=== PATIENT | female | born 1995 | race Caucasian/White ===

== ENCOUNTER 2018-05-26 09:14 | Emergency (ER) | payer OTHER, SELFPAY ==
[2018-05-26 09:15] VITALS: BP 148/86; PULSE 103; RESP 18; TEMP 36.7; O2SAT 100; BMI 23.6
--- NOTE | 2018-05-26 09:38 | ED.DCSUM_ITS ---
- ER Visit Summary Date of Service: 05/26/18 Chief Complaint: Area and now bloody stool History of Present Illness: The patient is a 23 F no significant past medical history. Has had prior upper endoscopy but no colonoscopy. States that she has had diarrhea for several days. And now has small amount of blood mixed with her stool. She denies being lightheaded or dizzy. No vomiting. She was seen in the area urgent care recently diagnosed with viral gastroenteritis. She denies any prior GI bleed. She is on no blood thinners. Physical Examination: Well-appearing young female. Vital signs are stable. She is afebrile. She does not look septic or toxic. She is in no distress she does not look dehydrated. HEENT exam unremarkable. Moist mucous membranes. Neck nontender. No lymphadenopathy. Lungs clear to auscultation bilaterally. Heart regular rhythm no murmur. Abdomen is soft and nontender. Normal bowel sounds no peritoneal signs. She is moving all 4 extremities. Neurovascular intact. Skin unremarkable. No petechiae or bruising. Neurologically she is awake and alert. Back is nontender. Test Results: CBC shows white count of 7. Hemoglobin 12.6. No acute abnormality. No old one available for comparison. Emergency Department Course and Treatment: Patient had some diarrhea now with very minimal sounding rectal bleeding. Treatment Plan: Repeat exam the patient is doing well at 1040. She will be discharged home. Follow-up with her primary care physician if bleeding does not resolve. Disposition: Discharge Impression: Viral syndrome with diarrhea Rectal bleeding of uncertain etiology This note was generated with [employer] dictation software. It may contain incorrect words, spelling, and punctuation that were not noted in review of the chart prior to signing ED Disposition - Plan for ED Patient: Chief Complaint: Diarrhea Referrals: Jordan Flower MD [Primary Care Provider] -
[2018-05-26 10:06] LABS: Absolute Lymphocyte Count 1.24 X10^3/ul (0.83-4.51); Basophil# 0.04 X10^3/uL; Basophil% 0.6 % (0-1); Eosinophil# 0.08 X10^3/uL; Eosinophils% 1.1 % (0-5); Hemoglobin 12.6 g/dl (12.0-15.0); Lymphocyte # 1.24 X10^3/ul (4.0); Lymphocyte % 17.4 % (19-41); Mean Corp Hgb Conc 33.2 g/gl (32-36); Mean Corpuscular Volume 87.4 fL (81-99); Mean Platelet Vol. 8.7 fl (6.2-12.0); Monocyte# 0.71 X10^3/uL; Neutrophil # 5.04 X10^3/uL (2.7-7.7); Neutrophil % 70.8 % (47-70); Platelet Count 298 K/mm3 (150-450); RBC Distribution Width CV 12.2 % (11.6-14.6); RBC Distribution Width SD 39.4 fl (35.1-43.9); Red Blood Count 4.35 M/mm3 (4.2-5.4); White Blood Count 7.1 K/mm3 (4.4-11.0)
[2018-05-26 10:08] LABS: POSITIVE COUNT NO; POSITIVE DIFFERENTIAL NO; POSITIVE MORPHOLOGY NO
--- NOTE | 2018-05-26 10:41 | ED.DEP ---
ED Disposition - Plan for ED Patient: Disposition: Home or Assisted Living Chief Complaint: Diarrhea Instructions: ED Diarrhea Viral Referrals: Jordan Flower MD [Primary Care Provider] - 10-14 Days if not better Additional Instructions: Plenty of fluids and rest. Imodium as needed to resolve the diarrhea. Follow-up with your doctor if the bleeding does not resolve with the diarrhea. If the bleeding continues you may need a scope done.
[2018-05-26 10:51] VITALS: BP 107/53; PULSE 87; RESP 14; O2SAT 100
== END 2018-05-26 10:51 | disposition home or self-care (01) ==
PROVIDERS: Emergency Provider Emergency Medicine; Family Provider Family Medicine; PCP Family Medicine
DX: B34.9 Viral infection, unspecified (principal); R19.7 Diarrhea, unspecified; K62.5 Hemorrhage of anus and rectum; R50.9 Fever, unspecified
CPT/HCPCS: 85025; 99283; A4216

== ENCOUNTER → 2018-12-01 | Outpatient (CLI) | payer OTHER, SELFPAY ==
[2018-12-01 12:30] LABS: Hematocrit 36.9 % (37-47); Hemoglobin 12.4 g/dl (12.0-15.0); Mean Corp Hgb Conc 33.6 g/gl (32-36); Mean Corpuscular Hgb 29.5 pg (27.0-32.0); Mean Corpuscular Volume 87.6 fL (81-99); Mean Platelet Vol. 8.9 fl (6.2-12.0); Platelet Count 426 K/mm3 (150-450); RBC Distribution Width CV 13.1 % (11.6-14.6); RBC Distribution Width SD 41.9 fl (35.1-43.9); Red Blood Count 4.21 M/mm3 (4.2-5.4); White Blood Count 7.2 K/mm3 (4.4-11.0)
[2018-12-01 12:35] LABS: Scan Indicated on CBC? Y/N NO
[2018-12-01 12:55] LABS: AST(SGOT) 14 U/L (15-37); Alanine Aminotransfer ALT/SGPT 28 U/L (13-56); Albumin, Serum 3.7 g/dL (3.2-5.0); Alkaline Phosphatase 59 U/L (45-117); Anion Gap 3 (5-15); BUN 13 mg/dL (7-18); BUN/Creat Ratio 20.8 RATIO (10-20); Calcium,Total 8.9 mg/dL (8.5-10.1); Chloride 108 mmol/L (98-107); Creatinine, Serum 0.62 mg/dL (0.55-1.02); EST Glomerular Filtration Rate 124 mL/min (>60); Est Glom Filt Rate - Afr Amer 150 mL/min (>60); Globulin 3.7 g/dL (2.2-4.2); Glucose 87 mg/dL (74-106); Protein, Total 7.4 g/dL (6.4-8.2); Sodium Level 138 mmol/L (136-145)
[2018-12-04 16:07] LABS: Endomysial Antibody IgA Negative (Negative)
[2018-12-05 15:44] LABS: Deamidated Gliadin IgA 7 units (0-19); Deamidated Gliadin IgG 2 units (0-19); Immunoglobulin A 405 mg/dL (87-352); t-Transglutaminase IgA <2 U/mL (0-3)
== END | disposition home or self-care (01) ==
LOC: LAB 11:31
PROVIDERS: Family Provider Family Medicine; PCP Family Medicine; Visit Provider Family Medicine
DX: Z00.00 Encounter for general adult medical examination without abnormal findings (principal); K92.1 Melena; R19.7 Diarrhea, unspecified
CPT/HCPCS: 36415; 80053; 82784; 83516; 85027; 86255

== ENCOUNTER → 2018-12-06 | Outpatient (CLI) | payer OTHER, SELFPAY ==
[2018-12-06 09:07] LABS: Cholesterol 124 mg/dL (200); High Density Lipoprotein 49 mg/dL; Triglycerides 56 mg/dL; Very Low Density Lipoprotein 11 mg/dL (5-40)
== END | disposition home or self-care (01) ==
LOC: LAB 08:15
PROVIDERS: Family Provider Family Medicine; PCP Family Medicine; Referring Provider Family Medicine; Visit Provider Family Medicine
DX: Z00.00 Encounter for general adult medical examination without abnormal findings (principal)
CPT/HCPCS: 36415; 80061

== ENCOUNTER → 2019-01-17 | Outpatient (CLI) | payer OTHER, SELFPAY ==
--- NOTE | 2019-01-17 09:04 | US_ITS ---
STUDY: ABDOMINAL ULTRASOUND - RIGHT UPPER QUADRANT REASON FOR VISIT: Female, 23 years old. Dyspepsia TECHNIQUE: Ultrasound evaluation of the right upper quadrant was performed with real-time and static parker-scale imaging. TECHNICAL QUALITY: Adequate. COMPARISON: None. FINDINGS: Liver: The liver measures 14.5 cm. There is normal echogenicity of the liver. The bile ducts are within normal limits. There is hepatic color flow. The direction of portal flow is hepatopetal. There is no demonstrated mass lesion. Gallbladder: Normal distended gallbladder. The gallbladder wall measures 3 mm. There is a negative sonographic Matt's sign. There is no pericholecystic fluid. There are no gallstones. Common Bile Duct (C.B.D.): The common bile duct measures 3 mm. Pancreas: Normal size of the head, body and tail of the pancreas. There is normal echogenicity of the pancreas. There is no demonstrated pancreatic mass or cyst. Right Kidney: Normal size of the right kidney. The right kidney measures 12.0 x 4.1 x 4.6 cm. Normal renal cortex. The right cortex measures 1.5 cm. There is no demonstrated renal mass or cyst. There is no right hydronephrosis. US/Gallbladder IMPRESSION: Normal right upper quadrant ultrasound examination. Electronically Signed: Salvador Pagan MD at 11:01 EDT , Service support ,
== END | disposition home or self-care (01) ==
LOC: US 09:02
PROVIDERS: Family Provider Family Medicine; PCP Family Medicine; Referring Provider Nurse Practitioner Adult Health; Visit Provider Nurse Practitioner Adult Health
DX: K59.9 Functional intestinal disorder, unspecified (principal); K30 Functional dyspepsia; R19.4 Change in bowel habit
CPT/HCPCS: 76705

== ENCOUNTER → 2019-01-25 | Outpatient (CLI) | payer OTHER, SELFPAY ==
--- NOTE | 2019-01-25 11:51 | NM_ITS ---
CLINICAL: 23-year-old female with reported history of abdominal pain and nausea. RADIONUCLIDE HEPATOBILIARY SCINTIGRAPHY COMPARISON: Abdominal ultrasound report 01/17/2019 FINDINGS: Following the intravenous administration of 5.2 mCi of 99m Tc Mebrofenin, hepatobiliary images reveal: 1. Relatively prompt and homogeneous radiopharmaceutical concentration is noted by a normal sized liver. No parenchymal defects are identified. 2. Gallbladder activity is identified at 15 minutes post radiopharmaceutical administration. 3. Small intestinal tract is not visualized during 60 minutes of pre-CCK sequential imaging. Small bowel activity is identified following the administration of cholecystokinin. 4. Washout of the radiopharmaceutical by the hepatic parenchyma appears qualitatively normal. Cholecystokinin (0.02 ug/kg) was administered intravenously over a 30-minute period. The post CCK gallbladder ejection fraction calculated at 19 minutes following Cholecystokinin administration was noted to be 56.0 % (normal greater than 35%). There is scintigraphic evidence of post CCK duodenal gastric reflux. NM/Hepatobilliary Img w/Pharm Int IMPRESSION: 1. A gallbladder ejection fraction calculated to be greater than 35% following the administration of Cholecystokinin makes the probability of functional hepatobiliary disease (gallbladder and/or sphincter of Oddi dyskinesia) and/or organic hepatobiliary disease (chronic acalculous cholecystitis and/or cystic duct syndrome) to be low. (Carmina Bravo et al, Journal of Nuclear Medicine 32:1695, 1990). 2. There is scintigraphic evidence of post CCK duodenal-gastric reflux. (Micah et al, Nucl Med Nara Heidi Press pg. 35, 1980). Electronically Signed: Trell Mcneill DO at 11:59 EDT Tel , Service support ,
== END | disposition home or self-care (01) ==
LOC: NM 11:47
PROVIDERS: Family Provider Family Medicine; PCP Family Medicine; Referring Provider Nurse Practitioner Adult Health
DX: R11.0 Nausea (principal); R10.11 Right upper quadrant pain
CPT/HCPCS: 78227; A9537; J2805

== ENCOUNTER → 2019-04-13 14:31 | Outpatient (CLI) | payer OTHER, SELFPAY ==
[2019-04-13 09:25] VITALS: BMI 23.6
[2019-04-13 14:58] LABS: Mucous, Urine 0 SEEN /hpf (<or=2+); Red Blood Cells-Urine 0 SEEN /hpf (0-5)
[2019-04-13 15:18] LABS: Color, Urine Yellow (Yellow); Glucose, Dipstick Normal (Normal); Ketone-Dipstick Negative (Negative); Leukocyte Esterase-Dipstick Negative /ul (Negative); Nitrite-Dipstick Negative (Negative); Occult Blood-Urine Negative /ul (Negative); Protein-Dipstick Negative (Negative); Urine Bilirubin Dipstick Negative (Negative); Urine Clarity Clear (Clear); Urine Urobilinogen Normal (Normal)
[2019-04-13 15:20] LABS: Bacteria 1+ /hpf (None Seen); Squamous Epithelial Cells - UA 0-5 SEEN /hpf (5-10); White Blood Cells 0-5 SEEN /hpf (0-5)
== END ==
PROVIDERS: Family Provider Family Medicine; PCP Family Medicine; Referring Provider Physician Assistant Surgical; Visit Provider Physician Assistant Surgical
DX: R35.0 Frequency of micturition (principal); R10.9 Unspecified abdominal pain
CPT/HCPCS: 81001; 87086; 87088

== ENCOUNTER → 2019-12-25 14:02 | Outpatient (CLI) | payer OTHER, SELFPAY ==
[2019-08-28 11:36] VITALS: BMI 23.6
--- NOTE | 2019-12-25 14:07 | RAD_ITS ---
STUDY: X-RAY STERNUM REASON FOR EXAM: Female, 24 years old. Bony prominence on right side TECHNIQUE: 3 view(s) of the sternum were obtained. COMPARISON: None. FINDINGS: There is no sternal fracture identified. There is no displaced rib fracture identified. The visualized lung apices are clear. The visualized soft tissues are unremarkable. RAD/Sternum min 2 Views IMPRESSION: No sternal fracture identified. Electronically Signed: Sae Velasquez, at 18:51 EDT Tel , Service support ,
== END ==
PROVIDERS: PCP Family Medicine; Referring Provider Nurse Practitioner Family; Visit Provider Nurse Practitioner Family
DX: M89.8X9 Other specified disorders of bone, unspecified site (principal)
CPT/HCPCS: 71120

== ENCOUNTER → 2020-06-04 | Outpatient (CLI) | payer OTHER, SELFPAY ==
[2020-06-04 09:23] VITALS: BMI 23.3
[2020-06-04 13:44] LABS: Amphetamine Urine VISTA NEGATIVE (<1000 ng/mL); Barbiturate Urine VISTA NEGATIVE (< 200 ng/mL); Benzodiazepine Urine VISTA NEGATIVE (< 200 ng/mL); Cocaine Urine VISTA NEGATIVE (< 300 ng/mL); Ecstacy Urine VISTA NEGATIVE (< 500 ng/mL); Methadone Urine VISTA NEGATIVE (< 300 ng/mL); PCP Urine VISTA NEGATIVE (< 25 ng/mL); THC Urine VISTA NEGATIVE (< 50 ng/mL); Vista UDS pH Range 6
[2020-06-06 03:06] LABS: Chlamydia By Nucleic Acid AMP Negative (Negative)
[2020-06-06 08:54] LABS: Gonococcus By Nucleic Acid AMP Negative (Negative)
[2020-06-09 20:44] LABS: HPV Reflexed? NOT INDICATED
== END | disposition home or self-care (01) ==
LOC: LABSPEC 12:17
PROVIDERS: PCP Family Medicine; Referring Provider Obstetrics & Gynecology; Visit Provider Obstetrics & Gynecology
DX: Z34.90 Encounter for supervision of normal pregnancy, unspecified, unspecified trimester (principal)
CPT/HCPCS: 80307; 87086; 87088; 87491; 87591; 88175; G0145

== ENCOUNTER → 2020-06-18 10:05 | Outpatient (CLI) | payer OTHER, SELFPAY ==
[2020-06-04 09:23] VITALS: BMI 23.3
[2020-06-18 11:00] LABS: Absolute Lymphocyte Count 1.66 X10^3/uL (0.83-4.51); Absolute Neutrophil Count 5.2 X10^3/uL (2.0-7.7); Basophil# 0.04 X10^3/uL; Basophil% 0.6 % (0-1); Eosinophil# 0.04 X10^3/uL; Eosinophils% 0.6 % (0-5); Hematocrit 36.2 % (37-47); Hemoglobin 11.8 g/dL (12.0-15.0); Lymphocyte # 1.66 X10^3/ul (4.0); Lymphocyte % 22.9 % (19-41); Mean Corp Hgb Conc 32.6 g/dL (32-36); Mean Corpuscular Hgb 29.1 pg (27.0-32.0); Mean Corpuscular Volume 89.4 fL (81-99); Mean Platelet Vol. 8.7 fl (6.2-12.0); Monocyte# 0.35 X10^3/uL; Monocyte% 4.8 % (0-10); NRBC Flagged by Analyzer 0 % (0-5); Neutrophil # 5.15 X10^3/uL (2.7-7.7); Neutrophil % 70.8 % (47-70); Platelet Count 404 K/mm3 (150-450); RBC Distribution Width CV 12.1 % (11.6-14.6); RBC Distribution Width SD 39.4 fl (35.1-43.9); Red Blood Count 4.05 M/mm3 (4.2-5.4); White Blood Count 7.3 K/mm3 (4.4-11.0)
[2020-06-18 11:10] LABS: NATERA MAILED SPECIMEN
[2020-06-18 11:41] LABS: HIV - WCH Non-Reactive (Nonreactive); Hepatitis B Surface Antigen Non-Reactive (Nonreactive); Hepatitis C Antibody Non-Reactive (Nonreactive); Rubella IgG Equiv (Nonreactive)
[2020-06-19 03:40] LABS: Rapid Plasmin Reagin (RPR) NONREACTIVE (NONREACTIVE)
== END ==
PROVIDERS: PCP Family Medicine; Referring Provider Obstetrics & Gynecology; Visit Provider Obstetrics & Gynecology
DX: O23.40 Unspecified infection of urinary tract in pregnancy, unspecified trimester (principal); Z3A.00 Weeks of gestation of pregnancy not specified
CPT/HCPCS: 36415; 85025; 86592; 86703; 86762; 86803; 86850; 86900; 86901; 87086; 87340

== ENCOUNTER → 2020-08-20 12:13 | Outpatient (CLI) | payer OTHER, SELFPAY ==
[2020-06-30 13:20] VITALS: BMI 23.8
[2020-07-30 09:46] VITALS: BMI 24.2
--- NOTE | 2020-08-20 12:16 | US_ITS ---
STUDY: SECOND AND THIRD TRIMESTER OBSTETRICAL ULTRASOUND REASON FOR EXAM: Female, 25 years old anatomy LMP: 04/01/2020. TECHNIQUE: Transabdominal TECHNICAL QUALITY: Adequate. PRIOR ULTRASOUND: None. FINDINGS: There is a single intrauterine fetus. The fetus is in a variable presentation. There is demonstrated cardiac activity with a heart rate of 158 bpm. There is a normal amniotic fluid volume. The largest amniotic fluid pocket measures 4.7 cm. The amniotic fluid index (JANESSA) is within normal limits. The placenta is anterior in location and is not low lying. There are Grade 0 placental changes. The cervix measures 3.5 cm in length. The bilateral adnexal regions are normal. BIOMETRY: BPD: 5.42 cm: 22 weeks, 3 days HC: 19.5 cm: 21 weeks, 4 days AC: 16.2 cm: 21 weeks, 1 days FL: 3.29 cm: 20 weeks, 1 days CI: 81% FL/BPD: 61% FL/HC: FL/AC: 20% HC/AC: 1.2 age by current US: 21 weeks, 1 days. ARAVIND by current US: 12/30/2020. Estimated weight: 397 grams, +/- 60 grams, 89 %. Age by LMP: 20 weeks, 1 days. ARAVIND by LMP: 01/06/2021. ANATOMY: Gender: Female Cranium: Normal lateral ventricles. Normal choroid plexus. Normal cerebellum. Normal cisterna magna. Normal face, nose and lips. Chest: Normal 4-chamber heart. Abdomen/Pelvis: Normal diaphragm. Normal stomach. Normal abdominal wall. Normal cord insertion. Normal 3 vessel cord. Normal kidneys. Normal bladder. Spine: Normal cervical spine. Normal thoracic spine. Normal lumbar spine. Normal sacrum. Extremities: Normal bilateral upper extremities. Normal bilateral lower extremities. US/OB Anatomy Scan IMPRESSION: Single live intrauterine gestation with a mean gestational age of 21 weeks and 1 day. Electronically Signed: Cortes Ayon MD at 15:34 EST , Service support ,
== END ==
PROVIDERS: PCP Family Medicine; Referring Provider Obstetrics & Gynecology; Visit Provider Obstetrics & Gynecology
DX: Z34.90 Encounter for supervision of normal pregnancy, unspecified, unspecified trimester (principal)
CPT/HCPCS: 76805

== ENCOUNTER 2020-10-04 17:00 | Outpatient (CLI) | payer OTHER, SELFPAY ==
[2020-10-04 17:02] VITALS: BMI 25.5
[2020-10-04 17:08] VITALS: BMI 27.3
[2020-10-04 17:10] VITALS: BP 126/74; PULSE 100; O2SAT 100
--- NOTE | 2020-10-04 17:43 | NURSING ---
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 pt denies pain, right hip has purple discoloration and bruising. update and orders received from . funmi states pt may have a regular diet and she is to stay on the monitor for four hours and then may be discharged to home.
[2020-10-04 19:16] VITALS: TEMP 37.2
[2020-10-04 19:17] VITALS: BP 110/61; PULSE 101; PULSE 104; O2SAT 97
--- NOTE | 2020-10-08 09:38 | OB.TRI.PN ---
Progress Notes Date of Service: 10/04/20 Progress Note: Patient presents for triage evaluation secondary to fall at home. 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 Did not strike her abdomen. Monitored for 4 hours and maternal and status were reassuring. FHT: Moderate variability reactive no decelerations category I tracing Harvest: No Contractions Assessment and plan: Reactive NST, reassuring maternal and status patient discharged to home to follow-up at next scheduled visit. See problem list details for additional plan information. Multi Select Codes - Urinary/Genital Urinary/Genital CPT Codes: 09591-90 non-stress test Interp
== END 2020-10-04 21:15 | disposition home or self-care (01) ==
LOC: WPOUT 17:06 → WP 17:07
PROVIDERS: PCP Family Medicine; Visit Provider Obstetrics & Gynecology
DX: O26.899 Other specified pregnancy related conditions, unspecified trimester (principal); Z3A.00 Weeks of gestation of pregnancy not specified; W13.3XXA Fall through floor, initial encounter; Y93.89 Activity, other specified; Y92.71 Barn as the place of occurrence of the external cause; Y99.8 Other external cause status
CPT/HCPCS: 59025; 59050; 99218; G0378

== ENCOUNTER → 2020-10-09 | Outpatient (CLI) | payer OTHER, SELFPAY ==
[2020-10-04 17:08] VITALS: BMI 27.3
[2020-10-09 17:09] LABS: Absolute Lymphocyte Count 1.91 X10^3/uL (0.83-4.51); Absolute Neutrophil Count 6.7 X10^3/uL (2.0-7.7); Basophil# 0.07 X10^3/uL; Basophil% 0.7 % (0-1); Eosinophil# 0.21 X10^3/uL; Eosinophils% 2.2 % (0-5); Hemoglobin 10.7 g/dL (12.0-15.0); Lymphocyte # 1.91 X10^3/ul (0.83-4.51); Lymphocyte % 19.7 % (19-41); Mean Corp Hgb Conc 31.5 g/dL (32-36); Mean Corpuscular Hgb 28.8 pg (27.0-32.0); Mean Corpuscular Volume 91.6 fL (81-99); Mean Platelet Vol. 8.6 fl (6.2-12.0); Monocyte# 0.74 X10^3/uL; Monocyte% 7.6 % (0-10); NRBC Flagged by Analyzer 0 % (0-5); Neutrophil # 6.72 X10^3/uL (2.7-7.7); Neutrophil % 69.1 % (47-70); Platelet Count 336 K/mm3 (150-450); RBC Distribution Width CV 12.5 % (11.6-14.6); RBC Distribution Width SD 41.3 fl (35.1-43.9); Red Blood Count 3.71 M/mm3 (4.2-5.4); White Blood Count 9.7 K/mm3 (4.4-11.0)
[2020-10-09 18:12] LABS: Glucose Challenge Gest 1H 50g 103 mg/dL (70-140)
== END | disposition home or self-care (01) ==
LOC: LABSPEC 16:29
PROVIDERS: PCP Family Medicine; Visit Provider Obstetrics & Gynecology
DX: Z34.90 Encounter for supervision of normal pregnancy, unspecified, unspecified trimester (principal)
CPT/HCPCS: 36415; 82950; 85025

== ENCOUNTER → 2020-12-12 | Outpatient (CLI) | payer OTHER, SELFPAY ==
[2020-12-12 10:18] VITALS: BMI 27.7
== END | disposition home or self-care (01) ==
LOC: LABSPEC 16:52
PROVIDERS: PCP Family Medicine; Visit Provider Obstetrics & Gynecology
DX: Z34.93 Encounter for supervision of normal pregnancy, unspecified, third trimester (principal); Z3A.36 36 weeks gestation of pregnancy
CPT/HCPCS: 87081

== ENCOUNTER 2021-01-04 15:10 | Inpatient (IN) | payer OTHER, SELFPAY ==
[2021-01-02 10:23] VITALS: BMI 27.7
[2021-01-04] VITALS (48 sets, daily range): BP systolic 110–146; BP diastolic 65–90; PULSE 93–118; TEMP 36.9–37.9; O2SAT 81–100; BMI 29.0
[2021-01-04] MEDS: Lactated Ringers 1,000 ML 50 ML IV (15:45)
[2021-01-04] MEDS: Lactated Ringers 500 ML 999 ML IV (15:57)
[2021-01-04 16:00] LABS: Absolute Lymphocyte Count 1.52 X10^3/uL (0.83-4.51); Absolute Neutrophil Count 14.3 X10^3/uL (2.0-7.7); Basophil# 0.06 X10^3/uL; Basophil% 0.3 % (0-1); Eosinophil# 0.05 X10^3/uL; Eosinophils% 0.3 % (0-5); Hematocrit 37.7 % (37-47); Hemoglobin 12.7 g/dL (12.0-15.0); Lymphocyte # 1.52 X10^3/ul (0.83-4.51); Lymphocyte % 8.9 % (19-41); Mean Corp Hgb Conc 33.7 g/dL (32-36); Mean Corpuscular Hgb 29.4 pg (27.0-32.0); Mean Corpuscular Volume 87.3 fL (81-99); Monocyte# 1.09 X10^3/uL; Monocyte% 6.4 % (0-10); NRBC Flagged by Analyzer 0 % (0-5); Neutrophil # 14.34 X10^3/uL (2.7-7.7); Neutrophil % 83.6 % (47-70); Platelet Count 366 K/mm3 (150-450); RBC Distribution Width CV 12.8 % (11.6-14.6); RBC Distribution Width SD 40.8 fl (35.1-43.9); Red Blood Count 4.32 M/mm3 (4.2-5.4); White Blood Count 17.2 K/mm3 (4.4-11.0)
[2021-01-04] MEDS: fentaNYL-bupivacaine (epidural) 100 ML BAG EPIDURAL (16:55)
[2021-01-04] MEDS: Oxytocin 30 units/NS 500 ml 30 UNITS/500 ML IV.SOLN 334 UNITS IV (19:54)
[2021-01-04] MEDS: Methylergonovine 0.2 MG/ML Ampul IM (19:58)
[2021-01-04] MEDS: miSOPROStol 200 MCG Tablet 1000 MCG RC (20:10)
[2021-01-04] MEDS: 0.9% Saline Lock 10 ML Syringe IV ×3 (20:10→22:52)
[2021-01-04] MEDS: Carboprost Tromethamine 250 MCG/ML Ampul IM (20:10)
[2021-01-04] MEDS: Ondansetron 4 MG/2 ML Vial IV (20:19)
[2021-01-04] MEDS: Ringers, Lactated 1,000 ML IV.SOLN. 1000 ML IV (20:20)
--- NOTE | 2021-01-04 20:32 | HP.PCM.OB_ITS ---
HPI - General General Date of Admission: 01/04/21 HPI Narrative YAKOV FIORE, is a 25 F who presents in active labor 5 cm dilated with regular contractions. Maternal Data Information ARAVIND Calculator Estimated Delivery Date Method Current WG Current Estimate 01/06/21 LMP (Certain) 39w 5d Other Estimates 01/01/21 Ultrasound #1 40w 3d PFSH PFS Medical History Bilateral headaches Bruises easily Chronic back pain Diarrhea Environmental allergies History of tetanus, diphtheria, and acellular pertussis booster vaccination (Tdap) Psoriasis Home Medications multivitamin no.47-iron fum 27 mg-folate no.1 1 mg-dha 300 mg capsule cap PO DAILY 05/29/20 [History Last Taken 01/03/21] cholecalciferol (vitamin D3) 50 mcg (2,000 unit) capsule 50 mcg PO DAILY 10/16/20 [History Last Taken 01/03/21] iron 18 mg tablet 18 mg PO DAILY 10/16/20 [History Last Taken Unknown] omega-3 fatty acids 1,000 mg capsule 1,000 mg PO DAILY 10/16/20 [History Last Taken 01/03/21] Allergy/AdvReac Type Severity Reaction Status Date / Time codeine AdvReac Nausea/Vom/ Verified 11/14/20 10:20 Diarrhea Family History Other Breast cancer CVA (cerebral vascular accident) Cancer Heart disease Hypertension Myocardial infarction Thyroid disorder Uterine cancer Surgical History History of cosmetic plastic surgery History of lump of right breast Social History adopted: No household members: spouse housing: house current occupational status: employed 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- Smoking Status: Never smoker second hand exposure: No alcohol intake: current alcohol intake frequency: holidays/special occasions only details: not while substance use type: does not use what type of physical activity do you participate in: yoga and aerobics frequency: 5-6 times per week seatbelt use: always do you feel safe at home: Yes additional social history: - Chris History 1 Elective abortions Hx Para 0 Spontaneous abortions Hx # Term Pregnancies Ectopic pregnancies Hx # Pregnancies Multiple births # of living children Visit Details Expected Delivery Route/Plan Labor Preferences- CB/BF classes: is the instructor labor support person: Chris labor intervention preferences: open. pain management options preferred: epidural cut cord/dad catch: yes : yes PP control planned: discussed discussed possible routes of delivery and associated risks: [] special requests: [] Plans flu vaccine: given tdap vaccine: yes rhogam: na LARC form signed: yes movement and labor precautions reviewed. Problem list reviewed and updated with the most current plan of care details and appropriate orders placed. Relevant counseling for the gestational age provided. Continue routine care and follow up unless otherwise noted in visit notes/problem list details OB Flowsheet Initial Weight: 155 lb Date -?-?-?-?-?-?-?-?-?-?-?-?- EGA Weight BP Urine Prot -?-?-?-?-?-?-?-?-?-?-?-?- Glucose FHR FuHt Pres Dilation -?-?-?-?-?-?-?-?-?-?-?-?- Effaced St Visit Note 06/04/20 -?-?-?-?-?-?-?-?-?-?-?-?- 9w 1d 158 lb (+3 lb) 120/72 -?-?-?-?-?-?-?-?-?-?-?-?- 170 -?-?-?-?-?-?-?-?-?-?-?-?- GP - CRL 26mm co nsistent with LMP. 06/30/20 -?-?-?-?-?-?-?-?-?-?-?-?- 12w 6d 161 lb 8 oz (+6 lb 8 oz) 128/70 Negative -?-?-?-?-?-?-?-?-?-?-?-?- Negative 145 -?-?-?-?-?-?-?-?-?-?-?-?- SM- no vb crampi ng doing well 07/30/20 -?-?-?-?-?-?-?-?-?-?-?-?- 17w 1d 164 lb (+9 lb) 118/68 Negative -?-?-?-?-?-?-?-?-?-?-?-?- Negative 150 -?-?-?-?-?-?-?-?--?-?-?-?- GP - no cramping or bleeding. Anatomy scan scheduled. 08/27/20 -?-?-?-?-?-?-?-?-?-?-?-?- 21w 1d 173 lb 4 oz (+18 lb 4 oz) 110/66 Negative -?-?-?-?-?-?-?-?-?-?-?-?- Negative 155 -?-?-?-?-?-?-?-?-?-?-?-?- GP - no ctx, LOF , VB, DFM. Anatomy nl. 09/26/20 -?-?-?--?-?-?-?-?-?-?-?-?- 25w 3d 180 lb (+25 lb) 110/66 Negative -?-?-?-?-?-?-?-?-?-?-?-?- Negative 145 -?-?-?-?-?-?-?-?-?-?-?-?- SM- no vb lof go od fm no regular ctx. 10/16/20 -?-?-?-?-?-?-?-?-?-?-?-?- 28w 2d 185 lb 6 oz (+30 lb 6 oz) 98/56 Negative -?-?-?-?--?-?-?-?-?-?-?-?- Negative 154 28 -?-?-?-?-?-?-?-?-?-?-?-?- MH-NO Vb, LOF. G ood FM. Tdap, larc. Reviewed nl glucose. Taking Fe 10/31/20 -?-?-?-?-?-?-?--?-?-?-?-?- 30w 3d 185 lb 6 oz (+30 lb 6 oz) 110/72 Negative -?-?-?-?-?-?-?-?-?-?-?-?- Negative 150 30 -?-?-?-?-?-?-?-?-?-?-?-?- GP - no LOF, VB, DFM, ctx. Denies complaints. 11/14/20 -?-?-?-?-?-?-?-?-?-?-?-?- 32w 3d 190 lb (+35 lb) 120/82 Negative -?-?-?-?-?-?-?-?-?-?-?-?- Negative 155 32 -?-?-?-?-?-?-?-?-?-?-?-?- GP - no LOF, VB, DFM, ctx. Denies complaints. 11/25/20 -?-?-?-?-?-?-?-?-?-?-?-?- 34w 0d 188 lb (+33 lb) 100/62 Negative -?-?-?-?-?-?-?-?-?-?-?-?- Negative 150 34 -?-?-?-?-?-?-?-?-?-?-?-?- SM- no vb lof go od fm no reuglar ctx 12/12/20 -?-?-?-?-?-?-?-?-?-?-?-?- 36w 3d 195 lb (+40 lb) 102/78 Negative -?-?-?-?-?-?-?-?-?-?-?-?- Negative 145 36 Cephalic 1 -?-?-?-?-?-?-?-?-?-?-?-?- 50 -2 SM- no vb lof good fm no regualr ctx gbs done 12/19/20 -?-?-?-?-?-?-?-?-?-?-?-?- 37w 3d 198 lb (+43 lb) 120/78 Negative -?-?-?-?-?-?-?-?-?-?-?-?- Negative 140 37 Cephalic 2 -?-?-?-?-?-?-?-?-?-?-?-?- 60 -2 GP - no LO F, VB, DFM, ctx. 12/25/20 -?-?-?-?-?-?-?-?-?-?-?-?- 38w 2d 197 lb (+42 lb) 116/80 Negative -?-?-?-?-?-?-?-?-?-?-?-?- Negative 140 38 Cephalic 2 -?-?-?-?-?-?-?-?-?-?-?-?- 60 -2 SM- no vb lof good fm no regular ctx 01/02/21 -?-?-?-?-?-?-?-?-?-?-?-?- 39w 3d 200 lb (+45 lb) 108/82 Negative -?-?-?-?-?-?-?-?-?-?-?-?- Negative 140 39 Cephalic 3 -?-?-?-?-?-?-?-?-?-?-?-?- 60 -2 GP - no LO F, VB, DFM, ctx. Membranes swept today. 01/04/21 -?-?-?-?-?-?-?-?-?-?-?-?- 39w 5d 197 lb 1.492 oz (+42 lb 1.492 oz) 131/79 131/79 134/90 130/79 126/80 130/78 128/77 113/75 117/81 135/74 145/81 132/74 129/74 133/74 129/78 126/73 128/79 117/75 146/84 118/72 120/72 -?-?-?-?-?-?-?-?-?-?-?-?- -?-?-?-?-?-?-?-?-?-?-?-?- NST FHR Rate Baby A Baseline: 140 Variability:: Moderate Accelerations:: 15 x 15 Decelerations:: None NST Reactive:: Yes FHR Category:: Category I Uterine Activity:: q2-3 ROS Constitutional Constitutional: Reports systems reviewed and no addt'l complaints, except as documented ENT HEENT: Reports systems reviewed and no addt'l complaints, except as documented Cardiovascular Cardiovascular: Reports systems reviewed and no addt'l complaints, except as documented Respiratory/Chest Respiratory/Chest: Reports systems reviewed and no addt'l complaints, except as documented Gastrointestinal Gastrointestinal: Reports systems reviewed and no addt'l complaints, except as documented and nausea; Denies abdominal pain Genitourinary Genitourinary: Reports systems reviewed and no addt'l complaints, except as documented, contractions Details: present and frequency (regular ) and movement Details: present Musculoskeletal Musculoskeletal: Reports systems reviewed and no addt'l complaints, except as documented Integumentary Integumentary: Reports as per HPI Neurologic Neurologic: Reports systems reviewed and no addt'l complaints, except as documented Endocrine Endocrinology: Reports systems reviewed and no addt'l complaints, except as documented Vital Signs Vital Signs Vital Signs: 01/04/21 12:58 01/04/21 12:59 01/04/21 15:55 Temperature 99.6 F H 99.0 F Temperature Source Temporal Temporal Pulse Rate 113 H 113 H 98 Blood Pressure 131/79 H 131/79 H 134/90 H BP Systolic 131 131 134 BP Diastolic 79 79 90 Pulse Ox 98 98 01/04/21 16:24 01/04/21 16:29 01/04/21 16:33 Temperature Temperature Source Pulse Rate 104 H 99 Blood Pressure 130/79 H 126/80 H BP Systolic 130 126 BP Diastolic 79 80 Pulse Ox 100 100 01/04/21 16:34 01/04/21 16:39 01/04/21 16:43 Temperature Temperature Source Pulse Rate 114 H 101 H Blood Pressure 130/78 H 128/77 H BP Systolic 130 128 BP Diastolic 78 77 Pulse Ox 100 100 01/04/21 16:44 01/04/21 16:49 01/04/21 16:50 Temperature Temperature Source Pulse Rate 106 H 107 H 103 H Blood Pressure 113/75 BP Systolic 113 BP Diastolic 75 Pulse Ox 100 100 01/04/21 16:53 01/04/21 16:54 01/04/21 16:58 Temperature Temperature Source Pulse Rate 108 H Blood Pressure 117/81 H 135/74 H BP Systolic 117 135 BP Diastolic 81 74 Pulse Ox 100 01/04/21 16:59 01/04/21 17:04 01/04/21 17:09 Temperature 98.7 F Temperature Source Temporal Pulse Rate 98 103 H 98 Blood Pressure 145/81 H BP Systolic 145 BP Diastolic 81 Pulse Ox 100 100 100 01/04/21 17:10 01/04/21 17:14 01/04/21 17:15 Temperature Temperature Source Pulse Rate 93 98 100 Blood Pressure 132/74 H 129/74 H BP Systolic 132 129 BP Diastolic 74 74 Pulse Ox 100 01/04/21 17:19 01/04/21 17:20 01/04/21 17:23 Temperature Temperature Source Pulse Rate 108 H 98 101 H Blood Pressure 133/74 H BP Systolic 133 BP Diastolic 74 Pulse Ox 81 100 01/04/21 17:25 01/04/21 17:28 01/04/21 17:29 Temperature Temperature Source Pulse Rate 101 H 107 H Blood Pressure 129/78 H 126/73 H BP Systolic 129 126 BP Diastolic 78 73 Pulse Ox 100 01/04/21 17:33 01/04/21 18:04 01/04/21 18:34 Temperature 99.2 F H 98.5 F Temperature Source Temporal Temporal Pulse Rate 106 H 101 H Blood Pressure 128/79 H BP Systolic 128 BP Diastolic 79 Pulse Ox 100 100 01/04/21 18:37 01/04/21 19:17 01/04/21 20:06 Temperature 99.3 F H Temperature Source Temporal Pulse Rate 98 107 H 118 H Blood Pressure 117/75 146/84 H 118/72 BP Systolic 117 146 118 BP Diastolic 75 84 72 Pulse Ox 100 01/04/21 20:21 Temperature Temperature Source Pulse Rate 103 H Blood Pressure 120/72 BP Systolic 120 BP Diastolic 72 Pulse Ox 100 Weight Weight: 197 lb 1.492 oz Body Mass Index (BMI) 29.0 Physical Exam Const alert, oriented x3 and healthy appearing Constitutional Narrative: uncomfortable with contractions HEENT normocephalic and moist oral mucous membranes Head and Scalp: atraumatic Neck full ROM, no lymphadenopathy, supple and thyroid normal General: trachea midline Thyroid: thyroid normal Lymph Lymphatic: no lymphadenopathy noted Chest inspection of chest normal Resp normal respiratory effort Cardio regular rate GI normal to inspection, nondistended, normoactive bowel sounds, soft to palpation and non-tender Inspection: gravid external exam normal Bimanual Exam - Vag & Uterus: uterus non-tender Manual OB Exam: estimated gestational size appropriate, presentation cephalic, dilated 5, effaced 90 and station -1 Extremity normal to inspection General Extremity: Negative for edema Skin no rashes or lesions noted Neuro deep tendon reflexes 2+ bilaterally Motor Exam: strength 5/5 throughout and clonus absent Psych mental status grossly normal Labs Labs Labs: Blood Type O POSITIVE Antibody Screen NEGATIVE Hct 37.7 % (37-47) Hgb 12.7 g/dL (12.0-15.0) Obstetrics US Rubella IgG Antibody Equiv (Nonreactive) Hep Bs Antigen Non-Reactive (Nonreactive) Neisseria gonorrhoeae DNA (VALERIY) Negative (Negative) HIV 1&2 Antibody Non-Reactive (Nonreactive) Glucose 1 Hr 50 gm 103 mg/dL (70-140) Assessment & Plan (1) : QUALIFIERS: Weeks of gestation: 39 weeks Qualified Code(s): Z3A.39 - 39 weeks gestation of COMMENT: genetic- low risk. declines carrier, considering NTD screening. NL anatomy. GBS neg (2) Supervision of normal : QUALIFIERS: Normal : normal first Trimester: second trimester Qualified Code(s): Z34.02 - Encounter for supervision of normal first , second trimester COMMENT: PRR ARAVIND: 01/06/21 Girl (surprise for family) Spouse: Chris (3) Rubella non-immune status, antepartum: COMMENT: MMR PP (4) Anemia affecting : COMMENT: iron added (5) History of tetanus, diphtheria, and acellular pertussis booster vaccination (Tdap): COMMENT: 10/16/20 (6) Active labor at term: PLAN: Patient presents IAL, plan expectant management for , pitocin/AROM if needed. Pain management: Plans epidural. GBS negative. Management of any complications: None I have reviewed the [facility] and made any clinically relevant updates.
--- NOTE | 2021-01-04 20:34 | EX.PCM.OBRPT ---
Assessment & Plan (1) Active labor at term: (2) : QUALIFIERS: Weeks of gestation: 39 weeks Qualified Code(s): Z3A.39 - 39 weeks gestation of COMMENT: genetic- low risk. declines carrier, considering NTD screening. NL anatomy. GBS neg (3) Supervision of normal : QUALIFIERS: Normal : normal first Trimester: second trimester Qualified Code(s): Z34.02 - Encounter for supervision of normal first , second trimester COMMENT: PRR ARAVIND: 01/06/21 Girl (surprise for family) Spouse: Chris (4) hemorrhage: COMMENT: Secondary to retained membranes, given Methergine Hemabate, Cytotec, bedside curettage performed and tranexamic acid given. 1000 cc EBL (5) Vaginal delivery: COMMENT: Active labor 39 SM girl PPH Maternal Data Information ARAVIND Calculator Estimated Delivery Date Method Current WG Current Estimate 01/06/21 LMP (Certain) 39w 5d Other Estimates 01/01/21 Ultrasound #1 40w 3d Vaginal Delivery Operative Information Date of Procedure: 01/04/21 Pre-Operative Diagnosis: IAL Post-Operative Diagnosis: same plus hemorrhage due to retained membranes Surgery / Procedure Performed: Spontaneous Vaginal Delivery and - (Bedside curettage) Type of Anesthesia: Epidural Special Medications: Methergine Hemabate tranexamic acid Cytotec Estimated Blood Loss: 1000 Fluids Replaced: crystalloid Findings Description of Procedure: Patient began pushing and delivered the head in the [SHAD] presentation. The head was delivered atraumatically . The anterior and posterior shoulders delivered without complication followed by the rest of the and the was placed on the maternal abdomen. Delayed cord clamping was employed for approximately 60 seconds. Cord was clamped and cut and gentle traction was applied to the cord and the placenta delivered spontaneously immediately following it was noted to be intact with three-vessel cord but some membranes may have been missing from the edge. The perineum and vagina were inspected and noted to have a small second-degree perineal laceration and a left vaginal superficial scrape that was repaired in the usual fashion with 3-0 Vicryl Rapide. Some uterine atony and hemorrhage was encountered. The anterior myometrial wall felt ratty and it was suspected to be due to retained membranes. Methergine Hemabate and Cytotec were given and uterine curettage was performed with ultrasound guidance, tranexamic acid was given to stabilize the lining. Patient remained stable throughout and preop hemoglobin was 12.7.. EBL was 1000 cc. Patient and tolerated delivery well. Presentation: SHAD Amniotic Membrane Rupture Type: Artificial Amniotic Fluid Description: Clear Placental Delivery Description: Spontaneous Placenta Disposition: [facility] Cord Vessel Description: 3 Vessels Cord Entanglement: None Infant A Gender: Female Delayed Cord Clamping: Yes Post Vaginal Delivery Medications Given After Delivery: IV Pitocin, IM Methergin, IM Hemabate and - (Cytotec, tranexamic acid) Episiotomy Description: None Laceration: Perineal Extension/lac and 2nd degree Complication Complications: - ( hemorrhage) Multi Select Codes Urinary/Genital Urinary/Genital CPT Codes: 17906 Curettage, and 62691 Vaginal Delivery [facility]
--- NOTE | 2021-01-04 20:41 | PCM.DC ---
Discharge Instructions Diet Discharge Diet: No restrictions Activity Discharge Activity: Return to Normal Activity, May Not Drive (while taking narcotic pain medications.) and May Shower May resume sexual activity in: 4-6 weeks Dressing / Incision Call your doctor if your incision/area has: Continuous Slow Oozing, Sudden Increased Bleeding, Increased Pain/ Swelling, Increased Redness and Foul Smelling Discharge Follow Up Care Please Follow Up With: Arabella Chau MD When: Call [phone] to make an appointment with your doctor in 6 weeks. If you had elevated blood pressure or 4th degree laceration, you will need to be seen in 2 weeks. Test Results: Test results from this visit will be discussed in further detail at your follow-up appointment, if applicable. Discharge Plan Admission Admit Date/Time: 01/04/21 15:10 Primary Reason for Your Visit: vaginal delivery Attending Provider: Arabella Chau Primary Care Provider: Jordan Flower Discharge Orders/Prescriptions Prescriptions: New naproxen 250 MG tablet 250 - 500 mg PO Q8H PRN PRN (Reason: MILD PAIN) Qty: 30 RF: 1 Continued PNV-DHA 27 mg iron-1 mg -300 mg capsule PO DAILY RF: 0 iron 18 mg tablet 18 mg PO DAILY RF: 0 omega-3 fatty acids [Fish Oil Concentrate] 1,000 mg capsule 1,000 mg PO DAILY RF: 0 cholecalciferol (vitamin D3) 50 mcg (2,000 unit) capsule 50 mcg PO DAILY RF: 0 Referrals / Follow Up: Jordan Flower MD [Primary Care Provider] - Arabella Chau MD [STAFF PHYSICIAN] - Disposition Disposition (needs filled in before D/C Order can be placed): Home, Self Care
[2021-01-04] MEDS: Cefazolin 2 GM in 0.9% Normal Saline 100 ML IV (22:01)
[2021-01-04 22:43] LABS: Hematocrit 30.1 % (37-47); Mean Corp Hgb Conc 33.2 g/dL (32-36); Mean Corpuscular Hgb 29.7 pg (27.0-32.0); Mean Corpuscular Volume 89.3 fL (81-99); Mean Platelet Vol. 9.1 fl (6.2-12.0); Platelet Count 346 K/mm3 (150-450); RBC Distribution Width SD 42.5 fl (35.1-43.9); Red Blood Count 3.37 M/mm3 (4.2-5.4); White Blood Count 24.4 K/mm3 (4.4-11.0)
[2021-01-05 00:45] VITALS: BP 107/60; PULSE 111; RESP 16; TEMP 37.5
[2021-01-05] MEDS: Naproxen 500 MG Tablet PO ×2 (04:21→13:08)
[2021-01-05 04:38] VITALS: BP 106/63; PULSE 116; RESP 14; TEMP 37.7
[2021-01-05 06:12] LABS: Hematocrit 22.3 % (37-47); Hemoglobin 7.7 g/dL (12.0-15.0); Mean Corp Hgb Conc 34.5 g/dL (32-36); Mean Corpuscular Hgb 30.4 pg (27.0-32.0); Mean Corpuscular Volume 88.1 fL (81-99); Mean Platelet Vol. 8.9 fl (6.2-12.0); Platelet Count 254 K/mm3 (150-450); RBC Distribution Width CV 12.9 % (11.6-14.6); RBC Distribution Width SD 41.2 fl (35.1-43.9); Red Blood Count 2.53 M/mm3 (4.2-5.4); White Blood Count 18.7 K/mm3 (4.4-11.0)
[2021-01-05 09:23] VITALS: BP 102/58; PULSE 93; RESP 18; TEMP 36.8
[2021-01-05] MEDS: Cholecalciferol (VIT D3) 25 MCG TABLET (1,000 UNITS) 50 MCG PO (09:53)
[2021-01-05 10:30] LABS: Absolute Lymphocyte Count 2.53 X10^3/uL (0.83-4.51); Absolute Neutrophil Count 15.8 X10^3/uL (2.0-7.7); Basophil# 0.06 X10^3/uL; Basophil% 0.3 % (0-1); Eosinophil# 0.03 X10^3/uL; Eosinophils% 0.1 % (0-5); Hematocrit 23.9 % (37-47); Hemoglobin 8.1 g/dL (12.0-15.0); Lymphocyte # 2.53 X10^3/ul (0.83-4.51); Lymphocyte % 12.6 % (19-41); Mean Corp Hgb Conc 33.9 g/dL (32-36); Mean Corpuscular Hgb 29.8 pg (27.0-32.0); Mean Corpuscular Volume 87.9 fL (81-99); Mean Platelet Vol. 8.9 fl (6.2-12.0); Monocyte# 1.46 X10^3/uL; Monocyte% 7.3 % (0-10); NRBC Flagged by Analyzer 0 % (0-5); Neutrophil # 15.84 X10^3/uL (2.7-7.7); Neutrophil % 79.1 % (47-70); Platelet Count 289 K/mm3 (150-450); RBC Distribution Width CV 13.1 % (11.6-14.6); RBC Distribution Width SD 42.1 fl (35.1-43.9); Red Blood Count 2.72 M/mm3 (4.2-5.4)
[2021-01-05 13:00] VITALS: BP 109/61; PULSE 108; RESP 16; TEMP 36.7
[2021-01-05 16:20] VITALS: BP 103/65; PULSE 92; RESP 16; TEMP 36.8
--- NOTE | 2021-01-05 17:29 | PCM.PN.OB ---
Subjective Subjective Patient doing well without complaints. Tolerating PO. Ambulating and voiding without difficulty. feeding well. Denies chest pain, shortness of breath, calf pain/swelling, fevers, chills, lightheadedness. Objective Data Objective Data Vital Signs: Vital Signs Temp Pulse Resp BP Pulse Ox 98.0 F 108 H 16 109/61 99 01/05/21 13:00 01/05/21 13:00 01/05/21 13:00 01/05/21 13:00 01/04/21 22:07 Oxygen Delivery Method Room Air Weight: 197 lb 1.492 oz Body Mass Index (BMI) 29.0 Intake & Output: Intake and Output for Last 24 Hours 01/03/21 01/04/21 01/05/21 23:59 23:59 23:59 Intake Total 2924.17 / 2924.17 1400 / 1400 Output Total 1200 / 1200 400 / 400 Balance 1724.17 / 1724.17 1000 / 1000 Lab / Micro Data Result Diagrams: 01/05/21 10:20 Labs: Laboratory Results - last 24 hr 01/04/21 22:15: WBC 24.4 H, RBC 3.37 L, Hgb 10.0 L, Hct 30.1 L, MCV 89.3, MCH 29.7, MCHC 33.2, RDW Std Deviation 42.5, RDW Coeff of Rosemary 13.0, Plt Count 346, MPV 9.1 01/05/21 06:02: WBC 18.7 H, RBC 2.53 L, Hgb 7.7 L, Hct 22.3 L, MCV 88.1, MCH 30.4, MCHC 34.5, RDW Std Deviation 41.2, RDW Coeff of Rosemary 12.9, Plt Count 254, MPV 8.9 01/05/21 10:20: WBC 20.0 H, RBC 2.72 L, Hgb 8.1 L, Hct 23.9 L, MCV 87.9, MCH 29.8, MCHC 33.9, RDW Std Deviation 42.1, RDW Coeff of Rosemary 13.1, Plt Count 289, MPV 8.9, Immature Gran % (Auto) 0.600, Neut % (Auto) 79.1 H, Lymph % (Auto) 12.6 L, [place] % (Auto) 7.3, Eos % (Auto) 0.1, Baso % (Auto) 0.3, Absolute Neuts (auto) 15.8 H, Absolute Lymphs (auto) 2.53, Nucleated RBC % 0 Micro: Microbiology 01/04/21 15:30 Mucosa - Nose SARS-CoV-2 Antigen (Rapid) - Final ROS Constitutional Constitutional: Reports systems reviewed and no addt'l complaints, except as documented Cardiovascular Cardiovascular: Reports systems reviewed and no addt'l complaints, except as documented Respiratory/Chest Respiratory/Chest: Reports systems reviewed and no addt'l complaints, except as documented Gastrointestinal Gastrointestinal: Reports systems reviewed and no addt'l complaints, except as documented Physical Exam Const alert, oriented x3 and no apparent distress HEENT Head and Scalp: atraumatic Resp normal respiratory effort GI soft to palpation and non-tender Bimanual Exam - Vag & Uterus: uterus non-tender Uterus Palpation: uterus fundus firm (below Umbilicus) Assessment & Plan (1) hemorrhage: COMMENT: Secondary to retained membranes, given Methergine Hemabate, Cytotec, bedside curettage performed and tranexamic acid given. 1000 cc EBL (2) Vaginal delivery: COMMENT: Active labor 39 SM girl PPH PLAN: s/p PPD # 1 1. routine post delivery care 2. breast feeding- support given 3. rh positive 4. rubella immune blood counts stable, plan iron upon discharge
[2021-01-05 19:45] VITALS: BP 112/65; PULSE 101; RESP 16; TEMP 37
[2021-01-06 01:36] VITALS: BP 94/56; PULSE 99; RESP 18; TEMP 36.8
[2021-01-06] MEDS: Naproxen 500 MG Tablet PO (06:28)
[2021-01-06] MEDS: Senna/Docusate Sodium 1 Tablet PO (06:28)
[2021-01-06 08:04] VITALS: BP 107/65; RESP 16; TEMP 37.1
--- NOTE | 2021-01-06 10:12 | PCM.PN.OB ---
Subjective Subjective Patient doing well without complaints. Tolerating PO. Ambulating and voiding without difficulty. feeding well. Denies chest pain, shortness of breath, calf pain/swelling, fevers, chills, lightheadedness. Objective Data Objective Data Vital Signs: Vital Signs Temp Pulse Resp BP Pulse Ox 98.8 F 99 16 107/65 99 01/06/21 08:04 01/06/21 01:36 01/06/21 08:04 01/06/21 08:04 01/04/21 22:07 Oxygen Delivery Method Room Air Weight: 197 lb 1.492 oz Body Mass Index (BMI) 29.0 Intake & Output: Intake and Output for Last 24 Hours 01/04/21 01/05/21 01/06/21 23:59 23:59 23:59 Intake Total 2924.17 / 2924.17 1400 / 1400 Output Total 1200 / 1200 400 / 400 Balance 1724.17 / 1724.17 1000 / 1000 Lab / Micro Data Result Diagrams: 01/05/21 10:20 Labs: Laboratory Results - last 24 hr 01/05/21 10:20: WBC 20.0 H, RBC 2.72 L, Hgb 8.1 L, Hct 23.9 L, MCV 87.9, MCH 29.8, MCHC 33.9, RDW Std Deviation 42.1, RDW Coeff of Rosemary 13.1, Plt Count 289, MPV 8.9, Immature Gran % (Auto) 0.600, Neut % (Auto) 79.1 H, Lymph % (Auto) 12.6 L, [place] % (Auto) 7.3, Eos % (Auto) 0.1, Baso % (Auto) 0.3, Absolute Neuts (auto) 15.8 H, Absolute Lymphs (auto) 2.53, Nucleated RBC % 0 Micro: Microbiology 01/04/21 15:30 Mucosa - Nose SARS-CoV-2 Antigen (Rapid) - Final ROS Constitutional Constitutional: Reports systems reviewed and no addt'l complaints, except as documented Cardiovascular Cardiovascular: Reports systems reviewed and no addt'l complaints, except as documented Respiratory/Chest Respiratory/Chest: Reports systems reviewed and no addt'l complaints, except as documented Gastrointestinal Gastrointestinal: Reports systems reviewed and no addt'l complaints, except as documented Physical Exam Const alert, oriented x3 and no apparent distress HEENT Head and Scalp: atraumatic Resp normal respiratory effort GI soft to palpation and non-tender Bimanual Exam - Vag & Uterus: uterus non-tender Uterus Palpation: uterus fundus firm (below Umbilicus) Assessment & Plan (1) Vaginal delivery: COMMENT: Active labor 39 SM girl PPH (2) hemorrhage: COMMENT: Secondary to retained membranes, given Methergine Hemabate, Cytotec, bedside curettage performed and tranexamic acid given. 1000 cc EBL PLAN: dc home fu in 6 weeks, continue iron
== END 2021-01-06 10:44 | disposition home or self-care (01) | DRG 768 ==
LOC: WPOUT 15:14 → WP 15:14
PROVIDERS: Admitting Provider Obstetrics & Gynecology; PCP Family Medicine; Visit Provider Obstetrics & Gynecology
DX: O99.02 Anemia complicating childbirth (principal); Z37.0 Single live birth; O72.1 Other immediate postpartum hemorrhage; D64.9 Anemia, unspecified; O70.1 Second degree perineal laceration during delivery; Z3A.39 39 weeks gestation of pregnancy
CPT/HCPCS: 59025; 59050; 76815; 85025; 85027; 86850; 86900; 86901; 87426; 99218; J7120; A4216; G0378; J2405

== ENCOUNTER → 2022-01-26 | Outpatient (CLI) | payer OTHER, SELFPAY ==
[2022-01-26 18:11] LABS: Absolute Lymphocyte Count 2.47 X10^3/uL (0.83-4.51); Absolute Neutrophil Count 2.7 X10^3/uL (2.0-7.7); Basophil# 0.08 X10^3/uL; Basophil% 1.4 % (0-1); Eosinophil# 0.08 X10^3/uL; Eosinophils% 1.4 % (0-5); Hematocrit 39.2 % (37-47); Hemoglobin 13.4 g/dL (12.0-15.0); Lymphocyte # 2.47 X10^3/ul (0.83-4.51); Lymphocyte % 43.3 % (19-41); Mean Corp Hgb Conc 34.2 g/dL (32-36); Mean Corpuscular Volume 87.9 fL (81-99); Mean Platelet Vol. 9.1 fl (6.2-12.0); Monocyte# 0.36 X10^3/uL; Monocyte% 6.3 % (0-10); NRBC Flagged by Analyzer 0 % (0-5); Neutrophil % 47.4 % (47-70); Platelet Count 368 K/mm3 (150-450); RBC Distribution Width CV 12.1 % (11.6-14.6); RBC Distribution Width SD 38.9 fl (35.1-43.9); Red Blood Count 4.46 M/mm3 (4.2-5.4); White Blood Count 5.7 K/mm3 (4.4-11.0)
[2022-01-26 18:39] LABS: Hemoglobin A1c 4.9 % (3.8-5.6)
[2022-01-26 18:48] LABS: ALB/GLOB Ratio 1.1 RATIO (0.9-2.4); AST(SGOT) 11 U/L (15-37); Alanine Aminotransfer ALT/SGPT 22 U/L (13-56); Alkaline Phosphatase 52 U/L (45-117); Anion Gap 6 (5-15); BUN 9 mg/dL (7-18); BUN/Creat Ratio 14.4 RATIO (10-20); Calcium,Total 8.5 mg/dL (8.5-10.1); Chloride 106 mmol/L (98-107); Cholesterol 152 mg/dL (200); Creatinine, Serum 0.62 mg/dL (0.55-1.02); EST Glomerular Filtration Rate 121 mL/min (>60); Est Glom Filt Rate - Afr Amer 147 mL/min (>60); Globulin 3.5 g/dL (2.2-4.2); Glucose 86 mg/dL (74-106); High Density Lipoprotein 53 mg/dL; Potassium 3.8 mmol/L (3.5-5.1); Protein, Total 7.5 g/dL (6.4-8.2); Sodium Level 138 mmol/L (136-145); Thyroid Stim Hormone (TSH) 1.45 uIU/mL (0.358-3.74); Triglycerides 59 mg/dL; Very Low Density Lipoprotein 12 mg/dL (5-40)
== END | disposition home or self-care (01) ==
PROVIDERS: PCP Family Medicine; Referring Provider Family Medicine; Visit Provider Family Medicine
DX: Z00.00 Encounter for general adult medical examination without abnormal findings (principal); Z13.0 Encounter for screening for diseases of the blood and blood-forming organs and certain disorders involving the immune mechanism; Z13.1 Encounter for screening for diabetes mellitus; Z13.220 Encounter for screening for lipoid disorders; Z13.29 Encounter for screening for other suspected endocrine disorder
CPT/HCPCS: 36415; 80053; 80061; 83036; 84443; 85025

== ENCOUNTER → 2022-02-12 | Outpatient (CLI) | payer OTHER, SELFPAY ==
--- NOTE | 2022-02-12 13:42 | US_ITS ---
STUDY: THYROID ULTRASOUND REASON FOR EXAM: Female, 26 years old. SWELLING/MASS TECHNIQUE: Ultrasound evaluation of the thyroid was performed with real-time and static parker-scale imaging. COMPARISON: None. FINDINGS: RIGHT LOBE: The right lobe of the thyroid gland measures 4.5 cm x 1.6 x 1.8 cm. There is a homogeneous echotexture. There are no demonstrated solid, cystic or complex lesions. LEFT LOBE: The left lobe of the thyroid gland measures 4.1 cm x 1.8cm x 1.3 cm. There is a homogeneous echotexture. There are no demonstrated solid, cystic or complex lesions. ISTHMUS: The isthmus measures 2 mm. 2 lymph nodes are seen in the right cervical region. The larger lymph node measures 1.8 cm x 0.9 cm x 0.3 cm. US/Thyroid IMPRESSION: 2 benign appearing right cervical lymph nodes. The thyroid is unremarkable. Electronically Signed: Cortes Ayon MD at 15:27 EDT ,
== END | disposition home or self-care (01) ==
LOC: US 13:40
PROVIDERS: PCP Family Medicine; Referring Provider Family Medicine; Visit Provider Family Medicine
DX: R22.1 Localized swelling, mass and lump, neck (principal)
CPT/HCPCS: 76536

== ENCOUNTER → 2022-02-18 | Outpatient (CLI) | payer OTHER, SELFPAY ==
--- NOTE | 2022-02-18 07:15 | US_ITS ---
EXAM: US RIGHT LOWER EXTREMITY NON-VASCULAR, COMPLETE CLINICAL INDICATION: R groin mass TECHNIQUE: Real-time ultrasound scan of the right lower extremity with image documentation. This report was created using [employer] report generation technology. COMPARISON: None. FINDINGS: SOFT TISSUES: No abscess. No foreign body. LYMPH NODES: Several small lymph nodes noted at the right groin measuring 1 cm and less in size with normal internal architecture and vascularity. US/Abdomen Limited IMPRESSION: Reactive right groin nodes. Electronically Signed: Shay Michaels MD at 10:25 EDT ,
== END | disposition home or self-care (01) ==
LOC: US 07:13
PROVIDERS: PCP Family Medicine; Referring Provider Family Medicine; Visit Provider Family Medicine
DX: R19.09 Other intra-abdominal and pelvic swelling, mass and lump (principal)
CPT/HCPCS: 76705

== ENCOUNTER → 2022-02-26 | Outpatient (CLI) | payer OTHER, SELFPAY ==
[2022-02-26 11:53] LABS: Absolute Lymphocyte Count 2.36 X10^3/uL (0.83-4.51); Absolute Neutrophil Count 2.3 X10^3/uL (2.0-7.7); Basophil# 0.07 X10^3/uL; Basophil% 1.3 % (0-1); Eosinophil# 0.11 X10^3/uL; Eosinophils% 2.1 % (0-5); Hematocrit 39.5 % (37-47); Hemoglobin 13.3 g/dL (12.0-15.0); Lymphocyte # 2.36 X10^3/ul (0.83-4.51); Lymphocyte % 44.1 % (19-41); Mean Corp Hgb Conc 33.7 g/dL (32-36); Mean Corpuscular Hgb 30.3 pg (27.0-32.0); Mean Platelet Vol. 8.7 fl (6.2-12.0); Monocyte# 0.48 X10^3/uL; NRBC Flagged by Analyzer 0 % (0-5); Neutrophil # 2.33 X10^3/uL (2.7-7.7); Neutrophil % 43.5 % (47-70); Platelet Count 377 K/mm3 (150-450); RBC Distribution Width CV 11.9 % (11.6-14.6); RBC Distribution Width SD 39.3 fl (35.1-43.9); Red Blood Count 4.39 M/mm3 (4.2-5.4); White Blood Count 5.4 K/mm3 (4.4-11.0)
== END | disposition home or self-care (01) ==
LOC: LAB 11:28
PROVIDERS: PCP Family Medicine; Referring Provider Obstetrics & Gynecology; Visit Provider Obstetrics & Gynecology
DX: N93.9 Abnormal uterine and vaginal bleeding, unspecified (principal)
CPT/HCPCS: 36415; 85025

== ENCOUNTER → 2022-12-10 | Outpatient (CLI) | payer OTHER, SELFPAY ==
[2022-12-10 11:24] LABS: Progesterone Level 13.68 ng/mL (See Comment)
== END | disposition home or self-care (01) ==
LOC: LAB 10:02
DX: N92.0 Excessive and frequent menstruation with regular cycle (principal)
CPT/HCPCS: 36415; 84144

== ENCOUNTER → 2022-12-16 | Outpatient (CLI) | payer OTHER, SELFPAY ==
--- NOTE | 2022-12-16 18:15 | RAD_ITS ---
INDICATION: R rib pain EXAMINATION/TECHNIQUE: X-RAY - XR Ribs Unilateral Min 2 Views COMPARISON: None available for comparison. FINDINGS: SOFT TISSUES: No soft tissue swelling or gas. BONES: No displaced fracture. No sclerotic or destructive changes observed. VISUALIZED LUNGS: Clear. No pneumothorax. RAD/Ribs Unil 2V No CXR IMPRESSION: No evidence of displaced rib fracture. Electronically Signed: George Sanabria MD at 13:36 EDT ,
== END | disposition home or self-care (01) ==
PROVIDERS: Visit Provider Chiropractor
DX: M99.02 Segmental and somatic dysfunction of thoracic region (principal); R07.81 Pleurodynia
CPT/HCPCS: 71100

== ENCOUNTER → 2022-12-18 | Outpatient (CLI) | payer OTHER, SELFPAY ==
[2022-12-18 11:35] LABS: Estradiol 29.5 pg/mL; Follicle Stimulating Hormone 8.9 mIU/mL; Luteinizing Hormone 7.1 mIU/mL; Prolactin 5.7 ng/mL; Thyroid Stim Hormone (TSH) 0.83 uIU/mL (0.358-3.74)
[2022-12-21 07:07] LABS: 17-Hydroxyprogesterone 17 ng/dL (.)
[2022-12-24 09:08] LABS: Androstenedione 54 ng/dL (41-262); Testosterone, % Free 1.28 % (0.50-2.80); Testosterone, Free 0.27 ng/dL (0.10-0.85); Testosterone, Total 21 ng/dL (13-71)
== END | disposition home or self-care (01) ==
LOC: LAB.FUTURE 10:47
DX: N92.0 Excessive and frequent menstruation with regular cycle (principal)
CPT/HCPCS: 36415; 82157; 82533; 82627; 82670; 83001; 83002; 83498; 84146; 84402; 84403; 84439; 84443; 82626

== ENCOUNTER 2023-01-26 21:49 | Emergency (ER) | payer OTHER, SELFPAY ==
[2023-01-26 21:51] VITALS: BP 124/75; PULSE 95; RESP 18; TEMP 36.6; O2SAT 100; BMI 54.8
--- NOTE | 2023-01-26 22:57 | ED.VIS.BACK ---
HPI History of Present Illness Chief Complaint: Back Informant: patient Onset/Context/Timing Onset: Today Context: Sudden Onset Injury: bending Timing: Continuous Quality: Dull and Aching Location: Lumbar Current Severity: Mild Maximum Severity: Mild Worsened by: improves with Movement Relieved by: Remaining Still Associated Symptoms Associated Symptoms: Radiation to Left Leg; Negative for Numbness, Tingling, Abdominal Pain, Dysuria, Unable to Ambulate, Unable to Transfer, Urinary Retention, Urinary Incontinence, Constipation or Fecal Incontinence Narrative Narrative: 27-year-old female with no stated past medical history. G2, P1 Ab0. Patient's and her early first trimester . Today she was sitting at a desk chair stood up and felt a pulling in her lower back. She denies any fall or trauma. She has no back history. No prior back surgery. No fever. No dysuria. No vaginal bleeding. Initially had some discomfort in her left leg but no weakness or numbness. Discomfort is worse with movement. Prior similar symptoms: No Recent Illness/Hospitalization: No [facility] Medical History Bilateral headaches Bruises easily Chronic back pain Diarrhea Environmental allergies History of tetanus, diphtheria, and acellular pertussis booster vaccination (Tdap) hemorrhage Psoriasis Vaginal delivery Home Medications PNV#14-iron [id number] 27 mg iron-1 mg-300 mg-50 mg capsule 1 cap PO DAILY 01/26/23 [History Last Taken Unknown] Allergy/AdvReac Type Severity Reaction Status Date / Time codeine AdvReac Nausea/Vom/ Verified 01/26/23 21:53 Diarrhea Family History Other Breast cancer CVA (cerebral vascular accident) Cancer Heart disease Hypertension Myocardial infarction Thyroid disorder Uterine cancer Surgical History History of cosmetic plastic surgery History of lump of right breast Social History adopted: No household members: spouse housing: house current occupational status: employed 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 Low back pain today with standing. Review of Systems ROS Unobtainable: Denies due to encephalopathy Constitutional Constitutional ED: Denies chills or fever(s) Eyes Eyes: Denies blurry vision ENT ENT ED: Denies ear pain Cardiovascular Cardiovascular: Denies chest pain Respiratory/Chest Respiratory/Chest: Denies dyspnea Gastrointestinal Gastrointestinal: Denies abdominal pain Genitourinary Genitourinary ED: Denies dysuria or hematuria Musculoskeletal Musculoskeletal: Reports back pain; Denies arthralgias, myalgias or neck pain Integumentary Denies abscess or Abrasions Neurologic Neurologic: Denies headache(s) Psychiatric Psychiatric: Denies anxiety Endocrine Endocrinology: Denies cold intolerance Hematologic/Lymphatic Hematologic/Lymphatic: Denies easy bleeding Allergic/Immunologic Allergic/Immunologic ED: Denies mouth swelling or tongue swelling EXAM Physical Exam Narrative Exam Narrative: 19-year-old female no acute distress. Vital signs stable afebrile. at bedside. HEENT exam unremarkable. Neck nontender no lymphadenopathy. Lungs clear to auscultation bilaterally. Heart regular rhythm no murmur. Abdomen soft nontender. Moving all 4 extremities. Neurovascularly intact. Normal motor strength and sensation of both lower extremities. Normal dorsi plantarflexion. No cauda equina. No saddle anesthesia. Normal medial thigh sensation. Negative straight leg test. No sciatica. No radiculopathy. Back she has mild tenderness to the paralumbar soft tissue on the left. No signs of trauma. No redness or warmth. Neurologic exam is normal. Normal motor strength and sensation. Const Vital Signs: 01/26/23 21:51 Temperature 97.9 F Temperature Source Temporal Pulse Rate 95 Respiratory Rate 18 Blood Pressure 124/75 H Blood Pressure Mean 91 Pulse Ox 100 Oxygen Delivery Method Room Air Positive well nourished and well developed; Negative for obese, cachectic, contractures or unkempt General Appearance ED: well developed and NAD; Negative for unkempt, cachectic, contractures or pallor Nutritional Appearance: Negative for cachectic or obese HEENT Reports moist mucous membranes; Denies dry mucous membranes Negative for trauma or tenderness Mouth ED: No dry mucous membranes Mouth: No dry mucous membranes Eyes PERRL and EOMs intact bilaterally General Eye ED: Negative for pale conjunctiva or scleral icterus Neck no lymphadenopathy, supple and no JVD General: Negative for tenderness Thyroid: Negative for other Chest Wall Chest: Negative for other Resp normal respiratory effort and clear to auscultation bilaterally Effort and Inspection: Negative for pain with movement Auscultation: Negative for rales, rhonchi or wheezes Cardio regular rate, regular rhythm, S1 normal heart sound, S2 normal heart sound and no murmurs Palpation: Negative for palpable S3 Rate: Negative for bradycardia or tachycardic Rhythm: Negative for abnormal rhythm GI normal to inspection, nondistended, normoactive bowel sounds, soft to palpation, non-tender, non-distended and no masses Inspection: Negative for abdominal distention Palpation: Negative for tender or guarding Back/Spine normal to inspection; Negative for no thoracic nor lumbar tenderness Back/Spine Narrative: Mild roberto-lumbar soft tissue tenderness on the left. No bony deformity or tenderness. No SI joint tenderness. No signs of trauma. No redness or warmth. General Back: Negative for CVA tenderness Cervical Spine: Negative for cervical spine tenderness and Negative for paracervical muscle tenderness Thoracic Spine / Upper Back: Negative for paraspinal muscle tenderness Lumbar Spine / Lower Back: straight leg raise negative bilaterally; Negative for ROM limited or straight leg raise positive right Extremity normal to inspection and no clubbing, cyanosis or edema General Extremety ED: Negative for edema or tenderness General Extremity: Negative for edema Neuro oriented x3 and no sensory deficits noted Sensorium / Orientation: Negative for alert, confused, lethargic or stuporous Sensory Exam: No other Motor Exam: strength 5/5 throughout Psych mental status grossly normal Appearance: Negative for unkempt Attitude: No agitated Mood & Affect: Negative for depressed, sad or tearful Skin no rashes or lesions noted and no wounds General Skin Exam: Negative for jaundice or pallor Lesions: No lesion noted Rashes: No rashes noted Trauma: Negative for abrasion or puncture Wounds: Negative for wounds noted Image ED - Body Diagram Man: 1. Primary left lower paralumbar soft tissue tenderness. Otherwise exam unremarkable. MDM MDM MDM Narrative Medical decision making narrative: 27-year-old female in the first trimester with apparent lumbar strain today while going from a seated to a standing position. She does not need any imaging. She does not have a radiculopathy. Tylenol for pain. Hot shower warm bath and hot tub. Massage. Follow-up if not improving. She has an [employer] appointment in the next several weeks. History & Record Review Discussion w/independent historian: Patient and Family Discharge Plan Triage Chief Complaint: Back ED Provider: Navarro Garcia Dx/Rx/DC Orders Clinical Impression: First trimester , Acute lumbar myofascial strain Instructions: ED Back Sprain/Strain Prescriptions: No Action PNV #[id number] 27 mg iron-1 mg -300 mg-50 mg capsule 1 cap PO DAILY Primary Care Provider: Care Physician,No Primary Referrals: Arabella Chau MD [Med Staff - Active Staff] - Keep Jeffrey appointment Care Physician,No Primary [Primary Care Provider] - Activity Restrictions/Additional Instructions: Hot shower, warm bath hot tub. Tylenol for pain. Massage. Follow-up if not improving. Currently this appears just to be a lumbar strain of the muscles in your lower back. It should progressively improve. Due to your we will hold off on anti-inflammatories at this time. If need be we can start you on muscle relaxants but you may improve with altos and again I would hold off on those at this time. Disposition Disposition: Home, Self Care
== END 2023-01-26 23:13 | disposition home or self-care (01) ==
PROVIDERS: Emergency Provider Emergency Medicine; Visit Provider Emergency Medicine
DX: O9A.211 Injury, poisoning and certain other consequences of external causes complicating pregnancy, first trimester (principal); S39.012A Strain of muscle, fascia and tendon of lower back, initial encounter; Z3A.00 Weeks of gestation of pregnancy not specified; X58.XXXA Exposure to other specified factors, initial encounter
CPT/HCPCS: 99282

== ENCOUNTER → 2023-02-14 | Outpatient (CLI) | payer OTHER, SELFPAY ==
[2023-02-17 08:12] LABS: Chlamydia By Nucleic Acid AMP Negative (Negative); Gonococcus By Nucleic Acid AMP Negative (Negative)
[2023-02-17 20:32] LABS: HPV Reflexed? NOT INDICATED
== END | disposition home or self-care (01) ==
LOC: LABSPEC 16:09
PROVIDERS: Referring Provider Obstetrics & Gynecology; Visit Provider Obstetrics & Gynecology
DX: Z34.90 Encounter for supervision of normal pregnancy, unspecified, unspecified trimester (principal); Z3A.00 Weeks of gestation of pregnancy not specified
CPT/HCPCS: 87086; 87491; 87591; 88175; G0145

== ENCOUNTER → 2023-03-16 | Outpatient (CLI) | payer OTHER, SELFPAY ==
[2023-03-16 10:41] LABS: NATERA MAILED SPECIMEN
[2023-03-16 11:00] LABS: Absolute Lymphocyte Count 1.59 X10^3/uL (0.83-4.51); Absolute Neutrophil Count 5.5 X10^3/uL (2.0-7.7); Basophil# 0.05 X10^3/uL; Basophil% 0.6 % (0-1); Eosinophil# 0.22 X10^3/uL; Eosinophils% 2.8 % (0-5); Hematocrit 36.6 % (37-47); Hemoglobin 12.2 g/dL (12.0-15.0); Lymphocyte # 1.59 X10^3/ul (0.83-4.51); Lymphocyte % 20.6 % (19-41); Mean Corp Hgb Conc 33.3 g/dL (32-36); Mean Corpuscular Hgb 29.3 pg (27.0-32.0); Mean Platelet Vol. 8.7 fl (6.2-12.0); Monocyte# 0.32 X10^3/uL; Monocyte% 4.1 % (0-10); NRBC Flagged by Analyzer 0 % (0-5); Neutrophil # 5.53 X10^3/uL (2.7-7.7); Neutrophil % 71.6 % (47-70); Platelet Count 384 K/mm3 (150-450); RBC Distribution Width CV 12.4 % (11.6-14.6); Red Blood Count 4.16 M/mm3 (4.2-5.4); White Blood Count 7.7 K/mm3 (4.4-11.0)
[2023-03-16 12:00] LABS: HIV - WCH Non-Reactive (Nonreactive); Hepatitis B Surface Antigen Non-Reactive (Nonreactive); Hepatitis C Antibody Non-Reactive (Nonreactive); Rubella IgG Reactive (Nonreactive); Syphilis Antibodies Non-reactive
== END | disposition home or self-care (01) ==
LOC: LAB 09:37
PROVIDERS: Referring Provider Obstetrics & Gynecology; Visit Provider Obstetrics & Gynecology
DX: Z34.81 Encounter for supervision of other normal pregnancy, first trimester (principal); Z3A.00 Weeks of gestation of pregnancy not specified
CPT/HCPCS: 36415; 85025; 86703; 86762; 86780; 86803; 86850; 86870; 86900; 86901; 87340

== ENCOUNTER → 2023-05-04 | Outpatient (CLI) | payer OTHER, SELFPAY ==
--- NOTE | 2023-05-04 12:12 | US_ITS ---
STUDY: SECOND AND THIRD TRIMESTER OBSTETRICAL ULTRASOUND REASON FOR EXAM: Female, 28 years old anatomy scan LMP: 12/17/2022 TECHNIQUE: Transabdominal and Transvaginal TECHNICAL QUALITY: Adequate. PRIOR ULTRASOUND: None. FINDINGS: There is a single intrauterine fetus. The fetus is in a cephalic presentation. There is demonstrated cardiac activity with a heart rate of 158 bpm. There is a normal amniotic fluid volume. The largest amniotic fluid pocket measures 3.0 cm. The amniotic fluid index (JANESSA) is cm. The placenta is posterior in location and is not low lying. There are Grade 0 placental changes. The cervix measures 4.6 cm in length. The bilateral adnexal regions are normal. BIOMETRY: BPD: 5.1 cm: 21 weeks, 3 days HC: 18.4 cm: 20 weeks, 5 days AC: 15.8 cm: 20 weeks, 6 days FL: 3.3 cm: 20 weeks, 2 days CI: 81.15 FL/BPD: 64.43 FL/HC: 17.78 FL/AC: 20.77 HC/AC: 1.17 age by current US: 20 weeks, 5 days. ARAVIND by current US: 09/16/2023. Estimated weight: 374 grams, +/- 56 grams, 92 %. age by prior US: weeks, days. ARAVIND by prior US: . Age by LMP: 19 weeks, 5 days. ARAVIND by LMP: 09/23/2023. ANATOMY: Gender: Female Cranium: Normal lateral ventricles. Normal choroid plexus. Normal cerebellum. Normal cisterna magna. Normal face, nose and lips. Chest: Normal 4-chamber heart. Abdomen/Pelvis: Normal diaphragm. Normal stomach. Normal abdominal wall. Normal cord insertion. Normal 3 vessel cord. Normal kidneys. Normal bladder. Spine: Normal cervical spine. Normal thoracic spine. Normal lumbar spine. Normal sacrum. Extremities: Normal bilateral upper extremities. Normal bilateral lower extremities. US/OB Anatomy w/ Transvaginal IMPRESSION: Living intrauterine of 20 weeks 5 days as described above. Electronically Signed: Trell Alfredo MD at 22:57 EST , Refer to OB ultrasound. Electronically Signed: Trell Alfredo MD at 22:57 EST ,
== END | disposition home or self-care (01) ==
LOC: OPUS 12:11
PROVIDERS: Referring Provider Registered Nurse; Visit Provider Registered Nurse
DX: Z34.90 Encounter for supervision of normal pregnancy, unspecified, unspecified trimester (principal); Z3A.00 Weeks of gestation of pregnancy not specified
CPT/HCPCS: 76805; 76817

== ENCOUNTER → 2023-07-02 | Outpatient (CLI) | payer OTHER, SELFPAY ==
--- OUTSIDE RECORDS SUMMARY | 2023-07-02 08:30 | XMS RPT_ITS | CCD ---
Author Name Unknown Address [address] [place] [address] Organization [facility] Care Team Providers Care Food Service Attendant Name Role Phone Gordy Alicea Unavailable Unavailable VAIL, TEJINDER SUN Unavailable Unavailabl e TOMCHAK, GORDY BESS Unavailable Unavailable VAIL, TEJINDER SUN Unavailable Unavailabl e TOMCHAK, GORDY BESS Unavailable Unavailable VAIL, TEJINDER SUN Unavailable Unavailabl e TOMCHAK, GORDY BESS Unavailable Unavailable VAIL, TEJINDER SUN Unavailable Unavailabl e TOMCHAK, GORDY BESS Unavailable Unavailable TOMCHAKGORDY Unavailable Unavailable PIOLATA, LEIGH ETELVINA Unavailable Unavailab le TOMCHAK, GORDY BESS Unavailable Unavailable PIOLATA, LEIGH MAIN Unavailable Unavailab le TOMCHAKGORDY Unavailable Unavailable RACQUEL BIRMINGHAM Unavailable Unavailable TOMGORDY DAVIS Unavailable Unavailable KRISTEN AKBAR Unavailable Unava ilable VAIL, TEJINDER SUN Admitting Unavailzneaida e GORDY ALICEA Primary Care Unavailable GORDY ALICEA Primary Care Unavailable RACQUEL BIRMINGHAM Attending Unavailable GORDY ALICEA Primary Care Unavailable KRISTEN AKBAR Attending Unava ilable Medications Current Medications Medication Drug Class(es) Dates Sig (Normalized) Sig (Original) amLODIPine 5 mg oral tablet (3 sources) Dihydropyridine Calcium Channel Polo take 1 tablet by mouth once daily amLODIPine (NORVASC) 5 MG tablet Take 5 mg by mouth daily. Active benzonatate 100 mg oral capsule (3 sources) Non-narcotic Antitussive Start: 10-28-2016 take 1 capsule by mouth three times daily as needed for cough benzonatate (TESSALON PERLES) 100 MG capsule Indications: Subacute sinusitis, unspecified location Take 1 capsule (100 mg total) by mouth 3 (three) times a day as needed for cough. 20 capsule 0 10/28/2016 Active ciprofloxacin 500 mg oral tablet (2 sources) Quinolone Antimicrobial Start: 06-23-2017 End: 07-03-2017 take 1 tablet by mouth twice daily ciprofloxacin HCl (CIPRO) 500 MG tablet Indications: Acute cystitis with hematuria Take 1 (one) tablet (500 mg total) by mouth 2 (two) times a day for 10 days. 20 tablet 0 06/23/2017 07/03/2017 Active Problems Problem Classification Problem Date Documented Date Episodic/Chronic Administrative/social admission (4 sources) Encounter for administrative examinations, unspecified; Translations: [Occupational exposure to other risk factors] Onset: 04-17-2017 Episodic Genitourinary symptoms and ill-defined conditions (4 sources) Unspecified symptoms and signs involving the genitourinary system; Translations: [Dysuria] Onset: 12-15-2016 Episodic Unclassified (1 source) Employee exposure to blood Urinary tract infections (4 sources) Urinary tract infectious disease; Translations: [Acute hemorrhagic cystitis] Onset: 12-15-2016 Episodic Results Test Name Value Interpretation Reference Range Facil ity Vital Signs Date Time Vital Sign Value Performing Clinician Faci lity 06-23-2017 20:20-0500 BMI (Body Mass Index) 25.11 kg/m2 Racquel Birmingham [employer] Work Phone: 06-23-2017 20:20-0500 Body Temperature 98.49 [degF] Racquel Birmingham [employer] Work Phone: 06-23-2017 20:20-0500 BP Diastolic 76 mm[Hg] Racquel Birmingham [employer] Work Phone: 06-23-2017 20:20-0500 BP Systolic 119 mm[Hg] Racquel Birmingham [employer] Work Phone: 06-23-2017 20:20-0500 Pulse (Heart Rate) 88 /min Racquel Birmingham [employer] Work Phone: 06-23-2017 20:20-0500 Pulse Oximetry 95 % Racquel Birmingham [employer] Work Phone: 06-23-2017 20:20-0500 Respiratory Rate 14 /min Racquel Birmingham [employer] Work Phone: 06-23-2017 20:20-0500 Weight 79.38 kg Racquel Birmingham [employer] Work Phone: 05-04-2017 10:41-0500 BMI (Body Mass Index) 25.68 kg/m2 Leigh Schmitt [facility] Work Phone: 05-04-2017 10:41-0500 Body Temperature 97.81 [degF] Leigh Schmitt [facility] Work Phone: 05-04-2017 10:41-0500 BP Diastolic 83 mm[Hg] Leigh Schmitt [facility] Work Phone: 05-04-2017 10:41-0500 BP Systolic 114 mm[Hg] Leigh Schmitt [facility] Work Phone: 05-04-2017 10:41-0500 Height 177.[address] [facility] Work Phone: 05-04-2017 10:41-0500 Pulse (Heart Rate) 71 /min Leigh Schmitt [facility] Work Phone: 05-04-2017 10:41-0500 Pulse Oximetry 96 % Leigh Schmitt [facility] Work Phone: 05-04-2017 10:41-0500 Respiratory Rate 16 /min Leigh Schmitt [facility] Work Phone: 05-04-2017 10:41-0500 Weight 81.[address] [facility] Work Phone: 04-17-2017 20:04-0400 BMI (Body Mass Index) 24.39 kg/m2 Kristen Akbar [employer] Work Phone: 04-17-2017 20:04-0400 Body Temperature 98.6 [degF] Kristen Akbar [employer] Work Phone: 04-17-2017 20:04-0400 BP Diastolic 80 mm[Hg] Kristen Akbar [facility] Work Phone: 04-17-2017 20:04-0400 BP Systolic 130 mm[Hg] Kristen Akbar [facility] Work Phone: 04-17-2017 20:04-0400 Height 177.[address] [facility] Work Phone: 04-17-2017 20:04-0400 Pulse (Heart Rate) 86 /min Kristen Akbar [facility] Work Phone: 04-17-2017 20:04-0400 Pulse Oximetry 100 % Kristen Akbar [facility] Work Phone: 04-17-2017 20:04-0400 Respiratory Rate 16 /min Kristen Akbar [facility] Work Phone: 04-17-2017 20:04-0400 Weight 77.[address] [facility] Work Phone: Encounters Encounter Date Encounter Type Care Provider Facility Start: 10-07-2017 End: 10-07-2017 Ambulatory [facility] Start: 08-11-2017 End: 08-11-2017 Ambulatory [facility] Start: 06-23-2017 End: 06-23-2017 [facility] Start: 06-23-2017 Office/outpatient visit, est, level 3 Racquel Birmingham Work Phone: [facility] Start: 06-10-2017 End: 06-10-2017 Ambulatory [facility] Start: 05-11-2017 End: 05-15-2017 Ambulatory [facility] Start: 05-04-2017 End: 05-04-2017 [facility] Start: 05-04-2017 Office outpatient visit 25 minutes Leigh Schmitt Work Phone: [facility] Start: 04-17-2017 End: 04-18-2017 Emergency department patient visit GORDY ALICEA [facility] Start: 04-17-2017 End: 04-17-2017 Emergency department patient visit Kristen Akbar Work Phone: [facility] Emergency Department Start: 12-15-2016 End: 12-15-2016 Ambulatory GORDY ALICEA [facility] Plan of Treatment Date Care Activity Detail Author Start: 02-18-2017 Influenza vaccination SEQUENTIAL INFLUENZA VACCINE (#1) [facility] Work Phone: Start: 2005 Vaccination for human papillomavirus HPV VACCINES (1 of 3 - Female 3 Dose Series) [facility] Work Phone: Start: 1994 Screening for malignant neoplasm of cervix PAP SMEAR [facility] Work Phone: Start: 1994 Tetanus vaccination TETANUS EVERY [address] [facility] [employer] Phone: Bacteria aerobode culture Urine Aerobic Culture Routine Acute cystitis with hematuria Ordered: 06/23/2017 [facility] Work Phone: End: 05-05-2018 Bacteria aerobode culture Urine Aerobic Culture Routine Acute cystitis with hematuria 1 Occurrences starting 05/04/2017 until 05/05/2018 [facility] [employer] Phone: Payers Date Payer Category Payer Unknown [id number] [id number] 1994 Unknown [id number] 1994 Unknown [id number] 1994 Unknown [id number] Social History Date Type Detail Facility Start: 04-17-2017 End: 06-23-2017 Tobacco smoking status NHIS Never smoker [facility] [employer] Phone: Sex Assigned At Not on file [facility] Work Phone: Instructions * Patient Instructions - Racquel Birmingham PA-C - 06/23/2017 8:29 PM EST Take the prescribed antibiotics as directed. Push fluids. If symptoms worsen or new ones develop, go to the ER immediately for further evaluation. Follow up with your PCP if no improvement in 3-5 days for a recheck, sooner if symptoms worsen before then. Urinary Tract Infection in Women: Care Instructions Your Care Instructions A urinary tract infection, or UTI, is a general term for an infection anywhere between the kidneys and the urethra (where urine comes out). Most UTIs are bladder infections. They often cause pain or burning when you urinate. UTIs are caused by bacteria and can be cured with antibiotics. Be sure to complete your treatment so that the infection goes away. Follow-up care is a marks part of your treatment and safety. Be sure to make and go to all appointments, and call your doctor if you are having problems. It's also a good idea to know your test resultsand keep a list of the medicines you take. How can you care for yourself at home? Take your antibiotics as directed. Do not stop taking them just because you feel better. You need to take the full course of antibiotics. Drink extra water and other fluids for the next day or two. This may help wash out the bacteria that are causing the infection. (If you have kidney, heart, or liver disease and have to limit fluids, talk with your doctor before you increase your fluid intake.) Avoid drinks that are carbonated or have caffeine. They can irritate the bladder. Urinate often. Try to empty your bladder each time. To relieve pain, take a hot bath or lay a heating pad set on low over your lower belly or genital area. Never go to sleep with a heating pad in place. To prevent UTIs Drink plenty of water each day. This helps you urinate often, which clears bacteria from your system. (If you have kidney, heart, or liver disease and have to limit fluids, talk with your doctor before you increase your fluid intake.) Urinate when you need to. Urinate right after you have sex. Change sanitary pads often. Avoid douches, bubble baths, feminine hygiene sprays, and other feminine hygiene products that havedeodorants. After going to the bathroom, wipe from front to back. When should you call for help? Call your doctor now or seek immediate medical care if: Symptoms such as fever, chills, nausea, or vomiting get worse or appear for the first time. You have new pain in your back just below your rib cage. This is called flank pain. There is new blood or pus in your urine. You have any problems with your antibiotic medicine. Watch closely for changes in your health, and be sure to contact your doctor if: You are not getting better after taking an antibiotic for 2 days. Your symptoms go away but then come back. Where can you learn more? Log into your personal health record on https://Pazient.[employer]ify and enter K848 in the Education box to learn more about Urinary Tract Infection in Women: Care Instructions. Current as of: May 17, 2016 Content Version: 11.2 1420-7821 [employer]. Care instructions adapted under license by your healthcare professional. If you have questions about a medical condition or this instruction, always ask your healthcare professional. [employer] disclaims any warranty or liability for your use of this information. in this encounter* Patient Instructions - Leigh Schmitt PA-C - 05/04/2017 10:58 AM EST Take antibiotics as prescribed Use pyridium as needed. Follow up with PCP in 1 week if symptoms do not improve or sooner if symptoms worsen. Urinary Tract Infection in Women: Care Instructions Your Care Instructions A urinary tract infection, or UTI, is a general term for an infection anywhere between the kidneys and the urethra (where urine comes out). Most UTIs are bladder infections. They often cause pain or burning when you urinate. UTIs are caused by bacteria and can be cured with antibiotics. Be sure to complete your treatment so that the infection goes away. Follow-up care is a marks part of your treatment and safety. Be sure to make and go to all appointments, and call your doctor if you are having problems. It's also a good idea to know your test resultsand keep a list of the medicines you take. How can you care for yourself at home? Take your antibiotics as directed. Do not stop taking them just because you feel better. You need to take the full course of antibiotics. Drink extra water and other fluids for the next day or two. This may help wash out the bacteria that are causing the infection. (If you have kidney, heart, or liver disease and have to limit fluids, talk with your doctor before you increase your fluid intake.) Avoid drinks that are carbonated or have caffeine. They can irritate the bladder. Urinate often. Try to empty your bladder each time. To relieve pain, take a hot bath or lay a heating pad set on low over your lower belly or genital area. Never go to sleep with a heating pad in place. To prevent UTIs Drink plenty of water each day. This helps you urinate often, which clears bacteria from your system. (If you have kidney, heart, or liver disease and have to limit fluids, talk with your doctor before you increase your fluid intake.) Urinate when you need to. Urinate right after you have sex. Change sanitary pads often. Avoid douches, bubble baths, feminine hygiene sprays, and other feminine hygiene products that havedeodorants. After going to the bathroom, wipe from front to back. When should you call for help? Call your doctor now or seek immediate medical care if: Symptoms such as fever, chills, nausea, or vomiting get worse or appear for the first time. You have new pain in your back just below your rib cage. This is called flank pain. There is new blood or pus in your urine. You have any problems with your antibiotic medicine. Watch closely for changes in your health, and be sure to contact your doctor if: You are not getting better after taking an antibiotic for 2 days. Your symptoms go away but then come back. Where can you learn more? Log into your personal health record on https://ColorChiphart.Sponsify and enter K848 in the Education box to learn more about Urinary Tract Infection in Women: Care Instructions. Current as of: May 17, 2016 Content Version: 11.2 5451-0446 [employer]. Care instructions adapted under license by your healthcare professional. If you have questions about a medical condition or this instruction, always ask your healthcare professional. [employer] disclaims any warranty or liability for your use of this information. in this encounter Assessments Diagnosis Acute cystitis with hematuri a - Primary Diagnosis Acute cystitis with hematuri a - Primary UTI symptoms Diagnosis Employee exposure to blood - Primary Personal history of contact with and (suspected) exposure to potentially hazardous body fluids Discharge Instructions * Willard Rogers DO - 04/17/2017 Exposure to Blood and Body Fluids: Care Instructions Your Care Instructions When you are caring for another person, there's always a chance that you might be exposed to the person's body fluids, such as blood, saliva, urine, or vomit. This can happen if you're accidently stuck by a needle or if body fluids splash into an open cut, or into your mouth, nose, or eyes. You canalso be exposed if someone coughs or sneezes near your mouth or eyes. When something like this happens, it can be scary. The biggest concern is getting a disease. You may need repeated tests to check for hepatitis B, hepatitis C, and HIV infection. You may need other tests too. The first tests may not show any infection, but your doctor will need them to compare withlater tests. Be sure to talk with your doctor about follow-up tests. You may need tests at 6 weeks, 3 months, 6 months, and possibly at 9 months. It takes this long for some diseases to show up on tests. Follow-up care is a marks part of your treatment and safety. Be sure to make and go to all appointments, and call your doctor if you are having problems. It's also a good idea to know your test resultsand keep a list of the medicines you take. How can you care for yourself at home? Clean the area as instructed by your doctor. Be safe with medicines. If your doctor prescribed medicine to protect you from disease, make sure you take all the medicine as directed. Call your doctor if you think you are having a problem with your medicine. When should you call for help? Watch closely for changes in your health, and be sure to contact your doctor if: You have symptoms of infection, such as: Increased pain, swelling, warmth or redness. Red streaks leading from the area. Pus draining from the area. A fever. You have new symptoms, such as belly pain or fatigue. Where can you learn more? Log into your personal health record on https://ColorChiphart.Sponsify and enter C142 in the Education box to learn more about Exposure to Blood and Body Fluids: Care Instructions. Current as of: November 14, 2015 Content Version: 11.2 9222-9667 [employer]. Care instructions adapted under license by your healthcare professional. If you have questions about a medical condition or this instruction, always ask your healthcare professional. [employer] disclaims any warranty or liability for your use of this information. in this encounter Summary Purpose Family History No Family History Records FoundNo Family History Records FoundNo Family History Records FoundNo Family History Records FoundNo Family History Records FoundNo Family History Records Found Advance Directives No Advanced Directives Records FoundNo Advanced Directives Records FoundNo Advanced Directives Records FoundNo Advanced Directives Records FoundNo Advanced Directives Records FoundNo Advanced Directives Records Found Additional Source Comments ED Provider Notes - Willard Rogers, DO - 04/17/2017 8:39 PM EDTED Attestation Note - MedardoKristen, DO - 04/17/2017 8:26 PM EDT Miscellaneous Notes (unrecog nized section and content) Formatting of this note may be different from the original. [facility] ED Resident Note: NAME: Yakov Villarreal 22 y.o. CSN: [id number] PCP: Gordy Alicea MD History: Chief Complaint: Body Fluid Exposure HPI: The history was obtained from the patient. Yakov is a 22 y.o. female who presents with a chief complaint of Body Fluid Exposure. 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 This evening patient went into her patient's room and noticed that her patient pulled out his central line. Her patient was not bleeding at that time but she did help her patient without gloves. She then put gloves on and at some point looked down and noticed she had blood inside of her glove on her thumb. Patient states that she thinks she cut herself while in the patient's room but was not sure if she was directly in contact with his blood. Her patient his IV drug abuser and has hepatitis C. Patient's bleeding on her finger is controlled. She has no other complaints at this time. PMHx: History reviewed. No pertinent past medical history. PMSx: History reviewed. No pertinent surgical history. FAM. Hx: History reviewed. No pertinent family history. SOC. Hx: Social History Social History Marital status: Single Spouse name: N/A Number of children: N/A Years of education: N/A Occupational History Not on file. Social History Main Topics Smoking status: Never Smoker Smokeless tobacco: Never Used Alcohol use Yes Comment: social Drug use: No Sexual activity: Not on file Other Topics Concern Not on file Social History Narrative No narrative on file MEDs: Previous Medications AMLODIPINE (NORVASC) 5 MG TABLET Take 5 mg by mouth daily. BENZONATATE (TESSALON PERLES) 100 MG CAPSULE Take 1 capsule (100 mg total) by mouth 3 (three) times a day as needed for cough. FLUTICASONE (FLONASE) 50 MCG/ACTUATION NASAL SPRAY Instill 1 spray into each nostril daily. NORGESTIMATE-ETHINYL ESTRADIOL (ORTHO TRI-CYCLEN, 28, ORAL) Take by mouth. PHENAZOPYRIDINE (PYRIDIUM) 200 MG TABLET Take 1 (one) tablet (200 mg total) by mouth 3 (three) times a day as needed for pain. ALL: No Known Allergies ROS: Review of Systems Positives and pertinent negatives as per HPI. All other systems were reviewed and are negative. Physical Exam: Patient Vitals for the past 24 hrs: BP Temp Temp src Pulse Resp SpO2 Height Weight 04/17/172003 130/80 98.6 ?F (37 ?C) Oral 86 16 100 % 5' 10 77.1 kg (170 lb) Physical Exam Constitutional: She appears well-developed and well-nourished. No distress. HENT: Head: Normocephalic and atraumatic. Cardiovascular: Normal rate, regular rhythm, normal heart sounds and intact distal pulses. Pulmonary/Chest: Effort normal and breath sounds normal. No respiratory distress. She exhibits no tenderness. Abdominal: Soft. Bowel sounds are normal. She exhibits no distension. There is no tenderness. Musculoskeletal: Patient does have a small laceration to her left thumb. It appears very superficial and is not actively bleeding at this time. Skin: Skin is warm and dry. Capillary refill takes less than 3 seconds. She is not diaphoretic. Nursing note and vitals reviewed. Laboratory & Radiological Imaging (if done): Labs Reviewed - No data to display No orders to display Procedures: Procedures ED Course / Medical Decision Making: Lab work will be drawn evaluated by workers health. The risks of hepatitis C transmission were discussed with the patient. The patient does not appear to be exposed to HIV testing will be performed. At this time I do not feel the patient needs post exposure prophylaxis. Patient will follow up with Employee health in 3 months. Patient was given return precautions for his blood/body fluid exposure. Clinical Impression: SNOMED CT(R) 1. Employee exposure to blood EXPOSURE TO BLOOD AND/OR BODY FLUID Disposition: Patient is being Discharge to home New Prescriptions No medications on file Willard Rogers DO ED Resident Physician [facility] Emergency Department (Please note that portions of this note have been completed with a voice recognition software. Efforts were made to correct any errors, but occasionally words are mis-transcribed.) Willard Rogers DO Resident 04/17/17 0046 ED Attestation: I have discussed the case and ED management with the resident. In addition, I have personally introduced myself to the patient, and have taken her history and performed an examination. I agree with the physical findings, management, clinical impression and disposition. she is a 22 y.o. female who presents with a chief complaint of Body Fluid Exposure. Patient presents after exposure to blood in the ICU. She does not know how she cut her thumb but when she looked down there was blood on the glove. The source patient has hepatitis. Customary body fluid exposure protocol followed in the ED. Her tetanus is up-to-date. Rapid HIV done on the patient. Follow-up with employee health discussed. Kristen Akbar DO FACEP Attending Physician [facility] Emergency Department (Please note that portions of this note may have been completed with a voice recognition program. Efforts were made to edit the dictations but occasionally words are mis-transcribed.) Pt to ED after body fluid exposure on ICU unit. RN pt cut finger at some point while trying to assist with ICU pt's central line. Line was partially pulled out, required pressure, actively bleeding, RN pt noted cut on finger after helping with line. Bleeding on finger controlled, respirs even, unlabored, skin WDI. ICU pt is hep c+ and known IVDAin this encounter INFORMATION SOURCE (unrecogn ized section and content) DATE CREATED AUTHOR AUTHOR'S ORGANIZ ATION 12/13/2017 [facility] DATE CREATED AUTHOR AUTHOR'S ORGANIZ ATION 12/13/2017 [facility] DATE CREATED AUTHOR AUTHOR'S ORGANIZ ATION 04/12/2019 [facility] DATE CREATED AUTHOR AUTHOR'S ORGANIZ ATION 04/12/2019 [facility] DATE CREATED AUTHOR AUTHOR'S ORGANIZ ATION 04/12/2019 [facility] FOR RECORDS PERTAINING TO PATIENTS WHO ARE OR HAVE BEEN ENROLLED IN A CHEMICAL DEPENDENCY/SUBSTANCEABUSE PROGRAM, SOME INFORMATION MAY BE OMITTED. This clinical summary was aggregated from multiple sources. Caution should be exercised in using it in the provision of clinical care. This summary normalizes information from multiple sources, and as a consequence, information in this document may materially change the coding, format and clinical context of patient data. In addition, data may be omitted in some cases. CLINICAL DECISIONS SHOULD BE BASED ON THE PRIMARY CLINICAL RECORDS. [facility] [employer], [facility]. provides no warranty or guarantee of the accuracy or completeness of information in this document.
[2023-07-02 11:17] LABS: Absolute Lymphocyte Count 1.65 X10^3/uL (0.83-4.51); Absolute Neutrophil Count 7.1 X10^3/uL (2.0-7.7); Basophil# 0.07 X10^3/uL; Basophil% 0.7 % (0-1); Eosinophil# 0.33 X10^3/uL; Eosinophils% 3.3 % (0-5); Hematocrit 34.5 % (37-47); Hemoglobin 11.4 g/dL (12.0-15.0); Lymphocyte # 1.65 X10^3/ul (0.83-4.51); Lymphocyte % 16.7 % (19-41); Mean Corpuscular Hgb 29.4 pg (27.0-32.0); Mean Corpuscular Volume 88.9 fL (81-99); Mean Platelet Vol. 8.7 fl (6.2-12.0); Monocyte# 0.63 X10^3/uL; Monocyte% 6.4 % (0-10); NRBC Flagged by Analyzer 0 % (0-5); Neutrophil # 7.08 X10^3/uL (2.7-7.7); Neutrophil % 71.7 % (47-70); Platelet Count 408 K/mm3 (150-450); RBC Distribution Width CV 12.6 % (11.6-14.6); RBC Distribution Width SD 40.9 fl (35.1-43.9); Red Blood Count 3.88 M/mm3 (4.2-5.4); White Blood Count 9.9 K/mm3 (4.4-11.0)
[2023-07-02 11:36] LABS: Glucose Challenge Gest 1H 50g 90 mg/dL (70-140)
[2023-07-04 11:17] LABS: HIV - WCH Non-Reactive (Nonreactive); Syphilis Antibodies Non-reactive
== END | disposition home or self-care (01) ==
LOC: LAB 08:29
PROVIDERS: Referring Provider Obstetrics & Gynecology; Visit Provider Obstetrics & Gynecology
DX: Z34.90 Encounter for supervision of normal pregnancy, unspecified, unspecified trimester (principal); Z3A.00 Weeks of gestation of pregnancy not specified
CPT/HCPCS: 36415; 82950; 85025; 86703; 86780

== ENCOUNTER → 2023-09-02 | Outpatient (CLI) | payer OTHER, SELFPAY ==
--- OUTSIDE RECORDS SUMMARY | 2023-09-02 10:23 | XMS RPT_ITS | CCD ---
Author Name Unknown Address [address] [place] [address] Organization [facility] Care Team Providers Care Safe Expert Name Role Phone Gordy Alicea Unavailable Unavailable [...] Unavailable Unava ilable VAIL, TEJINDER SUN Admitting Unavailzenaida e GORDY ALICEA Primary Care Unavailable GORDY [...] (Body Mass Index) 25.11 kg/m2 Racquel [facility] Work Phone: 06-23-2017 20:20-0500 Body Temperature 98.49 [degF] Racquel [facility] Work Phone: 06-23-2017 20:20-0500 BP Diastolic 76 mm[Hg] Racquel [facility] Work Phone: 06-23-2017 20:20-0500 BP Systolic 119 mm[Hg] Racquel [facility] Work Phone: 06-23-2017 20:20-0500 Pulse (Heart Rate) 88 /min Racquel [facility] Work Phone: 06-23-2017 20:20-0500 Pulse Oximetry 95 % Racquel [facility] Work Phone: 06-23-2017 20:20-0500 Respiratory Rate 14 /min Racquel [facility] Work Phone: 06-23-2017 20:20-0500 Weight 79.38 kg Racquel [place] [facility] Work Phone: 05-04-2017 10:41-0500 BMI (Body Mass Index) 25.68 kg/m2 Leigh Schmitt [facility] Work Phone: 05-04-2017 10:41-0500 Body Temperature 97.81 [degF] Leigh Schmitt [facility] Work Phone: 05-04-2017 10:41-0500 BP Diastolic 83 mm[Hg] Leigh Schmitt [facility] Work Phone: 05-04-2017 10:41-0500 BP Systolic 114 mm[Hg] Leigh Schmitt [facility] Work Phone: 05-04-2017 10:41-0500 Height 177.8 cm Leigh Schmitt [facility] Work Phone: 05-04-2017 10:41-0500 Pulse (Heart Rate) 71 /min Leigh Schmitt [facility] Work Phone: 05-04-2017 10:41-0500 Pulse Oximetry 96 % Leigh Schmitt [facility] Work Phone: 05-04-2017 10:41-0500 Respiratory Rate 16 /min Leigh Schmitt [facility] Work Phone: 05-04-2017 10:41-0500 Weight 81.19 kg Leigh Schmitt [facility] Work Phone: 04-17-2017 20:04-0400 BMI (Body Mass Index) 24.39 kg/m2 Kristen Akbar [facility] Work Phone: 04-17-2017 20:04-0400 Body Temperature 98.6 [degF] Kristen Akbar [facility] Work Phone: 04-17-2017 20:04-0400 BP Diastolic 80 mm[Hg] Kristen Akbar [facility] Work Phone: 04-17-2017 20:04-0400 BP Systolic 130 mm[Hg] Kristen Akbar [facility] Work Phone: 04-17-2017 20:04-0400 Height 177.8 cm Kristen Akbar [facility] Work Phone: 04-17-2017 20:04-0400 Pulse (Heart Rate) 86 /min Kristen Akbar [facility] Work Phone: 04-17-2017 20:04-0400 Pulse Oximetry 100 % Kristen Akbar [facility] Work Phone: 04-17-2017 20:04-0400 Respiratory Rate 16 /min Kristen Akbar [facility] Work Phone: 04-17-2017 20:04-0400 Weight 77.11 kg Kristen Akbra [facility] Work Phone: Encounters Encounter Date Encounter Type Care Provider Facility Start: 10-07-2017 End: 10-07-2017 Ambulatory [facility] Start: 08-11-2017 End: 08-11-2017 Ambulatory [facility] Start: 06-23-2017 End: 06-23-2017 [facility] Start: 06-23-2017 Office/outpatient visit, est, level 3 Racquel [place] Work Phone: [facility] Start: 06-10-2017 End: 06-10-2017 Ambulatory [facility] Start: 05-11-2017 End: 05-15-2017 Ambulatory [facility] Start: 05-04-2017 End: 05-04-2017 [facility] Start: 05-04-2017 Office outpatient visit 25 minutes Leigh Schmitt Work Phone: [facility] Start: 04-17-2017 End: 04-18-2017 Emergency department patient visit GORDY ALICEA [facility] Start: 04-17-2017 End: 04-17-2017 Emergency department patient visit Kristen Akbar Work Phone: [facility] Emergency Department Start: 12-15-2016 End: 12-15-2016 Ambulatory GORDY ALICEA [facility] Plan of Treatment Date Care Activity Detail Author Start: 02-18-2017 Influenza vaccination SEQUENTIAL INFLUENZA VACCINE (#1) [facility] Work Phone: Start: 2005 Vaccination for human papillomavirus HPV VACCINES (1 of 3 - Female 3 Dose Series) [facility] Work Phone: Start: 1994 Screening for malignant neoplasm of cervix PAP SMEAR [facility] Work Phone: Start: 1994 Tetanus vaccination TETANUS EVERY 10 YR [facility] Phone: Bacteria aerobode culture Urine Aerobic Culture Routine Acute cystitis with hematuria Ordered: 06/23/2017 [facility] Work Phone: End: 05-05-2018 Bacteria aerobode culture Urine Aerobic Culture Routine Acute cystitis with hematuria 1 Occurrences starting 05/04/2017 until 05/05/2018 [facility] Phone: Payers Date Payer Category Payer Unknown [id number] [id number] 1994 Unknown [id number] [id number] 1994 Unknown [id number] [id number] 1994 Unknown [id number] Social History Date Type Detail Facility Start: 04-17-2017 End: 06-23-2017 Tobacco smoking status NHIS Never smoker [facility] Phone: Sex Assigned At Not on file [facility] Work Phone: Instructions * Patient Instructions - [...] Log into your personal health record on [email or web address] and enter K848 in the Education box to learn more about Urinary Tract Infection in Women: Care Instructions. Current as of: May 17, 2016 Content Version: 11.2 7770-4705 [employer]. Care instructions adapted under license by your healthcare professional. If you have questions about a medical condition or this instruction, always ask your healthcare professional. [employer] disclaims any warranty or liability for your [...] Log into your personal health record on [email or web address] and enter K848 in the Education box to learn more about Urinary Tract Infection in Women: Care Instructions. Current as of: May 17, 2016 Content Version: 11.2 6986-8197 [employer]. Care instructions adapted under license by your healthcare professional. If you have questions about a medical condition or this instruction, always ask your healthcare professional. [employer] disclaims any warranty or liability for your [...] Log into your personal health record on [email or web address] and enter C142 in the Education box to learn more about Exposure to Blood and Body Fluids: Care Instructions. Current as of: November 14, 2015 Content Version: 11.2 5946-9954 [employer]. Care instructions adapted under license by your healthcare professional. If you have questions about a medical condition or this instruction, always ask your healthcare professional. [employer] disclaims any warranty or liability for [...] note may be different from the original. [facility] ED Resident Note: NAME: Yakov Villarreal 22 y.o. CSN: [id number] PCP: Gordy Alicea MD History: Chief Complaint: Body Fluid Exposure HPI: The history was obtained from the patient. Yakov is a 22 y.o. female who presents with a chief complaint of Body Fluid Exposure. 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 This evening patient went into her patient's [...] file Willard Rogers DO ED Resident Physician [facility] Emergency Department (Please note that portions of this note have been completed with a voice recognition software. Efforts were made to correct any errors, but occasionally words are mis-transcribed.) Willard Rogers DO Resident 04/17/17 [id number] ED Attestation: I have discussed the case [...] discussed. Kristen Akbar DO FACEP Attending Physician [facility] Emergency Department (Please note that portions of [...] DATE CREATED AUTHOR AUTHOR'S ORGANIZ ATION 12/13/2017 [facility] DATE CREATED AUTHOR AUTHOR'S ORGANIZ ATION 12/13/2017 [facility] DATE CREATED AUTHOR AUTHOR'S ORGANIZ ATION 04/12/2019 [facility] DATE CREATED AUTHOR AUTHOR'S ORGANIZ ATION 04/12/2019 [facility] DATE CREATED AUTHOR AUTHOR'S ORGANIZ ATION 04/12/2019 [facility] FOR RECORDS PERTAINING TO PATIENTS WHO ARE [...] BE BASED ON THE PRIMARY CLINICAL RECORDS. [facility] [employer], [facility]. provides no warranty or guarantee of the accuracy or completeness of information in this document.
== END | disposition home or self-care (01) ==
PROVIDERS: Referring Provider Obstetrics & Gynecology; Visit Provider Obstetrics & Gynecology
DX: Z34.90 Encounter for supervision of normal pregnancy, unspecified, unspecified trimester (principal)
CPT/HCPCS: 87081; 87186

== ENCOUNTER 2023-09-16 01:58 | Inpatient (IN) | payer OTHER, SELFPAY ==
[2023-09-16] VITALS (19 sets, daily range): BP systolic 101–150; BP diastolic 52–77; PULSE 86–100; RESP 16; TEMP 36.6–37.1; O2SAT 95–98; BMI 30.5
[2023-09-16] MEDS: Lactated Ringers 1,000 ML 50 ML IV (02:19)
[2023-09-16] MEDS: Penicillin G Pot 5,000,000 UNITS in 0.9% Normal Saline (100mL MB+) 100 ML 150 UNITS IV (02:19)
[2023-09-16 02:23] LABS: Absolute Lymphocyte Count 1.66 X10^3/uL (0.83-4.51); Basophil# 0.09 X10^3/uL; Basophil% 0.5 % (0-1); Eosinophil# 0.11 X10^3/uL; Eosinophils% 0.6 % (0-5); Hematocrit 34.7 % (37-47); Hemoglobin 11.3 g/dL (12.0-15.0); Lymphocyte # 1.66 X10^3/ul (0.83-4.51); Lymphocyte % 9.8 % (19-41); Mean Corp Hgb Conc 32.6 g/dL (32-36); Mean Corpuscular Hgb 27.6 pg (27.0-32.0); Mean Corpuscular Volume 84.6 fL (81-99); Mean Platelet Vol. 8.8 fl (6.2-12.0); Monocyte# 0.98 X10^3/uL; Monocyte% 5.8 % (0-10); NRBC Flagged by Analyzer 0 % (0-5); Neutrophil # 13.99 X10^3/uL (2.7-7.7); Neutrophil % 82.7 % (47-70); Platelet Count 399 K/mm3 (150-450); RBC Distribution Width CV 13.2 % (11.6-14.6); RBC Distribution Width SD 40.7 fl (35.1-43.9); White Blood Count 16.9 K/mm3 (4.4-11.0)
[2023-09-16 03:33] LABS: Syphilis Antibodies Non-reactive
[2023-09-16] MEDS: Ondansetron 4 MG/2 ML Vial IV (04:29)
[2023-09-16] MEDS: Oxytocin 10 UNITS/ML Vial IM (04:47)
[2023-09-16] MEDS: Oxytocin 15 Units/NS 250ml 15 UNITS/250 ML IV.SOLN 83 UNITS IV (04:49)
[2023-09-16] MEDS: Methylergonovine 0.2 MG/ML Ampul IM (04:51)
--- NOTE | 2023-09-16 05:06 | HP.PCM.OB_ITS ---
HPI - General General Date of Admission: 09/16/23 HPI Narrative YAKOV FIORE, is a 28 F who presents IAL regular ctx 4-5 cm made change and delivered wtihin 3 hours. Maternal Data Information ARAVIND Calculator Estimated Delivery Date Method Current WG Current Estimate 09/21/23 LMP (Certain) 39w 2d [facility] Medical History (Updated 09/16/23 @ 05:[address] Arabella Chau MD) Bilateral headaches Bruises easily Chronic back pain Diarrhea Environmental allergies History of tetanus, diphtheria, and acellular pertussis booster vaccination (Tdap) hemorrhage Psoriasis Vaginal delivery Home Medications PNV#14-iron fum-FA#5-kka-[id number] 27 mg iron-1 mg-300 mg-50 mg capsule 1 cap PO DAILY 01/26/23 [History Last Taken Unknown] Allergy/AdvReac Type Severity Reaction Status Date / Time codeine AdvReac Nausea/Vom/ Verified 09/15/23 09:32 Diarrhea Family History Other Breast cancer CVA (cerebral vascular accident) Cancer Heart disease Hypertension Myocardial infarction Thyroid disorder Uterine cancer Surgical History History of cosmetic plastic surgery History of lump of right breast Social History adopted: No household members: spouse housing: house current occupational status: employed 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 Date Name GA/Weeks Outcome Route Bth Weight Infant Gen Labor Lgth Ane sthesia Del Locatn Provider FOB 01/06/21 Yumiko 39 live - full term Female [employer] [facility] [facility] Isac Visit Details Expected Delivery Route/Plan Labor Preferences- CB/BF classes: no labor support person: Chris labor intervention preferences: limited interventions pain management options preferred: limited but ok if requests epidural cut cord/dad catch: cord : yes PP control planned: discussed discussed possible routes of delivery and associated risks: [] special requests: [] Plans Covid status: vaccinated. Flu vaccine: given Tdap vaccine: given Rhogam: NA LARC form signed: yes movement and labor precautions reviewed. Problem list reviewed and updated with the most current plan of care details and appropriate orders placed. Relevant counseling for the gestational age provided. Continue routine care and follow up unless otherwise noted in visit notes/problem list details OB Flowsheet Initial Weight: Not Recorded Date -?-?-?-?-?-?-?-?-?-?-?-?- EGA Weight BP Urine Prot -?-?-?-?-?-?-?-?-?-?-?-?- Glucose FHR FuHt Pres Dilation -?-?-?-?-?-?-?-?-?-?-?-?- Effaced St Visit Note 02/14/23 -?-?-?-?-?-?-?-?-?-?-?-?- 8w 5d 167 lb 8 oz 99/59 -?-?-?-?-?-?-?-?-?-?-?-?- 175 -?-?-?-?-?-?-?-?-?-?-?-?- SM- CRL 2.2cm co ns with LMP. 5 mm subchorionic hemorrhage 03/16/23 -?-?-?-?-?-?-?-?-?-?-?-?- 13w 0d 166 lb 8 oz 112/66 Nega tive -?-?-?-?-?-?-?-?-?-?-?-?- Negative 155 -?-?-?-?-?-?-?-?-?-?-?-?- LC- no vb/crampi ng. will obtain nob labs today. decided to obtain nipt. discussed and declines afp. 04/13/23 -?-?-?-?-?-?-?-?-?-?-?-?- 17w 0d 177 lb 103/68 Negative -?-?-?-?-?-?-?-?-?-?-?-?- Negative 156 -?-?-?-?-?-?-?-?-?-?-?-?- JV- doing well, no complaints. Has anatomy scan ordered for 05/04/23 05/10/23 -?-?-?-?-?-?-?-?-?-?-?-?- 20w 6d 187 lb 4 oz 110/71 Nega tive -?-?-?-?-?-?-?-?-?-?-?-?- Negative 150 -?-?-?-?-?-?-?-?-?-?-?-?- KW-no vb/lof/ctx . good fm. anatomy scan reviewed. having a girl. 06/06/23 -?-?-?-?-?-?-?-?-?-?-?-?- 24w 5d 192 lb 111/70 Negative -?-?-?-?-?-?-?-?-?-?-?-?- Negative 145 25 -?-?-?-?-?-?-?-?-?-?-?-?- JV- no lof, vagi nal bleeding, or dec fm. has some intermittent urinary discomfort. (frequency) but already used the bathroom and can't go again. she will message us if it happens again. 07/05/23 -?-?-?-?-?-?-?-?-?-?-?-?- 28w 6d 199 lb 8 oz 114/68 Nega tive -?-?-?-?-?-?-?-?-?-?-?-?- Negative 151 28 -?-?-?-?-?-?-?-?-?-?-?-?- MH-No VB, LOF. G ood FM. Tdap, larc. 07/20/23 -?-?-?-?-?-?-?-?-?-?-?-?- 31w 0d 203 lb 2 oz 104/71 Nega tive -?-?-?-?-?-?-?-?-?-?-?-?- Negative 143 30 -?-?-?-?-?-?-?-?-?-?-?-?- JV- no lof, vagi nal bleeding, or dec fm. 08/05/23 -?-?-?-?-?-?-?-?-?-?-?-?- 33w 2d 204 lb 6 oz 113/67 Nega tive -?-?-?-?-?-?-?-?-?-?-?-?- Negative 145 33 -?-?-?-?-?-?-?-?-?-?-?-?- kw-no vb/lof/reg ular ctx. good fm. 08/19/23 -?-?-?-?-?-?-?-?-?-?-?-?- 35w 2d 204 lb 4 oz 122/78 Nega tive -?-?-?-?-?-?-?-?-?-?-?-?- Negative 140 35 -?-?-?-?-?-?-?-?-?-?-?-?- LC- no vb/ctx/lo f.good fm no concerns today. 09/02/23 -?-?-?-?-?-?-?-?-?-?-?-?- 37w 2d 211 lb 113/72 Negative -?-?-?-?-?-?-?-?-?-?-?-?- Negative 140 37 Cephalic 1 .5 -?-?-?-?-?-?-?-?-?-?-?-?- 30 -2 SM- no vb lof good fm no regular ctx 09/08/23 -?-?-?-?-?-?-?-?-?-?-?-?- 38w 1d 212 lb 4 oz 123/72 Nega tive -?-?-?-?-?-?-?-?-?-?-?-?- Negative 140 39 Cephalic 2 -?-?-?-?-?-?-?-?-?-?-?-?- 40 -2 SM- no vb lof good fm n oregular ctx 09/15/23 -?-?-?-?-?-?-?-?-?-?-?-?- 39w 1d 213 lb 6 oz 125/67 Nega tive -?-?-?-?-?-?-?-?-?-?-?-?- Negative 150 40 Cephalic 3 -?-?-?-?-?-?-?-?-?-?-?-?- 60 -1 SM- no vb lof good fm no reuglar ctx membranes Vital Signs Vital Signs Vital Signs: 09/16/23 02:14 09/16/23 02:14 09/16/23 02:14 Temperature Temperature Source Temporal Pulse Rate 97 Respiratory Rate Blood Pressure 127/74 H BP Systolic 127 BP Diastolic 74 09/16/23 02:14 09/16/23 02:14 Temperature 98.8 F Temperature Source Pulse Rate Respiratory Rate 16 Blood Pressure BP Systolic BP Diastolic Weight Weight: 207 lb Body Mass Index (BMI) 30.5 Labs Labs Labs: Blood Type O POSITIVE Antibody Screen NEGATIVE Hct 34.7 % (37-47) L Hgb 11.3 g/dL (12.0-15.0) L Obstetrics Ultrasound Syphilis Total Ab Non-reactive Rubella IgG Antibody Reactive (Nonreactive) Hep Bs Antigen Non-Reactive (Nonreactive) Hepatitis C Antibody Non-Reactive (Nonreactive) Chlamydia DNA (VALERIY) Negative (Negative) N.gonorrhoeae DNA (VALERIY) Negative (Negative) HIV 1&2 Antibody Non-Reactive (Nonreactive) Glucose 1 Hr 50 gm 90 mg/dL (70-140) Rhogam given: No Assessment & Plan (1) History of hemorrhage, currently : COMMENT: secondary to retained membranes. methergine, cytotec, bedside curetage. TXA. 1000cc EBL (2) GBS (group B Streptococcus carrier), +RV culture, currently : COMMENT: PCN in labor (3) Supervision of normal : QUALIFIERS: Normal : other normal Trimester: third trimester Qualified Code(s): Z34.83 - Encounter for supervision of other normal , third trimester COMMENT: [id number] ARAVIND 09/21/23 girl PC: Eric, Spouse, Chris (4) : QUALIFIERS: Weeks of gestation: 39 weeks Qualified Code(s): Z3A.39 - 39 weeks gestation of COMMENT: NIPT low risk, normal anatomy scan. 92% for growth- recommend growth scan at 36 weeks (5) Anxiety: COMMENT: buspar/stable (6) Active labor at term: (7) Anemia affecting : COMMENT: iron added (8) hemorrhage: COMMENT: Secondary to retained membranes, given Methergine Hemabate, Cytotec, bedside curettage performed and tranexamic acid given. 1000 cc EBL (9) Supervision of normal : QUALIFIERS: Normal : normal first Trimester: second trimester Qualified Code(s): Z34.02 - Encounter for supervision of normal first , second trimester COMMENT: PRR ARAVIND: 09/20/22 Spouse: Chris (10) Segmental and somatic dysfunction of thoracic region: PLAN: Plan Patient presents IAL, plan expectant management for , pitocin/AROM PRN if needed. Pain management: minimal intervention. GBS positive plan IV PCN. Management of any complications: none I have reviewed the [facility] and made any clinically relevant updates.
--- NOTE | 2023-09-16 05:11 | EX.PCM.OBRPT ---
Assessment & Plan (1) Anxiety: COMMENT: buspar/stable (2) : QUALIFIERS: Weeks of gestation: 39 weeks Qualified Code(s): Z3A.39 - 39 weeks gestation of COMMENT: NIPT low risk, normal anatomy scan. 92% for growth- recommend growth scan at 36 weeks (3) Supervision of normal : QUALIFIERS: Normal : other normal Trimester: third trimester Qualified Code(s): Z34.83 - Encounter for supervision of other normal , third trimester COMMENT: [id number] ARAVIND 09/21/23 girl PC: Eric, Spouse, Chris (4) History of hemorrhage, currently : COMMENT: secondary to retained membranes. methergine, cytotec, bedside curetage. TXA. 1000cc EBL (5) GBS (group B Streptococcus carrier), +RV culture, currently : COMMENT: PCN in labor (6) Vaginal delivery: COMMENT: SM girl 39 IAL Maternal Data Information ARAVIND Calculator Estimated Delivery Date Method Current WG Current Estimate 09/21/23 LMP (Certain) 39w 2d Vaginal Delivery Operative Information Date of Procedure: 09/16/23 Pre-Operative Diagnosis: see a/p diagnoses Post-Operative Diagnosis: same Surgery / Procedure Performed: Spontaneous Vaginal Delivery Type of Anesthesia: Epidural Special Medications: none Estimated Blood Loss: 300 Fluids Replaced: crystalloid Findings Description of Procedure: Patient began pushing in hands and knees and delivered the head in the SHAD presentation. The head was delivered atraumatically. The anterior and posterior shoulders delivered without complication followed by the rest of the infant and the was placed on the maternal abdomen. Delayed cord clamping was employed for approximately 60 seconds. Cord was clamped and cut and gentle traction was applied to the cord and the placenta delivered spontaneously immediately following it was noted to be intact with three-vessel cord. The perineum and vagina were inspected and noted to have a degree perineal laceration which was repaired in the usual fashion with 3-0 vicryl rapide after injecting with lidocaine. EBL was 300. Patient and tolerated delivery well. Amniotic Fluid Description: Clear Placental Delivery Description: Spontaneous Placenta Disposition: [facility] Cord Vessel Description: 3 Vessels Cord Entanglement: None Delayed Cord Clamping: Yes Post Vaginal Delivery Medications Given After Delivery: IV Pitocin Episiotomy Description: None Complication Complications: None Procedures Urinary/Genital [id number]-59xxx: 02800 Vaginal Delivery [facility] pkg
--- NOTE | 2023-09-16 05:12 | DCINST_ITS ---
Discharge Instructions Diet Discharge Diet: No restrictions Activity Discharge Activity: Return to Normal Activity, May Not Drive (while taking narcotic pain medications.) and May Shower May resume sexual activity in: 4-6 weeks Dressing / Incision Call your doctor if your incision/area has: Continuous Slow Oozing, Sudden Increased Bleeding, Increased Pain/ Swelling, Increased Redness and Foul Smelling Discharge Follow Up Care Please Follow Up With: Arabella Chau MD When: Call [phone] to make an appointment with your doctor in 6 weeks. If you had elevated blood pressure or 4th degree laceration, you will need to be seen in 2 weeks. Test Results: Test results from this visit will be discussed in further detail at your follow- up appointment, if applicable. Discharge Plan Admission Admit Date/Time: 09/16/23 01:58 Attending Provider: Arabella Chau Primary Care Provider: Care Physician,Meg Primary Discharge Orders/Prescriptions Prescriptions: No Action PNV #14-iron-FA#6-ibj-lkuhrrdw 27 mg iron-1 mg -300 mg-50 mg capsule 1 cap PO DAILY Referrals / Follow Up: Care Physician,Meg Primary [Primary Care Provider] - Disposition Disposition (needs filled in before D/C Order can be placed): Home, Self Care
[2023-09-16] MEDS: Naproxen 500 MG Tablet PO (18:12)
[2023-09-17] VITALS: BP 101/52; PULSE 90; RESP 16; TEMP 37.3; O2SAT 98
[2023-09-17 04:00] VITALS: BP 107/59; PULSE 85; RESP 16; TEMP 36.3; O2SAT 97
[2023-09-17 04:14] VITALS: PULSE 85; O2SAT 97
[2023-09-17 04:15] VITALS: BP 105/59; PULSE 81
[2023-09-17 09:47] VITALS: BP 116/72; PULSE 108; PULSE 99; RESP 14; TEMP 36.4; O2SAT 96; O2SAT 97
--- NOTE | 2023-09-17 09:54 | PCM.PN.OB ---
Subjective Subjective Patient doing well without complaints. Tolerating PO. Ambulating and voiding without difficulty. feeding well. Denies chest pain, shortness of breath, calf pain/swelling, fevers, chills, lightheadedness. Objective Data Objective Data Vital Signs: Vital Signs Temp Pulse Resp BP Pulse Ox O2 Del Method 97.5 F L 99 14 116/72 96 Room Air 09/17/23 09:47 09/17/23 09:47 09/17/23 09:47 09/17/23 09:47 09/17/23 09:47 09/17/23 09:47 Oxygen Delivery Method Room Air Weight: 207 lb Body Mass Index (BMI) 30.5 Intake & Output: Intake and Output for Last 24 Hours 09/15/23 09/16/23 09/17/23 23:59 23:59 23:59 Intake Total 480 / 480 Output Total 1650 / 1650 Balance -1170 / -1170 Lab / Micro Data 09/16/23 02:10 ROS Constitutional Constitutional: Reports systems reviewed and no addt'l complaints, except as documented Cardiovascular Cardiovascular: Reports systems reviewed and no addt'l complaints, except as documented Respiratory/Chest Respiratory/Chest: Reports systems reviewed and no addt'l complaints, except as documented Gastrointestinal Gastrointestinal: Reports systems reviewed and no addt'l complaints, except as documented Physical Exam Const alert, oriented x3 and no apparent distress HEENT Head and Scalp: atraumatic Resp normal respiratory effort GI soft to palpation and non-tender Bimanual Exam - Vag & Uterus: uterus non-tender Uterus Palpation: uterus fundus firm (below Umbilicus) Assessment & Plan (1) Vaginal delivery: COMMENT: SM girl 39 IAL PLAN: Plan s/p PPD # 1 1. routine post delivery care 2. breast feeding- support given 3. rh positive 4. rubella immune
[2023-09-17] MEDS: Senna/Docusate Sodium 1 Tablet PO (11:12)
== END 2023-09-17 12:50 | disposition home or self-care (01) | DRG 807 ==
LOC: WPOUT 02:00 → WP 02:00
PROVIDERS: Admitting Provider Obstetrics & Gynecology; Visit Provider Obstetrics & Gynecology
DX: O99.824 Streptococcus B carrier state complicating childbirth (principal); Z37.0 Single live birth; O99.344 Other mental disorders complicating childbirth; F41.9 Anxiety disorder, unspecified; O70.0 First degree perineal laceration during delivery; Z3A.39 39 weeks gestation of pregnancy
CPT/HCPCS: 59025; 59050; 85025; 86780; 86850; 86900; 86901; 99221; J7120; G0378; J2405

== ENCOUNTER → 2024-01-26 | Outpatient (CLI) | payer OTHER, SELFPAY ==
[2024-01-26 11:18] LABS: Hepatitis B Surface Antigen Non-Reactive (Nonreactive); Rubella IgG Reactive (Nonreactive)
[2024-01-31 11:59] LABS: Mumps Antibody,IgG 34.9 AU/mL (Immune >10.9); QNTFERON TB Mitogen Value > 10.00 IU/mL (.); QNTFERON TB Nil Value 0 IU/mL (.); QNTFERON TB1+ Ag Value 0.01 IU/mL (.); QNTFERON TB2+ Ag Value 0.03 IU/mL (.); QNTIFERON TB Positive Criteria Negative (Negative); Rubeola IgG Ab < 13.5 AU/mL (Immune >16.4); V-Zoster IgG (Immunity) < 135 index (Immune >165)
== END | disposition home or self-care (01) ==
LOC: LAB 08:34
PROVIDERS: Referring Provider Advanced Practice Midwife; Visit Provider Advanced Practice Midwife
DX: Z01.89 Encounter for other specified special examinations (principal)
CPT/HCPCS: 86480; 86735; 86762; 86765; 86787; 87340

== ENCOUNTER → 2024-02-18 | Outpatient (CLI) | payer OTHER, SELFPAY ==
[2024-02-18 08:43] LABS: Absolute Lymphocyte Count 1.92 X10^3/uL (0.83-4.51); Absolute Neutrophil Count 2.4 X10^3/uL (2.0-7.7); Basophil# 0.08 X10^3/uL; Basophil% 1.5 % (0-1); Eosinophil# 0.51 X10^3/uL; Eosinophils% 9.6 % (0-5); Hematocrit 39.6 % (37-47); Lymphocyte # 1.92 X10^3/ul (0.83-4.51); Lymphocyte % 36.2 % (19-41); Mean Corp Hgb Conc 32.8 g/dL (32-36); Mean Corpuscular Hgb 28.4 pg (27.0-32.0); Mean Corpuscular Volume 86.5 fL (81-99); Mean Platelet Vol. 8.6 fl (6.2-12.0); Monocyte% 7.5 % (0-10); NRBC Flagged by Analyzer 0 % (0-5); Neutrophil # 2.39 X10^3/uL (2.7-7.7); Neutrophil % 45.2 % (47-70); Platelet Count 353 K/mm3 (150-450); RBC Distribution Width CV 12.8 % (11.6-14.6); Red Blood Count 4.58 M/mm3 (4.2-5.4); White Blood Count 5.3 K/mm3 (4.4-11.0)
[2024-02-18 09:08] LABS: AST(SGOT) 10 U/L (15-37); Alanine Aminotransfer ALT/SGPT 16 U/L (13-56); Albumin, Serum 3.9 g/dL (3.2-5.0); Alkaline Phosphatase 67 U/L (45-117); Anion Gap 4 (5-15); BUN 16 mg/dL (7-18); Calcium,Total 9.4 mg/dL (8.5-10.1); Chloride 108 mmol/L (98-107); Cholesterol 165 mg/dL (200); Creatinine, Serum 0.64 mg/dL (0.55-1.02); EST Glomerular Filtration Rate 116 mL/min (>60); Est Glom Filt Rate - Afr Amer 140 mL/min (>60); Globulin 3.8 g/dL (2.2-4.2); Glucose 97 mg/dL (74-106); High Density Lipoprotein 51 mg/dL; Potassium 4.1 mmol/L (3.5-5.1); Protein, Total 7.7 g/dL (6.4-8.2); Sodium Level 138 mmol/L (136-145); Triglycerides 78 mg/dL; Very Low Density Lipoprotein 16 mg/dL (5-40)
== END | disposition home or self-care (01) ==
LOC: LAB 08:19
PROVIDERS: PCP Family Medicine; Referring Provider Family Medicine; Visit Provider Family Medicine
DX: Z13.220 Encounter for screening for lipoid disorders (principal); R10.11 Right upper quadrant pain
CPT/HCPCS: 36415; 80053; 80061; 85025

== ENCOUNTER → 2024-04-26 | Outpatient (CLI) | payer OTHER, SELFPAY ==
[2024-04-26 18:08] LABS: Hepatitis B Surface Antigen Non-Reactive (Nonreactive)
== END | disposition home or self-care (01) ==
LOC: LAB 15:11
PROVIDERS: PCP Family Medicine; Referring Provider Obstetrics & Gynecology; Visit Provider Obstetrics & Gynecology
DX: Z11.59 Encounter for screening for other viral diseases (principal)
CPT/HCPCS: 36415; 87340

== ENCOUNTER → 2024-05-05 | Outpatient (CLI) | payer OTHER, SELFPAY ==
[2024-05-07 08:42] LABS: Hepatitis B Surface Antigen Non-Reactive (Nonreactive)
== END | disposition home or self-care (01) ==
LOC: LAB 08:51
PROVIDERS: PCP Family Medicine; Referring Provider Nurse Practitioner Women's Health; Visit Provider Nurse Practitioner Women's Health
DX: Z11.59 Encounter for screening for other viral diseases (principal)
CPT/HCPCS: 36415; 87340

== ENCOUNTER → 2024-09-21 | Outpatient (CLI) | payer SELFPAY ==
[2024-09-21 18:30] LABS: Hepatitis B Surface Antigen Nonreactive (Nonreactive)
== END | disposition home or self-care (01) ==
LOC: LAB 16:21
PROVIDERS: Referring Provider Registered Nurse; Visit Provider Registered Nurse
DX: Z71.85 Encounter for immunization safety counseling (principal)
CPT/HCPCS: 36415; 87340

== ENCOUNTER → 2024-09-25 | Outpatient (CLI) | payer SELFPAY ==
[2024-09-25 12:40] LABS: Hepatitis B Surface Antibody REAC
== END | disposition home or self-care (01) ==
LOC: LAB 10:06
PROVIDERS: Referring Provider Registered Nurse; Visit Provider Registered Nurse
DX: Z71.85 Encounter for immunization safety counseling (principal)
CPT/HCPCS: 36415; 86706

== ENCOUNTER → 2024-09-26 | Outpatient (CLI) | payer SELFPAY ==
--- NOTE | 2024-09-26 15:46 | MRI_ITS ---
EXAM: Noncontrast MRI of the right knee. CLINICAL HISTORY: Right knee pain, without specific injury. Feels unstable. Evaluate for loose body. COMPARISON: Right knee radiographs 08/2024 TECHNIQUE: Multiplanar, multisequence MRI images of the right knee were obtained without IV contrast. FINDINGS: No acute fracture or dislocation of the right knee. No abnormal marrow replacement process or sizable joint effusion. The patellar ligament and included distal quadriceps tendon are intact. On the axial T2 sequence, there is 14 mm lateral patellar subluxation. The patellar retinacula are intact. No evidence of transient patellar dislocation. There is some thin curvilinear fluid signal in the popliteal fossa which may represent a collapsed popliteal cyst. The popliteus muscle and tendon are intact. There is a 19 mm ovoid possible loose body near the anterolateral margin of the lateral femoral condyle on image 10 of the axial T2 sequence and image 23 of the coronal T2 fat saturated sequence. [id number] articular cartilage thinning/irregularity involving the patellar apex and lateral patellar facet. Mild articular cartilage loss involving the medial femoral condyle, without focal high-grade chondral defect or osteochondral lesion. The cruciate and collateral ligaments are intact. No definite discrete meniscal tear. There is an obliquely oriented area of increased linear signal intensity involving the substance of the medial meniscus at the posterior horn/body segment junction (image 18 of the T2 fat saturated sequence), which does not definitely extend to an articular surface. Tissues in the popliteal fossa. Vqcu-hr-bukknxxy edema of the soft tissues in the popliteal fossa. MRI/Lower Ext Joint Only (Routine) IMPRESSION: No acute bony abnormality or internal ligamentous derangement of the right knee . No sizable joint effusion or evidence of discrete meniscal tear. Please see di scussion above. There is a thin curvilinear area of fluid signal in the popliteal fossa, with a djacent soft tissue edema, which may represent a recently collapsed popliteal cyst. 14 mm lateral patellar subluxation. There is [id number] articular cartil age thinning of the lateral patellar facet and patellar apex. There is an ovoid 19 mm possible loose body near the anterolate ral margin of the lateral femoral condyle. Please see reference images provided above. The patellar retinacula are intact. No evidence of transient patellar dislocat ion. Reading Location: [facility]
== END | disposition home or self-care (01) ==
PROVIDERS: Referring Provider Orthopaedic Surgery Sports Medicine; Visit Provider Orthopaedic Surgery Sports Medicine
DX: M25.561 Pain in right knee (principal); M23.41 Loose body in knee, right knee
CPT/HCPCS: 73721

== ENCOUNTER 2024-12-05 05:55 | Day surgery (SDC) | payer SELFPAY ==
[2024-12-05] VITALS (11 sets, daily range): BP systolic 96–105; BP diastolic 61–69; PULSE 73–98; RESP 14–16; TEMP 36.1–36.2; O2SAT 94–100; BMI 26.0
--- OUTSIDE RECORDS SUMMARY | 2024-12-05 05:58 | XMS RPT_ITS | CCD ---
Author Organization [facility] ion [facility] Care Team Providers Care Manager Clinical Applications Name Role Phone Gordy Cotto Unavailable Unavailable VAIL, TEJINDER SUN Unavailable Unavailabl e TOMCHAK, GORDY BESS Unavailable Unavailable VAIL, TEJINDER SUN Unavailable Unavailabl e TOMCHAK, GORDY BESS Unavailable Unavailable VAIL, TEJINDER SUN Unavailable Unavailabl e TOMCHAK, GORDY BESS Unavailable Unavailable VAIL, TEJINDER SUN Unavailable Unavailabl e TOMCHAK, GORDY BESS Unavailable Unavailable TOMCHAKGORDY Unavailable Unavailable PIOLATA, VINITA ETELVINA Unavailable Unavailab le TOMCHAK, GORDY BESS Unavailable Unavailable PIOLATA, VINITA ETELVINA Unavailable Unavailab le TOMGORDY DAVIS Unavailable Unavailable RACQUEL BIRMINGHAM Unavailable Unavailable GORDY COTTO Unavailable Unavailable KRISTEN BATRES Unavailable Unava ilable VAIL, TEJINDER SUN Admitting Unavailabl e GORDY COTTO Primary Care Unavailable GORDY COTTO Primary Care Unavailable RACQUEL BIRMINGHAM Attending Unavailable GORDY COTTO Primary Care Unavailable KRISTEN BATRES Attending Unava ilable Dr. Jose Antonio Rojas Primary Care Provider Dr. Jose Antonio Rojas Referring Provider Dr. Rosy Wang Attending Provider [phone] Jose Antonio Rojas Primary Care Provider [phone] Dr. Jose Antonio Rojas Referring Provider Dr. Rosy Wang Attending Provider [phone] Arabella Chau Attending Provider DO Cheryl Thomas Primary Care Provider DO Cheryl Thomas Primary Care Provider DO Cheryl Thomas Referring Provider Liza CENTRAL OFFICE EQUIPMENT INSTALLER, CENTRAL OFFICE EQUIPMENT INSTALLER-C Rona Attending Provider Dr. Rosy Wang Attending Provider BAILEY FENG Primary Care Provider Unavailzenaida e Dr. Arabella Chau Attending Provider Care Physician, No Primary Primary Care Provider Unavailable Care Physician, No Primary Referring Provider Un available Dr. Arabella Chau Attending Provider Care Physician, No Primary Primary Care Provider Unavailable Care Physician, No Primary Referring Provider Un available MARIELA Lincoln Attending Provider LILY James Attending Provider Dr. Josselyn Bianchi Attending Provider BAILEY CROSS Primary Care Provider Unavail able LILY Tellez Attending Provider Care Physician, No Primary Primary Care Provider Unavailable Care Physician, No Primary Referring Provider Un available Carlos CENTRAL OFFICE EQUIPMENT INSTALLER, CENTRAL OFFICE EQUIPMENT INSTALLER-C Jennifer Attending Provider Care Physician, No Primary Primary Care Provider Unavailable Care Physician, No Primary Referring Provider Un available Dr. Josselyn Bianchi Attending Provider Carlos CENTRAL OFFICE EQUIPMENT INSTALLER, CENTRAL OFFICE EQUIPMENT INSTALLER-C Jennifer Attending Provider LILY Tellez Attending Provider LILY James Attending Provider Dr. Arabella Chau Attending Provider Dr. Arabella Chau Admit Provider Dr. Arabella Chau Other Provider Jose Antonio Rojas MD Primary Care Provider [phone] JOSE ANTONIO ROJAS Primary Care Unavailable Dr. Bailey Lang DO Primary Care Provide r Dr. Bailey Lang DO Referring Provider Velasquez Galvin MD Attending Provider Dr. Duke Velazquez MD Attending Provider Care Physician, No Primary Primary Care Provider Unavailable Jacob CNM, Indira Attending Provider Jacob CNM, Indira Referring Provider Velasquez Galvin MD Referring Provider Care Physician, No Primary Referring Provider Un available Yony CENTRAL OFFICE EQUIPMENT INSTALLER-CKailey Attending Provider Care Physician, No Primary Primary Care Unava ilable Verna Tellez Referring Unavailable Verna Tellez Attending Unavailable Care Physician, No Primary Primary Care Unava ilable Stephanie Villar Referring Unavailable Stephanie Villar Attending Unavailable Bailey Lang Primary Care Unavailable Fortune CENTRAL OFFICE EQUIPMENT INSTALLER, Kelli Referring Unavailable Fortune CENTRAL OFFICE EQUIPMENT INSTALLER, Kelli Attending Unavailable Bailey Lang Primary Care Unavailable Bailey Lang Referring Unavailable Bailey Lang Attending Unavailable Bailey Lang Primary Care Unavailable Bailey Lang Referring Unavailable Velasquez Galvin Attending Unavailable Bailey Lang Primary Care Unavailable Duke Velazquez Attending Unavailable Care Physician, No Primary Primary Care Unava ilable Care Physician, No Primary Referring Unava ilable Velasquez Galvin Attending Unavailable Care Physician, No Primary Primary Care Unava ilable Care Physician, No Primary Referring Unava ilable Kailey Bhakta Attending Unavailable Bailey Lang Primary Care Unavailable Arabella Chau Referring Unavailable Arabella Chau Attending Unavailable Bailey Lang Primary Care Unavailable Jennifer Gonzalez Referring Unavailable Jennifer Gonzalez Attending Unavailable Care Physician, No Primary Primary Care Unava ilable Velasquez Galvin Referring Unavailable Velasquez Galvin Attending Unavailable Care Physician, No Primary Primary Care Unava ilable Indira James Referring Unavailable Indira James Attending Unavailable Care Physician, No Primary Primary Care Unava ilable Indira James Referring Unavailable Indira James Attending Unavailable Velasquez Galvin Referring Unavailable Care Physician, No Primary Primary Care Unava ilable Velasquez Galvin Attending Unavailable Allergies Allergy Classification Reported Allergen(s) Allergy Type Date of Onset Reaction(s) Facility (20 sources) Codeine; Translations: [CODEINE] Drug Allergy 05-23-2018 GI Upset [facility] (1 source) Codeine Drug Allergy 11-26-2024 [facility] Repository Medications Current Medications Medication Drug Class(es) Dates [...] for cough. 20 capsule 0 10/28/2016 Active CHOLECALCIFEROL, VITAMIN D3, (VITAMIN D3 ORAL) (1 source) take 2 tablets by mouth once daily CHOLECALCIFEROL, VITAMIN D3, (VITAMIN D3 ORAL) Take 2 tablets by mouth once daily. Active ciprofloxacin 500 mg oral tablet (2 sources) Quinolone Antimicrobial Start: 06-23-2017 End: 07-03-2017 take 1 tablet by mouth twice daily ciprofloxacin HCl (CIPRO) 500 MG tablet Indications: Acute cystitis with hematuria Take 1 (one) tablet (500 mg total) by mouth 2 (two) times a day for 10 days. 20 tablet 0 06/23/2017 07/03/2017 Active Start: 05-04-2017 End: 05-11-2017 take 1 tablet by mouth twice daily ciprofloxacin HCl (CIPRO) 500 MG tablet Indications: Acute cystitis with hematuria Take 1 (one) tablet (500 mg total) by mouth 2 (two) times a day for 7 days. 14 tablet 0 05/04/2017 05/11/2017 Active ethinyl estradiol / norgestimate (2 sources) Progestin, Estrogen NORGESTIMATE -ETHINYL ESTRADIOL (ORTHO TRI-CYCLEN, 28, ORAL) Take by mouth. Active fluticasone propionate 0.05 mg/actuat metered dose nasal spray (3 sources) Corticosteroid Start: 2016 End: 2017 take 1 spray(s) nasal route once daily fluticasone (FLONASE) 50 mcg/actuation nasal spray Indications: Subacute sinusitis, unspecified location Instill 1 spray into each nostril daily. 16 g 2 10/28/2016 10/28/2017 Active ibuprofen 800 mg oral tablet (1 source) Nonsteroidal Anti-inflammatory Drug take 1 tablet by mouth every six hours as needed ibuprofen (MOTRIN) 800 mg tablet Take 800 mg by mouth every 6 hours as needed. Active Multivit 70-Ltti-Akffqj 1-Dha (Pnv-Dha) 27 mg iron-1 mg -300 mg capsule (18 sources) Start: 2019 take 1 capsule by mouth once daily Multivit 63-Lysn-Zvcxsx 1-Dha (Pnv-Dha) 27 mg iron-1 mg -300 mg capsule Active CAP PO DAILY May 29, 2020 2:36pm Start: 05-29-2020 End: 02-26-2022 Multivit 70-Evcu-Qeplhx 1-Dh a (Pnv-Dha) 27 mg iron-1 mg -300 mg capsule Discontinued NMA PO DAILY May 29, 2020 1:00am February 26, 2022 11:07am Start: 05-29-2020 End: 02-26-2022 take 1 capsule by mouth once daily Multivit 38-Htdv-Psdxfr 1-Dha (Pnv-Dha) 27 mg iron-1 mg -300 mg capsule Discontinued CAP PO DAILY May 29, 2020 12:00am February 26, 2022 10:07am Start: 05-29-2020 End: 02-26-2022 take 1 capsule by mouth once daily Multivit 59-Oqep-Fvuugx 1-Dha (Pnv-Dha) 27 mg iron-1 mg -300 mg capsule Discontinued CAP PO DAILY May 29, 2020 1:00am February 26, 2022 11:07am Start: 05-29-2020 take 1 capsule by [facility] once daily Multivit 16-Xzpb-Oltbxb 1-Dha (Pnv-Dha) 27 mg iron-1 mg -300 mg capsule Active CAP PO DAILY May 29, 2020 1:00am multivitamin tablet (1 source) take 1 tablet by mouth once daily multivitamin tablet Take 1 tablet by mouth once daily. Active NORGESTIMATE-ETHINYL ESTRADIOL (ORTHO TRI-CYCLEN, 28, ORAL) (1 source) NORGESTIMATE-ETH INYL ESTRADIOL (ORTHO TRI-CYCLEN, 28, ORAL) Take by mouth. Active Mcclusky-3 Fatty Acids (Fish Oil Concentrate) 1,000 mg capsule (18 sources) Start: 10-16-2020 take 1 capsule by mouth once daily Mcclusky-3 Fatty Acids (Fish Oil Concentrate) 1,000 mg capsule Active 1000 MG PO DAILY October 16, 2020 11:26am Start: 10-16-2020 End: 02-26-2022 take 1 capsule by mouth once daily Mcclusky-3 Fatty Acids (Fish Oil Concentrate) 1,000 mg capsule Discontinued 1000 mg PO DAILY October 16, 2020 12:00am February 26, 2022 11:07am Start: 10-16-2020 End: 02-26-2022 take 1 capsule by mouth once daily Mcclusky-3 Fatty Acids (Fish Oil Concentrate) 1,000 mg capsule Discontinued 1000 MG PO DAILY October 15, 2020 11:00pm February 26, 2022 10:07am Start: 10-16-2020 End: 02-26-2022 take 1 capsule by mouth once daily Mcclusky-3 Fatty Acids (Fish Oil Concentrate) 1,000 mg capsule Discontinued 1000 MG PO DAILY October 16, 2020 12:00am February 26, 2022 11:07am Start: 10-16-2020 take 1 capsule by mo uth once daily Mcclusky-3 Fatty Acids (Fish Oil Concentrate) 1,000 mg capsule Active 1000 MG PO DAILY October 16, 2020 12:00am phenazopyridine hydrochloride 200 mg oral tablet (6 sources) Start: 12-15-2016 End: 06-25-2017 take 1 tablet by mouth three times daily as needed for pain phenazopyridine (PYRIDIUM) 200 MG tablet Indications: Acute cystitis with hematuria Take 1 (one) tablet (200 mg total) by mouth 3 (three) times a day as needed for pain. 12 tablet 0 05/04/2017 Active Pnv #14-Iron-Fa#4-Joi-Lvajhov e (6 sources) Start: 01-26-2023 take 1 capsule by mouth once daily Pnv #14-Iron-Fa#6-Dzh-Pytcvw te Active 1 CAP PO DAILY January 25, 2023 11:00pm Start: 01-26-2023 take 1 capsule by mo uth once daily Pnv #14-Iron-Fa#1-Bbv-Jsmjteel Active 1 CAP PO DAILY January 26, 2023 12:00am Pnv #14-Iron-Fa#1-Stn-Hychcytj 27 mg iron-1 mg -300 mg-50 mg capsule (4 sources) Start: 01-26-2023 Pnv #14-Iron-Fa#7-Ume-Rflttwzd 27 mg iron-1 mg -300 mg-50 mg capsule Active 1 NMA PO DAILY January 26, 2023 12:00am sucralfate 1000 mg oral tablet (1 source) Aluminum Complex Start: 01-27-2019 take 1 tablet by mouth at bedtime sucralfate (CARAFATE) 1 gram tablet Take 1 tablet by mouth before meals and at bedtime. 120 tablet 2 01/27/2019 Active triamcinolone acetonide 0.25 mg/ml topical cream (1 source) Corticostero id Start: 12-25-2019 triamcinolone (KENALOG) 0.025 % cream Indications: Skin inflammation Apply 1 application to affected area twice daily. 30 g 1 12/25/2019 Active Completed/Discontinued Medications Medication Drug Class(es) Dates Sig (Normalized) Sig (Original) busPIRone hydrochloride 5 mg oral tablet (20 sources) Start: 02-01-2022 End: 01-26-2023 take 1 tablet by mouth twice daily Buspirone 5 mg tablet Discontinued 5 mg PO TWICE A DAY 60 February 26, 2022 11:12am January 26, 2023 10:00pm cholecalciferol 0.025 mg oral capsule (20 sources) Vitamin D Start: 09-06-2024 End: 10-18-2024 take 1 capsule by mouth once daily Cholecalciferol (Vitamin D3) 25 mcg (1,000 unit) capsule Discontinued 25 ug PO daily September 06, 2024 12:00am October 18, 2024 1:31pm Start: 10-16-2020 End: 02-25-2021 take 1 capsule by mouth once daily Cholecalciferol (Vitamin D3) 50 mcg (2,000 unit) capsule Discontinued 50 ug PO DAILY October 16, 2020 12:00am February 25, 2021 9:57am Start: 04-10-2019 End: 04-13-2019 take 1 capsule by mouth every week Cholecalciferol (Vitamin D3) 14,000 unit capsule Discontinued 23624 U PO EVERY WEEK April 10, 2019 12:00am April 13, 2019 9:24am esomeprazole 40 mg delayed release oral capsule (18 sources) Proton Pump Inhibitor Start: 04-10-2019 End: 04-13-2019 take 1 capsule by mouth once daily Esomeprazole Magnesium 40 mg capsule,delayed release(DR/EC) Discontinued 40 mg PO DAILY April 10, 2019 12:00am April 13, 2019 9:24am ferrous gluconate 240 mg oral tablet (4 sources) Start: 09-06-2024 End: 10-18-2024 take 1 tablet by mouth once daily Ferrous Gluconate (Ferate) 240 mg (27 mg iron) tablet Discontinued 240 mg PO daily September 06, 2024 12:00am October 18, 2024 1:31pm Iron (18 sources) Start: 10-16-2020 End: 02-25-2021 take 18 mg by mouth once daily Iron Discontinued 18 MG PO DAILY October 16, 2020 11:26am February 25, 2021 9:57am Start: 10-16-2020 End: 02-25-2021 take 1 tablet by mouth once daily Iron 18 mg tablet Discontinued 18 mg PO DAILY October 16, 2020 12:00am February 25, 2021 9:57am Start: 10-16-2020 End: 02-25-2021 take 18 mg by mouth once daily Iron Discontinued 18 MG PO DAILY October 15, 2020 11:00pm February 25, 2021 8:57am Start: 10-16-2020 End: 02-25-2021 take 18 mg by mouth once daily Iron Discontinued 18 MG PO DAILY October 16, 2020 12:00am February 25, 2021 9:57am magnesium oxide 500 mg oral capsule (4 sources) Start: 10-25-2023 End: 10-18-2024 take 1 capsule by mouth once daily Magnesium Oxide 500 mg capsule Discontinued 500 mg PO DAILY October 25, 2023 12:00am October 18, 2024 1:31pm Multivitamin,Tx-Iron-M inerals (Complete Multivitamin) tablet (18 sources) Start: 04-10-2019 End: 04-13-2019 take 1 tablet by mouth once daily Multivitamin,Tx-Iron-Min erals (Complete Multivitamin) tablet Discontinued 1 TABLET PO DAILY April 10, 2019 9:29am April 13, 2019 9:24am Start: 04-10-2019 End: 04-13-2019 Multivitamin,Jf-Hafb-Cvxiiau s (Complete Multivitamin) tablet Discontinued 1 {tbl} PO DAILY April 10, 2019 12:00am April 13, 2019 9:24am Start: 04-10-2019 End: 04-13-2019 take 1 tablet by mouth once daily Multivitamin,Gg-Svdy-Tetznovu (Complete Multivitamin) tablet Discontinued 1 TABLET PO DAILY April 09, 2019 11:00pm April 13, 2019 8:24am Start: 04-10-2019 End: 04-13-2019 take 1 tablet by mouth once daily Multivitamin,Ca-Iskk-Hrouiptk (Complete Multivitamin) tablet Discontinued 1 TABLET PO DAILY April 10, 2019 12:00am April 13, 2019 9:24am naproxen 250 mg oral tablet (18 sources) Nonsteroidal Anti-inflammatory Drug Start: 01-04-2021 End: 02-25-2021 take 250-500 mg by mouth every eight hours as needed for pain Naproxen 250 MG tablet Discontinued 250 - 500 mg PO EVERY 8 HOURS NEEDED as needed for MILD PAIN January 04, 2021 12:00am February 25, 2021 9:57am Mcclusky-3 Fatty Acids 1,000 mg capsule (4 sources) Start: 10-25-2023 End: 10-18-2024 take 1 capsule by mouth once daily Mcclusky-3 Fatty Acids 1,000 mg capsule Discontinued 1000 mg PO DAILY October 25, 2023 12:00am October 18, 2024 1:31pm Start: 10-25-2023 take 1 capsule by mouth once d aily Mcclusky-3 Fatty Acids 1,000 mg capsule Active 1000 mg PO DAILY October 25, 2023 12:00am promethazine hydrochloride 25 mg oral tablet (9 sources) Phenothiazine Start: 02-01-2023 End: 03-14-2023 take 1 tablet by mouth every six hours as needed for nausea and vomiting Promethazine 25 mg tablet Discontinued 25 mg PO EVERY 6 HOURS as needed for nausea and vomiting February 01, 2023 12:00am March 14, 2023 9:00am Problems Active Problems Problem Classification Problem Date Documented Da te Episodic/Chronic Administrative/social admission (8 sources) Encounter for administrative examinations, unspecified; Translations: [Occupational exposure to other risk factors] Onset: 04-17-2017 09-21-2024 Episodic Anxiety disorders (20 sources) Anxiety; Translations: [Anxiety disorder, unspecified] Chronic Comment on above: buspar/stable Genitourinary symptoms and ill-defined conditions (20 sources) Unspecified symptoms and signs involving the genitourinary system; Translations: [Dysuria] Onset: 12-15-2016 05-29-2020 Episodic Joint disorders and dislocations; trauma-related (7 sources) Loose body in knee; Translations: [Loose body in knee, right knee] Onset: 10-01-2024 09-06-2024 Chronic Lymphadenitis (4 sources) Axillary lymphadenopathy; Translations: [Localized enlarged lymph nodes] 03-14-2023 Episodic Other bone disease and musculoskeletal deformities (20 sources) Segmental and somatic dysfunction; Translations: [Segmental and somatic dysfunction of cervical region] Onset: 12-25-2019 04-13-2022 Episodic Other bone disease and musculoskeletal deformities (10 sources) Segmental and somatic dysfunction of cervical region; Translations: [Nonallopathic lesions, cervical region] Episodic Other bone disease and musculoskeletal deformities (10 sources) Segmental and somatic dysfunction of lumbar region; Translations: [Nonallopathic lesions, lumbar region] Episodic Other bone disease and musculoskeletal deformities (11 sources) Segmental and somatic dysfunction of thoracic region; Translations: [Nonallopathic lesions, thoracic region] Episodic Other complications of ; puerperium affecting management of mother (18 sources) hemorrhage; Translations: [Other immediate hemorrhage] 02-25-2021 Episodic Comment on above: Secondary to retaine d membranes, given Methergine Hemabate, Cytotec, bedside curettage performed and tranexamic acid given. 1000 cc EBL Other complications of (18 sources) Anemia of ; Translations: [Anemia complicating , unspecified trimester] 01-04-2021 Chronic Comment on above: iron added Other complications of (1 source) Anemia complicating , unspecified trimester; Translations: [Anemia of mother, unspecified as to episode of care or not applicable] 09-17-2023 Chronic Other complications of (18 sources) Rubella non-immune; Translations: [Supervision of other high risk pregnancies, unspecified trimester] 01-04-2021 Episodic Comment on above: MMR PP Other complications of (5 sources) Nausea and vomiting; Translations: [Vomiting of , unspecified] 02-14-2023 Episodic Other complications of (15 sources) Vomiting of , unspecified; Translations: [Unspecified vomiting of , unspecified as to episode of care or not applicable] 02-14-2023 Episodic Comment on above: phenergan Other complications of (7 sources) History of hemorrhage; Translations: [Supervision of with other poor reproductive or obstetric history, unspecified trimester] 07-05-2023 Episodic Comment on above: secondary to retaine d membranes. methergine, cytotec, bedside curetage. TXA. 1000cc EBL Other complications of (15 sources) Supervision of with other poor reproductive or obstetric history, unspecified trimester; Translations: [ with other poor obstetric history] 07-05-2023 Episodic Other complications of (6 sources) Group B Streptococcus carrier; Translations: [Streptococcus B carrier state complicating ] 09-05-2023 Episodic Comment on above: PCN in labor Other complications of (4 sources) Streptococcus B carrier state complicating ; Translations: [Supervision of other high-risk ] 09-08-2023 Episodic Other lower respiratory disease (12 sources) Rib pain; Translations: [Pleurodynia] 12-16-2022 Episodic Other non-traumatic joint disorders (1 source) Pain of right wrist; Translations: [Pain in right wrist] 03-30-2020 Episodic Other non-traumatic joint disorders (11 sources) Pain in right knee; Translations: [Right knee pain] Onset: 10-02-2024 09-06-2024 Episodic Other and delivery including normal (20 sources) Vaginal delivery; Translations: [Encounter for full-term uncomplicated delivery] 02-25-2021 Episodic Comment on above: Active labor 39 SM S VD girl PPH SM girl 39 IAL PRR ARAVIND: Spouse: Chris [id number] ARAVIND 09/21/23 g irl PC: Eric, Spouse, Chris NIPT low risk, vannesa l anatomy scan. 92% for growth- recommend growth scan at 36 weeks Other upper respiratory disease (13 sources) Allergic rhinitis; Translations: [Allergic rhinitis, unspecified] 11-20-2022 Chronic Other upper respiratory disease (5 sources) Allergic rhinitis, unspecified; Translations: [Allergic rhinitis, cause unspecified] 11-20-2022 Chronic Other upper respiratory infections (5 sources) Upper respiratory infection; Translations: [Acute upper respiratory infection, unspecified] 03-14-2023 Episodic Residual codes; unclassified (18 sources) History of vaccination; Translations: [Personal history of other drug therapy] 01-04-2021 Episodic Comment on above: 10/16/20 Spondylosis; intervertebral disc disorders; other back problems (18 sources) Backache; Translations: [Dorsalgia, unspecified] 06-30-2020 Episodic Sprains and strains (10 sources) Lower back injury; Translations: [Strain of muscle, fascia and tendon of lower back, initial encounter] 01-26-2023 Episodic Unclassified (15 sources) Normal labor; Translations: [Active labor at term] 01-04-2021 Unclassified (1 source) Encounter for immunization safety counseling; Translations: [Encounter for immunization safety counseling] Onset: 09-28-2024 Past or Other Problems Problem Classification Problem Date Documented Da te Episodic/Chronic Immunizations and screening for infectious disease (6 sources) Contact with and (suspected) exposure to other viral communicable diseases; Translations: [Contact with or suspected exposure to other viral communicable disease] Onset: 06-04-2024 03-14-2023 Episodic Nonmalignant breast conditions (1 source) Lump in right breast; Translations: [Unspecified lump in the right breast, unspecified quadrant] Onset: 05-02-2014 Resolved: 10-02-2014 10-02-2014 Episodic Other screening for suspected conditions (not mental disorders or infectious disease) (1 source) Encounter for screening for lipoid disorders; Translations: [Encounter for screening for lipoid disorders] Onset: 02-21-2024 Episodic Unclassified (1 source) Employee exposure to blood Unclassified (18 sources) equivocal rubella 06-30-2020 Comment on above: MMR @ PP Urinary tract infections (4 sources) Urinary tract infectious disease; Translations: [Acute hemorrhagic cystitis] Onset: 12-15-2016 Episodic Results Test Name Value Interpretation Reference Range Facility Hepatitis B Surface Antibody on 12-01-2024 HEP B Surf Ab [facility] Comment on above: Result Comment: <8.5 mIU/mL: Non-Reactive 8.5<= x <11.5 mIU/mL: Indeterminate >=11.5 mIU/mL: Reactive Non Reactive: Inconsistent with immunity less than <10 mIU/mL Reactive: Consistent with immunity greater than or equal to 10 mIU/mL Performed By: #### L [id number] ####[facility] [id number] 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: No Is patient in pain?: No Allergies codeine Adverse Reaction (Verified 11/14/24 09:05) Nausea/Vom/Diarrhea Medications ???Medication ???Instructions ???Recorded ???Confirmed ???Type PNV#14-iron fum-FA#6-zph-dhcjob te 1 cap PO DAILY 01/26/23 11/14/24 History 27 mg iron-1 mg-300 mg-50 mg capsule Post menopausal: No Patient : No : No PFSH Medical History Wears glasses Depression Non-smoker Loose body of right knee Right knee pain Vaginal delivery Vaginal delivery hemorrhage History of tetanus, diphtheria, and acellular pertussis booster vaccination (Tdap) Psoriasis Chronic back pain Bruises easily Diarrhea Bilateral headaches Environmental allergies Surgical History History of lump of right breast History of cosmetic plastic surgery Family History (Updated 11/14/24 @ 09:11 by LUCA Jack) Grandmother Uterine cancer Mother Breast cancer Other CVA (cerebral vascular accident) Cancer Heart disease Hypertension Myocardial infarction Thyroid disorder Social History adopted: No household members: spouse housing: house number of children: 2 current occupational status: employed 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 Date Name GA/Weeks Outcome Route Bth Weight Infant Gen Labor Lgth Anesthesia Del Locatn Provider FOB 01/06/21 Yumiko 39 live - full term Female [facility] Brigid west 09/16/23 Alina 39 live - full term 8lbs 14oz Female [facility] Perry Perez Delivery Date: 09/16/23 Last Updated by: Giovana NYE HPI Encounter for routine gynecological examination Details: YAKOV FIORE is a 29 year old who presents for annual exam. She reports no issues or concerns. Occasional right sided ovulation pain. Last PAP: 2022; normal. History of abnormal PAP: no. Last mammogram: age 39 History of abnormal mammogram: n/a Colon cancer screening: age 44. Other preventative health care screenings: Primary Care Doctor: Does not have. Female Reproductive History Last Menstrual Period: 10/18/24 Cycle Length: 21-35 Bleeding Duration: 5 Questions: metorrhagia: No, sexually active: Yes (condoms), dyspareunia: No and PCB: No ROS Const Constitutional: Denies chills, fatigue, fever(s), headache(s) or weight loss Eyes Eyes: Denies change in vision ENT ENT: Denies dizziness Resp Resp: Denies cough GI GI: Denies abdominal pain, constipation or nausea : Denies difficulty voiding, dysuria, hematuria, nipple discharge, pelvic pain, prolapse symptoms, urinary incontinence, vaginal discharge, vaginal dryness, vaginal odor or vaginal pruritus Skin Skin/Breast: Denies alopecia, rash, breast mass, breast pain, breast skin changes or nipple discharge Neuro Neuro: Denies dizziness Psych Psych: Denies anxiety or depression Endo Endo: Denies cold intolerance, excessive sweating or heat intolerance Exam Const General: cooperative, healthy appearing, comfortable, no acute distress, well groomed and well hydrated Nutritional Appearance: well nourished Orientation: alert, awake and oriented x3 HENMT Head: normal to inspection and normocephalic Ears: hearing grossly normal bilaterally and external ears normal Nose: external nose normal Face and sinus: normal facial exam Eyes General: appearance normal, both eyes and all related structures Neck Neck: normal visual inspection, full ROM and no lymphadenopathy Thyroid: thyroid normal (more content not included)... Normal [facility] Orthopedic Visit Reporton Orthopedic Visit Report [facility] [address] [place] [address] OFFICE VISIT Date of Service: 10/01/24 MR#: [id number] Acct: [id number] Name: YAKOV FIORE Rep #: [id number] : 1995 Provider: Dr. Velasquez cardenas MD Age/Sex: 29/F Location: [facility] Status: Signed Intake Vital Signs 09/06/24 08:52 Height 5 ft 9 in Intake Visit Reasons: RIGHT KNEE Chief Complaint: MRI review Accompanied by: Self Is patient in pain?: No Allergies codeine Adverse Reaction (Verified 10/01/24 09:13) Nausea/Vom/Diarrhea Medications ???Medication ???Instructions ???Recorded ???Confirmed ???Type PNV#14-iron fum-FA#6-xsx-rytiik te 1 cap PO DAILY 01/26/23 10/01/24 History 27 mg iron-1 mg-300 mg-50 mg capsule magnesium oxide 500 mg capsule 500 mg PO DAILY 10/25/23 10/01/24 History omega-3 fatty acids 1,000 mg 1,000 mg PO DAILY 10/25/23 5 History capsule cholecalciferol (vitamin D3) 25 25 mcg PO QDAY 09/06/24 10/01/24 H istory mcg (1,000 unit) capsule ferrous gluconate 240 mg (27 mg 240 mg PO QDAY 09/06/24 10/01/24 H istory iron) tablet (Ferate) [facility] Medical History Loose body of right knee Right knee pain Vaginal delivery Vaginal delivery hemorrhage History of tetanus, diphtheria, and acellular pertussis booster vaccination (Tdap) Psoriasis Chronic back pain Bruises easily Diarrhea Bilateral headaches Environmental allergies Surgical History History of lump of right breast History of cosmetic plastic surgery Family History Other Breast cancer CVA (cerebral vascular accident) Cancer Heart disease Hypertension Myocardial infarction Thyroid disorder Uterine cancer Social History adopted: No household members: spouse housing: house number of children: 2 current occupational status: employed 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 Velasquez Galvin MD 10/01/24 0804. Part of today???s visit was documented by [ ], acting as scribe. YAKOV FIORE is a 29 year old F here today for follow-up right knee MRI. Supplemental Info [facility] Imaging Services [address] [address] Lower Ext Joint Only (Routine) MR#: [id number] Acct: [id number] Name: YAKOV FIORE Rep #: [id number] : 1995 F 29 From: Austin Campos DO PCP: Care Physician,No Primary Status: REG CLI Study: Lower Ext Joint Only (Routine) Date of Exam: 09/26/24 Exam# [id number] Ordering Dr: Velasquez Galvin MD EXAM: Noncontrast MRI of the right knee. CLINICAL HISTORY: Right knee pain, without specific injury. Feels unstable. Evaluate for loose body. COMPARISON: Right knee radiographs 08/2024 TECHNIQUE: Multiplanar, multisequence MRI images of the right knee were obtained without IV contrast. FINDINGS: No acute fracture or dislocation of the right knee. No abnormal marrow replacement process or sizable joint effusion. The patellar ligament and included distal quadriceps tendon are intact. On the axial T2 sequence, there is 14 mm lateral patellar subluxation. The patellar retinacula are intact. No evidence of transient patellar dislocation. There is some thin curvilinear fluid signal in the popliteal fossa which may represent a collapsed popliteal cyst. The popliteus muscle and tendon are intact. There is a 19 mm ovoid possible loose body near the anterolateral margin of the lateral femoral condyle on image 10 of the axial T2 sequence and image 23 of the coronal T2 fat saturated sequence. Ptym-hz-oedgdpgt articular cartilage thinning/irregulari ty involving the patellar apex and lateral patellar facet. Mild articular cartilage loss involving the medial femoral condyle, without focal high-grade chondral defect or osteochondral lesion. The cruciate and collateral ligaments are intact. No definite discrete meniscal tear. There is an obliquely o (more content not included)... Normal [facility] Magnetic resonance imaging r eportOrdered By: Austin Campos on 09-27-2024 Study report [facility] Imaging Services [address] [place] [address] Lower Ext Joint Only (Routine) MR#: [id number] Acct: [id number] Name: YAKOV FIORE Rep #: [id number] : 1995 F 29 From: Luna Campos DO PCP: Care Physician,No Primary Status: REG CLI Study:Lower Ext Joint Only (Routine) Date of Exam: 09/26/24 Exam# [id number] Ordering Dr: Velasquez Galvin MD EXAM: Noncontrast MRI of the right knee. CLINICAL HISTORY: Right knee pain, without specific injury. Feels unstable. Evaluate for loose body. COMPARISON: Right knee radiographs 08/2024 TECHNIQUE: Multiplanar, multisequence MRI images of the right knee were obtained without IVcontrast. FINDINGS: No acute fracture or dislocation of the right knee. No abnormal marrow replacement process or sizable joint effusion. The patellar ligament and included distal quadriceps tendon are intact. On the axial T2 sequence, there is 14 mm lateral patellar subluxation. The patellar retinacula are intact. No evidence of transient patellar dislocation. There is some thin curvilinear fluid signal in the popliteal fossa which may represent a collapsed popliteal cyst. The popliteus muscle and tendon are intact. There is a 19 mm ovoid possible loose body near the anterolateral margin of the lateral femoral condyle on image 10 of the axial T2 sequence and image 23 of thecoronal T2 fat saturated sequence. Ooti-zr-fflskioi articular cartilage thinning/irregulari ty involving the patellar apex and lateral patellar facet. Mild articular cartilage loss involving the medial femoral condyle, without focal high-grade chondral defect or osteochondral lesion. The cruciate and collateral ligaments are intact. No definite discrete meniscaltear. There is an obliquely oriented area of increased linear signal intensity involving the substance of the medial meniscusat the posterior horn/body segment junction (image 18 of the T2 fat saturated sequence), which does not definitely extend jovita articular surface. Tissues in the popliteal fossa. Uzdk-wv-ufapyhrl edema of the soft tissues in the popliteal fossa. MRI/Lower Ext Joint Only (Routine) IMPRESSION: No acute bony abnormality or internal ligamentous derangement of the right knee. No sizable joint effusion or evidence of discrete meniscal tear. Please see discussion above. There is a thin curvilinear area of fluid signal in the popliteal fossa, with adjacent soft tissue edema, which may represent a recently collapsed popliteal cyst. 14 mm lateral patellar subluxation. There is mqzj-pt-exazpsqo articular cartilage thinning of the lateral patellar facet and patellar apex. There is an ovoid 19 mm possible loose body near the anterolateral margin of the lateral femoral condyle. Please see reference images provided above. The patellar retinacula are intact. No evidence of transient patellar dislocation. Reading Location: [facility] CC: Dr. Velasquez Galvin MD; No Primary Care Physician ~ Structural Design Engineer: Signed [facility] Lower Ext Joint Only (Routin e)on 09-26-2024 Lower Ext Joint Only (Routine) [facility] Imaging Services [address] [place], [place] [id number] Lower Ext Joint Only (Routine) MR#: [id number] Acct: [id number] Name: YAKOV FIORE Rep #: [id number] : 1995 F 29 From: Austin Muñoz i, DO PCP: Care Physician,No Primary Status: REG CLI Study: Lower Ext Joint Only (Routine) Date of Exam: 0 09/26/24 Exam# [id number] Ordering Dr: Velasquez Galvin MD EXAM: Noncontrast MRI of the right knee. CLINICAL HISTORY: Right knee pain, without specific injury. Feels unstable. Evaluate for loose body. COMPARISON: Right knee radiographs 08/2024 TECHNIQUE: Multiplanar, multisequence MRI images of the right knee were obtained without IV contrast. FINDINGS: No acute fracture or dislocation of the right knee. No abnormal marrow replacement process or sizable joint effusion. The patellar ligament and included distal quadriceps tendon are intact. On the axial T2 sequence, there is 14 mm lateral patellar subluxation. The patellar retinacula are intact. No evidence of transient patellar dislocation. There is some thin curvilinear fluid signal in the popliteal fossa which may represent a collapsed popliteal cyst. The popliteus muscle and tendon are intact. There is a 19 mm ovoid possible loose body near the anterolateral margin of the lateral femoral condyle on image 10 of the axial T2 sequence and image 23 of the coronal T2 fat saturated sequence. Bmrn-ip-beemltbe articular cartilage thinning/irregulari ty involving the patellar apex and lateral patellar facet. Mild articular cartilage loss involving the medial femoral condyle, without focal high-grade chondral defect or osteochondral lesion. The cruciate and collateral ligaments are intact. No definite discrete meniscal tear. There is an obliquely oriented area of increased linear signal intensity involving the substance of the medial meniscus at the posterior horn/body segment junction (image 18 of the T2 fat saturated sequence), which does not definitely extend to an articular surface. Tissues in the popliteal fossa. Uwaj-lg-pcqpzvte edema of the soft tissues in the popliteal fossa. MRI/Lower Ext Joint Only (Routine) IMPRESSION: No acute bony abnormality or internal ligamentous derangement of the right knee. No sizable joint effusion or evidence of discrete meniscal tear. Please see discussion above. There is a thin curvilinear area of fluid signal in the popliteal fossa, with adjacent soft tissue edema, which may represent a recently collapsed popliteal cyst. 14 mm lateral patellar subluxation. There is hmde-ei-xpuotyfk articular cartilage thinning of the lateral patellar facet and patellar apex. There is an ovoid 19 mm possible loose body near the anterolateral margin of the lateral femoral condyle. Please see reference images provided above. The patellar retinacula are intact. No evidence of transient patellar dislocation. Reading Location: [facility] CC: Dr. Velasquez Galvin MD; No Primary Care Physician Structural Design Engineer: Signed [facility] HBV surface Ab Ql (S)Ordered By: Indira James on 09-25-2024 [facility] Comment on above: <8.5 mIU/mL: Non-[place] ctive8.5<= x <11.5 mIU/mL: Indeterminate>=11.5 mIU/mL: Reactive Non Reactive: Inconsistent with immunity less than <10 mIU/mL Reactive: Consistent with immunity greater than or equal to 10 mIU/mL Hepatitis B Surface Antibody on 09-25-2024 HEP B Surf Ab REAC [facility] Comment on above: Result Comment: <8.5 mIU/mL: Non-Reactive 8.5<= x <11.5 mIU/mL: Indeterminate >=11.5 mIU/mL: Reactive Non Reactive: Inconsistent with immunity less than <10 mIU/mL Reactive: Consistent with immunity greater than or equal to 10 mIU/mL Performed By: #### L 3890.6202 ####[facility] [address] [place], [address] Serum hepatitis B virus surf laura antibody detectionOrdered By: Indira James on 09-25-2024 [facility] Comment on above: <8.5 mIU/mL: Non-[place] ctive8.5<= x <11.5 mIU/mL: Indeterminate>=11.5 mIU/mL: Reactive Non Reactive: Inconsistent with immunity less than <10 mIU/mL Reactive: Consistent with immunity greater than or equal to 10 mIU/mL HBV surface Ag Ql (S)Ordered By: Indira James on 09-21-2024 Hepatitis B Surface Antigen Non-Reactive Nonreactive [facility] Comment on above: Reactive: Presumptiv e evidence of HBV. Repeatedly reactive samples must be confirmed using a neutralization test ([employer] HBsAg Confirmatory Test)Non-Reactive: HBsAg not detected; does not exclude the possibility of exposure to HBV L3890.6102on 09-21-2024 HEP B Surf Ag Non-Reactive Normal Nonreactive [facility] Comment on above: Result Comment: Reac tive: Presumptive evidence of HBV. Repeatedly reactive samples must be confirmed using a neutralization test ([employer] HBsAg Confirmatory Test) Non-Reactive: HBsAg not detected; does not exclude the possibility of exposure to HBV Performed By: #### L 3890.6102 ####[facility] [address] [facility]. [place], [place], [id number] Laboratory - Microbiology an d Antimicrobial susceptibilityOrdered By: Indira James on 09-21-2024 HBV surface Ag Ql (S) Non-Reactive Nonreactive [facility] Comment on above: Reactive: Presumptiv e evidence of HBV. Repeatedly reactive samples must be confirmed using a neutralization test ([employer] HBsAg Confirmatory Test)Non-Reactive: HBsAg not detected; does not exclude the possibility of exposure to HBV Knee 4 or More Viewson 09-06 Knee 4 or More Views [facility] Imaging Services [address] [place], [place] [address] Knee 4 or More Views MR#: [id number] Acct: [id number] Name: YAKOV FIORE Rep #: [id number] : 1995 F 29 From: Gordy Ridley PCP: Dr. Bailey Lang, DO Status: DEP AMB Study: Knee 4 or More Views Date of Exam: 09/06/24 Exam# [id number] Ordering Dr: Velasquez Galvin MD PROCEDURE: KNEE 4 OR MORE VIEWS 09/06/2024 REASON FOR EXAM: CHRONIC PAIN, PAIN GETTING WORSE THE LAST FEW DAYS, NKI TECHNIQUE: Four view right knee COMPARISON: None. RAD/Knee 4 or More Views IMPRESSION: No right knee joint effusion is seen. No significant arthritic process or joint narrowing is evident. No fracture or dislocation is identified. Reading Location: [id number] CC: Dr. Bailey Lang, DO; Dr. Velasquez Galvin MD Structural Design Engineer: Signed Normal [facility] Orthopedic Visit Reporton Orthopedic Visit Report [facility] [address] [place] [address] OFFICE VISIT Date of Service: 09/06/24 MR#: [id number] Acct: [id number] Name: YAKOV FIORE Rep #: [id number] : 1995 Provider: Dr. Velasquez cardenas MD Age/Sex: 29/F Location: [facility] Status: Signed Intake Vital Signs 10/25/23 11:00 09/06/24 08:52 Height 5 ft 9 in 5 ft 9 in Weight: 182 lb 6 oz BMI 26.9 Intake Visit Reasons: RIGHT KNEE Chief Complaint: Right Knee Pain Accompanied by: Self Is patient in pain?: Yes Pain scale (1-10): 6 Allergies codeine Adverse Reaction (Verified 09/06/24 08:52) Nausea/Vom/Diarrhea Medications ???Medication ???Instructions ???Recorded ???Confirmed ???Type PNV#14-iron fum-FA#9-fme-msjywo te 1 cap PO DAILY 01/26/23 09/06/24 History 27 mg iron-1 mg-300 mg-50 mg capsule magnesium oxide 500 mg capsule 500 mg PO DAILY 10/25/23 09/06/24 History omega-3 fatty acids 1,000 mg 1,000 mg PO DAILY 10/25/23 5 History capsule cholecalciferol (vitamin D3) 25 25 mcg PO QDAY 09/06/24 09/06/24 H istory mcg (1,000 unit) capsule ferrous gluconate 240 mg (27 mg 240 mg PO QDAY 09/06/24 09/06/24 H istory iron) tablet (Ferate) [facility] Medical History Vaginal delivery Vaginal delivery hemorrhage History of tetanus, diphtheria, and acellular pertussis booster vaccination (Tdap) Psoriasis Chronic back pain Bruises easily Diarrhea Bilateral headaches Environmental allergies Surgical History History of lump of right breast History of cosmetic plastic surgery Family History Other Breast cancer CVA (cerebral vascular accident) Cancer Heart disease Hypertension Myocardial infarction Thyroid disorder Uterine cancer Social History adopted: No household members: spouse housing: house number of children: 2 current occupational status: employed 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 Velasquez Galvin MD 09/06/24 0802. Part of today???s visit was documented by [ ], acting as scribe. YAKOV FIORE is a 29 year old F here today for 1 yr hx of right knee pain, comes and goes, worse lately, since post . yes locking and catching. feels unstable. no instability of the PF joint. tx - ice, OTC nsaids. Ortho Exam General General: Yes no acute distress Neurologic: Yes alert and Yes oriented x3 Psychologic: Yes reasonable and appropriate Right Knee Skin/Wound: Yes CDI, No erythema, No ecchymosis and No swelling 1+: Effusion Knee ROM: Yes ROM-Flexion 0-140 Examination: Yes Med jt line tenderness, No Lat jt line tenderness, No TTP inf pole patella, Yes Crepitus, Yes Pain with flexion, Yes Ray's Test, No TTP Patellar tendon, No TTP Tibial tubercle, No TTP Pes Anserine and No Illiotibial band tenderness Quad Atrophy: No Stability: NML: Anterior Drawer, NML: Sarah, NML: Posterior Drawer, NML: Valgus 0, NML: Valgus 30, NML: Varus 0 and NML: Varus 30 Patella Translation: 2 Apprehension with Lateral Translation: No Patellar Tilt Normal: Yes Patella Grind: No KNEE: NVI, normal gait, normal alignment, felt like a loose body or plica on the medial side. Left Knee Patella Translation: 2 Supplemental Info X-rays 4 views the right knee obtained today show no acute abnormalities joint spaces are well- maintained. Coding Level of Care Code Off vis,new,level 3 Diagnoses Right knee pain M25.561 Assessment and Plan Assessment and Plan (1) Right knee pain: Status: Acute Plan: 29-year-old female with right knee pain trace effusion as well as what feels like on exam a loose body or a plica on the medial side of the knee and mechanical symptoms. I will go ahead and order an MRI to further work this up see if there is a loose body or something catching inside the knee which I could feel on exam. Follow-up after the test in the meantime no pivoting or twisting on the knee. Orders: Orders Knee 4 or More Views Today M25.561 - Pain in right knee Plan Details Goals Barriers: Goals Decrease pain Im (more content not included)... Normal [facility] Hepatitis B Surface Antigeno n 05-07-2024 HEP B Surf Ag Non-Reactive Normal Nonreactive [facility] Comment on above: Order Comment: Reaso n for Exam: screening Hep B immunity Performed By: #### L 7550.6100 #### [facility] [address] [place], [place], [id number] Hepatitis B Surface Antigeno n 04-26-2024 HEP B Surf Ag Non-Reactive Normal Nonreactive [facility] Comment on above: Order Comment: Reaso n for Exam: titer level Performed By: #### L 3890.6100 ####[facility] [address] [place], [address] CBC W/Diff, Automatedon 08-3 Absolute Lymph 1.92 X10 3/uL Normal 0.83-4.51 [facility] Comment on above: Performed By: #### L 500.4100, L500.4050, L100.0100 ####[facility] [address] [place], [address] Absolute Neut 2.4 X10 3/uL Normal 2.0-7.7 [facility] Comment on above: Performed By: #### L 500.4100, L500.4050, L100.0100 ####[facility] [address] [place], [address] Basophils/100 WBC (Bld) 1.5 % High 0-1 [facility] Comment on above: Performed By: #### L 500.4100, L500.4050, L100.0100 ####[facility] [address] [place], [address] Eosinophils/100 WBC (Bld) 9.6 % High 0-5 [facility] Comment on above: Performed By: #### L 500.4100, L500.4050, L100.0100 ####[facility] [address] [place], [address] Erythrocyte distribution width (RBC) [Ratio] 12.8 % Normal 11.6-14.6 [facility] Comment on above: Performed By: #### L 500.4100, L500.4050, L100.0100 ####[facility] [address] [place], [address] Hematocrit (Bld) [Volume fraction] 39.6 % Normal 37-47 [facility] Comment on above: Performed By: #### L 500.4100, L500.4050, L100.0100 ####[facility] [address] [place], [address] Hemoglobin (Bld) [Mass/Vol] 13.0 g/dL Normal 12.0-15.0 [facility] Comment on above: Performed By: #### L 500.4100, L500.4050, L100.0100 ####[facility] [address] [place], [address] IG% 0.000 Normal 0.0-0.9 [facility] Comment on above: Result Comment: IG% - Immature Granulocytes (promyelocytes, myelocytes and metamyelocytes) > 1% indicates that a LEFT SHIFT is Present. Performed By: #### L 500.4100, L500.4050, L100.0100 ####[facility] [address] [place], [address] Lymphocytes/100 WBC (Bld) 36.2 % Normal 19-41 [facility] Comment on above: Performed By: #### L 500.4100, L500.4050, L100.0100 ####[facility] [address] [place], [address] MCH (RBC) [Entitic mass] 28.4 pg Normal 27.0-32.0 [facility] Comment on above: Performed By: #### L 500.4100, L500.4050, L100.0100 ####[facility] [address] [place], [address] MCHC (RBC) [Mass/Vol] 32.8 g/dL Normal 32-36 [facility] Comment on above: Performed By: #### L 500.4100, L500.4050, L100.0100 ####[facility] [address] [place], [address] MCV (RBC) [Entitic vol] 86.5 fL Normal 81-99 [facility] Comment on above: Performed By: #### L 500.4100, L500.4050, L100.0100 ####[facility] [address] [place], [address] Monocytes/100 WBC (Bld) 7.5 % Normal 0-10 [facility] Comment on above: Performed By: #### L 500.4100, L500.4050, L100.0100 ####[facility] [address] [place], [address] Neutrophils/100 WBC (Bld) 45.2 % Low 47-70 [facility] Comment on above: Performed By: #### L 500.4100, L500.4050, L100.0100 ####[facility] [address] [place], [address] Nucleated RBC (Bld) [#/Vol] 0 10*3/uL Normal 0-5 [facility] Comment on above: Performed By: #### L 500.4100, L500.4050, L100.0100 ####[facility] [address] [place], [address] Platelet mean volume (Bld) [Entitic vol] 8.6 fL Normal 6.2-12.0 [facility] Comment on above: Performed By: #### L 500.4100, L500.4050, L100.0100 ####[facility] [address] [place], [address] Platelets (Bld) [#/Vol] 353 10*3/uL Normal 150-450 [facility] Comment on above: Performed By: #### L 500.4100, L500.4050, L100.0100 ####[facility] [address] [place], [address] RBC (Bld) [#/Vol] 4.58 10*6/uL Normal 4.2-5.4 [facility] Comment on above: Performed By: #### L 500.4100, L500.4050, L100.0100 ####[facility] [address] [place], [address] RDW SD 40.0 fl Normal 35.1-43.9 [facility] Comment on above: Performed By: #### L 500.4100, L500.4050, L100.0100 ####[facility] [address] [place], [address] WBC (Bld) [#/Vol] 5.3 10*3/uL Normal 4.4-11.0 [facility] Comment on above: Performed By: #### L 500.4100, L500.4050, L100.0100 ####[facility] [address] [place], [address] Comprehensive Metabolic [facility] 02-18-2024 Albumin [Mass/Vol] 3.9 g/dL Normal 3.2-5.0 [facility] Comment on above: Performed By: #### L 500.4100, L500.4050, L100.0100 ####[facility] [address] [place], [address] Albumin/Globulin [Mass ratio] 1.0 {ratio} Normal 0.9-2.4 [facility] Comment on above: Performed By: #### L 500.4100, L500.4050, L100.0100 ####[facility] [address] [place], [address] ALK P 67 U/L Normal 45-117 [facility] Comment on above: Performed By: #### L 500.4100, L500.4050, L100.0100 ####[facility] [address] [place], [address] ALT [Catalytic activity/Vol] 16 U/L Normal 13-56 [facility] Comment on above: Performed By: #### L 500.4100, L500.4050, L100.0100 ####[facility] [address] [place], [address] AST [Catalytic activity/Vol] 10 U/L Low 15-37 [facility] Comment on above: Performed By: #### L 500.4100, L500.4050, L100.0100 ####[facility] [address] [place], [address] Bilirubin [Mass/Vol] 0.60 mg/dL Normal 0.20-1.00 [facility] Comment on above: Result Comment: For patients on eltrombopag therapy, use of Dimension [place] TBIL is not recommended. Performed By: #### L 500.4100, L500.4050, L100.0100 ####[facility] [address] [place], [address] BUN/CRE 25.0 RATIO High 10-20 [facility] Comment on above: Performed By: #### L 500.4100, L500.4050, L100.0100 ####[facility] [address] [place], [address] CA,Total 9.4 mg/dL Normal 8.5-10.1 [facility] Comment on above: Performed By: #### L 500.4100, L500.4050, L100.0100 ####[facility] [address] [place], [address] Chloride [Moles/Vol] 108 mmol/L High 98-107 [facility] Comment on above: Performed By: #### L 500.4100, L500.4050, L100.0100 ####[facility] [address] [place], [address] CO2 [Moles/Vol] 26.0 mmol/L Normal 21.0-32.0 [facility] Comment on above: Performed By: #### L 500.4100, L500.4050, L100.0100 ####[facility] [address] [place], [address] Creatinine [Mass/Vol] 0.64 mg/dL Normal 0.55-1.02 [facility] Comment on above: Result Comment: The validity of the calculated GFR GFRAA in patients over 70 years has not been determined. Clinical correlation is essential. Performed By: #### L 500.4100, L500.4050, L100.0100 ####[facility] [address] [place], [address] EST GFR - AA 140 mL/min Normal >60 [facility] Comment on above: Result Comment: Afri can Nepalese GFR Calc Performed By: #### L 500.4100, L500.4050, L100.0100 ####[facility] [address] [place], [address] GAP 4 Low 5-15 [facility] Comment on above: Performed By: #### L 500.4100, L500.4050, L100.0100 ####[facility] [address] [place], [address] GFR/1.73 sq M.predicted among non-blacks MDRD (S/P/Bld) [Vol rate/Area] 116 mL/min/{1.73_m2} Normal >60 [facility] Comment on above: Result Comment: Non- GFR Calc Performed By: #### L 500.4100, L500.4050, L100.0100 ####[facility] [address] [place], [address] Globulin (S) [Mass/Vol] 3.8 g/dL Normal 2.2-4.[address] [facility] Comment on above: Performed By: #### L 500.4100, L500.4050, L100.0100 ####[facility] [address] [place], [address] Glucose [Mass/Vol] 97 mg/dL Normal 74-106 [facility] Comment on above: Performed By: #### L 500.4100, L500.4050, L100.0100 ####[facility] [address] [place], [address] Potassium [Moles/Vol] 4.1 mmol/L Normal 3.5-5.1 [facility] Comment on above: Performed By: #### L 500.4100, L500.4050, L100.0100 ####[facility] [address] [place], [address] Sodium [Moles/Vol] 138 mmol/L Normal 136-145 [facility] Comment on above: Performed By: #### L 500.4100, L500.4050, L100.0100 ####[facility] [address] [place], [address] T PROT 7.7 g/dL Normal 6.4-8.2 [facility] Comment on above: Performed By: #### L 500.4100, L500.4050, L100.0100 ####[facility] [address] [place], [address] Urea nitrogen [Mass/Vol] 16 mg/dL Normal 7-18 [facility] Comment on above: Performed By: #### L 500.4100, L500.4050, L100.0100 ####[facility] [address] [place], [address] Lipid Profileon 02-18-2024 Cholesterol [Mass/Vol] 165 mg/dL Normal 200 [facility] Comment on above: Result Comment: <200 mg/dL Desirable 200-240 mg/dL Borderline >240 mg/dL High Risk Performed By: #### L 500.4100, L500.4050, L100.0100 ####[facility] [address] [place], [address] Cholesterol in HDL [Mass/Vol] 51 mg/dL Normal [facility] Comment on above: Result Comment: The drugs N-Acetylcysteine and Metamizole may falsely depress this assay. Reference Range HDL <40 mg/dL Low HDL Cholesterol HDL >or= 60 mg/dL High HDL Cholesterol Performed By: #### L 500.4100, L500.4050, L100.0100 ####[facility] [address] [place], [address] Cholesterol in LDL [Mass/Vol] 98 mg/dL Normal 0-130 [facility] Comment on above: Performed By: #### L 500.4100, L500.4050, L100.0100 ####[facility] [address] [place], [address] Cholesterol in VLDL [Mass/Vol] 16 mg/dL Normal 5-40 [facility] Comment on above: Performed By: #### L 500.4100, L500.4050, L100.0100 ####[facility] [address] [place], [address] Triglyceride [Mass/Vol] 78 mg/dL Normal [facility] Comment on above: Result Comment: The drugs N-Acetylcysteine and Metamizole may falsely depress this assay. Serum Triglycerides Reference Interval Normal <150 mg/dL Borderline high 150 - 199 mg/dL High 200 - 499 mg/dL Very High > or = 500 mg/dL Performed By: #### L 500.4100, L500.4050, L100.0100 ####[facility] [address] [place], [address] Mumps Antibody,IgGon 024 MUMPS Ab, IgG 34.9 AU/mL Normal Immune >10.9 [facility] Comment on above: Result Comment: Nega tive <9.0 Equivocal 9.0 - 10.9 Positive >10.9 A positive result generally indicates past exposure to Mumps virus or previous vaccination. Performed By: #### L 3400.8000, L3400.0000, L3400.1750, L509.4005, L3100.3300, L3890.6100 #### [facility] [address] [place], [address] Quantiferon TB-Gold+on 01-30 QFT MITOGEN CHATA > 10.00 Normal . [facility] Comment on above: Performed By: #### L 3400.8000, L3400.0000, L3400.1750, L509.4005, L3100.3300, L3890.6100 ####[facility] [address] [place], [address] QFT NIL VALUE 0 IU/mL Normal . [facility] Comment on above: Performed By: #### L 3400.8000, L3400.0000, L3400.1750, L509.4005, L3100.3300, L3890.6100 ####[facility] [address] [place], [address] QFT TB GOLD+ Comment Normal . [facility] Comment on above: Result Comment: Moris tiFERON-TB Gold Plus is a qualitative indirect test for M tuberculosis infection (including disease) and is intended for use in conjunction with risk assessment, radiography, and other medical and diagnostic evaluations. The QuantiFERON-TB Gold Plus result is determined by subtracting the Nil value from either TB antigen (Ag) value. The Mitogen tube serves as a control for the test. Performed By: #### L 3400.8000, L3400.0000, L3400.1750, L509.4005, L3100.3300, L3890.6100 ####[facility] [address] [place], [address] QFT TB POS CRIT Negative Normal Negative [facility] Comment on above: Result Comment: No r esponse to M tuberculosis antigens detected. Infection with M tuberculosis is unlikely, but high risk individuals should be considered for additional testing (ATS/IDSA/CDC Clinical Practice Guidelines, 2017). The reference range is an Antigen minus Nil result of <0.35 IU/mL. The specimen received for QuantiFERON testing was incubated by the ordering institution. Specific procedures outlined in our Directory of Services and in the package insert for the QuantiFERON Gold (In Tube) test must be followed to enable for proper stimulation of cells for the production of interferon gamma. Chemiluminescence immunoassay methodology Performed By: #### L 3400.8000, L3400.0000, L3400.1750, L509.4005, L3100.3300, L3890.6100 ####[facility] [address] [place], [address] QFT TB1+ AG CHATA 0.01 IU/mL Normal . [facility] Comment on above: Performed By: #### L 3400.8000, L3400.0000, L3400.1750, L509.4005, L3100.3300, L3890.6100 ####[facility] [address] [place], [address] QFT TB2+ AG CHATA 0.03 IU/mL Normal . [facility] Comment on above: Performed By: #### L 3400.8000, L3400.0000, L3400.1750, L509.4005, L3100.3300, L3890.6100 ####[facility] [address] [place], [address] Rubeola IgG Abon 01-31-2024 RUBEOLA Ab, IgG < 13.5 Low Immune >16.4 [facility] Comment on above: Result Comment: Nega tive <13.5 Equivocal 13.5 - 16.4 Positive >16.4 Presence of antibodies to Rubeola is presumptive evidence of immunity except when acute infection is suspected. Performed at: [address] [id number] [employer]: Vikram Cevallos PhD, Phone: [phone] Performed By: #### L 3400.8000, L3400.0000, L3400.1750, L509.4005, L3100.3300, L3890.6100 #### [facility] [address] [place], [place], [id number] V-Zoster IgG (Immunity)on V ZOSTER IgG < 135 Low Immune >165 [facility] Comment on above: Result Comment: Nega tive <135 Equivocal 135 - 165 Positive >165 A positive result generally indicates exposure to the pathogen or administration of specific immunoglobulins, but it is not indication of active infection or stage of disease. Performed By: #### L 3400.8000, L3400.0000, L3400.1750, L509.4005, L3100.3300, L3890.6100 #### [facility] [address] [place], [address] ( Hepatitis B Surface Antigeno n 01-26-2024 HEP B Surf Ag Non-Reactive Normal Nonreactive [facility] Comment on above: Order Comment: Reaso n for Exam: Performed By: #### L 3400.8000, L3400.0000, L3400.1750, L509.4005, L3100.3300, L3890.6100 #### [facility] [address] [place], [address] Rubella IgGon 01-26-2024 Rubella IgG Reactive Normal Nonreactive [facility] Comment on above: Order Comment: Reaso n for Exam: Result Comment: Anti body Results Interpretation of Immune Status Non Reactive Presumed Non-Immune Equivocal Equivocal Reactive Presumed Immune Performed By: #### L 3400.8000, L3400.0000, L3400.1750, L509.4005, L3100.3300, L3890.6100 #### [facility] [address] [place], [address] Absolute lymphocyte countOrd ered By: Arabella Chau on 09-16-2023 Lymphocytes Auto (Unsp spec) [#/Vol] 1.66 10*3/uL 0.83-4.51 [facility] Automated lymphocyte count a s percentage of total leukocytesOrdered By: Arabella Chau on 09-16-2023 Lymphocytes/100 WBC Auto (Unsp spec) 9.8 % 19-41 [facility] Basophil percentageOrdered B y: Arabella Chau on 09-16-2023 Basophils/100 WBC (Bld) 0.5 % 0-1 [facility] Eosinophils/100 WBC (Bld) 0.6 % 0-5 [facility] Hemoglobin (Bld) [Mass/Vol] 11.3 g/dL 12.0-15.0 [facility] Monocytes/100 WBC (Bld) 5.8 % 0-10 [facility] Neutrophils (Bld) [#/Vol] 14.0 10*3/uL 2.0-7.7 [facility] Neutrophils/100 WBC (Bld) 82.7 % 47-70 [facility] WBC (Bld) [#/Vol] 16.9 10*3/uL 4.4-11.0 [facility] Determination of erythrocyte mean corpuscular volume (MCV)Ordered By: Arabella Chau on 09-16-2023 MCV (RBC) [Entitic vol] 84.6 fL 81-99 [facility] Erythrocyte distribution wid th ratioOrdered By: Arabella Chau on 09-16-2023 Erythrocyte distribution width (RBC) [Ratio] 13.2 % 11.6-14.6 [facility] Erythrocyte distribution wid th standard deviationOrdered By: Arabella Chau on 09-16-2023 Erythrocyte distribution width (RBC) [Entitic vol] 40.7 fL 35.1-43.9 [facility] Hematocrit Auto (Bld) [Volum e fraction]Ordered By: Arabella Chau on 09-16-2023 Hematocrit (Bld) [Volume fraction] 34.7 % 37-47 [facility] Immature granulocytes/100 WB C Auto (Bld)Ordered By: Arabella Chau on 09-16-2023 Immature granulocytes/100 WBC (Bld) 0.600 % 0.0-0.9 [facility] Comment on above: IG% - Immature Granu locytes (promyelocytes, myelocytes and metamyelocytes) > 1% indicates that a LEFT SHIFT is Present. Laboratory - Hematology and Cell countsOrdered By: Aarbella Chau on 03-29-2024 MCH (RBC) [Entitic mass] 27.6 pg 27.0-32.0 [facility] MCHC (RBC) [Mass/Vol] 32.6 g/dL 32-36 [facility] Nucleated RBC/100 WBC (Bld) [Ratio] 0 % 0-5 [facility] Platelet mean volume (Bld) [Entitic vol] 8.8 fL 6.2-12.0 [facility] Platelets (Bld) [#/Vol] 399 10*3/uL 150-450 [facility] RBC Auto (Bld) [#/Vol]Ordere d By: Arabella Chau on 09-16-2023 RBC (Bld) [#/Vol] 4.10 10*6/uL 4.2-5.4 [facility] Serum Treponema species anti body detectionOrdered By: Arabella Chau on 09-16-2023 Treponema sp Ab Ql (S) Non-Reactive [facility] - Chemistry and C hemistry - challengeon 09-08-2023 Glucose Ql (U) Negative [facility] - Urinalysison Protein Ql (U) Negative [facility] - Chemistry and C hemistry - challengeon 09-02-2023 Glucose Ql (U) Negative [facility] - Urinalysison Protein Ql (U) Negative [facility] No Panel InformationOrdered By: Arabella Chau on 09-02-2023 Group B Streptococcus Culture Streptococcus agalactiae (B) [facility] - Chemistry and C hemistry - challengeon 08-19-2023 Glucose Ql (U) Negative [facility] - Urinalysison Protein Ql (U) Negative [facility] - Chemistry and C hemistry - challengeon 08-05-2023 Glucose Ql (U) Negative [facility] - Urinalysison Protein Ql (U) Negative [facility] - Chemistry and C hemistry - challengeon 07-20-2023 Glucose Ql (U) Negative [facility] - Urinalysison Protein Ql (U) Negative [facility] - Chemistry and C hemistry - challengeon 07-05-2023 Glucose Ql (U) Negative [facility] - Urinalysison Protein Ql (U) Negative [facility] Absolute lymphocyte countOrd ered By: Josselyn Frederick on 07-02-2023 Lymphocytes Auto (Unsp spec) [#/Vol] 1.65 10*3/uL 0.83-4.51 [facility] Basophil percentageOrdered B y: Josselyn Frederick on 07-02-2023 Basophils/100 WBC (Bld) 0.7 % 0-1 [facility] Eosinophils/100 WBC (Bld) 3.3 % 0-5 [facility] Neutrophils (Bld) [#/Vol] 7.1 10*3/uL 2.0-7.7 [facility] Neutrophils/100 WBC (Bld) 71.7 % 47-70 [facility] WBC (Bld) [#/Vol] 9.9 10*3/uL 4.4-11.0 [facility] Blood erythrocytes count (nu mber/volume)Ordered By: Josselyn Frederick on 07-02-2023 RBC (Bld) [#/Vol] 3.88 10*6/uL 4.2-5.4 [facility] Blood hemoglobin measurement (mass/volume)Ordered By: Josselyn Frederick on 07-02-2023 Hemoglobin (Bld) [Mass/Vol] 11.4 g/dL 12.0-15.0 [facility] Blood lymphocytes/100 leukoc ytesOrdered By: Josselyn Frederick on 07-02-2023 Lymphocytes/100 WBC (Bld) 16.7 % 19-41 [facility] Blood monocytes/100 leukocyt esOrdered By: Josselyn Frederick on 07-02-2023 Monocytes/100 WBC (Bld) 6.4 % 0-10 [facility] Blood platelet mean volumeOr dered By: Josselyn Frederick on 07-02-2023 Platelet mean volume (Bld) [Entitic vol] 8.7 fL 6.2-12.0 [facility] Determination of erythrocyte mean corpuscular volume (MCV)Ordered By: Josselyn Frederick on 07-02-2023 MCV (RBC) [Entitic vol] 88.9 fL 81-99 [facility] Gestational diabetes screen 1-hour screen with 50g oral glucose loadOrdered By: Josselyn Frederick on 07-02-2023 Glucose 1 Hr post 50 g glucose PO [Mass/Vol] 90 mg/dL 70-140 [facility] HIV 1 and HIV-2 antibody ass ay with HIV-1 p24 antigen detectionOrdered By: Josselyn Frederick on 07-02-2023 HIV 1+2 Ab+HIV1 p24 Ag IA Ql Non-Reactive Nonreactive [facility] Hematocrit Auto (Bld) [Volum e fraction]Ordered By: Josselyn Frederick on 07-02-2023 Hematocrit (Bld) [Volume fraction] 34.5 % 37-47 [facility] - Hematology and Cell countsOrdered By: Josselyn Frederick on 07-02-2023 Erythrocyte distribution width (RBC) [Entitic vol] 40.9 fL 35.1-43.9 [facility] Erythrocyte distribution width (RBC) [Ratio] 12.6 % 11.6-14.6 [facility] Immature granulocytes/100 WBC (Bld) 1.200 % 0.0-0.9 [facility] Comment on above: IG% - Immature Granu locytes (promyelocytes, myelocytes and metamyelocytes) > 1% indicates that a LEFT SHIFT is Present. MCH (RBC) [Entitic mass] 29.4 pg 27.0-32.0 [facility] Nucleated RBC/100 WBC (Bld) [Ratio] 0 % 0-5 [facility] MCHC Auto (RBC) [Mass/Vol]Or dered By: Josselyn Frederick on 07-02-2023 MCHC (RBC) [Mass/Vol] 33.0 g/dL 32-36 [facility] Platelets bldOrdered By: Jazmin Frederick on 07-02-2023 Platelets (Bld) [#/Vol] 408 10*3/uL 150-450 [facility] Serum Treponema species anti body detectionOrdered By: Josselyn Frederick on 07-02-2023 Treponema sp Ab Ql (S) Non-Reactive [facility] - Chemistry and C hemistry - challengeon 12-18-2023 Glucose Ql (U) Negative [facility] - Urinalysison Protein Ql (U) Negative [facility] - Chemistry and C hemistry - challengeon 05-10-2023 Glucose Ql (U) Negative [facility] - Urinalysison Protein Ql (U) Negative [facility] - Chemistry and C hemistry - challengeon 04-13-2023 Glucose Ql (U) Negative [facility] - Urinalysison Protein Ql (U) Negative [facility] Absolute lymphocyte countOrd ered By: Arabella Chau on 03-16-2023 Lymphocytes Auto (Unsp spec) [#/Vol] 1.59 10*3/uL 0.83-4.51 [facility] Basophil percentageOrdered B y: Arabella Chau on 03-16-2023 Basophils/100 WBC (Bld) 0.6 % 0-1 [facility] Eosinophils/100 WBC (Bld) 2.8 % 0-5 [facility] Neutrophils (Bld) [#/Vol] 5.5 10*3/uL 2.0-7.7 [facility] Neutrophils/100 WBC (Bld) 71.6 % 47-70 [facility] WBC (Bld) [#/Vol] 7.7 10*3/uL 4.4-11.0 [facility] Blood erythrocytes count (nu mber/volume)Ordered By: Arabella Chau on 03-16-2023 RBC (Bld) [#/Vol] 4.16 10*6/uL 4.2-5.4 [facility] Blood hemoglobin measurement (mass/volume)Ordered By: Arabella Chau on 03-16-2023 Hemoglobin (Bld) [Mass/Vol] 12.2 g/dL 12.0-15.0 [facility] Blood lymphocytes/100 leukoc ytesOrdered By: Arabella Chau on 03-16-2023 Lymphocytes/100 WBC (Bld) 20.6 % 19-41 [facility] Blood monocytes/100 leukocyt esOrdered By: Arabella Chau on 03-16-2023 Monocytes/100 WBC (Bld) 4.1 % 0-10 [facility] Blood platelet mean volumeOr dered By: Arabella Chau on 03-16-2023 Platelet mean volume (Bld) [Entitic vol] 8.7 fL 6.2-12.0 [facility] Determination of erythrocyte mean corpuscular volume (MCV)Ordered By: Arabella Chau on 03-16-2023 MCV (RBC) [Entitic vol] 88.0 fL 81-99 [facility] HIV 1 and HIV-2 antibody ass ay with HIV-1 p24 antigen detectionOrdered By: Arabella Chau on 03-16-2023 HIV 1+2 Ab+HIV1 p24 Ag IA Ql Non-Reactive Nonreactive [facility] Hematocrit Auto (Bld) [Volum e fraction]Ordered By: Arabella Chau on 03-16-2023 Hematocrit (Bld) [Volume fraction] 36.6 % 37-47 [facility] Laboratory - Chemistry and C hemistry - challengeon 03-16-2023 Glucose Ql (U) Negative [facility] - Hematology and Cell countsOrdered By: Arabella Chau on 03-16-2023 Erythrocyte distribution width (RBC) [Entitic vol] 40.0 fL 35.1-43.9 [facility] Erythrocyte distribution width (RBC) [Ratio] 12.4 % 11.6-14.6 [facility] Immature granulocytes/100 WBC (Bld) 0.300 % 0.0-0.9 [facility] Comment on above: IG% - Immature Granu locytes (promyelocytes, myelocytes and metamyelocytes) > 1% indicates that a LEFT SHIFT is Present. MCH (RBC) [Entitic mass] 29.3 pg 27.0-32.0 [facility] Nucleated RBC/100 WBC (Bld) [Ratio] 0 % 0-5 [facility] - Urinalysison Protein Ql (U) Negative [facility] MCHC Auto (RBC) [Mass/Vol]Or dered By: Arabella Chau on 03-16-2023 MCHC (RBC) [Mass/Vol] 33.3 g/dL 32-36 [facility] No Panel InformationOrdered By: Arabella Chau on 09-27-2023 Miscellaneous Test Comment MAILED SPECIMEN [facility] Hepatitis B Surface Antigen Non-Reactive Nonreactive [facility] Hepatitis C Antibody Non-Reactive Nonreactive [facility] Comment on above: Non Reactive: < 0.8 Equivocal: >/= 0.8 to < 1.0 Reactive: >/= 1.0The CDC recommends that a reactive/equivocal HCV antibody result be followed up by the HCV Nucleic Acid Amplificationtest (941094) Rubella IgG Antibody Reactive Nonreactive [facility] Comment on above: Antibody Results Int erpretation of Immune Status Non Reactive Presumed Non-Immune Equivocal Equivocal Reactive Presumed Immune Platelets bldOrdered By: Woody Chau on 03-16-2023 Platelets (Bld) [#/Vol] 384 10*3/uL 150-450 [facility] Serum Treponema species anti body detectionOrdered By: Arabella Chau on 03-16-2023 Treponema sp Ab Ql (S) Non-Reactive [facility] - Microbiology an d Antimicrobial susceptibilityon 03-14-2023 SARS-CoV-2 (COVID-19) RNA VALERIY+probe Ql (Unsp spec) Not detected [facility] No Panel Informationon 03-14 Influenza Types A,B Rapid (Clinic) Not detected [facility] Cervical or vagninal specime n microscopic examination by cytology stain (reported asOrdered By: Arabella Chau on 02-14-2023 Cytology report Cyto stain Doc (Cvx/Vag) Comment . [facility] Comment on above: The Pap smear is a s creening test designed to aid in thedetection of premalignant and malignant conditions of theuterine cervix. It is not a diagnostic procedure andshould not be used as the sole means of detecting cervicalcancer. Both false-positive and false-negative reports dooccur. Chlamydia trachomatis rRNA d etection by probe and target amplification methodOrdered By: Arabella Chau on 02-14-2023 C. trachomatis rRNA VALERIY+probe Ql (Unsp spec) Negative Negative [facility] Culture, urineOrdered By: Isai Chau on 02-14-2023 Bacteria identified Cx Nom (U) Culture exhibits no growth. [facility] Bacteria identified Cx Nom (U) Culture exhibits no growth. [facility] Laboratory - CytologyOrdered By: Arabella Chau on 02-14-2023 Allergist/Md Cyto stain Nom (Cvx/Vag) [ID] Comment . [facility] Comment on above: Pablito Byrne totechnologist (ASCP) Laboratory - Microbiology an d Antimicrobial susceptibilityOrdered By: Arabella Chau on 02-14-2023 N. gonorrhoeae DNA VALERIY+probe Ql (Unsp spec) Negative Negative [facility] Comment on above: Performed at: =[facility] - [facility] [address] [id number] Director: Janey Waddell MD, Phone: [phone] Laboratory - Miscellaneous t estsOrdered By: Arabella Chua on 02-14-2023 Service comment (Unsp spec) [Interp] Comment . [facility] Comment on above: This liquid based Th inPrep(R) pap test was screened withthe use of an image guided system. Service comment (Unsp spec) [Interp] . . [facility] No Panel InformationOrdered By: Arabella Chau on 02-14-2023 Human Papillomavirus Screen Comment . [facility] Comment on above: The HPV DNA reflex c natalie were not met with this specimenresult therefore, no HPV testing was performed.Performed at: [facility] - [facility] [address] [id number] Director: Janey Waddell MD, Phone: [phone] Pathology report final diagnosis Narrative Comment . [facility] Comment on above: NEGATIVE FOR INTRAEP ITHELIAL LESION OR MALIGNANCY. Basophil percentageon 2022 Testosterone [Mass/Vol] 21 ng/dL 13-[address] [facility] Free testosterone percentage on 12-18-2022 Testosterone Free/Testosterone.total [Mass fraction] 1.28 % 0.50-2.80 [facility] - Chemistry and C hemistry - challengeon 12-18-2022 Free T4 [Mass/Vol] 1.00 ng/dL 0.76-1.46 [facility] No Panel Informationon 12-18 Androstenedione 54 ng/dL 41-262 [facility] Comment on above: Performed at: [facility] [address] [id number] Director: Vikram Cevallos PhD, Phone: [phone] at: [employer] [id number] Director: Wyatt Martinez MD, Phone: [phone] Dehydroepiandrosterone Sulfate 252.0 ug/dL 84.8-378.0 [facility] Follicle Stimulating Hormone 8.9 mIU/mL [facility] Comment on above: NORMAL REFERENCE RAN GES FEMALE FOLLICULAR 2.3 - 12.6 mIU/mL MID-CYCLE PEAK 5.2 - 17.5 mIU/mL LUTEAL 1.7 - 12.9 mIU/mL POST-MENOPAUSAL ON MHT 5.9 - 72.8 mIU/mL NOT ON MHT 12.7 - 132.2 mlU/mL MALE 0.7 - 10.8 mIU/mL Luteinizing Hormone 7.1 mIU/mL [facility] Comment on above: NORMAL REFERENCE RAN GES FEMALE FOLLICULAR 1.9 - 26.2 mIU/mL MID-CYCLE PEAK 22.8 - 76.1 mIU/mL LUTEAL 0.6 - 16.6 mIU/mL POST-MENOPAUSAL ON MHT 1.1 - 52.4 mIU/mL NOT ON MHT 8.6 - 61.8 mIU/mL MALE 1.2 - 10.6 mIU/mL Thyroid Stimulating Hormone (TSH) 0.83 uIU/mL 0.358-3.74 [facility] Serum or plasma 17-hydroxypr ogesterone measurement (mass/volume)on 12-18-2022 17-Hydroxyprogesterone [Mass/Vol] 17 ng/dL . [facility] Comment on above: Adult Female Follicu lar 15 - 70 Luteal 35 - 290Performed at: [facility] CountyUythdltxhb[address] [place], [place] [id number] Director: Wyatt Martinez MD, Phone: [phone] Serum or plasma cortisol merline surement (mass/volume)on 12-18-2022 Cortisol [Mass/Vol] 7.10 ug/dL 3.44-22.45 [facility] Comment on above: Adult (AM) 5.27 - 22 .45 ug/dL Adult (PM) 3.44 - 16.76 ug/dLPlease note revised CORTISOL reference range effective 2019. Serum or plasma estradiol (E 2) measurement (mass/volume)on 12-18-2022 E2 [Mass/Vol] 29.5 pg/mL [facility] Comment on above: NORMAL REFERENCE RAN GES FEMALE FOLLICULAR 21.4 - 164.8 pg/mL MID-CYCLE PEAK 49.9 - 367.2 pg/mL LUTEAL 40.2 - 259.0 pg/mL POST-MENOPAUSAL ON MHT <11.0 - 462.1 pg/mL NOT ON MHT <11.0 - 58.3 pg/mL MALE <11.0 - 52.5 pg/mL NOTE:[employer] HAS CONFIRMED THE DRUG FULVETRANT (FASLODEX) MAY CAUSE FALSELY ELEVATED ESTRADIOL RESULTS WHEN USING THIS TEST METHOD. IF PATIENT IS TAKING FULVESTRANT AN ALTERNATIVE METHOD SHOULD BE USED TO DETERMINE ESTRADIOL CONCENTRATION. Serum or plasma prolactin me asurement (mass/volume)on 12-18-2022 Prolactin [Mass/Vol] 5.7 ng/mL [facility] Comment on above: NORMAL REFERENCE RAN [facility] FEMALE NON- 2.2 - 30.3 ng/mL 8.1 - 347.6 ng/mL POST-MENOPAUSAL 0.7 - 31.5 ng/mL MALE 2.5 - 17.4 ng/mL Serum or plasma testosterone free measurement (mass/volume)on 12-18-2022 Testosterone Free [Mass/Vol] 0.27 ng/dL 0.10-0.85 [facility] Serum or plasma progesterone measurement (mass/volume)on 12-10-2022 Progesterone [Mass/Vol] 13.68 ng/mL See Comment [facility] Comment on above: Progesterone Referen ce Table: UNITS Female: Follicular 0.15 - 1.40 ng/mL Luteal 3.34 - 25.56 ng/mL Mid-luteal 4.44 - 28.03 ng/mL Postmenopausal 0.0 - 0.73 ng/mL : 1st Trimester 11.22 - 90.00 ng/mL 2nd Trimester 25.55 - 89.40 ng/mL 3rd Trimester 48.40 -422.50 ng/mL Absolute lymphocyte counton 02-26-2022 Lymphocytes Auto (Unsp spec) [#/Vol] 2.36 10*3/uL 0.83-4.51 [facility] Work Phone: Basophil percentageon 2021 Basophils/100 WBC (Bld) 1.3 % 0-1 [facility] Work Phone: Eosinophils/100 WBC (Bld) 2.1 % 0-5 [facility] Work Phone: Neutrophils (Bld) [#/Vol] 2.3 10*3/uL 2.0-7.7 [facility] Work Phone: Neutrophils/100 WBC (Bld) 43.5 % 47-70 [facility] Work Phone: WBC (Bld) [#/Vol] 5.4 10*3/uL 4.4-11.0 [facility] Work Phone: Blood erythrocytes count (nu mber/volume)on 02-26-2022 RBC (Bld) [#/Vol] 4.39 10*6/uL 4.2-5.4 [facility] Work Phone: Blood hemoglobin measurement (mass/volume)on 02-26-2022 Hemoglobin (Bld) [Mass/Vol] 13.3 g/dL 12.0-15.0 [facility] Work Phone: Blood lymphocytes/100 leukoc yteson 02-26-2022 Lymphocytes/100 WBC (Bld) 44.1 % 19-41 [facility] Work Phone: Blood monocytes/100 leukocyt eson 02-26-2022 Monocytes/100 WBC (Bld) 9.0 % 0-10 [facility] Work Phone: Blood platelet mean volumeon 02-26-2022 Platelet mean volume (Bld) [Entitic vol] 8.7 fL 6.2-12.0 [facility] Work Phone: Determination of erythrocyte mean corpuscular volume (MCV)on 02-26-2022 MCV (RBC) [Entitic vol] 90.0 fL 81-99 [facility] Work Phone: Hematocrit Auto (Bld) [Volum e fraction]on 02-26-2022 Hematocrit (Bld) [Volume fraction] 39.5 % 37-47 [facility] Work Phone: Laboratory - Hematology and Cell countson 02-26-2022 Erythrocyte distribution width (RBC) [Entitic vol] 39.3 fL 35.1-43.9 [facility] Work Phone: Erythrocyte distribution width (RBC) [Ratio] 11.9 % 11.6-14.6 [facility] Work Phone: [phone] Immature granulocytes/100 WBC (Bld) 0.000 % 0.0-0.9 [facility] Work Phone: Comment on above: IG% - Immature Granu locytes (promyelocytes, myelocytes and metamyelocytes) > 1% indicates that a LEFT SHIFT is Present. MCH (RBC) [Entitic mass] 30.3 pg 27.0-32.0 [facility] Work Phone: Nucleated RBC/100 WBC (Bld) [Ratio] 0 % 0-5 [facility] Work Phone: MCHC Auto (RBC) [Mass/Vol]on 02-26-2022 MCHC (RBC) [Mass/Vol] 33.7 g/dL 32-36 [facility] Work Phone: Platelets bldon 02-26-2022 Platelets (Bld) [#/Vol] 377 10*3/uL 150-450 [facility] Work Phone: Absolute lymphocyte counton 01-26-2022 Lymphocytes Auto (Unsp spec) [#/Vol] 2.47 10*3/uL 0.83-4.51 [facility] Work Phone: Basophil percentageon 2021 Basophils/100 WBC (Bld) 1.4 % 0-1 [facility] Work Phone: Bilirubin [Mass/Vol] 1.00 mg/dL 0.20-1.00 [facility] Work Phone: Comment on above: For patients on eltr ombopag therapy, use of Dimension [place] TBIL is not recommended. Chloride [Moles/Vol] 106 mmol/L 98-107 [facility] Work Phone: Cholesterol [Mass/Vol] 152 mg/dL <200 [facility] Work Phone: Comment on above: <200 mg/dL Desirable 200-240 mg/dL Borderline >240 mg/dL High Risk Eosinophils/100 WBC (Bld) 1.4 % 0-5 [facility] Work Phone: Glucose [Mass/Vol] 86 mg/dL 74-106 [facility] Work Phone: Neutrophils (Bld) [#/Vol] 2.7 10*3/uL 2.0-7.7 [facility] Work Phone: Neutrophils/100 WBC (Bld) 47.4 % 47-70 [facility] Work Phone: Potassium [Moles/Vol] 3.8 mmol/L 3.5-5.1 [facility] Work Phone: Protein [Mass/Vol] 7.5 g/dL 6.4-8.2 [facility] Work Phone: Sodium [Moles/Vol] 138 mmol/L 136-145 [facility] Work Phone: Triglyceride [Mass/Vol] 59 mg/dL <199 [facility] Work Phone: Comment on above: The drugs N-Acetylcy steine and Metamizole may falsely depress this assay.Serum Triglycerides Reference Interval Normal <150 mg/dL Borderline high 150 - 199 mg/dL High 200 - 499 mg/dL Very High > or = 500 mg/dL WBC (Bld) [#/Vol] 5.7 10*3/uL 4.4-11.0 [facility] Work Phone: Blood erythrocytes count (nu mber/volume)on 01-26-2022 RBC (Bld) [#/Vol] 4.46 10*6/uL 4.2-5.4 [facility] Work Phone: Blood hemoglobin measurement (mass/volume)on 01-26-2022 Hemoglobin (Bld) [Mass/Vol] 13.4 g/dL 12.0-15.0 [facility] Work Phone: Blood lymphocytes/100 leukoc yteson 01-26-2022 Lymphocytes/100 WBC (Bld) 43.3 % 19-41 [facility] Work Phone: [phone] Blood monocytes/100 leukocyt eson 01-26-2022 Monocytes/100 WBC (Bld) 6.3 % 0-10 [facility] Work Phone: [phone] Blood platelet mean volumeon 01-26-2022 Platelet mean volume (Bld) [Entitic vol] 9.1 fL 6.2-12.0 [facility] Work Phone: [phone] Determination of erythrocyte mean corpuscular volume (MCV)on 01-26-2022 MCV (RBC) [Entitic vol] 87.9 fL 81-99 [facility] Work Phone: [phone] Hematocrit Auto (Bld) [Volum e fraction]on 01-26-2022 Hematocrit (Bld) [Volume fraction] 39.2 % 37-47 [facility] Work Phone: Laboratory - Chemistry and C hemistry - challengeon 01-26-2022 ALP [Catalytic activity/Vol] 52 U/L 45-117 [facility] Work Phone: [phone] ALT [Catalytic activity/Vol] 22 U/L 13-56 [facility] Work Phone: [phone] CO2 [Moles/Vol] 26.0 mmol/L 21.0-32.0 [facility] Work Phone: [phone] Globulin (S) [Mass/Vol] 3.5 g/dL 2.2-4.2 [facility] Work Phone: [phone] Urea nitrogen/Creatinine [Mass ratio] 14.4 mg/mg 10-20 [facility] Work Phone: [phone] Laboratory - Hematology and Cell countson 01-26-2022 Erythrocyte distribution width (RBC) [Entitic vol] 38.9 fL 35.1-43.9 [facility] Work Phone: [phone] Erythrocyte distribution width (RBC) [Ratio] 12.1 % 11.6-14.6 [facility] Work Phone: [phone] Immature granulocytes/100 WBC (Bld) 0.200 % 0.0-0.9 [facility] Work Phone: [phone] Comment on above: IG% - Immature Granu locytes (promyelocytes, myelocytes and metamyelocytes) > 1% indicates that a LEFT SHIFT is Present. MCH (RBC) [Entitic mass] 30.0 pg 27.0-32.0 [facility] Work Phone: [phone] Nucleated RBC/100 WBC (Bld) [Ratio] 0 % 0-5 [facility] Work Phone: [phone] MCHC Auto (RBC) [Mass/Vol]on 01-26-2022 MCHC (RBC) [Mass/Vol] 34.2 g/dL 32-36 [facility] Work Phone: [phone] No Panel Informationon 01-26 Estimated GFR (MDRD) Amer 147 mL/min >60 [facility] Work Phone: [phone] Comment on above: GFR Calc Estimated GFR (MDRD) Non-Af Amer 121 mL/min >60 [facility] Work Phone: [phone] Comment on above: Non- GFR Calc Thyroid Stimulating Hormone (TSH) 1.45 uIU/mL 0.358-3.74 [facility] Work Phone: [phone] Platelets bldon 01-26-2022 Platelets (Bld) [#/Vol] 368 10*3/uL 150-450 [facility] Work Phone: [phone] Serum or plasma albumin quintin urement (mass/volume)on 01-26-2022 Albumin [Mass/Vol] 4.0 g/dL 3.2-5.0 [facility] Work Phone: [phone] Serum or plasma albumin/glob ulin mass ratioon 01-26-2022 Albumin/Globulin [Mass ratio] 1.1 {ratio} 0.9-2.4 [facility] Work Phone: Serum or plasma calcium quintin urement (mass/volume)on 01-26-2022 Calcium [Mass/Vol] 8.5 mg/dL 8.5-10.1 [facility] Work Phone: Serum or plasma cholesterol in HDL measurement (mass/volume)on 01-26-2022 Cholesterol in HDL [Mass/Vol] 53 mg/dL >40 [facility] Work Phone: Comment on above: The drugs N-Acetylcy steine and Metamizole may falsely depress this assay. Reference Range HDL <40 mg/dL Low HDL Cholesterol HDL >or= 60 mg/dL High HDL Cholesterol Serum or plasma cholesterol in VLDL measurement (mass/volume)on 01-26-2022 Cholesterol in VLDL [Mass/Vol] 12 mg/dL 5-40 [facility] Work Phone: [phone] Serum or plasma creatinine m easurement (mass/volume)on 01-26-2022 Creatinine [Mass/Vol] 0.62 mg/dL 0.55-1.02 [facility] Work Phone: Comment on above: The validity of the calculated GFR & GFRAA in patients over 70 years has not been determined. Clinical correlation is essential. Serum or plasma low density lipoprotein (LDL) cholesterol measurement (mass/volume)on 01-26-2022 Cholesterol in LDL [Mass/Vol] 87 mg/dL 0-130 [facility] Work Phone: [phone] Serum or plasma urea nitroge n measurement (mass/volume)on 01-26-2022 Urea nitrogen [Mass/Vol] 9 mg/dL 7-18 [facility] Work Phone: [phone] Thin prep Papanicolaou smear with manual screeningon 01-26-2022 Thin prep Papanicolaou smear with manual screening 11 U/L 15-37 [facility] Work Phone: [phone] Thin prep Papanicolaou smear with manual screening 6 5-15 [facility] Work Phone: [phone] Whole blood hemoglobin A1c/t otal hemoglobin ratio (mass fraction)on 01-26-2022 HbA1c (Bld) [Mass fraction] 4.9 % 3.8-5.6 [facility] Work Phone: Comment on above: Normal < 5.7 % Predi abetic 5.7 - 6.4 % Diabetic >or= 6.5 % Please note range changes. XR Wrist - right PA and Late ral and Obliqueon 03-30-2020 * * *Final Report* * * DATE OF EXAM: Mar 30 2020 11:03AM WOX 5271 - XR WRIST 3V PA/LAT/OBL RT / PROCEDURE REASON: Right wrist pain * * * * Physician Interpretation * * * * Indication: Right wrist pain Comparison: None 3 views of the right wrist are obtained. There is normal architecture and mineralization of the bones. There is no acute fracture or dislocation. Joint spaces are maintained. Impression: 1. No acute fracture or dislocation. Structural Design Engineer: GENEVA Transcribe Date/Time: Mar 30 2020 11:35A Dictated by : MARIA ELENA JIMENEZ MD This examination was interpreted and the report reviewed and electronically signed by: MARIA ELENA JIMENEZ MD on Mar 30 2020 11:36AM EST DIVISION OF RADIOLOGY Provider, [facility] Ralph - 03/30/2020 * * *Final Report* * * DATE OF EXAM: Mar 30 2020 11:03AM WOX 5271 - XR WRIST 3V PA/LAT/OBL RT / PROCEDURE REASON: Right wrist pain * * * * Physician Interpretation * * * * Indication: Right wrist pain Comparison: None 3 views of the right wrist are obtained. There is normal architecture and mineralization of the bones. There is no acute fracture or dislocation. Joint spaces are maintained. Impression: 1. No acute fracture or dislocation. Structural Design Engineer: PSCB Transcribe Date/Time: Mar 30 2020 11:35A Dictated by : MARIA ELENA JIMENEZ MD This examination was interpreted and the report reviewed and electronically signed by: MARIA ELENA JIMENEZ MD on Mar 30 2020 11:36AM EST [facility] Radiology Study observation (narrative) Yee Grier XR Wrist - right PA and Late ral and ObliqueOrdered By: Cc Provider on 03-30-2020 [facility] POC Urinalysis Dipstick,Auto UCon 06-23-2017 Clarity, UA Cloudy Abnormal Clear [facility] Work Phone: Interpretation and review of laboratory results Abnormal Invalid Interpretation Code [facility] Phone: POC Color, Urine Prowers Abnormal Yellow, Lig ht Yellow, Dark Yellow [facility] Work Phone: Urine, bilirubin presence Negative Invali d Interpretation Code Negative [facility] Work Phone: Urine, glucose presence 100 Abnormal Norm al, Negative mg/dL [facility] Work Phone: Urine, hemoglobin presence Large Abnormal Negative [facility] Work Phone: Urine, ketones presence Negative Invalid Interpretation Code Negative mg/dL [facility] Phone: Urine, leukocyte esterase presence Large Abnormal Negative [facility] Work Phone: Urine, nitrite presence Positive Abnormal Negative [facility] Phone: Urine, pH 5.5 [pH] Invalid Interpretation Code 5.0 - 7.0 [facility] Phone: Urine, protein presence 100 Abnormal Nega tive mg/dL [facility] Phone: Urine, specific gravity 1.005 1 Invalid Interpretation Code 1.005 - 1.025 [facility] Phone: Urine, urobilinogen 1.0 mg/dL Invalid Interpretation Code <2.0, 0.2, Normal, Negative, 1.0, 2.0, <1.0 [facility] Phone: POC Urinalysis Dipstick,Auto UCon 05-04-2017 Bilirubin Ql (U) Small Abnormal Negative [facility] Work Phone: Clarity, UA Clear Invalid Interpretation Code Clear [facility] Work Phone: Interpretation and review of laboratory results Abnormal Invalid Interpretation Code [facility] Phone: POC Color, Urine Red Abnormal Yellow, Lig ht Yellow, Dark Yellow [facility] Work Phone: Urine, glucose presence 100 Abnormal Norm al, Negative mg/dL [facility] Phone: Urine, hemoglobin presence Large Abnormal Negative [facility] Work Phone: Urine, ketones presence Trace Abnormal Nega tive mg/dL [facility] Phone: Urine, leukocyte esterase presence Large Abnormal Negative [facility] Work Phone: Urine, nitrite presence Positive Abnormal Negative [facility] Work Phone: Urine, pH 7.0 [pH] Invalid Interpretation Code 5.0 - 7.0 [facility] Phone: Urine, protein presence 100 Abnormal Nega tive mg/dL [facility] [employer] Phone: Urine, specific gravity 1.020 1 Invalid Interpretation Code 1.005 - 1.025 [facility] Phone: Urine, urobilinogen 2.0 mg/dL Invalid Interpretation Code <2.0, 0.2, Normal, Negative, 1.0, 2.0, <1.0 [facility] [employer] Phone: Vital Signs Date Time Vital Sign Value Performing Clinician Rima barton 11-14-2024 09:05-0400 Body height 175.[address] Bailey Lang DO Work Phone: [facility] 11-14-2024 09:04-0400 Body mass index (BMI) [Ratio] 26.1 kg/m2 Dr. Bailey Lang DO Work Phone: [facility] 11-14-2024 09:04-0400 Body weight 80.[address] Bailey Lang DO Work Phone: [facility] 11-14-2024 09:04-0400 Diastolic blood pressure 77 mm[Hg] Dr. Bailey Lang DO Work Phone: [facility] 11-14-2024 09:04-0400 Systolic blood pressure 123 mm[Hg] Dr. Bailey Lang DO Work Phone: [facility] 09-06-2024 08:52-0400 Body height 175.[address] Bailey Lang DO Work Phone: [facility] 09-06-2024 08:52-0400 Body mass index (BMI) [Ratio] 26.9 kg/m2 Dr. Bailey Lang DO Work Phone: [facility] 09-06-2024 08:52-0400 Body weight 82.[address] Bailey Lang DO Work Phone: [facility] 09-17-2023 09:47-0400 Body temperature 97.5 [degF] No Primary Care Physician [facility] 09-17-2023 09:47-0400 Diastolic blood pressure 72 mm[Hg] No Primary Care Physician [facility] 09-17-2023 09:47-0400 Heart rate 99 /min No Primary Care Physician [facility] 09-17-2023 09:47-0400 Respiratory rate 14 /min No Primary Care Physician [facility] 09-17-2023 09:47-0400 SaO2% (BldA) [Mass fraction] 96 % No Primary Care Physician [facility] 09-17-2023 09:47-0400 Systolic blood pressure 116 mm[Hg] No Primary Care Physician [facility] 09-16-2023 01:38-0400 Body height 175.26 cm No Primary Care Physician [facility] 09-16-2023 01:38-0400 Body mass index (BMI) [Ratio] 30.5 kg/m2 No Primary Care Physician [facility] 09-16-2023 01:38-0400 Body weight 93.89 kg No Primary Care Physician [facility] 09-15-2023 09:32-0400 Body mass index (BMI) [Ratio] 31.5 kg/m2 No Primary Care Physician [facility] 09-15-2023 09:32-0400 Body weight 96.78 kg No Primary Care Physician [facility] 09-15-2023 09:32-0400 Diastolic blood pressure 67 mm[Hg] No Primary Care Physician [facility] 09-15-2023 09:32-0400 Systolic blood pressure 125 mm[Hg] No Primary Care Physician [facility] 09-08-2023 09:44-0400 Body height 175.26 cm No Primary Care Physician [facility] 09-08-2023 09:44-0400 Body mass index (BMI) [Ratio] 31.3 kg/m2 No Primary Care Physician [facility] 09-08-2023 09:44-0400 Body weight 96.27 kg No Primary Care Physician [facility] 09-08-2023 09:44-0400 Diastolic blood pressure 72 mm[Hg] No Primary Care Physician [facility] 09-08-2023 09:44-0400 Systolic blood pressure 123 mm[Hg] No Primary Care Physician [facility] 09-02-2023 08:55-0400 Body mass index (BMI) [Ratio] 31.1 kg/m2 No Primary Care Physician [facility] 09-02-2023 08:55-0400 Body weight 95.7 kg No Primary Care Physician [facility] 09-02-2023 08:55-0400 Diastolic blood pressure 72 mm[Hg] No Primary Care Physician [facility] 09-02-2023 08:55-0400 Systolic blood pressure 113 mm[Hg] No Primary Care Physician [facility] 08-19-2023 08:59-0500 Body mass index (BMI) [Ratio] 30.2 kg/m2 No Primary Care Physician [facility] 08-19-2023 08:59-0500 Body weight 92.64 kg No Primary Care Physician [facility] 08-19-2023 08:59-0500 Diastolic blood pressure 78 mm[Hg] No Primary Care Physician [facility] 08-19-2023 08:59-0500 Systolic blood pressure 122 mm[Hg] No Primary Care Physician [facility] 08-05-2023 09:41-0500 Body mass index (BMI) [Ratio] 30.2 kg/m2 No Primary Care Physician [facility] 08-05-2023 09:41-0500 Body weight 92.7 kg No Primary Care Physician [facility] 08-05-2023 09:41-0500 Diastolic blood pressure 67 mm[Hg] No Primary Care Physician [facility] 08-05-2023 09:41-0500 Systolic blood pressure 113 mm[Hg] No Primary Care Physician [facility] 07-20-2023 09:29-0500 Body mass index (BMI) [Ratio] 29.9 kg/m2 No Primary Care Physician [facility] 07-20-2023 09:29-0500 Body weight 92.13 kg No Primary Care Physician [facility] 07-20-2023 09:29-0500 Diastolic blood pressure 71 mm[Hg] No Primary Care Physician [facility] 07-20-2023 09:29-0500 Systolic blood pressure 104 mm[Hg] No Primary Care Physician [facility] 07-05-2023 09:08-0500 Body height 175.26 cm No Primary Care Physician [facility] 07-05-2023 09:08-0500 Body mass index (BMI) [Ratio] 29.5 kg/m2 No Primary Care Physician [facility] 07-05-2023 09:08-0500 Body weight 90.49 kg No Primary Care Physician [facility] 07-05-2023 09:08-0500 Diastolic blood pressure 68 mm[Hg] No Primary Care Physician [facility] 07-05-2023 09:08-0500 Systolic blood pressure 114 mm[Hg] No Primary Care Physician [facility] 06-06-2023 10:54-0500 Body mass index (BMI) [Ratio] 28.3 kg/m2 No Primary Care Physician [facility] 06-06-2023 10:54-0500 Body weight 87.08 kg No Primary Care Physician [facility] 06-06-2023 10:54-0500 Diastolic blood pressure 70 mm[Hg] No Primary Care Physician [facility] 06-06-2023 10:54-0500 Systolic blood pressure 111 mm[Hg] No Primary Care Physician [facility] 05-10-2023 13:20-0500 Body height 175.26 cm No Primary Care Physician [facility] 05-10-2023 13:20-0500 Body mass index (BMI) [Ratio] 27.6 kg/m2 No Primary Care Physician [facility] 05-10-2023 13:20-0500 Body weight 84.93 kg No Primary Care Physician [facility] 05-10-2023 13:20-0500 Diastolic blood pressure 71 mm[Hg] No Primary Care Physician [facility] 05-10-2023 13:20-0500 Systolic blood pressure 110 mm[Hg] No Primary Care Physician [facility] 04-13-2023 09:04-0400 Body mass index (BMI) [Ratio] 26.1 kg/m2 No Primary Care Physician [facility] 04-13-2023 09:04-0400 Body weight 80.28 kg No Primary Care Physician [facility] 04-13-2023 09:04-0400 Diastolic blood pressure 68 mm[Hg] No Primary Care Physician [facility] 04-13-2023 09:04-0400 Systolic blood pressure 103 mm[Hg] No Primary Care Physician [facility] 03-16-2023 09:02-0400 Body mass index (BMI) [Ratio] 24.5 kg/m2 No Primary Care Physician [facility] 03-16-2023 09:02-0400 Body weight 75.52 kg No Primary Care Physician [facility] 03-16-2023 09:02-0400 Diastolic blood pressure 66 mm[Hg] No Primary Care Physician [facility] 03-16-2023 09:02-0400 Systolic blood pressure 112 mm[Hg] No Primary Care Physician [facility] 03-14-2023 08:59-0400 Body mass index (BMI) [Ratio] 24.5 kg/m2 No Primary Care Physician [facility] 03-14-2023 08:59-0400 Body temperature 98.4 [degF] No Primary Care Physician [facility] 03-14-2023 08:59-0400 Body weight 75.35 kg No Primary Care Physician [facility] 03-14-2023 08:59-0400 Diastolic blood pressure 70 mm[Hg] No Primary Care Physician [facility] 03-14-2023 08:59-0400 Heart rate 98 /min No Primary Care Physician [facility] 03-14-2023 08:59-0400 Respiratory rate 16 /min No Primary Care Physician [facility] 03-14-2023 08:59-0400 SaO2% (BldA) [Mass fraction] 98 % No Primary Care Physician [facility] 03-14-2023 08:59-0400 Systolic blood pressure 108 mm[Hg] No Primary Care Physician [facility] 02-14-2023 13:43-0400 Body height 175.26 cm DO Cheryl Martha Work Phone: [facility] 02-14-2023 13:41-0400 Body mass index (BMI) [Ratio] 24.7 kg/m2 DO Cheryl Martha Work Phone: [facility] 02-14-2023 13:41-0400 Body weight 75.97 kg DO Cheryl Martha Work Phone: [facility] 02-14-2023 13:41-0400 Diastolic blood pressure 59 mm[Hg] DO Cheryl Martha Work Phone: [facility] 02-14-2023 13:41-0400 Systolic blood pressure 99 mm[Hg] DO Cheryl Martha Work Phone: [facility] 01-26-2023 21:51-0400 Body height 175.26 cm DO Cherly Martha Work Phone: [facility] 01-26-2023 21:51-0400 Body mass index (BMI) [Ratio] 54.8 kg/m2 DO Cheryl Martha Work Phone: [facility] 01-26-2023 21:51-0400 Body temperature 97.9 [degF] DO Cheryl Martha Work Phone: [facility] 01-26-2023 21:51-0400 Body weight 168.6 kg DO Cheryl Martha Work Phone: [facility] 01-26-2023 21:51-0400 Diastolic blood pressure 75 mm[Hg] DO Cheryl Martha Work Phone: [facility] 01-26-2023 21:51-0400 Heart rate 95 /min DO Cheryl Martha Work Phone: [facility] 01-26-2023 21:51-0400 Respiratory rate 18 /min DO Cheryl Martha Work Phone: [facility] 01-26-2023 21:51-0400 SaO2% (BldA) [Mass fraction] 100 % DO Cherylmadina Madridnger Work Phone: [facility] 01-26-2023 21:51-0400 Systolic blood pressure 124 mm[Hg] DO Cheryl Martha Work Phone: [facility] 11-20-2022 08:54-0400 Body temperature 98.4 [degF] DO Cheryl Martha Work Phone: [facility] 11-20-2022 08:54-0400 Diastolic blood pressure 54 mm[Hg] DO Cherylmadina Madridnger Work Phone: [facility] 11-20-2022 08:54-0400 Heart rate 85 /min DO Cherylmadina Madridnger Work Phone: [facility] 11-20-2022 08:54-0400 Respiratory rate 14 /min DO Cheryl Madridnger Work Phone: [facility] 11-20-2022 08:54-0400 SaO2% (BldA) [Mass fraction] 99 % DO Cheryl Madridnger Work Phone: [facility] 11-20-2022 08:54-0400 Systolic blood pressure 100 mm[Hg] DO Cherylmadina Madridnger Work Phone: [facility] 02-26-2022 11:08-0400 Body height 175.[address] Jose Antonio Rojas Work Phone: [facility] Work Phone: 02-26-2022 11:07-0400 Body mass index (BMI) [Ratio] 24.6 kg/m2 Dr. Jose Antonio Rojas Work Phone: [facility] Work Phone: 02-26-2022 11:07-0400 Body weight 75.[address] Jose Antonio Rojas Work Phone: [facility] Work Phone: 02-26-2022 11:07-0400 Diastolic blood pressure 84 mm[Hg] Dr. Jose Antonio Rojas Work Phone: [facility] Work Phone: 02-26-2022 11:07-0400 Systolic blood pressure 126 mm[Hg] Dr. Jose Antonio Rojas Work Phone: [facility] Work Phone: 06-23-2017 20:20-0500 BMI (Body Mass Index) 25.11 kg/m2 Racquel Birmingham [facility] Work Phone: 06-23-2017 20:20-0500 Body Temperature 98.49 [degF] Racquel Birmingham [facility] Work Phone: 06-23-2017 20:20-0500 BP Diastolic 76 mm[Hg] Racquel Birmingham [facility] Work Phone: 06-23-2017 20:20-0500 BP Systolic 119 mm[Hg] Racquel Birmingham [facility] Work Phone: 06-23-2017 20:20-0500 Pulse (Heart Rate) 88 /min Racquel Birmingham [facility] Work Phone: 06-23-2017 20:20-0500 Pulse Oximetry 95 % Racquel Birmingham [facility] Work Phone: 06-23-2017 20:20-0500 Respiratory Rate 14 /min Racquel Birmingham [facility] Work Phone: 06-23-2017 20:20-0500 Weight 79.38 kg Racquel Birmingham [facility] Work Phone: 05-04-2017 10:41-0500 BMI (Body Mass Index) 25.68 kg/m2 Vinita Schmitt [facility] Work Phone: 05-04-2017 10:41-0500 Body Temperature 97.81 [degF] Vinita Schmitt [facility] Work Phone: 05-04-2017 10:41-0500 BP Diastolic 83 mm[Hg] Vinita Schmitt [facility] Work Phone: 05-04-2017 10:41-0500 BP Systolic 114 mm[Hg] [facility] 05-04-2017 10:41-0500 Height 177.8 cm [facility]: 05-04-2017 10:41-0500 Pulse (Heart Rate) 71 /min [facility] Work [facility]: 05-04-2017 10:41-0500 Pulse Oximetry 96 % Vinita Schmitt [facility] Work Phone: 05-04-2017 10:41-0500 Respiratory Rate 16 /min [facility]: 05-04-2017 10:41-0500 Weight 81.19 kg [facility]: 04-17-2017 20:04-0400 BMI (Body Mass Index) 24.39 kg/m2 Kristen Batres [facility] Work Phone: 04-17-2017 20:04-0400 Body Temperature 98.6 [degF] Kristen Batres [facility] Work Phone: 04-17-2017 20:04-0400 BP Diastolic 80 mm[Hg] Kristen Batres [facility] Work Phone: 04-17-2017 20:04-0400 BP Systolic 130 mm[Hg] Kristen Batres [facility] Work Phone: 04-17-2017 20:04-0400 Height 177.8 cm Kristen Batres [facility] Work Phone: 04-17-2017 20:04-0400 Pulse (Heart Rate) 86 /min Kristen Batres [facility] Work Phone: 04-17-2017 20:04-0400 Pulse Oximetry 100 % Kristen Batres [facility] Work Phone: 04-17-2017 20:04-0400 Respiratory Rate 16 /min Kristen Batres [facility] Work Phone: 04-17-2017 20:0400 Weight 77.11 kg Kristen Batres [facility] Work Phone: Encounters Encounter Date Encounter Type Care Provider Facility Start: 12-05-20[facility] Start: 12-01-2024 ambulatory No Primary Car e Physician Facility:[facility] Start: 11-26-2024 Encounter for other preprocedural examination Velasquez Glenis [facility] Start: 11-14-2024 End: 11-14-2024 Patient encounter procedure Kailey SEGOVIA -[facility] Work Phone: Start: 11-14-2024 End: 11-14-2024 Patient encounter status Kailey SEGOVIA [facility] Start: 11-14-2024 End: 11-14-[address] Bailey Lang DO Work Phone: [facility] Work Phone: Start: 10-01-2024 End: 10-01-2024 ambulatory No Primary Care Physician Facility:[facility] Start: 10-01-2024 End: 10-01-[address] Velasquez Galvin MD -[facility] Work Phone: Start: 09-26-2024 End: 09-26-[address] Bailey Lang DO Work Phone: [facility] Work Phone: Start: 09-26-2024 End: 09-26-[address] [facility] Work Phone: Start: 09-25-2024 End: 09-26-[address] Bailey Lang DO Work Phone: [facility] Work Phone: Start: 09-25-2024 End: 09-25-2024 Patient encounter procedure Indira James CNM -Laboratory Work Phone: Start: 09-25-2024 End: 09-25-2024 ambulatory No Primary Care Physician Facility:[facility] Start: 09-21-2024 End: 09-21-[address] Bailey Lang DO Work Phone: [facility] Work Phone: Start: 09-21-2024 End: 09-21-2024 Patient encounter procedure Indira James CNM -Laboratory Work Phone: Start: 09-21-2024 End: 09-21-2024 ambulatory No Primary Care Physician Facility:[facility] Start: 09-06-2024 End: 09-06-[address] Velasquez Galvin MD -[facility] Work Phone: Start: 09-06-2024 End: 09-06-2024 ambulatory Bailey Lang Facility:[facility] Start: 08-30-2024 End: 08-30-2024 ambulatory JOSE ANTONIO Ridley [facility] Facility:[facility] Start: 05-08-2024 ambulatory Bailey Lang Fac ility:[facility] Start: 05-05-2024 End: 05-05-2024 ambulatory Bailey Lang Facility:[facility] Start: 04-26-2024 End: 04-26-2024 ambulatory Bailey Lang Facility:[facility] Start: 02-22-2024 Encounter for other specified special examinations Verna Tellez [facility] Start: 02-18-2024 End: 02-18-2024 ambulatory Bailey Lang Facility:[facility] Start: 01-26-2024 End: 01-26-2024 ambulatory No Primary Care Physician Facility:[facility] Start: 01-21-[address] Trey Lang DO Work Phone: [facility] Start: 09-17-2023 Non-patient / Non-visit No Amaris campos [facility] Physician [facility] Start: 09-16-2023 Non-patient / Non-visit No Amaris campos [facility] Physician [facility] Start: 09-16-2023 End: 09-17-2023 Evaluation and management of inpatient No Primary Care Physician [facility] Work [facility]: Start: 09-15-2023 End: 09-15-2023 Patient encounter procedure No Primary Care Physician [facility] Work Phone: Start: 09-08-2023 End: 09-08-2023 Patient encounter procedure No Primary Care Physician [facility] Work Phone: Start: 09-02-2023 End: 09-02-2023 ambulatory No Primary Care Physician [facility] Work Phone: Start: 09-02-2023 End: 09-02-2023 Patient encounter procedure No Primary Care Physician [facility] Work Phone: Start: 08-19-2023 End: 08-19-2023 Patient encounter procedure No Primary Care Physician [facility] Work Phone: Start: 08-05-2023 End: 08-05-2023 Patient encounter procedure No Primary Care Physician [facility] Work Phone: Start: 07-20-2023 End: 07-20-2023 Patient encounter procedure No Primary Care Physician [facility] Work Phone: Start: 07-05-2023 End: 07-05-2023 Patient encounter procedure No Primary Care Physician [facility] Work Phone: Start: 07-02-2023 End: 07-02-2023 ambulatory No Primary Care Physician [facility] Work Phone: Start: 07-02-2023 End: 07-02-2023 Patient encounter procedure No Primary Care Physician [facility]Labor[facility] Work Phone: Start: 06-06-2023 End: 06-06-2023 Patient encounter procedure No Primary Care Physician [facility] Work Phone: Start: 05-10-2023 End: 05-10-2023 Patient encounter procedure No Primary Care Physician [facility] Work Phone: Start: 05-04-2023 End: 05-04-2023 ambulatory No Primary Care Physician [facility] Work Phone: Start: 05-04-2023 End: 05-04-2023 Patient encounter procedure No Primary Care Physician [facility] Work Phone: Start: 04-13-2023 End: 04-13-2023 Patient encounter procedure No Primary Care Physician [facility] Work Phone: Start: 03-16-2023 End: 03-16-2023 Patient encounter procedure No Primary Care Physician [facility] Work Phone: Start: 03-14-2023 End: 03-14-2023 Patient encounter procedure No Primary Care Physician [facility] Work Phone: Start: 02-14-2023 End: 02-14-2023 ambulatory DO Cheryl Thomas Work Phone: [facility] Work Phone: Start: 02-14-2023 End: 02-14-2023 Patient encounter procedure DO Cheryl Thomas Work Phone: [facility]-Laboratory, Specimen Work Phone: Start: 02-14-2023 End: 02-14-2023 Patient encounter procedure DO Cheryl Thomas Work Phone: [facility] Work Phone: Start: 01-26-2023 End: 01-26-2023 Emergency department patient visit DO Cheryl Thomas Work Phone: [facility]gency Department Work Phone: Start: 12-18-2022 End: 12-18-2022 ambulatory DO Cheryl Thomas Work Phone: [facility] Work Phone: Start: 12-18-2022 End: 12-18-2022 Patient encounter procedure DO Cheryl Thomas Work Phone: [facility]-Laboratory, [place] Work Phone: Start: 12-16-2022 End: 12-16-2022 ambulatory DO Cheryl Thomas Work Phone: [facility] Work Phone: Start: 12-16-2022 End: 12-16-2022 Patient encounter procedure DO Cheryl Thomas [facility] Work Phone: Start: 12-14-2022 End: 12-14-2022 Patient encounter procedure DO Cheryl Thomas Work Phone: [facility] Start: 12-10-2022 End: 12-10-2022 ambulatory DO Cheryl Thomas Work Phone: [facility] Work Phone: Start: 12-10-2022 End: 12-10-2022 Patient encounter procedure DO Cheryl Thomas Work Phone: [facility] Start: 11-20-2022 End: 11-20-2022 Patient encounter procedure DO Cheryl Thomas Work Phone: [facility] Start: 02-26-2022 End: 02-26-[address] Jose Antonio Rojas Work Phone: [facility] Work Phone: Start: 02-26-2022 End: 02-26-[address] Jose Antonio Rojas Work Phone: [facility] Start: 02-18-2022 End: 02-18-[address] Jose Antonio Rojas Work Phone: [facility] Work Phone: Start: 02-18-2022 End: 02-18-[address] Jose Antonio Rojas Work Phone: [facility] Start: 02-12-2022 End: 02-12-[address] Jose Antonio Rojas Work Phone: [facility] Work Phone: Start: 02-12-2022 End: 02-12-[address] Jose Antonio Rojas Work Phone: [facility] Start: 01-26-2022 End: 01-26-[address] Jose Antonio Rojas Work Phone: [facility] Start: 12-17-2021 End: 12-17-[address] Jose Antonio Rojas Work Phone: [facility] Start: 09-02-2021 End: 09-02-[address] Jose Antonio Rojas Work Phone: [facility] Start: 03-30-2020 End: 03-30-2020 Subsequent hospital visit by physician [facility] Work Phone: Radiology Comment on above: Right wrist pain [M2 5.531] Start: 10-07-2017 End: 10-07-[address] [facility] Start: 08-11-2017 End: 08-11-[address] [facility] Start: 06-23-2017 End: 06-23-2017 Ambulatory GORDY COTTO [facility] Start: 06-23-2017 Office/outpatient vi sit, est, level 3 Racquel Birmingham Work Phone: [facility] Start: 06-10-2017 End: 06-10-2017 [facility] Start: 05-11-2017 End: 05-15-[address] [facility] Start: 05-04-2017 End: 05-04-2017 Ambulatory GORDY BESS [facility] Start: 05-04-2017 Office outpatient vi sit 25 minutes Vinita Schmitt Work Phone: [facility] [place] Start: 04-17-2017 End: 04-18-2017 Emergency department patient visit GORDY [facility] Start: 04-17-2017 End: 04-17-2017 Emergency department patient visit Mookieleanne Garcia Medardo Work Phone: [facility] Start: 12-15-2016 End: 12-15-[address] [facility] Procedures Date Procedure Procedure Detail Performing Clinician Start: 09-26-2024 MRI of joint of lowe r extremity Dr. Bailey Lang DO Work Phone: Start: 09-06-2024 X-ray of knee, four or more views Dr[address] Bailey Lang DO Work Phone: Start: 09-02-2023 Group B Streptococcu s Culture No Primary Care Physician Start: 05-04-2023 Ultrasonography in f irst trimester No Primary Care Physician Start: 02-14-2023 Urine culture DO Adenike Thomas Work Phone: Start: 12-16-2022 X-ray of unilateral ribs, two views without x-ray of chest DO Cheryl Thomas Work Phone: Start: 02-18-[address] Jose Antonio Rojas Work Phone: Start: 02-12-2022 US scan of thyroid Dr. Jose Antonio Rojas Work Phone: Start: 03-30-2020 Radex wrist complete minimum 3 views Maria Esther Alberto APRN.CNP Work Phone: Plan of Treatment Date Care Activity Detail Author Start: 03-27-2028 Urine microalbumin profile DTaP,Tdap,Td Vaccine (2 - Td or Tdap) [facility] Start: 02-19-2024 Covid-19 Vaccine ( season) Covid-19 Vaccine ( season) [facility] Start: 02-19-2024 Influenza vaccination Influenza Vaccine (#1) [facility] Start: 09-17-2023 Patient discharge [facility] Start: 09-17-2023 Documentation procedure [facility] Start: 09-17-2023 [facility] Start: 09-16-2023 Admission procedure [facility] Start: 09-16-2023 Administration of medication [facility] Start: 09-16-2023 Application of ice collar, cap or bag [facility] Start: 09-16-2023 Catheterization of vein [facility] Start: 09-16-2023 Introduction of urinary catheter [facility] Start: 09-16-2023 Measuring intake and output [facility] Start: 09-16-2023 Notification of physician [facility] Start: 09-16-2023 Procedure discontinued [facility] Start: 09-16-2023 Provision of activity privileges [facility] Start: 09-16-2023 Vital signs measurements [facility] Start: 09-16-2023 End: 09-16-2023 [facility] Start: 09-16-2023 Documentation procedure [facility] Start: 09-16-2023 Consultation [facility] Start: 02-14-2023 Liquid based cervical cytology screening [facility] Start: 03-14-2021 Screening for malignant neoplasm of cervix Cervical Cancer Screening [facility] Start: 02-18-2017 Influenza vaccination SEQUENTIAL INFLUENZA VACCINE (#1) [facility] Work Phone: Start: 2013 Hepatitis B Vaccine (1 of 3 - 19+ 3-dose series) Hepatitis B Vaccine (1 of 3 - 19+ 3-dose series) [facility] Start: 2012 Anxiety Screening Anxiety Screening [facility] Start: 2012 Depression Screening Depression Screening [facility] Start: 2012 HIV screening HIV Screening [facility] Start: 08-18-2009 HPV Vaccine (2 - 2-dose series) HPV Vaccine (2 - 2-dose series) [facility] Start: 2005 Vaccination for human papillomavirus HPV VACCINES (1 of 3 - Female 3 Dose Series) [facility] Work Phone: Start: 1994 Screening for malignant neoplasm of cervix PAP SMEAR [facility] Work Phone: Start: 1994 Tetanus vaccination TETANUS EVERY 10 YR [facility] Work Phone: Androstenedione [Mas s/volume] in Serum or Plasma [facility] Bacteria aerobode culture Urine Aerobic Culture Routine Acute cystitis with hematuria Ordered: 06/23/2017 [facility] Work Phone: End: 05-05-2018 Bacteria aerobode culture Urine Aerobic Culture Routine Acute cystitis with hematuria 1 Occurrences starting 05/04/2017 until 05/05/2018 [facility] Work Phone: CBC W Auto Different ial panel - Blood [facility] Dehydroepiandrostero ne sulfate (DHEA-S) [Mass/volume] in Serum or Plasma [facility] Hepatitis B surface antigen measurement [facility] Hepatitis C antibody measurement [facility] HIV 1+2 Ab+HIV1 p24 Ag [Presence] in Serum or Plasma by Immunoassay [facility] MR Lower Extremity Joint [facility] Patient Education ED Back Sprain/Strain [facility] Work Phone: Patient referral [facility] Work Phone: Rubella IgG measurement [facility] Testosterone Free [M ass/volume] in Serum or Plasma [facility] Testosterone measurement [facility] Treponema sp Ab [Pre sence] in Serum [facility] Immunizations Immunization Date Immunization Notes Care Provider Jj johnson 10-02-2024 Hepatitis B vaccine (recombinant), CpG adjuvanted Dr. Bailey Lang DO Work Phone: [facility] 04-26-2024 influenza, seasonal, injectable, preservative free Dr. Bailey Lang DO Work Phone: [facility] 07-05-2023 tetanus toxoid, reduced diphtheria toxoid, and acellular pertussis vaccine, adsorbed No Primary Care Physician [facility] 05-10-2023 influenza, injectabl e, quadrivalent, preservative free No Primary Care Physician [facility] 05-05-2022 influenza, injectabl e, quadrivalent, preservative free No Primary Care Physician [facility] 05-05-2022 influenza, seasonal, injectable DO Cheryl Martha Work Phone: [facility] 05-06-2021 influenza, injectabl e, quadrivalent, preservative free No Primary Care Physician [facility] 05-06-2021 influenza, seasonal, injectable Dr. Jose Antonio Rojas Work Phone: [facility] 04-16-2021 Covid (Pfizer) Dr. Bailey Lang DO Work Phone: [facility] 03-26-2021 Covid (Pfizer) Dr. Bailey Lang DO Work Phone: [facility] 03-20-2021 Covid (Pfizer) Dr. Bailey Lang DO Work Phone: [facility] 01-05-2021 measles, mumps and rubella virus vaccine Dr. Jose Antonio Rojas Work Phone: [facility] 10-16-2020 tetanus toxoid, reduced diphtheria toxoid, and acellular pertussis vaccine, adsorbed Dr. Jose Antonio Rojas Work Phone: [facility] 10-16-2020 diphtheria, tetanus toxoids and acellular pertussis vaccine, unspecified formulation Dr. Jose Antonio Rojas Work Phone: [facility] Work Phone: 06-20-2020 tetanus toxoid, reduced diphtheria toxoid, and acellular pertussis vaccine, adsorbed Dr. Bailey Lang DO Work Phone: [facility] 05-12-2020 influenza, injectabl e, quadrivalent, preservative free No Primary Care Physician [facility] 05-12-2020 influenza, seasonal, injectable Dr. Jose Antonio Rojas Work Phone: [facility] 04-23-2019 influenza, injectabl e, quadrivalent, preservative free No Primary Care Physician [facility] 04-23-2019 influenza, seasonal, injectable Dr. Jose Antonio Rojas Work Phone: [facility] 03-27-2018 tetanus toxoid, reduced diphtheria toxoid, and acellular pertussis vaccine, adsorbed Dr. Jose Antonio Rojas Work Phone: [facility] 03-22-2018 influenza, injectabl e, quadrivalent, preservative free No Primary Care Physician [facility] 03-22-2018 influenza, seasonal, injectable Dr. Jose Antonio Rojas Work Phone: [facility] 03-22-2018 influenza, seasonal, injectable, preservative free [facility] [place] Work Phone: [facility] 03-22-2018 influenza virus vaccine, unspecified formulation [facility] [place] Work Phone: [facility] Payers Date Payer Category Payer Self-pay [id number] Unknown [id number] 2019 Unknown MMO MMO TPA [id number] 2019-2023 [address] [place] [address] PPO [id number] 2016 Unknown [id number] 1994 Unknown [id number] [id number] 1994 Unknown [id number] [id number] 1994 Unknown [id number] [id number] Unknown [id number] Unknown [id number] Unknown [id number] [id number] Unknown [id number] [id number] Unknown [id number] [id number] Unknown [id number] 2.16.840.1.089500.3.579.2.462 Unknown [id number] 2..840.1.639207.3.579.2.462 Unknown [id number] 2.840.1.640231.3.579.2.462 Unknown [id number] [id number] Unknown [id number] 2.16.840.1.553405.3.579.2.462 Unknown [id number] [id number] Unknown [id number] 2..840.1.081208.3.579.2.462 Unknown [id number] 2.840.1.831874.3.579.2.462 Unknown [id number] [id number] Unknown [id number] [id number] Unknown [id number] [id number] Social History Date Type Detail Facility Start: 06-23-2017 End: 10-18-2024 [facility] Work Phone: Start: 1995 Sex Assigned At Not on file [facility] Work [facility]: Start: 09-02-2021 End: 09-16-2023 Tobacco smoking status NHIS Unknown if ever smoked [facility] Start: 1995 Sex Assigned At Female [facility] Start: 05-15-2014 Tobacco use and exposure Smoke less tobacco non-user [facility] Start: 03-29-2020 Alcoholic beverage intake Curr ent non-drinker of alcohol (finding) [facility] Start: 12-22-2019 End: 12-25-2019 History of Social function [facility] Start: 12-22-2019 End: 12-25-2019 Social connection and isolation panel [facility] Frequency of Communication with Friends and Family Not on file [facility] Do you belong to any clubs or organizations such as latter-day groups, unions, fraternal or athletic groups, or school groups? No [facility] How often to you hav e a drink containing alcohol? 2-3 time sa week [facility] Do you feel stress - tense, restless, nervous, or anxious, or unable to sleep at night because your mind is troubled all the time - these days [OSQ] Rather much [facility] (I/We) worried wheth er (my/our) food would run out before (I/we) got money to buy more. Never true [facility] Start: 07-26-2019 Education 17 [facility] Start: 02-29-2020 End: 03-30-2020 Exposure to SARS-CoV-2 (event) Not sure [facility] Start: 09-25-2024 End: 10-02-2024 Sex Female (finding) [facility] Goals Date Patient Goal Desired Activity /State Clinical Notes 03-30-2020 to 09-06-2024 Note Date & Type Note Facility 09-06-2024 Evaluation note Diagnosis Onset Date Resolution Right knee pain acute August 8:48am [facility] Work Phone: 1(612) 237-427603-20-2025 Evaluation note* Diagnosis Onset Date Resolution Status Admit Date Right knee pain acute August 8:48am Loose body of right knee acute October 01, 2024 9:09am Right knee pain acute September 9:09am [facility] Work Phone: 1(650) 823-703303-20-2025 Evaluation note* Diagnosis Onset Date Resolution Status Admit Date Right knee pain acute August 8:48am Loose body of right knee acute October 01, 2024 9:09am Right knee pain acute September 9:09am Encounter for routine gynecological examination noneactive November 142024 8:57am [facility] Work Phone: [phone] Progress note Author Arabella Chau [facility] September 17, 2023 9:54am Note Date/Time September 17, 2023 9:5 4am [facility] Medical Records Department [address] [place] [address] Progress Note - OBGYN 09/17/23953 MR#: [id number] Acct: [id number] Name: YAKOV FIORE Rep #:[id number] : 1995 28 From: Arabella corona MD PCP: Care Physician,No Primary Status :ADM IN Location: [place] [address] Subjective Subjective Patient doing well without complaints. Tolerating PO. Ambulating and voiding without difficulty. feeding well. Denies chest pain, shortness of breath,calf pain/swelling, fevers, chills, lightheadedness. Objective Data Objective Data Vital Signs: Vital Signs Temp Pulse Resp BP Pulse Ox O2 Del Method 97.5 F L 99 14 116/72 96 Room Air 09/17/23 09:47 09/17/23 09:47 09/17/23 09:47 09/17/23 09:47 09/17/23 09:47 09/17/23 09:47 Oxygen Delivery Method Room Air Weight: 207 lb Body Mass Index (BMI) 30.5 Intake & Output: Intake and Output for Last 24 Hours 09/15/23 09/16/23 09/17/23 23:59 23:59 23:59 Intake Total 480 / 480 Output Total 1650 / 1650 Balance -1170 / -1170 Lab / Micro Data 09/16/23 02:10 ROS Constitutional Constitutional: Reports systems reviewed and no addt'l complaints, except as documented Cardiovascular Cardiovascular: Reports systems reviewed and no addt'l complaints, except as documented Respiratory/Chest Respiratory/Chest: Reports systems reviewed and no addt'l complaints, except as documented Gastrointestinal Gastrointestinal: Reports systems reviewed and no addt'l complaints, except as documented Physical Exam Const alert, oriented x3 and no apparent distress HEENT Head and Scalp: atraumatic Resp normal respiratory effort GI soft to palpation and non-tender Bimanual Exam - Vag & Uterus: uterus non-tender Uterus Palpation: uterus fundus firm (below Umbilicus) Assessment & Plan (1) Vaginal delivery: COMMENT: SM girl 39 IAL PLAN: Plan s/p PPD # 1 1. routine post delivery care 2. breast feeding- support given 3. rh positive 4. rubella immune 09/17/23 0954 <Electronically signed by Arabella Chau MD> Cosigner Signature (if applicable): CC: ~ Signed [facility] Work Phone: 1(925) 616-128203-29-2024 Procedure [facility] 09-16-2023 Discharge summary Author Arabella Chau [facility] September 16, 2023 5:14am Note Date/Time September 16, 2023 5:1 4am [facility] Medical Records Department [address] [place] [address] Instructions for Home/Discharge Instructions 09/16/23 0512 MR#: [id number] Acct: [id number] Name: YAKOV FIORE Rep #:[id number] : 1995 28 From: Arabella corona MD PCP: Care Physician,No Primary Status :ADM IN Discharge Instructions Diet Discharge Diet: No restrictions Activity Discharge Activity: Return to Normal Activity, May Not Drive (while taking narcotic pain medications.) and May Shower May resume sexual activity in: 4-6 weeks Dressing / Incision Call your doctor if your incision/area has: Continuous Slow Oozing, Sudden Increased Bleeding, Increased Pain/ Swelling, Increased Redness and Foul Smelling Discharge Follow Up Care Please Follow Up With: Arabella Chau MD When: Call [phone] to make an appointment with your doctor in 6 weeks. If you had elevated blood pressure or 4th degree laceration, you will need to be seen in 2 weeks. Test Results: Test results from this visit will be discussed in further detail at your follow- up appointment, if applicable. Discharge Plan Admission Admit Date/Time: 09/16/23 01:58 Attending Provider: Arabella Chau Primary Care Provider: Iglesia Physician,Meg Primary Discharge Orders/Prescriptions Prescriptions: No Action PNV #14-iron-FA#[id number] 27 mg iron-1 mg -300 mg-50 mg capsule 1 cap PO DAILY Referrals / Follow Up: Care Physician,No Primary [Primary Care Provider] - Disposition Disposition (needs filled in before D/C Order can be placed): Home, Self Care 09/16/23 0514<Electronically signed by Arabella Chau MD>Arabella Chau MD CC: No Primary Care Physician ~ Signed [facility] Work Phone: 1(273) 982-887103-29-2024 History and physical note Author Arabella Chau [facility] September 16, 2023 5:11am Note Date/Time September 16, 2023 5:1 1am [facility] Medical Records Department [address] [place] [address] H&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 Maternal Data Information ARAVIND Calculator Estimated Delivery Date Method Current WG Current Estimate 09/21/23 LMP (Certain) 39w 2d PFSH PFSH Medical History (Updated 09/16/23 @ 05:[address] Arabella Chau MD) Bilateral headaches Bruises easily Chronic back pain Diarrhea Environmental allergies History of tetanus, diphtheria, and acellular pertussis booster vaccination (Tdap) hemorrhage Psoriasis Vaginal delivery Home Medications PNV#14-iron fum-FA#5-wkn-yorcnese 27 mg iron-1 mg-300 mg-50 mg capsule 1 cap PO DAILY 01/26/23 [History Last Taken Unknown] Allergy/AdvReac Type Severity Reaction Status Date / Time codeine AdvReac Nausea/Vom/ Verified 09/15/23 09:32 Diarrhea Family History Other Breast cancer CVA (cerebral vascular accident) Cancer Heart disease Hypertension Myocardial infarction Thyroid disorder Uterine cancer Surgical History History of cosmetic plastic surgery History of lump of right breast Social History adopted: No household members: spouse housing: house current occupational status: employed 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 Date Name GA/Weeks Outcome Route Bth Weight Gen Labor [facility] 01[facility]21 Yumiko 39 live - full term Female [employer] [place] Visit Details Expected Delivery Route/Plan Labor Preferences- CB/BF classes: no labor support person: Chris labor intervention preferences: limited interventions pain management options preferred: limited but ok if requests epidural cut cord/dad catch: cord : yes PP control planned: discussed discussed possible routes of delivery and associated risks: [] special requests: [] Plans Covid status: vaccinated. Flu vaccine: given Tdap vaccine: given Rhogam: NA LARC form signed: yes movement and labor precautions reviewed. Problem list reviewed and updated with the most current plan of care details and appropriate orders placed. Relevant counseling for the gestational age provided. Continue routine care and follow up unless otherwise noted in visit notes/problem list details OB Flowsheet Initial Weight: Not Recorded Date -?-?-?-?-?-?-?-?-?-?-?-?- EGA Weight BP Urine Prot -?-?-?-?-?-?-?-?-?-?-?-?- Glucose FHR FuHt Pres Dilation -?-?-?-?-?-?-?-?-?-?-?-?- Effaced St Visit Note 02/14/23 -?-?-?-?-?-?-?-?-?-?-?-?- 8w 5d 167 lb 8 oz 99/59 -?-?-?-?-?-?-?-?-?-?-?-?- 175 -?-?-?-?-?-?-?-?-?-?-?-?- SM- CRL 2.2cm co ns with LMP. 5 mm subchorionic hemorrhage 03/16/23 -?-?-?-?-?-?-?-?-?-?-?-?- 13w 0d 166 lb 8 oz 112/66 Nega tive -?-?-?-?-?-?-?-?-?-?-?-?- Negative 155 -?-?-?-?-?-?-?-?-?-?-?-?- LC- no vb/crampi ng. will obtain nob labs today. decided to obtain nipt. discussed and declines afp. 04/13/23 -?-?-?-?-?-?-?-?-?-?-?-?- 17w 0d 177 lb 103/68 Negative -?-?-?-?-?-?-?-?-?-?-?-?- Negative 156 -?-?-?-?-?-?-?-?-?-?-?-?- JV- doing well, no complaints. Has anatomy scan ordered for 05/04/23 05/10/23 -?-?-?-?-?-?-?-?-?-?-?-?- 20w 6d 187 lb 4 oz 110/71 Nega tive -?-?-?-?-?-?-?-?-?-?-?-?- Negative 150 -?-?-?-?-?-?-?-?-?-?-?-?- KW-no vb/lof/ctx . good fm. anatomy scan reviewed. having a girl. 06/06/23 -?-?-?-?-?-?-?-?-?-?-?-?- 24w 5d 192 lb 111/70 Negative -?-?-?-?-?-?-?-?-?-?-?-?- Negative 145 25 -?-?-?-?-?-?-?-?-?-?-?-?- JV- no lof, vagi nal bleeding, or dec fm. has some intermittent urinary discomfort. (frequency) but already used the bathroom and can't go again. she will message us if it happens again. 07/05/23 -?-?-?-?-?-?-?-?-?-?-?-?- 28w 6d 199 lb 8 oz 114/68 Nega tive -?-?-?-?-?-?-?-?-?-?-?-?- Negative 151 28 -?-?-?-?-?-?-?-?-?-?-?-?- MH-No VB, LOF. G ester FM. Tdap, larc. 07/20/23 -?-?-?-?-?-?-?-?-?-?-?-?- 31w 0d 203 lb 2 oz 104/71 Nega tive -?-?-?-?-?-?-?-?-?-?-?-?- Negative 143 30 -?-?-?-?-?-?-?-?-?-?-?-?- JV- no lof, vagi nal bleeding, or dec fm. 08/05/23 -?-?-?-?-?-?-?-?-?-?-?-?- 33w 2d 204 lb 6 oz 113/67 Nega tive -?-?-?-?-?-?-?-?-?-?-?-?- Negative 145 33 -?-?-?-?-?-?-?-?-?-?--?-?- kw-no vb/lof/reg ular ctx. good fm. 08/19/23 -?-?-?-?-?-?-?-?-?-?-?-?- 35w 2d 204 lb 4 oz 122/78 Nega tive -?-?-?-?-?-?-?-?-?-?-?-?- Negative 140 35 -?-?-?-?-?-?-?-?-?-?-?-?- LC- no vb/ctx/lo f.good fm no concerns today. 09/02/23 -?-?-?-?-?-?-?-?-?-?-?-?- 37w 2d 211 lb 113/72 Negative -?-?-?-?-?-?-?-?-?-?-?-?- Negative 140 37 Cephalic 1 .5 -?-?-?-?-?-?-?-?-?-?-?-?- 30 -2 SM- no vb lof good fm no regular ctx 09/08/23 -?-?-?-?-?-?-?-?-?-?-?-?- 38w 1d 212 lb 4 oz 123/72 Nega tive -?-?-?-?-?-?-?-?-?-?-?-?- Negative 140 39 Cephalic 2 -?-?-?-?-?-?-?-?-?-?-?-?- 40 -2 SM- no vb lof good fm n oregular ctx 09/15/23 -?-?-?-?-?-?-?-?-?-?-?-?- 39w 1d 213 lb 6 oz 125/67 Nega tive -?-?-?-?-?-?-?-?-?-?-?-?- Negative 150 40 Cephalic 3 -?-?-?-?-?-?-?-?-?-?-?-?- 60 -1 SM- no vb lof good fm no reuglar ctx membranes Vital Signs Vital Signs Vital Signs: 09/16/23 02:14 09/16/23 02:14 09/16/23 02:14 Temperature Temperature Source Temporal Pulse Rate 97 Respiratory Rate Blood Pressure 127/74 H BP Systolic 127 BP Diastolic 74 09/16/23 02:14 09/16/23 02:14 Temperature 98.8 F Temperature Source Pulse Rate Respiratory Rate 16 Blood Pressure BP Systolic BP Diastolic Weight Weight: 207 lb Body Mass Index (BMI) 30.5 Labs Labs Labs: Blood Type O POSITIVE Antibody Screen NEGATIVE Hct 34.7 % (37-47) L Hgb 11.3 g/dL (12.0-15.0) L Obstetrics Ultrasound Syphilis Total Ab Non-reactive Rubella IgG Antibody Reactive (Nonreactive) Hep Bs Antigen Non-Reactive (Nonreactive) Hepatitis C Antibody Non-Reactive (Nonreactive) Chlamydia DNA (VALERIY) Negative (Negative) N.gonorrhoeae DNA (VALERIY) Negative (Negative) HIV 1&2 Antibody Non-Reactive (Nonreactive) Glucose 1 Hr 50 gm 90 mg/dL (70-140) Rhogam given: No Assessment & Plan (1) History of hemorrhage, currently : COMMENT: secondary to retained membranes. methergine, cytotec, bedside curetage. TXA. 1000cc EBL (2) GBS (group B Streptococcus carrier), +RV culture, currently : COMMENT: PCN in labor (3) Supervision of normal : QUALIFIERS: Normal : other normal Trimester: third trimester Qualified Code(s): Z34.83 - Encounter for supervision of other normal , third trimester COMMENT: [id number] ARAVIND 09/21/23 girl PC: Eric, Spouse, Chris (4) : QUALIFIERS: Weeks of gestation: 39 weeks Qualified Code(s): Z3A.39 - 39 weeks gestation of COMMENT: NIPT low risk, normal anatomy scan. 92% for growth- recommend growth scan at 36 weeks (5) Anxiety: COMMENT: buspar/stable (6) Active labor at term: (7) Anemia affecting : COMMENT: iron added (8) hemorrhage: COMMENT: Secondary to retained membranes, given Methergine Hemabate, Cytotec, bedside curettage performed and tranexamic acid given. 1000 cc EBL (9) Supervision of normal : QUALIFIERS: Normal : normal first Trimester: second trimester Qualified Code(s): Z34.02 - Encounter for supervision of normal first , second trimester COMMENT: PRR ARAVIND: 09/20/22 Spouse: Chris (10) Segmental and somatic dysfunction of thoracic region: PLAN: Plan Patient presents IAL, plan expectant management for , pitocin/AROM PRN if needed. Pain management: minimal intervention. GBS positive plan IV PCN. Management of any complications: none I have reviewed the [facility] and made any clinically relevant updates. 09/16/23 0511 <Electronically signed by Arabella Chau MD> Cosigner Signature (if applicable): CC: Dr. Arabella Chau MD; No Primary Care Physician~ Signed [facility] Work Phone: 1(226) 724-904208-28-2023 NotePap Smear Specimen AdequacyAugust 2022 4:19pmComment.Satisfactory for evaluation. Endocervical and/or squamous metaplasticcells (endocervical component)are present.[facility] A#[id number] County Memorial HospitalComment on above:Satisfactory for evaluation. Endocervical and/or squamous metaplasticcells (endocervical component)are present.02-14-2023 NotePap Smear Specimen AdequacyAugust 2022 3:19pmComment.Satisfactory for evaluation. Endocervical and/or squamous metaplasticcells (endocervical component)are present.[facility] A#[id number] County Memorial HospitalComment on above:Satisfactory for evaluation. Endocervical and/or squamous metaplasticcells (endocervical component)are present.01-26-2023 Discharge summary Author Navarro Garcia [facility] January 26, 2023 11:06pm Note Date/Time January 26, 2023 11: 06pm [facility] Medical Records Department [address] [facility] [place] [address] Emergency Department Summary 01/26/23 MR#: [id number] Acct: [id number] Name: YAKOV FIORE Rep #:[id number] : 1995 27 From: Navarro Garcia MD PCP: Care Physician,No Primary Status :REG ER Location: ED HPI History of Present Illness Chief Complaint: Back Informant: patient Onset/Context/Timing Onset: Today Context: Sudden Onset Injury: bending Timing: Continuous Quality: Dull and Aching Location: Lumbar Current Severity: Mild Maximum Severity: Mild Worsened by: improves with Movement Relieved by: Remaining Still Associated Symptoms Associated Symptoms: Radiation to Left Leg; Negative for Numbness, Tingling, Abdominal Pain, Dysuria, Unable to Ambulate, Unable to Transfer, Urinary Retention, Urinary Incontinence, Constipation or Fecal Incontinence Narrative Narrative: 27-year-old female with no stated past medical history. G2, P1 Ab0. Patient's and her early first trimester . Today she was sitting at a desk chair stood up and felt a pulling in her lower back. She denies any fall or trauma. She has no back history. No prior back surgery. No fever. No dysuria. No vaginal bleeding. Initially had some discomfort in her left leg but no weaknessor numbness. Discomfort is worse with movement. Prior similar symptoms: No Recent Illness/Hospitalization: No [facility] Medical History Bilateral headaches Bruises easily Chronic back pain Diarrhea Environmental allergies History of tetanus, diphtheria, and acellular pertussis booster vaccination (Tdap) hemorrhage Psoriasis Vaginal delivery Home Medications PNV#14-iron [id number] 27 mg iron-1 mg-300 mg-50 mg capsule 1 cap PO DAILY 01/26/23 [History Last Taken Unknown] Allergy/AdvReac Type Severity Reaction Status Date / Time codeine AdvReac Nausea/Vom/ Verified 01/26/23 21:53 Diarrhea Family History Other Breast cancer CVA (cerebral vascular accident) Cancer Heart disease Hypertension Myocardial infarction Thyroid disorder Uterine cancer Surgical History History of cosmetic plastic surgery History of lump of right breast Social History adopted: No household members: spouse housing: house current occupational status: employed 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 Low back pain today with standing. Review of Systems ROS Unobtainable: Denies due to encephalopathy Constitutional Constitutional ED: Denies chills or fever(s) Eyes Eyes: Denies blurry vision ENT ENT ED: Denies ear pain Cardiovascular Cardiovascular: Denies chest pain Respiratory/Chest Respiratory/Chest: Denies dyspnea Gastrointestinal Gastrointestinal: Denies abdominal pain Genitourinary Genitourinary ED: Denies dysuria or hematuria Musculoskeletal Musculoskeletal: Reports back pain; Denies arthralgias, myalgias or neck pain Integumentary Denies abscess or Abrasions Neurologic Neurologic: Denies headache(s) Psychiatric Psychiatric: Denies anxiety Endocrine Endocrinology: Denies cold intolerance Hematologic/Lymphatic Hematologic/Lymphatic: Denies easy bleeding Allergic/Immunologic Allergic/Immunologic ED: Denies mouth swelling or tongue swelling EXAM Physical Exam Narrative Exam Narrative: 19-year-old female no acute distress. Vital signs stable afebrile. at bedside. HEENT exam unremarkable. Neck nontender no lymphadenopathy. Lungs clear to auscultation bilaterally. Heart regular rhythm no murmur. Abdomen soft nontender. Moving all 4 extremities. Neurovascularly intact. Normal motor strength and sensation of both lower extremities. Normal dorsi plantarflexion. No cauda equina. No saddle anesthesia. Normal medial thigh sensation. Negative straight leg test. No sciatica. No radiculopathy. Back she has mild tenderness to the paralumbar soft tissue on the left. No signs of trauma. No redness or warmth. Neurologic exam is normal. Normal motor strength and sensation. Const Vital Signs: 01/26/23 21:51 Temperature 97.9 F Temperature Source Temporal Pulse Rate 95 Respiratory Rate 18 Blood Pressure 124/75 H Blood Pressure Mean 91 Pulse Ox 100 Oxygen Delivery Method Room Air Positive well nourished and well developed; Negative for obese, cachectic, contractures or unkempt General Appearance ED: well developed and NAD; Negative for unkempt, cachectic, contractures or pallor Nutritional Appearance: Negative for cachectic or obese HEENT Reports moist mucous membranes; Denies dry mucous membranes Negative for trauma or tenderness Mouth ED: No dry mucous membranes Mouth: No dry mucous membranes Eyes PERRL and EOMs intact bilaterally General Eye ED: Negative for pale conjunctiva or scleral icterus Neck no lymphadenopathy, supple and no JVD General: Negative for tenderness Thyroid: Negative for other Chest Wall Chest: Negative for other Resp normal respiratory effort and clear to auscultation bilaterally Effort and Inspection: Negative for pain with movement Auscultation: Negative for rales, rhonchi or wheezes Cardio regular rate, regular rhythm, S1 normal heart sound, S2 normal heart sound and no murmurs Palpation: Negative for palpable S3 Rate: Negative for bradycardia or tachycardic Rhythm: Negative for abnormal rhythm GI normal to inspection, nondistended, normoactive bowel sounds, soft to palpation,non-tender, non-distended and no masses Inspection: Negative for abdominal distention Palpation: Negative for tender or guarding Back/Spine normal to inspection; Negative for no thoracic nor lumbar tenderness Back/Spine Narrative: Mild roberto-lumbar soft tissue tenderness on the left. No bony deformity or tenderness. No SI joint tenderness. No signs of trauma. No redness or warmth. General Back: Negative for CVA tenderness Cervical Spine: Negative for cervical spine tenderness and Negative for paracervical muscle tenderness Thoracic Spine / Upper Back: Negative for paraspinal muscle tenderness Lumbar Spine / Lower Back: straight leg raise negative bilaterally; Negative forROM limited or straight leg raise positive right Extremity normal to inspection and no clubbing, cyanosis or edema General Extremety ED: Negative for edema or tenderness General Extremity: Negative for edema Neuro oriented x3 and no sensory deficits noted Sensorium / Orientation: Negative for alert, confused, lethargic or stuporous Sensory Exam: No other Motor Exam: strength 5/5 throughout Psych mental status grossly normal Appearance: Negative for unkempt Attitude: No agitated Mood & Affect: Negative for depressed, sad or tearful Skin no rashes or lesions noted and no wounds General Skin Exam: Negative for jaundice or pallor Lesions: No lesion noted Rashes: No rashes noted Trauma: Negative for abrasion or puncture Wounds: Negative for wounds noted Image ED - Body Diagram Man: 1. Primary left lower paralumbar soft tissue tenderness. Otherwise exam unremarkable. MDM MDM MDM Narrative Medical decision making narrative: 27-year-old female in the first trimester with apparent lumbar strain today while going from a seated to a standing position. She does not need any imaging. She does not have a radiculopathy. Tylenol for pain. Hot shower warmbath and hot tub. Massage. Follow-up if not improving. She has an [employer] appointment in the next several weeks. History & Record Review Discussion w/independent historian: Patient and Family Discharge Plan Triage Chief Complaint: Back ED Provider: Navarro Garcia Dx/Rx/DC Orders Clinical Impression: First trimester , Acute lumbar myofascial strain Instructions: ED Back Sprain/Strain Prescriptions: No Action PNV #[id number] 27 mg iron-1 mg -300 mg-50 mg capsule 1 cap PO DAILY Primary Care Provider: Care Physician,No Primary Referrals: Arabella Chau MD [Med Staff - Active Staff] - Keep Jeffrey appointment Care Physician,No Primary [Primary Care Provider] - Activity Restrictions/Additional Instructions: Hot shower, warm bath hot tub. Tylenol for pain. Massage. Follow-up if not improving. Currently this appears just to be a lumbar strain of the muscles in your lower back. It should progressively improve. Due to your we will hold off on anti-inflammatories at this time. If need bewe can start you on muscle relaxants but you may improve with altos and again I would hold off on those at this time. Disposition Disposition: Home, Self Care What to do if you have Problems For any increased pain, shortness of breath, bleeding, nausea or vomiting, chestpain, or any unexpected problems, contact your Primary Care Provider. Call [facility] ([phone]) or report to the closest Emergency Room. Call 911 if necessary. 01/26/232 <Electronically signed by Navarro Garcia MD> Cosigner Signature (if applicable): CC: No Primary Care Physician ~ Signed [facility] Work Phone: [phone] 414-885405-01-2023 Hospital Discharge instructions Additional Instructions Hot shower, warm bath hot tub. Tylenol for pain. Massage. Follow-up if not improving. Currently this appears just to be a lumbar strain of the muscles in your lower back. It should progressively improve. Due to your we will hold off on anti-inflammatories at this time. If need be we can start you on muscle relaxants but you may improve with altos and again I would hold off on those at this time.[facility] Work Phone: [phone] 184-601210-11-2020 History of Present illness Narrative* Ronnell Jordan Tech (Rt) - 03/30/2020 11:00 AM EDT Radiology Service Progress Note PATIENT NAME: Yakov Villarreal DATE OF SERVICE: March 30, 2020 TIME: 10:58 AM PATIENT IDENTITY VERIFICATION COMPLETED USING TWO (2) IDENTIFIERS: Name and Date of confirmedby patient verbally. FALL SCREENING: Has the patient had 2 falls in the last year or 1 fall with injury or currently using an Ambulatory Assistive Device (Walker, Cane, Wheelchair, Crutches, etc.)? No PATIENT GENDER DATA: Female. status: : No status: NO. PATIENT RELEVANT IMPLANT DATA REVIEWED: Not Applicable RADIOLOGY DEPARTMENT: General X-ray: Exam(s) Completed: Upper Extremity X- Ray(s): Wrist, right : PERIPHERAL IV DATA: Not applicable SIGNED BY: RT Sree March 30, 2020 10:58 AM documented in this encounterRegency Hospital CompanyEvaluation note* Diagnosis Onset Date Resolution Status Segmental and somatic dysfunction of cervical region resolved Segmental and somatic dysfunction of lumbar region resolved Segmental and somatic dysfunction of thoracic region resolved [facility] Work Phone: Evaluation note* Diagnosis Onset Date Resolution Status Segmental and somatic dysfunction of cervical region resolved Segmental and somatic dysfunction of lumbar region resolved Segmental and somatic dysfunction of thoracic region resolved Anxiety acute Encounter for routine gynecological examination noneactive [facility] Work Phone: Evaluation note* Diagnosis Onset Date Resolution Status Allergic rhinitis acute Segmental and somatic dysfunction of cervical region acute Segmental and somatic dysfunction of lumbar region acute Segmental and somatic dysfunction of thoracic region acute [facility] Work Phone: Evaluation note* Diagnosis Onset Date Resolution Status Allergic rhinitis resolved Segmental and somatic dysfunction of cervical region resolved Segmental and somatic dysfunction of lumbar region resolved Segmental and somatic dysfunction of thoracic region resolved Nausea and vomiting during acute acute Supervision of normal acute [facility] Work Phone: evaluation note* Diagnosis Onset Date Resolution Status Nausea and vomiting during acute acute Supervision of normal acute Contact with and (suspected) exposure to other viral communicable diseases acute URI (upper respiratory infection) acute Anxiety acute Contact with and (suspected) exposure to other viral communicable diseases acute Enlarged lymph nodes in armpit acute Nausea and vomiting during acute acute Supervision of normal acute URI (upper respiratory infection) acute Anxiety acute Contact with and (suspected) exposure to other viral communicable diseases acute Enlarged lymph nodes in armpit acute Nausea and vomiting during acute acute Supervision of normal acute URI (upper respiratory infection) acute Anxiety acute Contact with and (suspected) exposure to other viral communicable diseases acute Enlarged lymph nodes in armpit acute Nausea and vomiting during acute acute Supervision of normal acute URI (upper respiratory infection) acute [facility] Work Phone: evaluation note* Diagnosis Onset Date Resolution Status Anxiety acute acute Supervision of normal acute Nausea and vomiting during resolved Anxiety acute acute Supervision of normal acute Nausea and vomiting during resolved Anxiety acute acute Supervision of normal acute Nausea and vomiting during resolved Anxiety acute acute Supervision of normal acute Nausea and vomiting during resolved Anxiety acute History of hemorrhage, currently acute acute Supervision of normal [facility] Work Phone: evaluation note* Diagnosis Onset Date Resolution Status Anxiety acute acute Supervision of normal acute Nausea and vomiting during resolved Anxiety acute History of hemorrhage, currently acute acute Supervision of normal acute Anxiety acute History of hemorrhage, currently acute acute Supervision of normal acute Anxiety acute History of hemorrhage, currently acute acute Supervision of normal acute Anxiety acute History of hemorrhage, currently acute acute Supervision of normal acute Anxiety acute History of hemorrhage, currently acute acute Supervision of normal acute Anxiety acute GBS (group B Streptococcus c arrier), +RV culture, currently acute History of hemorrhage, currently acute acute Supervision of normal acute [facility] Work Phone: evaluation note* Diagnosis Onset Date Resolution Status Anxiety acute Nausea and vomiting during resolved resolved Supervision of normal resolved Anxiety acute History of hemorrhage, currently resolved resolved Supervision of normal resolved Anxiety acute History of hemorrhage, currently resolved resolved Supervision of normal resolved Anxiety acute History of hemorrhage, currently resolved resolved Supervision of normal resolved Anxiety acute History of hemorrhage, currently resolved resolved Supervision of normal resolved Anxiety acute History of hemorrhage, currently resolved resolved Supervision of normal resolved Anxiety acute GBS (group B Streptococcus c arrier), +RV culture, currently resolved History of hemorrhage, currently resolved resolved Supervision of normal resolved Anxiety acute GBS (group B Streptococcus c arrier), +RV culture, currently resolved History of hemorrhage, currently resolved resolved Supervision of normal resolved Anxiety acute Vaginal delivery acute Active labor at term resolve d Anemia affecting r esolved GBS (group B Streptococcus c arrier), +RV culture, currently resolved History of hemorrhage, currently resolved resolved Segmental and somatic dysfunction of thoracic region resolved Supervision of normal resolved [facility] Work Phone: Evaluation note* Diagnosis Right wrist pain Pain in joint, forearm documented in this encounter [facility] for referral (narrative)No reason for referral information availableWWayne HealthCare Main [facility] Work Phone: Instructions * Patient Instructions - [...] Log into your personal health record on [email or web address] and enter K848 in the Education box to learn more about Urinary Tract Infection in Women: Care Instructions. Current as of: May 17, 2016 Content Version: 11.2 1015-3439 [employer]. Care instructions adapted under license by your healthcare professional. If you have questions about a medical condition or this instruction, always ask your healthcare professional. [employer] disclaims any warranty or liability for your use of this information. in this encounter* Patient Instructions - Vinita Schmitt PA-C - 05/04/2017 10:58 AM EST [...] Log into your personal health record on [email or web address] and enter K848 in the Education box to learn more about Urinary Tract Infection in Women: Care Instructions. Current as of: May 17, 2016 Content Version: 11.2 5455-7957 [employer]. Care instructions adapted under license by your healthcare professional. If you have questions about a medical condition or this instruction, always ask your healthcare professional. [employer] disclaims any warranty or liability for your use of this information. in this encounter Assessments Diagnosis Acute cystitis with hematuri a - Primary Diagnosis Acute cystitis with hematuri a - Primary UTI symptoms Diagnosis Employee exposure to blood - Primary Personal history of contact with and (suspected) exposure to potentially hazardous body fluids Discharge Instructions * Willard Rogers, DO - 04/17/2017 Exposure to Blood and [...] Log into your personal health record on [email or web address] and enter C142 in the Education box to learn more about Exposure to Blood and Body Fluids: Care Instructions. Current as of: November 14, 2015 Content Version: 11.2 5455-9046 [employer]. Care instructions adapted under license by your healthcare professional. If you have questions about a medical condition or this instruction, always ask your healthcare professional. [employer] disclaims any warranty or liability for your use of this information. in this encounter Summary Purpose Family History No Family History Records Found Relationship Condition Age at Onset Recorded Date/T anastacio Not Specified Cardiac disease Unknown Myocardial infarction Unknown Malignant neoplasm of breast Unknown Malignant neoplasm Unknown Hypertension Unknown Malignant neoplasm of uterus Unknown Disorder of thyroid Unknown Cerebrovascular accident (CVA) Unknown Relationship Condition Age at Onset Recorded Date/T anastacio Not Specified Cardiac disease Unknown Myocardial infarction Unknown Malignant neoplasm Unknown Hypertension Unknown Disorder of thyroid Unknown Cerebrovascular accident (CVA) Unknown grandmother Malignant neoplasm of uterus Unknown mother Malignant neoplasm of breast Unknown Advance Directives No Advanced Directives Records Found Advance Directive Response Recorded Date/ Time Living Will No January 04, 2021 2:05pm Power of E Merchant No January 04 2:05pm Advance Directive Response Recorded Date/ Time Living Will No January 26, 2023 9:58pm Power of E Merchant No January 26 9:58pm Advance Directive Response Recorded Date/ Time Living Will No January 26, 2023 8:58pm Power of E Merchant No January 26 8:58pm Advance Directive Response Recorded Date/ Time Living Will No September 16, 2023 2:04am Power of E Merchant No September 15 2:04am Chief Complaint and Reason for Visit Chief Complaint neck/upper pain Reason for Visit Segmental and somati c dysfunction of cervical region Segmental and somatic dysfunction of lumbar region Segmental and somatic dysfunction of thoracic region Chief Complaint NECK/UPPER BACK EORDER Reason for Visit Segmental and somati c dysfunction of cervical region Segmental and somatic dysfunction of lumbar region Segmental and somatic dysfunction of thoracic region Chief Complaint NECK/UPPER BACK EORDER SWELLING/MASS RIGHT GROIN PAIN Reason for Visit Segmental and somati c dysfunction of cervical region Segmental and somatic dysfunction of lumbar region Segmental and somatic dysfunction of thoracic region Chief Complaint NECK/UPPER BACK EORDER SWELLING/MASS Reason for Visit Segmental and somati c dysfunction of cervical region Segmental and somatic dysfunction of lumbar region Segmental and somatic dysfunction of thoracic region Chief Complaint NECK/UPPER BACK EORDER SWELLING/MASS RIGHT GROIN PAIN 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) NEED ORDER Reason for Visit Segmental and somati c dysfunction of cervical region Segmental and somatic dysfunction of lumbar region Segmental and somatic dysfunction of thoracic region Anxiety Encounter for routine gynecological examination Chief Complaint Sinus infection, [facility] [employer] Back pain Reason for Visit Allergic rhinitis Segmental and somatic dysfunction of cervical region Segmental and somatic dysfunction of lumbar region Segmental and somatic dysfunction of thoracic region Chief Complaint Sinus infection, M[facility] [employer] Back pain R rib pain OBTAIN ON CYCLE DAY 3, 4 OR 5 PER ORDER Reason for Visit Allergic rhinitis Segmental and somatic dysfunction of cervical region Segmental and somatic dysfunction of lumbar region Segmental and somatic dysfunction of thoracic region Chief Complaint Sinus infection, M[facility] [employer] Back pain R rib pain OBTAIN ON CYCLE DAY 3, 4 OR 5 PER ORDER BACK Reason for Visit Allergic rhinitis Segmental and somatic dysfunction of cervical region Segmental and somatic dysfunction of lumbar region Segmental and somatic dysfunction of thoracic region Chief Complaint Sinus infection, M[facility] CONGE[employer]ION Back pain R rib pain OBTAIN ON CYCLE DAY 3, 4 OR 5 PER ORDER BACK NOB LMP 12/15 Reason for Visit Allergic rhinitis Segmental and somatic dysfunction of cervical region Segmental and somatic dysfunction of lumbar region Segmental and somatic dysfunction of thoracic region Nausea and vomiting during Supervision of normal Chief Complaint BACK NOB LMP 12/15 CONCERN FOR URI COVID TEST/[employer] EMPLOYEE 12 WK OB 2 ordering doctors/same office 16 WK OB ANATOMY SCAN 20 WK OB Reason for Visit Nausea and vomiting during Supervision of normal Contact with and (suspected) exposure to other viral communicable diseases URI (upper respiratory infection) Anxiety Contact with and (suspected) exposure to other viral communicable diseases Enlarged lymph nodes in armpit Nausea and vomiting during Supervision of normal URI (upper respiratory infection) Anxiety Contact with and (suspected) exposure to other viral communicable diseases Enlarged lymph nodes in armpit Nausea and vomiting during Supervision of normal URI (upper respiratory infection) Anxiety Contact with and (suspected) exposure to other viral communicable diseases Enlarged lymph nodes in armpit Nausea and vomiting during Supervision of normal URI (upper respiratory infection) Chief Complaint CONCERN FOR URI COVID TEST/[employer] EMPLOYEE 12 WK OB 2 ordering doctors/same office 16 WK OB ANATOMY SCAN 20 WK OB 24 WK OB 28 WK OB/GLUCOSE Reason for Visit Anxiety Supervision of normal Nausea and vomiting during Anxiety Supervision of normal Nausea and vomiting during Anxiety Supervision of normal Nausea and vomiting during Anxiety Supervision of normal Nausea and vomiting during Anxiety History of hemorrhage, currently Supervision of normal Chief Complaint 24 WK OB 28 WK OB/GLUCOSE 30 WK OB, keep w/JV 32 WK OB 34 WK OB 36 WK OB 37 WK OB Reason for Visit Anxiety Supervision of normal Nausea and vomiting during Anxiety History of hemorrhage, currently Supervision of normal Anxiety History of hemorrhage, currently Supervision of normal Anxiety History of hemorrhage, currently Supervision of normal Anxiety History of hemorrhage, currently Supervision of normal Anxiety History of hemorrhage, currently Supervision of normal Anxiety GBS (group B Streptococcus carrier), +RV culture, currently History of hemorrhage, currently Supervision of normal Chief Complaint 24 WK OB 28 WK OB/GLUCOSE 30 WK OB, keep w/JV 32 WK OB 34 WK OB 36 WK OB 37 WK OB 38 WK 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 Reason for Visit Anxiety Nausea and vomiting during Supervision of normal Anxiety History of hemorrhage, currently Supervision of normal Anxiety History of hemorrhage, currently Supervision of normal Anxiety History of hemorrhage, currently Supervision of normal Anxiety History of hemorrhage, currently Supervision of normal Anxiety History of hemorrhage, currently Supervision of normal Anxiety GBS (group B Streptococcus carrier), +RV culture, currently History of hemorrhage, currently Supervision of normal Anxiety GBS (group B Streptococcus carrier), +RV culture, currently History of hemorrhage, currently Supervision of normal Anxiety Vaginal delivery Active labor at term Anemia affecting GBS (group B Streptococcus carrier), +RV culture, currently History of hemorrhage, currently Segmental and somatic dysfunction of thoracic region Supervision of normal Chief Complaint Admit Date RIGHT KNEE September 06, 2024 8:4 8am Room 1 September 06, 2024 8:5 7am EORDERS September 21, 2024 4:19 pm INT LAB ORDER September 25, 2024 10:0 5am Reason for Visit Admit Date Right knee pain September 06, 2024 8:4 8am Chief Complaint Admit Date RIGHT KNEE September 06, 2024 8:4 8am Room 1 September 06, 2024 8:5 7am EORDERS September 21, 2024 4:19 pm INT LAB ORDER September 25, 2024 10:0 5am R/O LOOSE BODY, RT KNEE PAIN September 26, 2024 3:41pm Chief Complaint Admit Date RIGHT KNEE September 06, 2024 8:4 8am Room 1 September 06, 2024 8:5 7am EORDERS September 21, 2024 4:19 pm INT LAB ORDER September 25, 2024 10:0 5am R/O LOOSE BODY, RT KNEE PAIN September 26, 2024 3:41pm RIGHT KNEE October 01, 2024 9:0 9am Reason for Visit Admit Date Right knee pain September 06, 2024 8:4 8am Loose body of right knee October 01 9:09am Right knee pain October 01, 2024 9:0 9am Chief Complaint Admit Date RIGHT KNEE September 06, 2024 8:4 8am Room 1 September 06, 2024 8:5 7am EORDERS September 21, 2024 4:19 pm INT LAB ORDER September 25, 2024 10:0 5am R/O LOOSE BODY, RT KNEE PAIN September 26, 2024 3:41pm RIGHT KNEE October 01, 2024 9:0 9am 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 [facility] ED Resident Note: NAME: Yakov Villarreal 22 y.o. CSN: [id number] PCP: Gordy Cotto MD History: Chief Complaint: Body Fluid Exposure HPI: The history was obtained from the patient. Yakov is a 22 y.o. female who presents with a chief complaint of Body Fluid Exposure. 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 This evening patient went into her [...] Lab work will be drawn evaluated by [email or web address]. The risks of hepatitis C transmission [...] New Prescriptions No medications on file Willard Rogers, DO ED Resident Physician [facility] Emergency Department (Please note that portions of this note have been completed with a voice recognition software. Efforts were made to correct any errors, but occasionally words are mis-transcribed.) Willard Rogers, DO Resident 04/17/[id number] ED Attestation: I have discussed the case [...] patient. Follow-up with employee health discussed. Kristen Batres DO FACEP Attending Physician [facility] Emergency Department (Please note that portions of [...] ized section and content) DATE CREATED AUTHOR 12/08/2017 [facility] DATE CREATED AUTHOR AUTHOR'S ORGANIZ ATION 12/13/2017 [facility] DATE CREATED AUTHOR AUTHOR'S ORGANIZ ATION 12/13/2017 [facility] DATE CREATED AUTHOR AUTHOR'S ORGANIZ ATION 04/12/2019 [facility] DATE CREATED AUTHOR AUTHOR'S ORGANIZ ATION 04/12/2019 [facility] DATE CREATED AUTHOR AUTHOR'S ORGANIZ ATION 04/12/2019 [facility] DATE CREATED AUTHOR AUTHOR'S ORGANIZ ATION 09/01/2024 [facility] DATE CREATED AUTHOR AUTHOR'S ORGANIZ ATION 12/03/2024 [facility] Care Teams (unrecognized sec tion and content) Team Status: Active Member Role Status Dates Dr. Jose Antonio Rojas MD Family Provider Active BAILEY FENG Primary Care Provider Active Team Status: Inactive Member Role Status Cheryl Thomas DO Primary Care Provider, Referring Provider Active Rona De Jesus CENTRAL OFFICE EQUIPMENT INSTALLER, CENTRAL OFFICE EQUIPMENT INSTALLER-C Attending Provider Active Team Status: Inactive Member Role Status Cheryl Thomas , Referring Provider Active Dr. Rosy Wang DC Attending Provider Active BAILEYJUNG Primary Care Provider Active Team Status: Inactive Member Role Status BAILEYJUNG Primary Care Provide r, Attending Provider, Referring Provider Active Team Status: Active Member Role Status Dates Dr. Jose Antonio Rojas MD Family Provider Active BAILEYBisi SINHA Primary Care Provider Active Team Status: Active Member Role Status BAILEYJUNG Mathews Primary Care Provider, Attending Provider Active BAILEYJUNG MathewsE Active Team Status: Inactive Member Role Status Dr. Rosy Wang DC Attending Provider Active BAILEYERNESTINE Mathews Primary Care Provider Active Team Status: Inactive Member Role Status BAILEYJUNG Mathews Primary Care Provider, Attending Provider Active BAILEYCHATA MathewsERNESTINE Active Team Status: Active Member Role Status Dates Dr. Jose Antonio Rojas MD Family Provider Active No Primary Care Physician Primary Care Provider Active Team Status: Inactive Member Role Status No Primary Care Physician Primary Care Provider Active Dr. Navarro Garcia MD Emergency Provider Active Team Status: Inactive Member Role Status Dr. Arabella Chau MD Attending Provider Active No Primary Care Physician Primary Care Provider, Refer ring Provider Active Team Status: Inactive Member Role Status No Primary Care Physician Primary Care Provider Active Dr. Navarro Garcia MD Attending Provider, Emergency Pro vider Active Team Status: Inactive Member Role Status No Primary Care Physician Primary Care Provider Active Dr. Arabella Chau MD Attending Provider, Referr ing Provider Active Team Status: Inactive Member Role Status Dates No Primary Care Physician Primary Care Provider, Refer ring Provider Active Indira James CNM Attending Provider Active Team Status: Inactive Member Role Status Dates No Primary Care Physician Primary Care Provider, Refer ring Provider Active Sae Richards PA, PA Attending Provider Active Team Status: Inactive Member Role Status No Primary Care Physician Referring Provider Active Dr. Josselyn Bianchi DO Attending Provider Activ e JUNG DIEZ Primary Care Provider Active Team Status: Inactive Member Role Status Verna Tellez CNM Attending Provider Active No Primary Care Physician Primary Care Provider, Refer ring Provider Active Team Status: Inactive Member Role Status Dates JUNG DIEZ Primary Care Provider Active Dr. Arabella Chau MD Attending Provider, Referr ing Provider Active Indira James CNM Other Provider Active Team Status: Inactive Member Role Status Dates Indira James CNM Attending Provider, Referring Pr ovider Active No Primary Care Physician Primary Care Provider Active Team Status: Inactive Member Role Status Dates No Primary Care Physician Primary Care Provider, Refer ring Provider Active Dr. Josselyn Bianchi DO Attending Provider Activ e Team Status: Inactive Member Role Status Dates No Primary Care Physician Primary Care Provider, Refer ring Provider Active Jennifer Gonzalez CENTRAL OFFICE EQUIPMENT INSTALLER, CENTRAL OFFICE EQUIPMENT INSTALLER-C Attending Provider Active Team Status: Inactive Member Role Status Dates No Primary Care Physician Primary Care Provider Active Dr. Josselyn Bianchi DO Attending Provider, Refe rring Provider Active Team Status: Inactive Member Role Status Dates No Primary Care Physician Primary Care Provider, Refer ring Provider Active Verna Tellez CNM Attending Provider Active Team Status: Inactive Member Role Status Dates No Primary Care Physician Primary Care Provider, Refer ring Provider Active Dr. Arabella Chau MD Attending Provider Active Team Status: Active Member Role Status Dates No Primary Care Physician Primary Care Provider Active Dr. Arabella Chau MD Admit Provid er, Attending Provider, Other Provider Active Team Status: Inactive Member Role Status Dates No Primary Care Physician Primary Care Provider Active Dr. Arabella Chau MD Admit Provider, Attending Provider Active Manager Clinical Applications Relationship Specialty Start Date End Date Jose Antonio Rojas MD [address] [place] [address] PCP - General Family Medicine 04/11/18 Team Status: Active Member Role Status Dates No Primary Care Physician Primary Care Provider Active Team Status: Inactive Member Role Status Dates Dr. Bailey Lang DO Primary Care Provider Act yuliana Start: September 06, 2024 End: September 06, 2024 Dr. Bailey Lang DO Referring Provider Active Start: September 06, 2024 End: September 06, 2024 Velasquez Galvin MD Attending Provider Active St art: September 06, 2024 End: September 06, 2024 Team Status: Inactive Member Role Status Dates Dr. Bailey Lang , Primary Care Provider Act yuliana Start: September 06, 2024 End: September 06, 2024 Dr. Duke Velazquez MD Attending Provider Active S tart: September 06, 2024 End: September 06, 2024 Team Status: Inactive Member Role Status Dates No Primary Care Physician Primary Care Provider Active Start: September 21, 2024 End: September 21, 2024 Indira James CNM Attending Provider Active Start: September 21, 2024 End: September 21, 2024 Indira James CNM Referring Provider Active Start: September 21, 2024 End: September 21, 2024 Team Status: Active Member Role Status Dates No Primary Care Physician Primary Care Provider Active Start: September 25, 2024 Indira James CNM Attending Provider Active Start: September 25, 2024 Indira James CNM Referring Provider Active Start: September 25, 2024 Team Status: Inactive Member Role Status Dates No Primary Care Physician Primary Care Provider Active Start: September 25, 2024 End: September 25, 2024 Indira James CNM Attending Provider Active Start: September 25, 2024 End: September 25, 2024 Indira James CNM Referring Provider Active Start: September 25, 2024 End: September 25, 2024 Team Status: Active Member Role Status Dates Velasquez Galvin MD Attending Provider Active St art: September 26, 2024 Velasquez Galvin MD Referring Provider Active St art: September 26, 2024 No Primary Care Physician Primary Care Provider Active Start: September 26, 2024 Team Status: Inactive Member Role Status Dates Velaqsuez Galvin MD Attending Provider Active St art: September 26, 2024 End: September 26, 2024 Velasquez Galvin MD Referring Provider Active St art: September 26, 2024 End: September 26, 2024 No Primary Care Physician Primary Care Provider Active Start: September 26, 2024 End: September 26, 2024 Team Status: Inactive Member Role Status Dates No Primary Care Physician Primary Care Provider Active Start: October 01, 2024 End: October 01, 2024 No Primary Care Physician Referring Provider Active Start: October 01, 2024 End: October 01, 2024 Velasquez Galvin MD Attending Provider Active St art: October 01, 2024 End: October 01, 2024 Team Status: Inactive Member Role Status Dates No Primary Care Physician Primary Care Provider Active Start: November 14, 2024 End: November 14, 2024 No Primary Care Physician Referring Provider Active Start: November 14, 2024 End: November 14, 2024 LUCA Jack Attending Provider Active Start: November 14, 2024 End: November 14, 2024 Source Comments (unrecognize d section and content) In the event this informatio n is protected by the Federal Confidentiality of Alcohol and Drug Abuse Patient Records regulations: The Federal rules restrict any use of the information to criminally investigate or prosecute any alcohol or drug abuse patient.[facility] Reason for Visit (unrecogniz ed section and content) Specialty Diagnoses / Procedures Referred By Gunnar smith Referred To Contact Radiology / [facility] Diagnoses Pain in right wrist Right wrist pain [M25.531] Procedures X-RAY WRIST COMPLET MIN 3 VIEWS XR GENERAL 7 Maria Esther Alberto APRN.[employer] [address] [place] [address] [facility] [address] [place] [address] Referral ID Status Reason Start Date Expiration Date Visits Re quested Visits Authorized [id number] Closed 03/30/2020 06/28/2020 1 1 FOR RECORDS PERTAINING TO PATIENTS WHO ARE [...] BE BASED ON THE PRIMARY CLINICAL RECORDS. [facility] provides no warranty or guarantee of the accuracy or completeness of information in this document.
[2024-12-05 06:15] LABS: Internal QC Validated? YES +Cl - CLEAR BKGD; Pregnancy, Urine Negative Negative
[2024-12-05] MEDS: Lactated Ringers 1,000 ML 15 ML IV (06:36)
--- NOTE | 2024-12-05 06:44 | HP.PCM_ITS ---
HPI - General HPI Narrative YAKOV FIORE, is a 29 F who presents for right knee arthroscopy, loose body removal and debridement. No change to H and P. Right knee marked. RAB, post op instructions, and narcotic counselling done. OK to proceed. No further questions or concerns. MR#: [id number] Acct: [id number] Name: YAKOV FIORE Rep #: [id number] : 1995 Provider: Dr. Velasquez Galvin MD Age/Sex: 29/F [place] [facility] [place] Status: Signed Intake Vital Signs 09/07/2507:52 Height 5 ft 9 in Intake Visit Reasons: RIGHT KNEE Chief Complaint: MRI review Accompanied by: Self Is patient in pain?: No Allergies codeine Adverse Reaction (Verified 10/01/24 09:13) Nausea/Vom/Diarrhea Medications ?Medication ?Instructions ?Recorded ?Confirmed ?Type PNV#14-iron fum-FA#[id number] 1 cap PO DAILY 01/26/23 History 27 mg iron-1 mg-300 mg-50 mg capsule magnesium oxide 500 mg capsule 500 mg PO DAILY 10/25/23 10/01/24 Histor y omega-3 fatty acids 1,000 mg 1,000 mg PO DAILY 10/25/23 10/01/24 Hist ory capsule cholecalciferol (vitamin D3) 25 25 mcg PO QDAY 09/06/24 10/01/24 History mcg (1,000 unit) capsule ferrous gluconate 240 mg (27 mg 240 mg PO QDAY 09/06/24 10/01/24 History iron) tablet (Ferate) PFSH Medical History Loose body of right knee Right knee pain Vaginal delivery Vaginal delivery hemorrhage History of tetanus, diphtheria, and acellular pertussis booster vaccination (Tdap) Psoriasis Chronic back pain Bruises easily Diarrhea Bilateral headaches Environmental allergies Surgical History History of lump of right breast History of cosmetic plastic surgery Family History Other Breast cancer CVA (cerebral vascular accident) Cancer Heart disease Hypertension Myocardial infarction Thyroid disorder Uterine cancer Social History adopted: No household members: spouse housing: house number of children: 2 current occupational status: employed 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 Velasquez Galvin MD 10/01/24 0804. Part of today?s visit was documented by [ ], acting as scribe. YAKOV FIORE is a 29 year old F here today for follow-up right knee MRI. Supplemental Info [facility] Imaging Services [address] [place], [place] [id number] Lower Ext Joint Only (Routine) MR#: [id number] Acct: [id number] Name: YAKOV FIORE Rep #: [id number] : 1995 F 29 From: Austin Campos DO PCP: Care Physician,No Primary Status: REG CLI Study: Lower Ext Joint Only (Routine) Date of Exam: 09/26/24 Exam# [id number] Ordering Dr: Velasquez Galvin MD EXAM: Noncontrast MRI of the right knee. CLINICAL HISTORY: Right knee pain, without specific injury. Feels unstable. Evaluate for loose body. COMPARISON: Right knee radiographs 08/2024 TECHNIQUE: Multiplanar, multisequence MRI images of the right knee were obtained without IV contrast. FINDINGS: No acute fracture or dislocation of the right knee. No abnormal marrow rep lacement process or sizable joint effusion. The patellar ligament and included distal quadriceps tendon are intact. On the axial T2 sequence, there is 14 mm lateral patellar subluxation. The patellar retinacula are intact. No evidence of transient patellar dislocation. There is some thin curvilinear fluid signal in the popliteal fossa which may represent a collapsed popliteal cyst. The popliteus muscle and tendon are intact. There is a 19 mm ovoid possible loose body near the anterolateral margin of the lateral femoral condyle on image 10 of the axial T2 sequence and image 23 of the coronal T2 fat saturated sequence. Izdz-tu-ztjeodlo articular cartilage thinning/irregularity involving the patellar apex and lateral patellar facet. Mild articular cartilage loss involving the medial femoral condyle, without focal high-grade chondral defect or osteochondral lesion. The cruciate and collateral ligaments are intact. No definite discrete meniscal tear. There is an obliquely oriented area of increased linear signal intensity involving the substance of the medial meniscus at the posterior horn/body segment junction (image 18 of the T2 fat saturated sequence), which does not definitely extend to an articular surface. Tissues in the popliteal fossa. Gzjm-bk-bjwrlait edema of the soft tissues in the popliteal fossa. MRI/Lower Ext Joint Only (Routine) IMPRESSION: No acute bony abnormality or internal ligamentous derangement of the right knee. No sizable joint effusion or evidence of discrete meniscal tear. Please see discussion above. There is a thin curvilinear area of fluid signal in the popliteal fossa, with adjacent soft tissue edema, which may represent a recently collapsed popliteal cyst. 14 mm lateral patellar subluxation. There is iamz-mv-ubxowgpq articular cartilage thinning of the lateral patellar facet and patellar apex. There is an ovoid 19 mm possible loose body near the anterolateral margin of the lateral femoral condyle. Please see reference images provided above. The patellar retinacula are intact. No evidence of transient patellar dislocation. Reading Location: [facility] I independently reviewed the imaging. Concur with radiologist report. Coding Level of Care Code Off vis,est,level 3 Diagnoses Loose body of right knee M23.41 Right knee pain M25.561 Assessment and Plan Assessment and Plan (1) Loose body of right knee: Status: Acute Plan: 29-year-old female with right knee pain mechanical symptoms and a loose body. Options here would be continued nonoperative management although I would suggest surgery for removal as loose body can cause mechanical symptoms irritation pain and damage to the cartilage inside the knee. Surgery be in the form of right knee arthroscopy, loose body removal and debridement. 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 Pros and cons risks and benefits were discussed with the patient including but not limited to infection, pain, stiffness, bleeding, damage to surrounding structures, neurovascular injury, recurrence or retear, failure or wear of hardware or fixation, instability, fracture, deep vein thrombosis and pulmonary embolism, anesthetic risks, , patient dissatisfaction, need for further surgery and other risks. Patient understood and wished to proceed with surgery, and signed the informed consent documentation. (2) Right knee pain: Status: Acute Plan Details Goals & Barriers: Goals Decrease pain Improve ROM Decrease spasm Barriers Carrying young child Ortho Exam General General: Yes no acute distress Neurologic: Yes alert and Yes oriented x3 Psychologic: Yes reasonable and appropriate [facility] Medical History Wears glasses Depression Non-smoker Loose body of right knee Right knee pain Vaginal delivery Vaginal delivery hemorrhage History of tetanus, diphtheria, and acellular pertussis booster vaccination (Tdap) Psoriasis Chronic back pain Bruises easily Diarrhea Bilateral headaches Environmental allergies Home Medications ?Medication ?Instructions ?Recorded ?Last Taken ?Type PNV#14-iron fum-FA#[id number] 1 cap PO DAILY pregn krish 01/26/23 Unknown History 27 mg iron-1 mg-300 mg-50 mg capsule magnesium 250 mg tablet 250 mg PO DAILY 11/26/24 Unk nown History Allergy/AdvReac Type Severity Reaction Status Date / Time codeine AdvReac Nausea/Vom/ Verified 11/26/24 10:00 Diarrhea Family History (Updated 11/14/24 @ 09:11 by MACKENZIE JackC) Grandmother Uterine cancer Mother Breast cancer Other CVA (cerebral vascular accident) Cancer Heart disease Hypertension Myocardial infarction Thyroid disorder Surgical History History of lump of right breast History of cosmetic plastic surgery Social History adopted: No household members: spouse housing: house number of children: 2 current occupational status: employed 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[employer]- Smoking 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: Never smoker second hand exposure: No alcohol intake: current alcohol intake frequency: holidays/special occasions only details: not while substance use type: does not use what type of physical activity do you participate in: yoga and aerobics frequency: 5-6 times per week seatbelt use: always do you feel safe at home: Yes additional social history: - Chris Vital Signs Vital Signs Vital Signs: 12/05/24 06:19 Temperature 97.1 F L Temperature Source Temporal Pulse Rate 82 Respiratory Rate 16 Blood Pressure 96/61 Blood Pressure Mean 72 Blood Pressure Source Monitor Blood Pressure Position Semi-Fowlers Blood Pressure Location Left Arm Pulse Ox 100 Weight Weight: 176 lb 5.917 oz Body Mass Index (BMI) 26.0 Results Lab / [facility] Labs: Laboratory Results - last 24 hr 12/05/24 06:05: Urine Test Negative
--- NOTE | 2024-12-05 06:52 | PCM.PRE.AN2 ---
ASA Classification* ASA Classification ASA Classification: 2 Assessment & Plan Anesthesia* Anesthesia Assessment Anesthesia Assessment: Discussed sedation and/or anesthesia options, risks, benefits, and alternatives with patient/parents/legal guardian/POA. Questions invited. The patient/parents/legal guardian/POA seems to understand and agrees to proceed with anesthesia plan. Reviewed the physical assessment, medical history, allergy history and patient home medications list prior to surgery/procedure/anesthetic and documented any changes. Performed airway and anesthesia risk assessments. Anesthesia Type Anesthesia Type: General History Source History Obtained from:: Patient and Chart Anesthesia Focused Assessment* Temperature: 97.1 F Pulse Rate: 82 Blood Pressure: 96/61 Respiratory Rate: 16 Pulse Ox: 100 Oxygen Delivery Method: Room Air Airway Assessment Mouth opens: >3 cm Mallampati Score: I Teeth Condition: Intact Neck Range of motion (ROM): Full ROM Labs Anesthesia Preop lab: CBC WBC 5.3 K/mm3 (4.4-11.0) 02/18/24 08:02/18/24 RBC 4.58 M/mm3 (4.2-5.4) 02/18/24 08:02/18/24 Hgb 13.0 g/dL (12.0-15.0) 02/18/24 08:02/18/24 Hct 39.6 % (37-47) 02/18/24 08:02/18/24 Plt Count 353 K/mm3 (150-450) 02/18/24 08:29 02/18/24 CHEMISTRY Potassium 4.1 mmol/L (3.5-5.1) 02/18/24 08:02/18/24 Sodium 138 mmol/L (136-145) 02/18/24 08:02/18/24 BUN 16 mg/dL (7-18) 02/18/24 08:02/18/24 Creatinine 0.64 mg/dL (0.55-1.02) 02/18/24 08:02/18/24 Glucose 97 mg/dL (74-106) 02/18/24 08:02/18/24 TSH 0.83 uIU/mL (0.358-3.74) 12/18/22 10:49 12/18/22 COAG Urine Test Negative Negative 12/05/24 06:05 12/05/24 [facility] Negative 04/13/19 09:28 04/13/19 Pre-Assessment Diagnosis/Proposed Procedure Planned Operative Procedure(s): Right knee Arthroscopy, removal loose body, debridement Anesthesia History Anesthesia History - [facility]: Anesthesia History - [facility] Hx Hospitalization No 11/26/24 10:01 Any Problems With Anesthesia No 11/26/24 10:01 Cholinesterase deficiency No 11/26/24 10:01 You/Your Family Experience No 11/26/24 10:01 fever (hyperthermia) with Relationship Recent Exposure to Contagious No 12/05/24 06:19 Disease Does patient have nerve No 11/26/24 10:01 stimulator Patient instructed to have device shut off --Does patient have Pacemaker No 12/05/24 06:19 or ICD? When Was Last Pacemaker Check QUESTION #4 FULL TEXT: You/Your Family Experience fever (hyperthermia) with Anesthesia Last Oral Intake Last Oral intake: Last Oral Intake NPO since 19:00 12/05/24 06:19 Meds taken in AM with sips of No 12/05/24 06:19 water? Meds patient instructed to take am of surgery PONV PONV - [facility]: PONV - [facility] Female Yes 11/26/24 10:01 HX of Motion Sickness Yes 11/26/24 10:01 HX of N/V After Surgery Yes 11/26/24 10:01 Non-Smoker Yes 11/26/24 10:01 Duration of Surgery greater Yes 11/26/24 10:01 than 60 minutes Number of Risk Factors 5 11/26/24 10:01 PONV Score Severe Risk 11/26/24 10:01 Height & Weight Height & Weight: Anesthesia: Height & Weight Height 5 ft 9 in 12/05/24 06:19 Weight: 80 kg 12/05/24 06:19 Body Mass Index (BMI) 26.0 12/05/24 06:19 Respiratory Assessment Respiratory Assessment - [facility]: Respiratory Tract Infection Hx - [facility] Hx Respiratory Tract Infection No 11/26/24 10:01 STOP Sleep Apnea STOP Sleep Apnea - [facility]: STOP Sleep Apnea - [facility] Hx Hypertension No 11/26/24 10:01 Hx Sleep Apnea No 11/26/24 10:01 CPAP BIPAP Do you snore loudly (louder No 11/26/24 10:01 than talking or can be heard Do you often feel tired/ No 11/26/24 10:01 fatigued/ sleepy during daytime? Has anyone observed you stop No 11/26/24 10:01 breathing during sleep? STOP Results Negative 11/26/24 10:01 QUESTION #5 FULL TEXT : Do you snore loudly (louder than talking or can be heard through closed doors)? 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 Specify any problems Hx of Preganancy in last 3 No 11/26/24 10:01 Months Nurse Filling Out Transfusion [email or web address] 11/26/24 10:01 & Questions: Date: 11/26/24 11/26/24 10:01 Time: 10:01 11/26/24 10:01 Patient unable to answer at this time (ie. confused, unrespo /Reproduction History /Reproductive History - [facility]: /Reproductive Hx- [facility] Hx Now No 11/26/24 10:01 Gestational Age (in weeks): EDC: Hx Hx Para Hx Section SAB No 11/26/24 10:01 Active Medications Active Medications: Current Medications Generic Name Dose Route Start Last Admin Trade Name Freq PRN Reason Stop Dose Admin Cefazolin Sodium 2 gm/ Sodium 110 mls @ 150 mls/hr 12/05/24 07:30 Chloride IV 12/05/24 08:13 INTRAOP ONE Lactated Ringer's 1,000 mls @ 15 mls/hr 12/05/24 06:15 12/05/24 06:36 IV 15 mls/hr .Q48H ZELDA Administration PFSH Medical History Wears glasses Depression Non-smoker Loose body of right knee Right knee pain Vaginal delivery Vaginal delivery hemorrhage History of tetanus, diphtheria, and acellular pertussis booster vaccination (Tdap) Psoriasis Chronic back pain Bruises easily Diarrhea Bilateral headaches Environmental allergies Home Medications ?Medication ?Instructions ?Recorded ?Last Taken ?Type PNV#14-iron [id number] 1 cap PO DAILY 01/26/23 Unknown History 27 mg iron-1 mg-300 mg-50 mg capsule magnesium 250 mg tablet 250 mg PO DAILY 11/26/24 Unknown History Allergy/AdvReac Type Severity Reaction Status Date / Time codeine AdvReac Nausea/Vom/ Verified 11/26/24 10:00 Diarrhea Family History Grandmother Uterine cancer Mother Breast cancer Other CVA (cerebral vascular accident) Cancer Heart disease Hypertension Myocardial infarction Thyroid disorder Surgical History History of lump of right breast History of cosmetic plastic surgery Social History adopted: No household members: spouse housing: house number of children: 2 current occupational status: employed 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
[2024-12-05] MEDS: Cefazolin 2 GM in 0.9% Normal Saline (100mL Bag) 100 ML IV (07:26)
[2024-12-05] MEDS: Epinephrine (1 mg/ml) 1 MG/ML VIAL (07:55)
[2024-12-05] MEDS: Bupivacaine 0.25% 30 ML Vial (08:00)
--- NOTE | 2024-12-05 08:05 | PCM.OPRPT ---
Problems Associated Problem List Diagnoses (1) Loose body of right knee: (2) Right knee pain: Procedures Musculoskeletal [id number]: Other Procedure See Report Operative Report (Standard) Operative Information Date of Procedure: 12/05/24 Pre-Operative Diagnosis: R knee loose body, plica Post-Operative Diagnosis: same Surgery/Procedure Performed: R knee arthroscopy, removal loose body, debridement plica accounts receivable clerk: Yes Public Health Analyst: lindsay Tasks completed by certified surgical tech/first assistant: Retracting Additional stylist assistant?: No Type of Anesthesia: General and Local RN Documented Start/Stop Times: Operation Date: 12/05/24 07:30 Case Time Into Pre-Op 12/05/24 06:02 Out of Pre-Op 12/05/24 07:23 Anesthesia Start 12/05/24 07:26 Into Room 12/05/24 07:26 Procedure Start 12/05/24 07:49 Procedure End 12/05/24 08:04 Procedure Start Time: 07:49 Procedure Stop Time: 08:04 Select all DRAINS/GRAFTS/IMPLANTS that apply: None Estimated Blood Loss: 10 Specimen collected: No Description of surgery: Patient brought to the operating room theater. Placed supine on the table. General anesthesia induced. All bony prominences padded. CD on the nonoperative leg. Tourniquet applied to the right thigh appropriately padded. Stress positioner to the patient's right leg. Lower extremity prepped and draped in the usual sterile fashion with chlorhexidine-based prep solution allowing over 3 minutes drying time prior to draping. Preoperative timeout performed to confirm the site patient and the surgery. 2 g IV Ancef administered prior to the start of the case. Began by elevating the limb inflated the tourniquet to 250 mmHg. Use standard anterolateral and anteromedial arthroscopy portals. Did a full diagnostic arthroscopy. The loose body was identified and removed. This was a small bony fragmented piece of cartilage about 1cm large. I removed that to the anteromedial portal. There is a medial plica and some scar tissue there that I gently debrided down to smooth contours. I remove the ligamentum mucosum debrided that. I identified the ACL and PCL probed those those appear normal. Cartilage on the undersurface of the patella was slightly fibrillated and a small area about 1 cm in the central aspect I gently debrided to smooth margins Cartilage in the trochlea appeared normal. There is a presumed donor site from the medial aspect of the femoral trochlea, small 5mm, with stable margins, did a gentle debridement there as well. I then entered the medial and lateral compartments did a gentle debriding of the prepatellar fat pad for visualization. Cartilage on the medial and lateral sides were normal although there was 1 small area of grade 2 fissuring of the cartilage on the lateral tibial plateau, stable, left alone. Meniscus was normal on both sides stable to probing. Arthroscopy pictures taken on to the system and saved throughout the case. Case terminated tourniquet let down hemostasis achieved. The portals closed with 3-0 Monocryl sutures 10 cc of quarter percent bupivacaine instilled in and around the portal sites. Skin cleaned with wet and dry dressing followed application of Steri-Strips Adaptic 4 x 4 gauze ABD dressing loosely wrapped Cristobal bandage. Patient woken up from the general anesthetic transferred off the operating table taken to postanesthetic care unit in stable condition. All sponge needle instrument counts were correct no complications Plan for the patient weightbearing and range of motion as tolerated rest ice and elevate and discharged home according to day surgery criteria follow-up in 2 days. CPT 84328, 39281 Surgical Findings: as above Complications Complications: No Admit VTE Documentation VTE Present on Admission: No VTE Mechan Device Prophylaxis: SCD's VTE Pharm Prophylaxis ordered?: No Reason prophylaxis not ordered: Treatment Not Indicated
--- NOTE | 2024-12-05 08:12 | EX.PCM.DISCH ---
Discharge Instructions Diet Discharge Diet: No restrictions Activity Discharge Activity: Return to Normal Activity Weight Bearing Status: Weight bearing as tolerated Lifting Restrictions: crutches as needed, ROM as tolerated. Keep extremity elevated above heart level: Operative Extremity Dressing / Incision Call your doctor if your incision/area has: Continuous Slow Oozing, Sudden Increased Bleeding, Increased Pain/ Swelling, Increased Redness, Foul Smelling Discharge and Swelling at the incision site Call your doctor if you observe: Fever of 101 or Higher, Coldness, Increased Pain and Numbness or Tingling Change Dressing in: 1 day Cleanse incision/area with: Do not get Incision Wet Follow Up Care Please Follow Up With: Velasquez Galvin MD When: 2 days or within 2 weeks, per your preference Test Results: Test results from this visit will be discussed in further detail at your follow-up appointment, if applicable. Discharge Plan Admission Attending Provider: Velasquez Galvin Primary Care Provider: Care Physician,No Primary Consulting Providers: Jass Jenkins Instructions Patient Instructions: After Knee Arthroscopy Print Language: Mauritanian Discharge Orders/Prescriptions Prescriptions: New oxycodone-acetaminophen [Percocet] 5-325 mg tablet 1 tab PO Q8H MDD 6 PRN (Reason: pain) 2 Days Qty: 10 0RF No Action PNV #14-iron-[id number] 27 mg iron-1 mg -300 mg-50 mg capsule 1 cap PO DAILY magnesium 250 mg tablet 250 mg PO DAILY Other Ambulatory Orders: ,Urine (Routine) Timeframe: [id number] Facility: [facility] - Location: Laboratory Ordered By: Dr. Jass Jenkins Referrals / Follow Up: Care Physician,No Primary [Primary Care Provider] - Disposition Disposition (needs filled in before D/C Order can be placed): Home, Self Care
--- NOTE | 2024-12-05 09:30 | PCM.POST.ANE ---
Anesthesia: Postop Eval I Current Vital Signs Temperature: 97.2 F Pulse Rate: 95 Blood Pressure: 98/61 Respiratory Rate: 14 Pulse Ox: 94 Assessment Airway patent: Yes Spontaneous unlabored respirations: Yes nausea: No Vomiting: No Anesthesia Complication: No Fluid Hydration Crystalloid volume administer (ml): 700 Total IV fluid infused: 700 Progress Note Anesthesia document: Postop Eval 1 completed: Yes
--- NOTE | 2024-12-05 16:30 | POSTOPAN2_ITS ---
Anesthesia Postop Eval I Sum Postop Eval Completion status Anesthesia document: Postop Eval 1 completed: Yes Anesthesia Postop Eval I Summary Anesthesia Postop Eval I Summary: Anesthesia Postop Eval I: Assessment Summary Airway patent Yes 12/05/24 09:30 DATA TYPIST.TNES Spontaneous unlabored Yes 12/05/24 09:30 DATA TYPIST.TNES respirations Mental status nausea No 12/05/24 09:30 DATA TYPIST.TNES Vomiting No 12/05/24 09:30 DATA TYPIST.TNES Anesthesia Postop Eval I: Fluid Summary Crystalloid volume administer 700 12/05/24 09:30 DATA TYPIST.TNES (ml) Colloids volume administered ( ml) Blood Product volume administered (ml) Total IV fluid infused 700 12/05/24 09:30 DATA TYPIST.TNES Anesthesia Postop Eval I: Summary Notes Anesthesia Complication No 12/05/24 09:30 DATA TYPIST.TNES Anesthesia Complication Comment: Post-operative progress note Anesthesia: Postop Eval II Evaluation Mental status: Awake and Calm Pain Level: 0 nausea: No Vomiting: No Complications Anesthesia Complication: No
--- NOTE | 2024-12-05 16:30 | PCM.POSTANE2 ---
Anesthesia Postop Eval I Sum Postop Eval Completion status Anesthesia document: Postop Eval 1 completed: Yes Anesthesia Postop Eval I Summary Anesthesia Postop Eval I Summary: Anesthesia Postop Eval I: Assessment Summary Airway patent Yes 12/05/24 09:30 [employer].TNES Spontaneous unlabored Yes 12/05/24 09:30 [employer].TNES respirations Mental status nausea No 12/05/24 09:30 [employer].TNES Vomiting No 12/05/24 09:30 [employer].TNES Anesthesia Postop Eval I: Fluid Summary Crystalloid volume administer 700 12/05/24 09:30 [employer].TNES (ml) Colloids volume administered ( ml) Blood Product volume administered (ml) Total IV fluid infused 700 12/05/24 09:30 [employer].TNES Anesthesia Postop Eval I: Summary Notes Anesthesia Complication No 12/05/24 09:30 [employer].TNES Anesthesia Complication Comment: Post-operative progress note Anesthesia: Postop Eval II Evaluation Mental status: Awake and Calm Pain Level: 0 nausea: No Vomiting: No Complications Anesthesia Complication: No
== END 2024-12-05 09:55 | disposition home or self-care (01) ==
LOC: SDC 05:57 → AC 05:58
PROVIDERS: Anesthesiology; Referring Provider Orthopaedic Surgery Sports Medicine; Visit Provider Orthopaedic Surgery Sports Medicine
PROC: (CPT 29870; principal; 2024-12-05 07:10)
DX: M67.51 Plica syndrome, right knee (principal); M23.41 Loose body in knee, right knee
CPT/HCPCS: 29877; 81025; J2405

== ENCOUNTER → 2025-04-11 | Outpatient (CLI) | payer SELFPAY ==
[2025-04-11 13:01] LABS: hCG Titer Quant., Serum 748 mIU/mL (<9 non-preg)
== END | disposition home or self-care (01) ==
PROVIDERS: Visit Provider Obstetrics & Gynecology
DX: O20.0 Threatened abortion (principal); Z3A.00 Weeks of gestation of pregnancy not specified
CPT/HCPCS: 36415; 84702

== ENCOUNTER → 2025-04-13 | Outpatient (CLI) | payer SELFPAY ==
--- OUTSIDE RECORDS SUMMARY | 2025-04-13 08:36 | XMS RPT_ITS | CCD ---
Author Organization [facility] ion [facility] Care Team Providers Care Social Insurance Adviser Name Role Phone Gordy Cotto Unavailable Unavailable [...] Unavailab le TOMGORDY DAVIS Unavailable Unavailable RACQUEL TOVAR Unavailable Unavailable GORDY COTTO Unavailable Unavailable KRISTEN BATRSE Unavailable Unava ilable VAIL, TEJINDER SUN Admitting Unavailabl e GORDY COTTO Primary Care Unavailable GORDY COTTO Primary Care Unavailable RACQUEL TOVAR Attending Unavailable GORDY COTTO Primary Care Unavailable KRISTEN BATRES Attending Unava ilable Dr. Jose Antonio Flower Primary Care Provider Dr. Jose Antonio Flower Referring Provider [phone] Dr. Rosy Wang Attending Provider [phone] Jose Antonio Flower Primary Care Provider [phone] Dr. Jose Antonio Flower Referring Provider Dr. Rosy Wang Attending Provider [phone] Arabella Chau Attending Provider DO Cheryl Thomas Primary Care Provider DO Cheryl Thomas Primary Care Provider DO Cheryl Thomas Referring Provider Liza DELICATESSEN STORE MANAGER, DELICATESSEN STORE MANAGER-C Rona Attending Provider Dr. Rsoy Wang Attending Provider BAILEY FENG Primary Care [...] No Primary Referring Provider Un available Carlos DELICATESSEN STORE MANAGER, DELICATESSEN STORE MANAGER-C Jennifer Attending Provider Care Physician, No Primary Primary Care Provider Unavailable Care Physician, No Primary Referring Provider Un available Dr. Josselyn Bianchi Attending Provider Carlos DELICATESSEN STORE MANAGER, DELICATESSEN STORE MANAGER-C Jennifer Attending Provider LILY Tellez Attending Provider LILY James Attending Provider Dr. Arabella Chau Attending Provider Dr. Arabella Chau Admit Provider Dr. Arabella Chau Other Provider Jose Antonio Flower MD Primary Care Provider JOSE ANTONIO FLOWER Primary Care Unavailable Dr. Bailey Lang DO Primary Care Provide r Dr. Bailey Lang DO Referring Provider Velasquez Galvin MD Attending Provider Dr. Duke Velazquez MD Attending Provider Care Physician, No Primary Primary Care Provider Unavailable Jacob HARTMANM, Indira Attending Provider Jacob HARTMANM, Indira Referring Provider Velasquez Galvin MD Referring Provider Care Physician, No Primary Referring Provider Un available Yony GRANADO-CKailey Attending Provider Stephanie Villar Attending Provider Unavailable Stephanie Villar Referring Provider Unavailable Dr. Jass Jenkins MD Other Provider Velasquez Galvin MD Other Provider Care Physician, No Primary Primary Care Unava ilable Care Physician, No Primary Referring Unava ilable Velasquez Galvin Attending Unavailable Care Physician, No Primary Primary Care Unava ilable Care Physician, No Primary Referring Unava ilable Josselyn Bianchi Attending Unavailabl e Care Physician, No Primary Primary Care Unava ilable Care Physician, No Primary Referring Unava ilable Velasquez Galvin Attending Unavailable Care Physician, No Primary Primary Care Unava ilable Care Physician, No Primary Referring Unava ilable Velasquez Galvin Attending Unavailable Bailey Lang Primary Care Unavailable Duke Velazquez Attending Unavailable Velasquez Galvin Attending Unavailable Bailey Lang Primary Care Unavailable Bailey Lang Referring Unavailable Care Physician, No Primary Primary Care Unava ilable Velasquez Galvin Attending Unavailable Velasquez Galvin Referring Unavailable Jass Jenkins Consulting Unavailable Velasquez Galvin Consulting Unavailable Care Physician, No Primary Primary Care Unava ilable Josselyn Bianchi Attending Unavailabl e Care Physician, No Primary Primary Care Unava ilable Stephanie Villar Referring Unavailable Stephanie Villar Attending Unavailable Bailey Lang Primary Care Unavailable Fortune DELICATESSEN STORE MANAGER, Kelli Referring Unavailable Fortune DELICATESSEN STORE MANAGER, Kelli Attending Unavailable Care Physician, No Primary Primary Care Unava ilable Velasquez Galvin Referring Unavailable Jass Jenkins Consulting Unavailable Velasquez Galvin Attending Unavailable Care Physician, No Primary Primary Care Unava ilable Velasquez Galvin Referring Unavailable Velasquez Galvin Attending Unavailable Carlos DELICATESSEN STORE MANAGER, Jennifer Referring Unavailable Carlos DELICATESSEN STORE MANAGER, Jennifer Attending Unavailable Bailey Lang Primary Care Unavailable Arabella Chau Referring Unavailable Arabella Chau Attending Unavailable Bailey Lang Primary Care Unavailable Indira James Referring Unavailable Indira James Attending Unavailable Care Physician, No Primary Primary Care Unava ilable Indira James Referring Unavailable Indira James Attending Unavailable Care Physician, No Primary Primary Care Unava ilable Care Physician, No Primary Primary Care Unava ilable Care Physician, No Primary Referring Unava ilable Kailey Bhakta Attending Unavailable Allergies Allergy Classification Reported Allergen(s) Allergy Type Date of Onset Reaction(s) Facility (20 sources) Codeine; Translations: [CODEINE] Drug Allergy 05-23-2018 GI Upset [facility] (1 source) Codeine Drug Allergy 04-11-2025 [facility] Repository Medications Current Medications Medication Drug Class(es) Dates Sig (Normalized) Sig (Original) acetaminophen 325 mg oral tablet (2 sources) Start: 12-07-2024 take 1 tablet by mouth once as needed Acetaminophen (Tylenol) 325 mg tablet Active 325 mg PO ONCE as needed December 07, 2024 12:00am amLODIPine 5 mg oral tablet (3 sources) [...] mouth every 6 hours as needed. Active Magnesium (3 sources) Start: 2024 take 1 tablet by mouth once daily Magnesium 250 mg tablet Active 250 mg PO DAILY November 26, 2024 12:00am Multivit 45-Aaow-Ygzvsh 1-Dha (Pnv-Dha) 27 mg iron-1 mg -300 mg capsule (20 sources) Start: 2019 take 1 capsule by mouth once daily Multivit 54-Uucs-Jichua 1-Dha (Pnv-Dha) 27 mg iron-1 mg -300 mg capsule Active CAP PO DAILY May 29, 2020 2:36pm Start: 05-29-2020 End: 02-26-2022 Multivit 04-Klpy-Bunjyj 1-Dh a (Pnv-Dha) 27 mg iron-1 mg -300 mg capsule Discontinued NMA PO DAILY May 29, 2020 1:00am February 26, 2022 11:07am Start: 05-29-2020 End: 02-26-2022 take 1 capsule by mouth once daily Multivit 48-Kebg-Locdmh 1-Dha (Pnv-Dha) 27 mg iron-1 mg -300 mg capsule Discontinued CAP PO DAILY May 29, 2020 12:00am February 26, 2022 10:07am Start: 05-29-2020 End: 02-26-2022 take 1 capsule by mouth once daily Multivit 42-Hoqu-Krjlno 1-Dha (Pnv-Dha) 27 mg iron-1 mg -300 mg capsule Discontinued CAP PO DAILY May 29, 2020 1:00am February 26, 2022 11:07am Start: 05-29-2020 take 1 capsule by mo [facility] once daily Multivit 52-Slou-Wbgeyq 1-Dha (Pnv-Dha) 27 mg iron-1 mg -300 mg capsule Active CAP PO DAILY May 29, 2020 1:00am multivitamin tablet (1 source) take 1 tablet by mouth once daily multivitamin tablet Take 1 tablet by mouth once daily. Active NORGESTIMATE-ETHINYL ESTRADIOL (ORTHO TRI-CYCLEN, 28, ORAL) (1 source) NORGESTIMATE-ETH INYL ESTRADIOL (ORTHO TRI-CYCLEN, 28, ORAL) Take by mouth. Active [place]-3 Fatty Acids (Fish Oil Concentrate) 1,000 mg capsule (20 sources) Start: 10-16-2020 take 1 capsule by mouth once daily [place]-3 Fatty Acids (Fish Oil Concentrate) 1,000 mg capsule Active 1000 MG PO DAILY October 16, 2020 11:26am Start: 10-16-2020 End: 02-26-2022 take 1 capsule by mouth once daily [place]-3 Fatty Acids (Fish Oil Concentrate) 1,000 mg capsule Discontinued 1000 mg PO DAILY October 16, 2020 12:00am February 26, 2022 11:07am Start: 10-16-2020 End: 02-26-2022 take 1 capsule by mouth once daily [place]-3 Fatty Acids (Fish Oil Concentrate) 1,000 mg capsule Discontinued 1000 MG PO DAILY October 15, 2020 11:00pm February 26, 2022 10:07am Start: 10-16-2020 End: 02-26-2022 take 1 capsule by mouth once daily [place]-3 Fatty Acids (Fish Oil Concentrate) 1,000 mg capsule Discontinued 1000 MG PO DAILY October 16, 2020 12:00am February 26, 2022 11:07am Start: 10-16-2020 take 1 capsule by [facility] once daily [place]-3 Fatty Acids (Fish Oil Concentrate) 1,000 mg [...] pain. 12 tablet 0 05/04/2017 Active Pnv #14-Iron-Fa#2-Kro-Ryuuyrm e (6 sources) Start: 01-26-2023 take 1 capsule by mouth once daily Pnv #14-Iron-Fa#5-Rzt-Qfpzrs te Active 1 CAP PO DAILY January 25, 2023 11:00pm Start: 01-26-2023 take 1 capsule by [facility] once daily Pnv #14-Iron-Fa#0-Fst-Iullxlyi Active 1 CAP PO DAILY January 26, 2023 12:00am Pnv #14-Iron-Fa#5-Zdq-Rymbsq te 27 mg iron-1 mg -300 mg-50 mg capsule (7 sources) Start: 01-26-2023 Pnv #14-Iron-Fa#3-Pqd-Puabxy te 27 mg iron-1 mg -300 mg-50 mg capsule Active 1 NMA PO DAILY January 26, 2023 12:00am Start: 01-26-2023 Pnv #14-Iron-F a#0-Zfz-Jshjsjlh 27 mg iron-1 mg -300 mg-50 mg capsule Active 1 NMA PO DAILY January 26, 2023 12:00am sucralfate 1000 mg oral tablet (1 source) Aluminum Complex Start: 01-27-2019 take 1 tablet by mouth at bedtime sucralfate (CARAFATE) 1 gram tablet Take 1 tablet by mouth before meals and at bedtime. 120 tablet 2 01/27/2019 Active triamcinolone acetonide 0.25 mg/ml topical cream (1 source) Corticosteroid Start: 12-25-2019 triamcinolone (KENALOG) 0.025 % cream Indications: Skin inflammation Apply 1 application to affected area twice daily. 30 g 1 12/25/2019 Active Completed/Discontinued Medications Medication Drug Class(es) Dates Sig (Normalized) Sig (Original) acetaminophen 325 mg / oxyCODONE hydrochloride 5 mg oral tablet (3 sources) Opioid Agonist Start: 12-05-2024 End: 12-07-2024 Oxycodone-Acetaminop hen (Percocet) 5-325 mg tablet Discontinued 1 {tbl} PO Q8H as needed for pain 10 2 0 December 05, 2024 December 07, 2024 9:12am Loose body of right knee Right knee pain Loose body in knee, right knee Pain in right knee busPIRone hydrochloride 5 mg oral tablet (20 sources) Start: 02-01-2022 End: 01-26-2023 take 1 tablet by mouth twice daily Buspirone 5 mg tablet Discontinued 5 mg PO TWICE A DAY 60 12 February 26, 2022 11:12am January 26, 2023 [...] Cholecalciferol (Vitamin D3) 14,000 unit capsule Discontinued 21208 U PO EVERY WEEK April 10, 2019 12:00am April 13, 2019 9:24am esomeprazole 40 mg delayed release oral capsule (20 sources) Proton Pump Inhibitor Start: 04-10-2019 End: 04-13-2019 take 1 capsule by mouth once daily Esomeprazole Magnesium 40 mg capsule,delayed release(DR/EC) Discontinued 40 mg PO DAILY April 10, 2019 12:00am April 13, 2019 9:24am ferrous gluconate 240 mg oral tablet (7 sources) Start: 09-06-2024 End: 10-18-2024 take 1 tablet by mouth once daily Ferrous Gluconate (Ferate) 240 mg (27 mg iron) tablet Discontinued 240 mg PO daily September 06, 2024 12:00am October 18, 2024 1:31pm Iron (20 sources) Start: 10-16-2020 End: 02-25-2021 take 18 [...] 9:57am magnesium oxide 500 mg oral capsule (7 sources) Start: 10-25-2023 End: 10-18-2024 take 1 capsule by mouth once daily Magnesium Oxide 500 mg capsule Discontinued 500 mg PO DAILY October 25, 2023 12:00am October 18, 2024 1:31pm Multivitamin,Tx-Iron-M inerals (Complete Multivitamin) tablet (20 sources) Start: 04-10-2019 End: 04-13-2019 take 1 tablet by mouth once daily Multivitamin,Tx-Iron-Min erals (Complete Multivitamin) tablet Discontinued 1 TABLET PO DAILY April 10, 2019 9:29am April 13, 2019 9:24am Start: 04-10-2019 End: 04-13-2019 Multivitamin,Ho-Mtyb-Xxenwcl s (Complete Multivitamin) tablet Discontinued 1 {tbl} PO DAILY April 10, 2019 12:00am April 13, 2019 9:24am Start: 04-10-2019 End: 04-13-2019 take 1 tablet by mouth once daily Multivitamin,Xy-Qwqz-Iiwnvnqb (Complete Multivitamin) tablet Discontinued 1 TABLET PO DAILY April 09, 2019 11:00pm April 13, 2019 8:24am Start: 04-10-2019 End: 04-13-2019 take 1 tablet by mouth once daily Multivitamin,Pf-Wwiu-Crabfqtn (Complete Multivitamin) tablet Discontinued 1 TABLET PO DAILY April 10, 2019 12:00am April 13, 2019 9:24am naproxen 250 mg oral tablet (20 sources) Nonsteroidal Anti-inflammatory Drug Start: 01-04-2021 End: 02-25-2021 take 250-500 mg by mouth every eight hours as needed for pain Naproxen 250 MG tablet Discontinued 250 - 500 mg PO EVERY 8 HOURS NEEDED as needed for MILD PAIN 30 January 04, 2021 12:00am February 25, 2021 9:57am [place]-3 Fatty Acids 1,000 mg capsule (7 sources) Start: 10-25-2023 End: 10-18-2024 take 1 capsule by mouth once daily [place]-3 Fatty Acids 1,000 mg capsule Discontinued 1000 mg PO DAILY October 25, 2023 12:00am October 18, 2024 1:31pm Start: 10-25-2023 take 1 capsule by mouth once d aily [place]-3 Fatty Acids 1,000 mg capsule Active 1000 mg PO DAILY October 25, 2023 12:00am promethazine hydrochloride 25 mg oral tablet (12 sources) Phenothiazine Start: 02-01-2023 End: 03-14-2023 take 1 tablet by mouth every six hours as needed for nausea and vomiting Promethazine 25 mg tablet Discontinued 25 mg PO EVERY 6 HOURS as needed for nausea and vomiting 90 0 February 01, 2023 12:00am March 14, 2023 9:00am First trimester Nausea and vomiting during Encounter for supervision of normal , unspecified, first trimester Vomiting of , unspecified Problems Active Problems Problem Classification Problem Date Documented Da te Episodic/Chronic Administrative/social admission (11 sources) Encounter for administrative examinations, unspecified; Translations: [Occupational exposure to other risk factors] Onset: 04-17-2017 09-21-2024 Episodic Anxiety disorders (20 sources) Anxiety; Translations: [Anxiety disorder, unspecified] Chronic Comment on above: buspar/stable Genitourinary symptoms and ill-defined conditions (20 sources) Unspecified symptoms and signs involving the genitourinary system; Translations: [Dysuria] Onset: 12-15-2016 05-29-2020 Episodic Hemorrhage during ; abruptio placenta; placenta previa (2 sources) Threatened ; Translations: [Threatened ] Onset: 04-11-2025 Episodic Joint disorders and dislocations; trauma-related (19 sources) Loose body in knee; Translations: [Loose body in knee, right knee] Onset: 01-21-2025 09-06-2024 Chronic Lymphadenitis (4 sources) Axillary lymphadenopathy; [...] of ; puerperium affecting management of mother (20 sources) hemorrhage; Translations: [Other immediate hemorrhage] 02-25-2021 Episodic Comment on above: Secondary to retaine d membranes, given Methergine Hemabate, Cytotec, bedside curettage performed and tranexamic acid given. 1000 cc EBL Other complications of (20 sources) Anemia of ; Translations: [Anemia complicating , unspecified trimester] 01-04-2021 Chronic Comment on above: iron added Other complications of (1 source) Anemia complicating , unspecified trimester; Translations: [Anemia of mother, unspecified as to episode of care or not applicable] 09-17-2023 Chronic Other complications of (20 sources) Rubella non-immune; Translations: [Supervision of other high risk pregnancies, unspecified trimester] 01-04-2021 Episodic Comment on above: MMR PP Other complications of (5 sources) Nausea and vomiting; Translations: [Vomiting of , unspecified] 02-14-2023 Episodic Other complications of (18 sources) Vomiting of , unspecified; Translations: [Unspecified vomiting of , unspecified as to episode of care or not applicable] 02-14-2023 Episodic Comment on above: phenergan Other complications of (10 sources) History of hemorrhage; Translations: [Supervision of with other poor reproductive or obstetric history, unspecified trimester] 07-05-2023 Episodic Comment on above: secondary to retaine d membranes. methergine, cytotec, bedside curetage. TXA. 1000cc EBL Other complications of (15 sources) Supervision of with other poor reproductive or obstetric history, unspecified trimester; Translations: [ with other poor obstetric history] 07-05-2023 Episodic Other complications of (9 sources) Group B Streptococcus carrier; Translations: [Streptococcus B carrier state complicating ] 09-05-2023 Episodic Comment on above: PCN in labor Other complications of (4 sources) Streptococcus B carrier state complicating ; Translations: [Supervision of other high-risk ] 09-08-2023 Episodic Other connective tissue disease (5 sources) Synovial plica of knee; Translations: [Plica syndrome, right knee] 12-07-2024 Episodic Other connective tissue disease (1 source) Synovial plica syndrome of right knee Episodic Other lower respiratory disease (15 sources) Rib pain; Translations: [Pleurodynia] 12-16-2022 Episodic Other non-traumatic joint disorders (1 source) Pain of right wrist; Translations: [Pain in right wrist] 03-30-2020 Episodic Other non-traumatic joint disorders (20 sources) Pain in right knee; Translations: [Right knee pain] Onset: 01-21-2025 09-06-2024 Episodic Other non-traumatic joint disorders (1 source) Knee pain Episodic Other and delivery including normal (20 sources) Vaginal delivery; Translations: [Encounter for full-term uncomplicated delivery] 02-25-2021 Episodic Comment on above: Active labor 39 SM S VD girl PPH SM girl 39 IAL PRR ARAVIND: Spouse: Chris [id number] ARAVIND 09/21/23 g irl PC: [place], Spouse, Chris NIPT low risk, vannesa l anatomy scan. 92% for growth- recommend growth scan at 36 weeks Other upper respiratory disease (16 sources) Allergic rhinitis; Translations: [Allergic rhinitis, unspecified] 11-20-2022 Chronic Other upper respiratory disease (5 sources) Allergic rhinitis, unspecified; Translations: [Allergic rhinitis, cause unspecified] 11-20-2022 Chronic Other upper respiratory infections (5 sources) Upper respiratory infection; Translations: [Acute upper respiratory infection, unspecified] 03-14-2023 Episodic Residual codes; unclassified (20 sources) History of vaccination; Translations: [Personal history of other drug therapy] 01-04-2021 Episodic Comment on above: 10/16/20 Spondylosis; intervertebral disc disorders; other back problems (20 sources) Backache; Translations: [Dorsalgia, unspecified] 06-30-2020 Episodic Sprains and strains (13 sources) Lower back injury; Translations: [Strain of muscle, fascia and tendon of lower back, initial encounter] 01-26-2023 Episodic Unclassified (15 sources) Normal labor; Translations: [Active labor at term] 01-04-2021 Unclassified (2 sources) M67.51 - Plica syndrome, right knee,M23.41 - Loose body in knee, right knee,M25.561 - Pain in right knee Unclassified (1 source) Loose body of right knee Unclassified (1 source) Encounter for immunization safety [...] Onset: 05-02-2014 Resolved: 10-02-2014 10-02-2014 Episodic Other connective tissue disease (1 source) Plica syndrome, right knee; Translations: [Plica syndrome, right knee] Onset: 12-07-2024 Episodic Unclassified (1 source) Employee exposure to blood Unclassified (20 sources) equivocal rubella 06-30-2020 Comment on above: MMR @ PP Urinary tract infections (4 sources) Urinary tract infectious disease; Translations: [Acute hemorrhagic cystitis] Onset: 12-15-2016 Episodic Results Test Name Value Interpretation Reference Range Facility Dairy Nutrition Specialist Office Visit Reporton 04-11-2025 Dairy Nutrition Specialist Office Visit Report [facility] [address], [address] [place] [address] OFFICE VISIT Date of Service: 04/11/25 MR#: [id number] Acct: [id number] Name: YAKOV FIORE Rep #: [id number] : 1995 Provider: Dr. Josselyn Rodriguez DO Age/Sex: 30/F [place] [facility] [place] Signed Intake Vital Signs 12/20/24 09:23 04/11/25 09:33 04/11/25 09:35 Height 5 ft 9 in 5 ft 9 in 5 ft 9 in Weight: 175 lb 179 lb 4 oz BMI 25.8 26.4 BP 127/89 H Intake Visit Reasons: 6w3d bleeding Product Management Intern Required: No Is patient in pain?: No Allergies codeine Adverse Reaction (Verified 04/11/25 09:33) Nausea/Vom/Diarrhea Medications ???Medication ???Instructions ???Recorded ???Confirmed ???Type PNV 14-iron naa-GP1-atb-docusat e 1 cap PO DAILY 01/26/23 04/11/25 History 27 mg iron-1 mg-300 mg-50 mg capsule magnesium 250 mg tablet 250 mg PO DAILY 11/26/24 04/11/25 History cholecalciferol (vitamin D3) 50 50 mcg PO QDAY 04/11/25 04/11/25 H istory mcg (2,000 unit) capsule ferrous sulfate 325 mg (65 mg 325 mg PO QDAY 04/11/25 04/11/25 H istory iron) tablet omega-3 fatty acids 1,000 mg 1,000 mg PO QDAY 04/11/25 04/11/25 History capsule Is last menstrual period known: Yes Last Menstrual Period: 02/25/25 Post menopausal: No Patient : Yes : No PFSH Medical History Synovial plica of right knee Wears glasses Depression Non-smoker Loose body of right knee Right knee pain Vaginal delivery Vaginal delivery hemorrhage History of tetanus, diphtheria, and acellular pertussis booster vaccination (Tdap) Psoriasis Chronic back pain Bruises easily Diarrhea Bilateral headaches Environmental allergies Surgical History History of lump of right breast History of cosmetic plastic surgery Family History Grandmother Uterine cancer Mother Breast cancer Other CVA (cerebral vascular accident) Cancer Heart disease Hypertension Myocardial infarction Thyroid disorder Social History adopted: No household members: spouse housing: house number of children: 2 current occupational status: employed 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 She believes she is about 6 - 7 weeks since her last period. SHe started bleeding with clots today at work but does not have pain or cramping. Female Reproductive History Last Menstrual Period: 02/25/25 History 3 Elective abortions Hx Para 2 Spontaneous abortions Hx # Term Pregnancies 2 Ectopic pregnancies Hx # Pregnancies Multiple births # of living children 2 Past Pregnancies Del. Date Name GA/Weeks Outcome Route Bth Weight Infant Gen Labor Lgth Anesthesia Del Locatn Provider FOB 01/06/21 Yumiko 39 live - full term Female [employer] Brigid west 09/16/23 Alina 39 live - full term 8lbs 14oz Female [employer] Perry irizarry Chris Delivery Date: 09/16/23 Last Updated by: Giovana AYON ROS Const ROS Unobtainable: All systems reviewed are unremarkable except as noted in H Resp Resp: Reports system reviewed and no additional complaints, except as documented; Denies cough GI GI: Reports as per HPI Psych Psych: Reports system reviewed and no additional complaints, except as documented Exam Const General: cooperative, healthy appearing, comfortable and no acute distress Resp Effort Inspection: normal respiratory effort Other: cx is closed on exam. There is moderate dark red blood in vagina and coming from the cervix. Ultrasound shows a thickened double layer endometrium measuring 1.16 cm with a tiny possible gest ational sac that is unmeasurable. Skin General: no rashes or lesions noted Psych Appearance: grossly normal Speech and Movement: speech and movement normal Coding Level of Care Code Off vis,est,level 4 Diagnoses Threatened O20.0 Assessment and Plan Assessment and Plan (1) Threatened : Status: Acute Plan: plan to order 2 quants. if they go down then will follow to zero. (more content not included)... Normal [facility] hCG Titer Quant., Serumon HCG QUANT. 748 mIU/mL High <9 non-preg [facility] Comment on above: Result Comment: Gest ational Age 0.2-1 Week: 5-50 mIU/mL 1-2 Weeks: 50-500 mIU/mL 2-3 Weeks: 100-5000 mIU/mL 3-4 Weeks: 500-10,000 mIU/mL 4-5 Weeks:1000-50,000 mIU/mL 5-6 Weeks: 10,000-100,000 mIU/mL 6-8 Weeks: 15,000-200,000 mIU/mL 2-3 Months:10,000-100,000 mIU/mL Performed By: #### L 700.8000 #### [facility] [address] [place], [place], [address] Orthopedic Visit Reporton Orthopedic Visit Report [facility] [address] [place] [address] [address] [place] [address] OFFICE VISIT Date of Service: 12/20/24 MR#: [id number] Acct: [id number] Name: YAKOV FIORE Rep #: [id number] : 1995 Provider: Dr. Velasquez cardenas MD Age/Sex: 29/F Location: [facility] [place].SAM[facility] Status: Signed Intake Vital Signs 11/14/24 09:05 12/05/24 06:19 12/20/24 09:23 Height 5 ft 9 in 5 ft 9 in 5 ft 9 in Weight: 175 lb BMI 25.8 Intake Visit Reasons: RIGHT KNEE Chief Complaint: 2 week post op Accompanied by: Daughter Is patient in pain?: No Allergies codeine Adverse Reaction (Verified 12/20/24 09:25) Nausea/Vom/Diarrhea Medications ???Medication ???Instructions ???Recorded ???Confirmed ???Type PNV#14-iron fum-FA#3-but-faccnc te 1 cap PO DAILY 01/26/23 12/20/24 History 27 mg iron-1 mg-300 mg-50 mg capsule magnesium 250 mg tablet 250 mg PO DAILY 11/26/24 12/20/24 History acetaminophen 325 mg tablet 325 mg PO ONCE PRN 12/07/24 History (Tylenol) Have you fallen in the past year?: No [facility] Medical History Synovial plica of right knee Wears glasses Depression Non-smoker Loose body of right knee Right knee pain Vaginal delivery Vaginal delivery hemorrhage History of tetanus, diphtheria, and acellular pertussis booster vaccination (Tdap) Psoriasis Chronic back pain Bruises easily Diarrhea Bilateral headaches Environmental allergies Surgical History History of lump of right breast History of cosmetic plastic surgery Family History Grandmother Uterine cancer Mother Breast cancer Other CVA (cerebral vascular accident) Cancer Heart disease Hypertension Myocardial infarction Thyroid disorder Social History adopted: No household members: spouse housing: house number of children: 2 current occupational status: employed 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 Velasquez Galvin MD 12/20/24 0923. Part of today???s visit was documented by [ ], acting as scribe. YAKOV FIORE is a 29 year old F here today for 2 weeks FU R knee arthroscopy, removal loose body, debridement plica. Doing well very rare pain in the knee the swelling is coming down the bruising is getting better. Ortho Exam General General: Yes no acute distress Neurologic: Yes alert and Yes oriented x3 Psychologic: Yes reasonable and appropriate Right Knee Skin/Wound: Yes CDI, Yes healed, No erythema, Yes ecchymosis (slight) and No swelling Knee ROM: Yes ROM-Flexion 0-140 KNEE: NVI, normal gait no crutches no swelling full range of motion Coding Level of Care Code Global Post Op Diagnoses Synovial plica of right knee M67.51 Loose body of right knee M23.41 Assessment and Plan Assessment and Plan (1) Synovial plica of right knee: Status: Acute Plan: YAKOV FIORE is a 29 year old F here today for 2 weeks FU R knee arthroscopy, removal loose body, debridement plica. Patient doing well had some mild bruising and pain due to the plica debridement. The patient is doing very well for being in 2 weeks postoperatively walking without ambulatory aids with good swelling no pain or problems therefore we will follow-up as needed. (2) Loose body of right knee: Status: Acute Plan Details Goals Barriers: Goals Decrease pain Improve ROM Decrease spasm Barriers Carrying young child Clinical Quality Measures Falls Risk Screening/Assistive Devices Have you fallen in the past year?: No 12/20/24 0933 Date Velasquez Galvin MD [facility] Signature: Date (if applicable) CC: Normal [facility] Orthopedic Visit Reporton Orthopedic Visit Report [facility] [address] [place] [address] OFFICE VISIT Date of Service: 12/07/24 MR#: [id number] Acct: [id number] Name: YAKOV FIORE Rep #: [id number] : 1995 Provider: Dr. Velasquez cardenas MD Age/Sex: 29/F Location: [facility] Status: Signed Intake Vital Signs 11/14/24 09:05 12/05/24 06:19 Height 5 ft 9 in 5 ft 9 in Intake Visit Reasons: RIGHT KNEE Chief Complaint: 2 day post-op Accompanied by: Self Is patient in pain?: No Allergies codeine Adverse Reaction (Verified 12/07/24 09:12) Nausea/Vom/Diarrhea Medications ???Medication ???Instructions ???Recorded ???Confirmed ???Type PNV#14-iron fum-FA#5-jnw-xjyokg te 1 cap PO DAILY 01/26/23 12/07/24 History 27 mg iron-1 mg-300 mg-50 mg capsule magnesium 250 mg tablet 250 mg PO DAILY 11/26/24 12/07/24 History acetaminophen 325 mg tablet 325 mg PO ONCE PRN 12/07/24 History (Tylenol) PFSH Medical History Synovial plica of right knee Wears glasses Depression Non-smoker Loose body of right knee Right knee pain Vaginal delivery Vaginal delivery hemorrhage History of tetanus, diphtheria, and acellular pertussis booster vaccination (Tdap) Psoriasis Chronic back pain Bruises easily Diarrhea Bilateral headaches Environmental allergies Surgical History History of lump of right breast History of cosmetic plastic surgery Family History Grandmother Uterine cancer Mother Breast cancer Other CVA (cerebral vascular accident) Cancer Heart disease Hypertension Myocardial infarction Thyroid disorder Social History adopted: No household members: spouse housing: house number of children: 2 current occupational status: employed 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 Velasquez Galvin MD 12/07/24 0825. Part of today???s visit was documented by [ ], acting as scribe. YAKOV FIORE is a 29 year old F here today for POD 2 R knee arthroscopy, removal loose body, debridement plica. Patient walking ambulatory weightbearing as tolerated range of motion as tolerated did not use the crutches is feeling quite well today. No pain actually feels better than it did preoperatively already. Coding Level of Care Code Global Post Op Diagnoses Loose body of right knee M23.41 Right knee pain M25.561 Synovial plica of right knee M67.51 Assessment and Plan Assessment and Plan (1) Loose body of right knee: Status: Acute Plan: YAKOV FIORE is a 29 year old F here today for POD 2 R knee arthroscopy, removal loose body, debridement plica. Doing very well considering this is just 2 days postoperatively. Well. WBAT. Cont with dressing changes, keep incision clean, dry. ROM as tolerated. FU 2 weeks. PT PRN. (2) Right knee pain: Status: Acute (3) Synovial plica of right knee: Status: Acute Orders: Referrals PT Referral M23.41 - Loose body in knee, right knee, M25.561 - Pain in right knee, M67.51 - Plica syndrome, right knee Plan Details Goals Barriers: Goals Decrease pain Improve ROM Decrease spasm Barriers Carrying young child Ortho Exam General General: Yes no acute distress Neurologic: Yes alert and Yes oriented x3 Psychologic: Yes reasonable and appropriate Right Knee Skin/Wound: Yes CDI, Yes healing, No erythema, No ecchymosis and No swelling Knee ROM: Yes ROM-Flexion 0-140 KNEE: NVI, normal gait no crutches no swelling full range of motion the Steri-Strips are in place. 12/07/24 0921 Date Velasquez Galvin MD Cosigner Signature: Date (if applicable) CC: Normal [facility] Discharge Instructionon 11-18 Discharge Instruction [facility] Medical Records Department [address] [place] [address] Instructions for Home/Discharge Instructions 12/05/24811 MR#: [id number] Acct: [id number] Name: YAKOV FIORE Rep #: [id number] : 1995 29 From: Velasquez Galvin MD PCP: Care Physician,No Primary Status:[facility] Discharge Instructions Diet Discharge Diet: No restrictions Activity Discharge Activity: Return to Normal Activity Weight Bearing Status: Weight bearing as tolerated Lifting Restrictions: crutches as needed, ROM as tolerated. Keep extremity elevated above heart level: Operative Extremity Dressing / Incision Call your doctor if your incision/area has: Continuous Slow Oozing, Sudden Increased Bleeding, Increased Pain/ Swelling, Increased Redness, Foul Smelling Discharge and Swelling at the incision site Call your doctor if you observe: Fever of 101 or Higher, Coldness, Increased Pain and Numbness or Tingling Change Dressing in: 1 day Cleanse incision/area with: Do not get Incision Wet Follow Up Care Please Follow Up With: Velasquez Galvin MD When: 2 days or within 2 weeks, per your preference Test Results: Test results from this visit will be discussed in further detail at your follow-up appointment, if applicable. Discharge Plan Admission Attending Provider: Velasquez Galvin Primary Care Provider: Care Physician,No Primary Consulting Providers: Jass Jenkins Instructions Patient Instructions: After Knee Arthroscopy Print Language: Chadian Discharge Orders/Prescription s Prescriptions: New oxycodone-acetamino phen [Percocet] 5-325 mg tablet 1 tab PO Q8H MDD 6 PRN (Reason: pain) 2 Days Qty: 10 0RF No Action PNV #14-iron-FA#1-dha-d ocusate 27 mg iron-1 mg -300 mg-50 mg capsule 1 cap PO DAILY magnesium 250 mg tablet 250 mg PO DAILY Other Ambulatory Orders: ,Urine (Routine) Timeframe: [id number] Facility: [facility] - Location: Laboratory Ordered By: Dr. Jass Jenkins Referrals / Follow Up: Care Physician,No Primary [Primary Care Provider] - Disposition Disposition (needs filled in before D/C Order can be placed): Home, Self Care 12/05/24813 Velasquez Galvin MD CC: Dr. Jass Jenkins MD; No Primary Care Physician Signed [facility] MR/POSTOP.ANEon 12-05-2024 MR/POSTOP.[facility] Medical Records Department [address] [facility] [place] [address] Anesthesia Postop Eval I 12/05/24929 MR#: [id number] Acct: [id number] Name: YAKOV FIORE Rep #: [id number] : 1995 29 From: Jorge Chaney CRNA PCP: Care Physician,No Primary Status:[facility] Y Race: C Location: [place] [address] Anesthesia: Postop Eval I Current Vital Signs Temperature: 97.2 F Pulse Rate: 95 Blood Pressure: 98/61 Respiratory Rate: 14 Pulse Ox: 94 Assessment Airway patent: Yes Spontaneous unlabored respirations: Yes nausea: No Vomiting: No Anesthesia Complication: No Fluid Hydration Crystalloid volume administer (ml): 700 Total IV fluid infused: 700 Progress Note Anesthesia document: Postop Eval 1 completed: Yes 12/05/24929 Date Jorge Chaney [employer] [employer] Cosigner Signature: Date CC: Signed [facility] MR/OBJKLIPT1cs 12-05-2024 MR/POSTOPAN2 [facility] Medical Records Department [address] [place] [address] Anesthesia Postop Eval II 12/05/24 1630 MR#: [id number] Acct: [id number] Name: YAKOV FIORE Rep #: [id number] : 1995 29 From: Jazzmine Weber CRNA PCP: Care Physician,No Primary Status:[facility] Y Race: C Location: [facility] Anesthesia Postop Eval I Sum Postop Eval Completion status Anesthesia document: Postop Eval 1 completed: Yes Anesthesia Postop Eval I Summary Anesthesia Postop Eval I Summary: Anesthesia Postop Eval I: Assessment Summary Airway patent Yes 12/05/24 09:30 [facility].TNES Spontaneous unlabored Yes 12/05/24 09:30 [facility].TNES respirations Mental status nausea No 12/05/24 09:30 [facility].TNES Vomiting No 12/05/24 09:30 [facility].TNES Anesthesia Postop Eval I: Fluid Summary Crystalloid volume administer 700 12/05/24 09:30 [facility].TNES (ml) Colloids volume administered ( ml) Blood Product volume administered (ml) Total IV fluid infused 700 12/05/24 09:30 [facility].TNES Anesthesia Postop Eval I: Summary Notes Anesthesia Complication No 12/05/24 09:30 [facility].TNES Anesthesia Complication Comment: Post-operative progress note Anesthesia: Postop Eval II Evaluation Mental status: Awake and Calm Pain Level: 0 nausea: No Vomiting: No Complications Anesthesia Complication: No 12/05/24 1630 Date aJzzmine Weber [employer] Cosigner Signature: Date CC: Signed Normal [facility] Operative Reporton Operative Report [facility] Medical Records Department [address] [place] [address] Operative Report 12/05/24 0805 MR#: [id number] Acct: [id number] Name: YAKOV FIORE BAILEY Rep #: [id number] : 1995 29 From: Velasquez Galvin MD PCP: Care Physician,No Primary Status:[facility] Location: [place] [address] Problems Associated Problem List Diagnoses (1) Loose body of right knee: (2) Right knee pain: Procedures Musculoskeletal 20xxx-29xxx: Other Procedure See Report Operative Report (Standard) Operative Information Date of Procedure: 12/05/24 Pre-Operative Diagnosis: R knee loose body, plica Post-Operative Diagnosis: same Surgery/Procedure Performed: R knee arthroscopy, removal loose body, debridement plica data acquisition technician: Yes Research Associate Quality Control Qc: lindsay Tasks completed by anesthesiology physician assistant: Retracting Additional case management assistant?: No Type of Anesthesia: General and Local RN Documented Start/Stop Times: Operation Date: 12/05/24 07:30 Case Time Into Pre-Op 12/05/24 06:02 Out of Pre-Op 12/05/24 07:23 Anesthesia Start 12/05/24 07:26 Into Room 12/05/24 07:26 Procedure Start 12/05/24 07:49 Procedure End 12/05/24 08:04 Procedure Start Time: 07:49 Procedure Stop Time: 08:04 Select all DRAINS/GRAFTS/IMPLA NTS that apply: None Estimated Blood Loss: 10 Specimen collected: No Description of surgery: Patient brought to the operating room theater. Placed supine on the table. General anesthesia induced. All bony prominences padded. CD on the nonoperative leg. Tourniquet applied to the right thigh appropriately padded. Stress positioner to the patient's right leg. Lower extremity prepped and draped in the usual sterile fashion with chlorhexidine-based prep solution allowing over 3 minutes drying time prior to draping. Preoperative timeout performed to confirm the site patient and the surgery. 2 g IV Ancef administered prior to the start of the case. Began by elevating the limb inflated the tourniquet to 250 mmHg. Use standard anterolateral and anteromedial arthroscopy portals. Did a full diagnostic arthroscopy. The loose body was identified and removed. This was a small bony fragmented piece of cartilage about 1cm large. I removed that to the anteromedial portal. There is a medial plica and some scar tissue there that I gently debrided down to smooth contours. I remove the ligamentum mucosum debrided that. I identified the ACL and PCL probed those those appear normal. Cartilage on the undersurface of the patella was slightly fibrillated and a small area about 1 cm in the central aspect I gently debrided to smooth margins Cartilage in the trochlea appeared normal. There is a presumed donor site from the medial aspect of the femoral trochlea, small 5mm, with stable margins, did a gentle debridement there as well. I then entered the medial and lateral compartments did a gentle debriding of the prepatellar fat pad for visualization. Cartilage on the medial and lateral sides were normal although there was 1 small area of grade 2 fissuring of the cartilage on the lateral tibial plateau, stable, left alone. Meniscus was normal on both sides stable to probing. Arthroscopy pictures taken on to the system and saved throughout the case. Case terminated tourniquet let down hemostasis achieved. The portals closed with 3-0 Monocryl sutures 10 cc of quarter percent bupivacaine instilled in and around the portal sites. Skin cleaned with wet and dry dressing followed application of Steri-Strips Adaptic 4 x 4 gauze ABD dressing loosely wrapped Laura bandage. Patient woken up from the general anesthetic transferred off the operating table taken to postanesthetic care unit in stable condition. All sponge needle instrument counts were correct no complications Plan for the patient weightbearing and range of motion as tolerated rest ice and elevate and discharged home according to day surgery criteria follow-up in 2 days. CPT 38993, 22544 Surgical Findings: as above Complications Complications: No Admit VTE Documentation VTE Present on Admission: No VTE Mechan Device Prophylaxis: SCD's VTE Pharm Prophylaxis ordered?: No Reason prophylaxis not ordered: Treatment Not Indicated 12/05/24 0811 Cosigner Signature (if applicable): CC: Dr. Jass Jenkins MD; Dr. Velasquez Galvin MD; No Primary Care Physician Signed Normal [facility] ,Urineon 12-05-2024 Beta HCG ( test) Ql (U) Negative Normal [facility] Comment on above: Result Comment: Very dilute urine specimens, as indicated by a low specific gravity, may not contain packaging sales representative levels of hCG. If is still suspected, a first morning urine specimen should be collected 48 hours later and tested. Performed By: #### L 400.7600 #### [facility] [address] [place], [place], [address] Urine testOrdered By: Francisco Cortez on 12-05-2024 HCG ( test) Ql (U) Negative [facility] Comment on above: Very dilute urine sp ecimens, as indicated by a low specificgravity, may not contain packaging sales representative levels of hCG. If is still suspected, a first morning urinespecimen should be collected 48 hours later and tested. Hepatitis B Surface Antibody on 12-01-2024 HEP B Surf Ab REAC Normal [facility] Comment on above: Result Comment: <8.5 mIU/mL: Non-Reactive 8.5<= x <11.5 mIU/mL: Indeterminate >=11.5 mIU/mL: Reactive Non Reactive: Inconsistent with immunity less than <10 mIU/mL Reactive: Consistent with immunity greater than or equal to 10 mIU/mL Performed By: #### L 3890.6202 #### [facility] [place], [place], [id number] Serum hepatitis B virus surf laura antibody detectionOrdered By: Stephanie Villar on 12-01-2024 HBV surface Ab Ql (S) REAC [facility] Comment on above: <8.5 mIU/mL: Non-Napoleon ctive8.5<= x <11.5 mIU/mL: Indeterminate>=11.5 mIU/mL: Reactive Non Reactive: Inconsistent with immunity less than <10 mIU/mL Reactive: Consistent with immunity greater than or equal to 10 mIU/mL Dairy Nutrition Specialist Office Visit Reporton 11-14-2024 Dairy Nutrition Specialist Office Visit Report [facility] [address], [address] [place] [address] OFFICE VISIT Date of Service: 11/14/24 MR#: [id number] Acct: [id number] Name: SHELLEYRILEYYAKOV BAILEY Rep #: [id number] : 1995 Provider: LUCA Hackett Age/Sex: 29/F [place] [facility] Status: Signed Intake Vital Signs 09/06/24 08:52 11/14/24 09:04 11/14/24 09:05 Height 5 ft 9 in 5 ft 9 in 5 ft 9 in Weight: 177 lb BMI 26.1 BP 123/77 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 Normal [facility] Orthopedic Visit Reporton Orthopedic Visit Report [facility] [address] [place] [address] OFFICE VISIT Date of Service: 10/01/24 MR#: [id number] Acct: [id number] Name: YAKOV FIORE Rep #: [id number] : 1995 Provider: Dr. Velasquez cardenas MD Age/Sex: 29/F Location: [facility] Status: Signed Intake Vital Signs 09/06/24 08:52 Height 5 ft 9 in Intake Visit Reasons: RIGHT KNEE Chief Complaint: MRI review Accompanied by: Self Is patient in pain?: No Allergies codeine Adverse Reaction (Verified 10/01/24 09:13) Nausea/Vom/Diarrhea Medications ???Medication ???Instructions ???Recorded ???Confirmed ???Type PNV#14-iron fum-FA#0-lzn-ubomex te 1 cap PO DAILY 01/26/23 10/01/24 [...] 09/06/24 10/01/24 H istory iron) tablet (Ferate) [facility] Medical History Loose body of right knee [...] current occupational status: employed 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 Velasquez Galvin MD 10/01/24 0804. Part of today???s visit was documented by [ ], acting as scribe. YAKOV FIORE is a 29 year old F here today for follow-up right knee MRI. Supplemental Info [facility] Imaging Services [address] [facility] [place], [place] [address] Lower Ext Joint Only (Routine) MR#: [id number] Acct: [id number] Name: YAKOV FIORE Rep #: [id number] : 1995 F 29 From: Austin Campos DO PCP: Care Physician,No Primary Status: REG CLI Study: Lower Ext Joint Only (Routine) Date of Exam: 09/26/24 Exam# [id number] Ordering Dr: Velasquez Galvin MD EXAM: Noncontrast [...] of the coronal T2 fat saturated sequence. Wywh-yi-pndmrcdn articular cartilage thinning/irregulari ty involving the patellar apex and lateral patellar facet. Mild articular cartilage loss involving the medial femoral condyle, without focal high-grade chondral defect or osteochondral lesion. The cruciate and collateral ligaments are intact. No definite discrete meniscal tear. There is an obliquely o (more content not included)... Normal [facility] Magnetic resonance imaging r eportOrdered By: Austin Campos on 09-27-2024 Study report [facility] Imaging Services [address] [place] [address] Lower Ext Joint Only (Routine) MR#: [id number] Acct: [id number] Name: YAKOV FIORE Rep #: [id number] : 1995 F 29 From: Luna Campos DO PCP: Care Physician,No Primary Status: REG CLI Study:Lower Ext Joint Only (Routine) Date of Exam: 09/26/24 Exam# [id number] Ordering Dr: Velasquez Galvin MD EXAM: Noncontrast [...] 23 of thecoronal T2 fat saturated sequence. Obqf-jn-bppnbswq articular cartilage thinning/irregulari ty involving the patellar [...] articular surface. Tissues in the popliteal fossa. Ifat-zs-cfzfpdmh edema of the soft tissues in the [...] 14 mm lateral patellar subluxation. There is fxha-vk-fqmzkpqj articular cartilage thinning of the lateral patellar facet and patellar apex. There is an ovoid 19 mm possible loose body near the anterolateral margin of the lateral femoral condyle. Please see reference images provided above. The patellar retinacula are intact. No evidence of transient patellar dislocation. Reading Location: [facility] CC: Dr. Velasquez Galvin MD; No Primary Care Physician ~ Hourly Sign Language Interpreter: Signed [facility] Lower Ext Joint Only (Routin e)on 09-26-2024 Lower Ext Joint Only (Routine) [facility] Imaging Services [address] [place] [address] Lower Ext Joint Only (Routine) MR#: [id number] Acct: [id number] Name: YAKOV FIORE Rep #: [id number] : 1995 F 29 From: Austin Muñoz i DO PCP: Care Physician,No Primary Status: REG CLI Study: Lower Ext Joint Only (Routine) Date of Exam: 0 09/26/24 Exam# [id number] Ordering Dr: Velasquez Galvin MD EXAM: Noncontrast [...] of the coronal T2 fat saturated sequence. Sdyg-en-tgtcyefd articular cartilage thinning/irregulari ty involving the patellar [...] articular surface. Tissues in the popliteal fossa. Zexq-ku-srqtztlu edema of the soft tissues in the [...] 14 mm lateral patellar subluxation. There is tkpu-rf-ncdtxwjr articular cartilage thinning of the lateral patellar facet and patellar apex. There is an ovoid 19 mm possible loose body near the anterolateral margin of the lateral femoral condyle. Please see reference images provided above. The patellar retinacula are intact. No evidence of transient patellar dislocation. Reading Location: [facility] CC: Dr. Velasquez Galvin MD; No Primary Care Physician Hourly Sign Language Interpreter: Signed Normal [facility] HBV surface Ab Ql (S)Ordered By: Indira James on 09-25-2024 Hepatitis B Surface Antibody REAC [facility] Comment on above: <8.5 mIU/mL: Non-Napoleon ctive8.5<= x <11.5 mIU/mL: Indeterminate>=11.5 mIU/mL: Reactive Non Reactive: Inconsistent with immunity less than <10 mIU/mL Reactive: Consistent with immunity greater than or equal to 10 mIU/mL Hepatitis B Surface Antibody on 09-25-2024 HEP B Surf Ab REAC Normal [facility] Comment on above: Result Comment: <8.5 mIU/mL: Non-Reactive 8.5<= x <11.5 mIU/mL: Indeterminate >=11.5 mIU/mL: Reactive Non Reactive: Inconsistent with immunity less than <10 mIU/mL Reactive: Consistent with immunity greater than or equal to 10 mIU/mL Performed By: #### L 3890.6202 #### [facility] [address] [place], [address] Serum hepatitis B virus surf laura antibody detectionOrdered By: Indira James on 09-25-2024 HBV surface Ab Ql (S) REAC [facility] Comment on above: <8.5 mIU/mL: Non-Napoleon ctive8.5<= x <11.5 mIU/mL: Indeterminate>=11.5 mIU/mL: Reactive Non Reactive: Inconsistent with immunity less than <10 mIU/mL Reactive: Consistent with immunity greater than or equal to 10 mIU/mL HBV surface Ag Ql (S)Ordered By: Indira James on 09-21-2024 Hepatitis B Surface Antigen Non-Reactive Nonreactive [facility] Comment on above: Reactive: Presumptiv e evidence of HBV. Repeatedly reactive samples must be confirmed using a neutralization test ([employer] HBsAg Confirmatory Test)Non-Reactive: HBsAg not detected; does not exclude the possibility of exposure to HBV L3890.6102on 09-21-2024 HEP B Surf Ag Non-Reactive Normal Nonreactive [facility] Comment on above: Result Comment: Reac tive: Presumptive evidence of HBV. Repeatedly reactive samples must be confirmed using a neutralization test ([employer] HBsAg Confirmatory Test) Non-Reactive: HBsAg not detected; does not exclude the possibility of exposure to HBV Performed By: #### L 3890.6102 ####[facility] [address] [place], [place], [address] Laboratory - Microbiology an d Antimicrobial susceptibilityOrdered By: Indira James on 09-21-2024 HBV surface Ag Ql (S) Non-Reactive Nonreactive [facility] Comment on above: Reactive: Presumptiv e evidence of HBV. Repeatedly reactive samples must be confirmed using a neutralization test ([employer] HBsAg Confirmatory Test)Non-Reactive: HBsAg not detected; does not exclude the possibility of exposure to HBV Knee 4 or More Viewson 09-06 Knee 4 or More Views [facility] Imaging Services [address] [place], [place] [address] Knee 4 or More Views MR#: [id number] Acct: [id number] Name: YAKOV FIORE Rep #: [id number] : 1995 F 29 From: [place] PCP: Dr. Bailey Lang DO Status: DEP AMB Study: Knee 4 or More Views Date of Exam: 09/06/24 Exam# [id number] Ordering Dr: Velasquez Galvin MD PROCEDURE: KNEE 4 OR MORE VIEWS 09/06/2024 REASON FOR EXAM: CHRONIC PAIN, PAIN GETTING WORSE THE LAST FEW DAYS, NKI TECHNIQUE: Four view right knee COMPARISON: None. RAD/Knee 4 or More Views IMPRESSION: No right knee joint effusion is seen. No significant arthritic process or joint narrowing is evident. No fracture or dislocation is identified. Reading Location: [address] CC: Dr. Bailey Lang DO; Dr. Velasquez Galvin MD Hourly Sign Language Interpreter: Signed Normal [facility] Orthopedic Visit Reporton Orthopedic Visit Report [facility] [address] [place] [address] [address] [place] [address] OFFICE VISIT Date of Service: 09/06/24 MR#: [id number] Acct: [id number] Name: YAKOV FIORE Rep #: [id number] : 1995 Provider: Dr. Velasquez cardenas MD Age/Sex: 29/F Location: [facility] Status: Signed Intake Vital Signs 10/25/23 11:00 09/06/24 08:52 Height 5 ft 9 in 5 ft 9 in Weight: 182 lb 6 oz BMI 26.9 Intake Visit Reasons: RIGHT KNEE Chief Complaint: Right Knee Pain Accompanied by: Self Is patient in pain?: Yes Pain scale (1-10): 6 Allergies codeine Adverse Reaction (Verified 09/06/24 08:52) Nausea/Vom/Diarrhea Medications ???Medication ???Instructions ???Recorded ???Confirmed ???Type PNV#14-iron fum-FA#4-mwe-qmthgz te 1 cap PO DAILY 01/26/23 09/06/24 [...] 09/06/24 09/06/24 H istory iron) tablet (Ferate) [facility] Medical History Vaginal delivery Vaginal delivery hemorrhage [...] current occupational status: employed 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 Velasquez Galvin MD 09/06/24 0849. Part of today???s visit was documented by [...] pain Im (more content not included)... Normal [facility] Hepatitis B Surface Antigeno n 05-07-2024 HEP B Surf Ag Non-Reactive Normal Nonreactive [facility] Comment on above: Order Comment: Reaso n for Exam: screening Hep B immunity Performed By: #### L 3890.6100 ####[facility] [address] [place], [place], [id number] Hepatitis B Surface Antigeno n 04-26-2024 HEP B Surf Ag Non-Reactive Normal Nonreactive [facility] Comment on above: Order Comment: Reaso n for Exam: titer level Performed By: #### L 3890.6100 #### [facility] [address] [place], [place], [address] Absolute lymphocyte countOrd ered By: Arabella Chau on 09-16-2023 Lymphocytes Auto (Unsp spec) [#/Vol] 1.66 10*3/uL 0.83-4.51 [facility] Automated lymphocyte count a s percentage of total leukocytesOrdered By: Arabella Chau on 09-16-2023 Lymphocytes/100 WBC Auto (Unsp spec) 9.8 % 19-41 [facility] Basophil percentageOrdered B y: Arabella Chau on 09-16-2023 Basophils/100 WBC (Bld) 0.5 % 0-1 [facility] Eosinophils/100 WBC (Bld) 0.6 % 0-5 [facility] Hemoglobin (Bld) [Mass/Vol] 11.3 g/dL 12.0-15.0 [facility] Monocytes/100 WBC (Bld) 5.8 % 0-10 [facility] Neutrophils (Bld) [#/Vol] 14.0 10*3/uL 2.0-7.7 [facility] Neutrophils/100 WBC (Bld) 82.7 % 47-70 [facility] WBC (Bld) [#/Vol] 16.9 10*3/uL 4.4-11.0 [place] Determination of erythrocyte mean corpuscular volume (MCV)Ordered By: Arabella Chau on 09-16-2023 MCV (RBC) [Entitic vol] 84.6 fL 81-99 [facility] Erythrocyte distribution wid th ratioOrdered By: Arabella Chau on 09-16-2023 Erythrocyte distribution width (RBC) [Ratio] 13.2 % 11.6-14.6 [facility] Erythrocyte distribution wid th standard deviationOrdered By: Arabella Chau on 09-16-2023 Erythrocyte distribution width (RBC) [Entitic vol] 40.7 fL 35.1-43.9 [facility] Hematocrit Auto (Bld) [Volum e fraction]Ordered By: Arabella Chau on 09-16-2023 Hematocrit (Bld) [Volume fraction] 34.7 % 37-47 [facility] Immature granulocytes/100 WB C Auto (Bld)Ordered By: Arabella Chau on 09-16-2023 Immature granulocytes/100 WBC (Bld) 0.600 % 0.0-0.9 [facility] Comment on above: IG% - Immature Granu locytes (promyelocytes, myelocytes and metamyelocytes) > 1% indicates that a LEFT SHIFT is Present. Laboratory - Hematology and Cell countsOrdered By: Arabella Chau on 09-16-2023 MCH (RBC) [Entitic mass] 27.6 pg 27.0-32.0 [facility] MCHC (RBC) [Mass/Vol] 32.6 g/dL 32-36 [facility] Nucleated RBC/100 WBC (Bld) [Ratio] 0 % 0-5 [facility] Platelet mean volume (Bld) [Entitic vol] 8.8 fL 6.2-12.0 [facility] Platelets (Bld) [#/Vol] 399 10*3/uL 150-450 [facility] RBC Auto (Bld) [#/Vol]Ordere d By: Arabella Chau on 09-16-2023 RBC (Bld) [#/Vol] 4.10 10*6/uL 4.2-5.4 [place] Serum Treponema species anti body detectionOrdered By: Arabella Chau on 09-16-2023 Treponema sp Ab Ql (S) Non-Reactive [facility] Laboratory - Chemistry and C hemistry - challengeon 09-08-2023 Glucose Ql (U) Negative [facility] Laboratory - Urinalysison Protein Ql (U) Negative [facility] Laboratory - Chemistry and C hemistry - challengeon 09-02-2023 Glucose Ql (U) Negative [facility] Laboratory - Urinalysison Protein Ql (U) Negative [facility] No Panel InformationOrdered By: Arabella Chau on 09-02-2023 Group B Streptococcus Culture Streptococcus agalactiae (B) [facility] Laboratory - Chemistry and C hemistry - challengeon 08-19-2023 Glucose Ql (U) Negative [facility] Laboratory - Urinalysison Protein Ql (U) Negative [facility] Laboratory - Chemistry and C hemistry - challengeon 08-05-2023 Glucose Ql (U) Negative [facility] Laboratory - Urinalysison Protein Ql (U) Negative [facility] - Chemistry and C hemistry - challengeon 07-20-2023 Glucose Ql (U) Negative [facility] - Urinalysison Protein Ql (U) Negative [facility] - Chemistry and C hemistry - challengeon 07-05-2023 Glucose Ql (U) Negative [facility] - Urinalysison Protein Ql (U) Negative [facility] Absolute lymphocyte countOrd ered By: Josselyn Frederick on 07-02-2023 Lymphocytes Auto (Unsp spec) [#/Vol] 1.65 10*3/uL 0.83-4.51 [facility] Basophil percentageOrdered B y: Josselyn Frederick on 07-02-2023 Basophils/100 WBC (Bld) 0.7 % 0-1 [facility] Eosinophils/100 WBC (Bld) 3.3 % 0-5 [facility] Neutrophils (Bld) [#/Vol] 7.1 10*3/uL 2.0-7.7 [facility] Neutrophils/100 WBC (Bld) 71.7 % 47-70 [facility] WBC (Bld) [#/Vol] 9.9 10*3/uL 4.4-11.0 [facility] Blood erythrocytes count (nu mber/volume)Ordered By: Josselyn Frederick on 07-02-2023 RBC (Bld) [#/Vol] 3.88 10*6/uL 4.2-5.4 [place] Blood hemoglobin measurement (mass/volume)Ordered By: Josselyn Frederick on 07-02-2023 Hemoglobin (Bld) [Mass/Vol] 11.4 g/dL 12.0-15.0 [facility] Blood lymphocytes/100 leukoc ytesOrdered By: Josselyn Frederick on 07-02-2023 Lymphocytes/100 WBC (Bld) 16.7 % 19-41 [facility] Blood monocytes/100 leukocyt esOrdered By: Josselyn Frederick on 07-02-2023 Monocytes/100 WBC (Bld) 6.4 % 0-10 [facility] Blood platelet mean volumeOr dered By: Josselyn Frederick on 07-02-2023 Platelet mean volume (Bld) [Entitic vol] 8.7 fL 6.2-12.0 [facility] Determination of erythrocyte mean corpuscular volume (MCV)Ordered By: Josseyln Frederick on 07-02-2023 MCV (RBC) [Entitic vol] 88.9 fL 81-99 [facility] Gestational diabetes screen 1-hour screen with 50g oral glucose loadOrdered By: Josselyn Frederick on 07-02-2023 Glucose 1 Hr post 50 g glucose PO [Mass/Vol] 90 mg/dL 70-140 [facility] HIV 1 and HIV-2 antibody ass ay with HIV-1 p24 antigen detectionOrdered By: Josselyn Frederick on 07-02-2023 HIV 1+2 Ab+HIV1 p24 Ag IA Ql Non-Reactive Nonreactive [facility] Hematocrit Auto (Bld) [Volum e fraction]Ordered By: Josselyn Frederick on 07-02-2023 Hematocrit (Bld) [Volume fraction] 34.5 % 37-47 [facility] Laboratory - Hematology and Cell countsOrdered By: Josselyn Frederick on 07-02-2023 Erythrocyte distribution width (RBC) [Entitic vol] 40.9 fL 35.1-43.9 [facility] Erythrocyte distribution width (RBC) [Ratio] 12.6 % 11.6-14.6 [facility] Immature granulocytes/100 WBC (Bld) 1.200 % 0.0-0.9 [facility] Comment on above: IG% - Immature Granu locytes (promyelocytes, myelocytes and metamyelocytes) > 1% indicates that a LEFT SHIFT is Present. MCH (RBC) [Entitic mass] 29.4 pg 27.0-32.0 [facility] Nucleated RBC/100 WBC (Bld) [Ratio] 0 % 0-5 [facility] MCHC Auto (RBC) [Mass/Vol]Or dered By: Josselyn Frederick on 07-02-2023 MCHC (RBC) [Mass/Vol] 33.0 g/dL 32-36 [facility] Platelets bldOrdered By: Jazmin Frederick on 07-02-2023 Platelets (Bld) [#/Vol] 408 10*3/uL 150-450 [facility] Serum Treponema species anti body detectionOrdered By: Josselyn Frederick on 07-02-2023 Treponema sp Ab Ql (S) Non-Reactive [facility] Laboratory - Chemistry and C hemistry - challengeon 06-06-2023 Glucose Ql (U) Negative [facility] - Urinalysison Protein Ql (U) Negative [facility] - Chemistry and C hemistry - challengeon 05-10-2023 Glucose Ql (U) Negative [facility] - Urinalysison Protein Ql (U) Negative [facility] - Chemistry and C hemistry - challengeon 04-13-2023 Glucose Ql (U) Negative [facility] - Urinalysison Protein Ql (U) Negative [facility] Absolute lymphocyte countOrd ered By: Arabella Chau on 03-16-2023 Lymphocytes Auto (Unsp spec) [#/Vol] 1.59 10*3/uL 0.83-4.51 [facility] Basophil percentageOrdered B y: Arabella Chau on 03-16-2023 Basophils/100 WBC (Bld) 0.6 % 0-1 [facility] Eosinophils/100 WBC (Bld) 2.8 % 0-5 [facility] Neutrophils (Bld) [#/Vol] 5.5 10*3/uL 2.0-7.7 [facility] Neutrophils/100 WBC (Bld) 71.6 % 47-70 [facility] WBC (Bld) [#/Vol] 7.7 10*3/uL 4.4-11.0 [facility] Blood erythrocytes count (nu mber/volume)Ordered By: Arabella Chau on 03-16-2023 RBC (Bld) [#/Vol] 4.16 10*6/uL 4.2-5.4 [place] Blood hemoglobin measurement (mass/volume)Ordered By: Arabella Chau on 03-16-2023 Hemoglobin (Bld) [Mass/Vol] 12.2 g/dL 12.0-15.0 [facility] Blood lymphocytes/100 leukoc ytesOrdered By: Arabella Chau on 03-16-2023 Lymphocytes/100 WBC (Bld) 20.6 % 19-41 [facility] Blood monocytes/100 leukocyt esOrdered By: Arabella Chau on 03-16-2023 Monocytes/100 WBC (Bld) 4.1 % 0-10 [facility] Blood platelet mean volumeOr dered By: Arabella Chau on 03-16-2023 Platelet mean volume (Bld) [Entitic vol] 8.7 fL 6.2-12.0 [facility] Determination of erythrocyte mean corpuscular volume (MCV)Ordered By: Arabella Chau on 03-16-2023 MCV (RBC) [Entitic vol] 88.0 fL 81-99 [facility] HIV 1 and HIV-2 antibody ass ay with HIV-1 p24 antigen detectionOrdered By: Arabella Chau on 03-16-2023 HIV 1+2 Ab+HIV1 p24 Ag IA Ql Non-Reactive Nonreactive [facility] Hematocrit Auto (Bld) [Volum e fraction]Ordered By: Arabella Chau on 03-16-2023 Hematocrit (Bld) [Volume fraction] 36.6 % 37-47 [facility] - Chemistry and C hemistry - challengeon 03-16-2023 Glucose Ql (U) Negative [facility] - Hematology and Cell countsOrdered By: Arabella Chau on 03-16-2023 Erythrocyte distribution width (RBC) [Entitic vol] 40.0 fL 35.1-43.9 [facility] Erythrocyte distribution width (RBC) [Ratio] 12.4 % 11.6-14.6 [facility] Immature granulocytes/100 WBC (Bld) 0.300 % 0.0-0.9 [facility] Comment on above: IG% - Immature Granu locytes (promyelocytes, myelocytes and metamyelocytes) > 1% indicates that a LEFT SHIFT is Present. MCH (RBC) [Entitic mass] 29.3 pg 27.0-32.0 [facility] Nucleated RBC/100 WBC (Bld) [Ratio] 0 % 0-5 [facility] Laboratory - Urinalysison Protein Ql (U) Negative [facility] MCHC Auto (RBC) [Mass/Vol]Or dered By: Arabella Chau on 03-16-2023 MCHC (RBC) [Mass/Vol] 33.3 g/dL 32-36 [facility] No Panel InformationOrdered By: Arabella Chau on 03-16-2023 Miscellaneous Test Comment MAILED SPECIMEN [facility] Hepatitis B Surface Antigen Non-Reactive Nonreactive [facility] Hepatitis C Antibody Non-Reactive Nonreactive [facility] Comment on above: Non Reactive: < 0.8 Equivocal: >/= 0.8 to < 1.0 Reactive: >/= 1.0The CDC recommends that a reactive/equivocal HCV antibody result be followed up by the HCV Nucleic Acid Amplificationtest (336948) Rubella IgG Antibody Reactive Nonreactive [facility] Comment on above: Antibody Results Int erpretation of Immune Status Non Reactive Presumed Non-Immune Equivocal Equivocal Reactive Presumed Immune Platelets bldOrdered By: Woody Chau on 03-16-2023 Platelets (Bld) [#/Vol] 384 10*3/uL 150-450 [facility] Serum Treponema species anti body detectionOrdered By: Arabella Cahu on 03-16-2023 Treponema sp Ab Ql (S) Non-Reactive [facility] Laboratory - Microbiology an d Antimicrobial susceptibilityon 03-14-2023 SARS-CoV-2 (COVID-19) RNA VALERIY+probe Ql (Unsp spec) Not detected [facility] No Panel Informationon 03-14 Influenza Types A,B Rapid (Clinic) Not detected [facility] Cervical or vagninal specime n microscopic examination by cytology stain (reported asOrdered By: Arabella Chau on 02-14-2023 Cytology report Cyto stain Doc (Cvx/Vag) Comment . [facility] Comment on above: The Pap smear [...] rRNA VALERIY+probe Ql (Unsp spec) Negative Negative [facility] Culture, urineOrdered By: Isai Chau on 02-14-2023 Bacteria identified Cx Nom (U) Culture exhibits no growth. [facility] Bacteria identified Cx Nom (U) Culture exhibits no growth. [facility] Laboratory - CytologyOrdered By: Arabella Chau on 02-14-2023 Mr Teacher Cyto stain Nom (Cvx/Vag) [ID] Comment . [facility] Comment on above: Pablito Byrne totechnologist (ASCP) Laboratory - Microbiology an d Antimicrobial susceptibilityOrdered By: Arabella Chau on 02-14-2023 N. gonorrhoeae DNA VALERIY+probe Ql (Unsp spec) Negative Negative [facility] Comment on above: Performed at: =[address] [id number] Director: Janey Waddell MD, Phone: [phone] Laboratory - Miscellaneous t estsOrdered By: Arabella Chau on 08-28-2023 Service comment (Unsp spec) [Interp] Comment . [facility] Comment on above: This liquid based Th inPrep(R) pap test was screened withthe use of an image guided system. Service comment (Unsp spec) [Interp] . . [facility] No Panel InformationOrdered By: Arabella Chau on 02-14-2023 Human Papillomavirus Screen Comment . [facility] Comment on above: The HPV DNA reflex c natalie were not met with this specimenresult therefore, no HPV testing was performed.Performed at: - [address] [id number] Director: Janey Waddell MD, Phone: [phone] Pathology report final diagnosis Narrative Comment . [facility] Comment on above: NEGATIVE FOR INTRAEP ITHELIAL LESION OR MALIGNANCY. Basophil percentageon 2022 Testosterone [Mass/Vol] 21 ng/dL 13-71 [facility] Free testosterone percentage on 12-18-2022 Testosterone Free/Testosterone.total [Mass fraction] 1.28 % 0.50-2.80 [facility] - Chemistry and C hemistry - challengeon 12-18-2022 Free T4 [Mass/Vol] 1.00 ng/dL 0.76-1.46 [facility] No Panel Informationon 12-18 Androstenedione 54 ng/dL 41-262 [facility] Comment on above: Performed at: [facility] [employer] [address] [id number] Director: Vikram Cevallos PhD, Phone: [phone] at: [facility] [address] [id number] Director: Wyatt Martinez MD, Phone: [phone] Dehydroepiandrosterone Sulfate 252.0 ug/dL 84.8-378.0 [facility] Follicle Stimulating Hormone 8.9 mIU/mL [facility] Comment on above: NORMAL REFERENCE RAN GES FEMALE FOLLICULAR 2.3 - 12.6 mIU/mL MID-CYCLE PEAK 5.2 - 17.5 mIU/mL LUTEAL 1.7 - 12.9 mIU/mL POST-MENOPAUSAL ON MHT 5.9 - 72.8 mIU/mL NOT ON MHT 12.7 - 132.2 mlU/mL MALE 0.7 - 10.8 mIU/mL Luteinizing Hormone 7.1 mIU/mL [place] Comment on above: NORMAL REFERENCE RAN GES FEMALE FOLLICULAR 1.9 - 26.2 mIU/mL MID-CYCLE PEAK 22.8 - 76.1 mIU/mL LUTEAL 0.6 - 16.6 mIU/mL POST-MENOPAUSAL ON MHT 1.1 - 52.4 mIU/mL NOT ON MHT 8.6 - 61.8 mIU/mL MALE 1.2 - 10.6 mIU/mL Thyroid Stimulating Hormone (TSH) 0.83 uIU/mL 0.358-3.74 [facility] Serum or plasma 17-hydroxypr ogesterone measurement (mass/volume)on 12-18-2022 17-Hydroxyprogesterone [Mass/Vol] 17 ng/dL . [facility] Comment on above: Adult Female Follicu lar 15 - 70 Luteal 35 - 290Performed at: [facility] [id number] Director: Wyatt Martinez MD, Phone: [phone] Serum or plasma cortisol merline surement (mass/volume)on 12-18-2022 Cortisol [Mass/Vol] 7.10 ug/dL 3.44-22.45 [place] Comment on above: Adult (AM) 5.27 - 22 .45 ug/dL Adult (PM) 3.44 - 16.76 ug/dLPlease note revised CORTISOL reference range effective 2019. Serum or plasma estradiol (E 2) measurement (mass/volume)on 12-18-2022 E2 [Mass/Vol] 29.5 pg/mL [facility] Comment on above: NORMAL [...] asurement (mass/volume)on 12-18-2022 Prolactin [Mass/Vol] 5.7 ng/mL [facility] Comment on above: NORMAL REFERENCE RAN GES FEMALE NON- 2.2 - 30.3 ng/mL 8.1 - 347.6 ng/mL POST-MENOPAUSAL 0.7 - 31.5 ng/mL MALE 2.5 - 17.4 ng/mL Serum or plasma testosterone free measurement (mass/volume)on 12-18-2022 Testosterone Free [Mass/Vol] 0.27 ng/dL 0.10-0.85 [facility] Serum or plasma progesterone measurement (mass/volume)on 12-10-2022 Progesterone [Mass/Vol] 13.68 ng/mL See Comment [facility] Comment on above: Progesterone Referen ce Table: UNITS Female: Follicular 0.15 - 1.40 ng/mL Luteal 3.34 - 25.56 ng/mL Mid-luteal 4.44 - 28.03 ng/mL Postmenopausal 0.0 - 0.73 ng/mL : 1st Trimester 11.22 - 90.00 ng/mL 2nd Trimester 25.55 - 89.40 ng/mL 3rd Trimester 48.40 -422.50 ng/mL Absolute lymphocyte counton 02-26-2022 Lymphocytes Auto (Unsp spec) [#/Vol] 2.36 10*3/uL 0.83-4.51 [facility] Work Phone: Basophil percentageon 2021 Basophils/100 WBC (Bld) 1.3 % 0-1 [facility] Work Phone: Eosinophils/100 WBC (Bld) 2.1 % 0-5 [facility] Work Phone: Neutrophils (Bld) [#/Vol] 2.3 10*3/uL 2.0-7.7 [facility] Work Phone: Neutrophils/100 WBC (Bld) 43.5 % 47-70 [facility] Work Phone: WBC (Bld) [#/Vol] 5.4 10*3/uL 4.4-11.0 [facility] Work Phone: Blood erythrocytes count (nu mber/volume)on 02-26-2022 RBC (Bld) [#/Vol] 4.39 10*6/uL 4.2-5.4 [place] Work Phone: Blood hemoglobin measurement (mass/volume)on 02-26-2022 Hemoglobin (Bld) [Mass/Vol] 13.3 g/dL 12.0-15.0 [facility] Work Phone: [phone] Blood lymphocytes/100 leukoc yteson 02-26-2022 Lymphocytes/100 WBC (Bld) 44.1 % 19-41 [facility] Work Phone: [phone] Blood monocytes/100 leukocyt eson 02-26-2022 Monocytes/100 WBC (Bld) 9.0 % 0-10 [facility] Work Phone: Blood platelet mean volumeon 02-26-2022 Platelet mean volume (Bld) [Entitic vol] 8.7 fL 6.2-12.0 [facility] Work Phone: Determination of erythrocyte mean corpuscular volume (MCV)on 02-26-2022 MCV (RBC) [Entitic vol] 90.0 fL 81-99 [facility] Work Phone: Hematocrit Auto (Bld) [Volum e fraction]on 02-26-2022 Hematocrit (Bld) [Volume fraction] 39.5 % 37-47 [facility] Work Phone: Laboratory - Hematology and Cell countson 02-26-2022 Erythrocyte distribution width (RBC) [Entitic vol] 39.3 fL 35.1-43.9 [facility] Work Phone: [phone] Erythrocyte distribution width (RBC) [Ratio] 11.9 % 11.6-14.6 [facility] Work Phone: [phone] Immature granulocytes/100 WBC (Bld) 0.000 % 0.0-0.9 [facility] Work Phone: Comment on above: IG% - Immature Granu locytes (promyelocytes, myelocytes and metamyelocytes) > 1% indicates that a LEFT SHIFT is Present. MCH (RBC) [Entitic mass] 30.3 pg 27.0-32.0 [facility] Work Phone: Nucleated RBC/100 WBC (Bld) [Ratio] 0 % 0-5 [facility] Work Phone: MCHC Auto (RBC) [Mass/Vol]on 02-26-2022 MCHC (RBC) [Mass/Vol] 33.7 g/dL 32-36 [facility] Work Phone: Platelets bldon 02-26-2022 Platelets (Bld) [#/Vol] 377 10*3/uL 150-450 [facility] Work Phone: Absolute lymphocyte counton 01-26-2022 Lymphocytes Auto (Unsp spec) [#/Vol] 2.47 10*3/uL 0.83-4.51 [facility] Work Phone: Basophil percentageon 2021 Basophils/100 WBC (Bld) 1.4 % 0-1 [facility] Work Phone: Bilirubin [Mass/Vol] 1.00 mg/dL 0.20-1.00 [facility] Work Phone: Comment on above: For patients on eltr ombopag therapy, use of Dimension [place] TBIL is not recommended. Chloride [Moles/Vol] 106 mmol/L 98-107 [facility] Work Phone: Cholesterol [Mass/Vol] 152 mg/dL <200 [facility] Work Phone: Comment on above: <200 mg/dL Desirable 200-240 mg/dL Borderline >240 mg/dL High Risk Eosinophils/100 WBC (Bld) 1.4 % 0-5 [facility] Work Phone: Glucose [Mass/Vol] 86 mg/dL 74-106 [facility] Work Phone: Neutrophils (Bld) [#/Vol] 2.7 10*3/uL 2.0-7.7 [facility] Work Phone: Neutrophils/100 WBC (Bld) 47.4 % 47-70 [facility] Work Phone: Potassium [Moles/Vol] 3.8 mmol/L 3.5-5.1 [facility] Work Phone: Protein [Mass/Vol] 7.5 g/dL 6.4-8.2 [facility] Work Phone: Sodium [Moles/Vol] 138 mmol/L 136-145 [facility] Work Phone: Triglyceride [Mass/Vol] 59 mg/dL <199 [facility] Work Phone: Comment on above: The drugs N-Acetylcy steine and Metamizole may falsely depress this assay.Serum Triglycerides Reference Interval Normal <150 mg/dL Borderline high 150 - 199 mg/dL High 200 - 499 mg/dL Very High > or = 500 mg/dL WBC (Bld) [#/Vol] 5.7 10*3/uL 4.4-11.0 [facility] Work Phone: Blood erythrocytes count (nu mber/volume)on 01-26-2022 RBC (Bld) [#/Vol] 4.46 10*6/uL 4.2-5.4 [place] Work Phone: Blood hemoglobin measurement (mass/volume)on 01-26-2022 Hemoglobin (Bld) [Mass/Vol] 13.4 g/dL 12.0-15.0 [facility] Work Phone: Blood lymphocytes/100 leukoc yteson 01-26-2022 Lymphocytes/100 WBC (Bld) 43.3 % 19-41 [facility] Work Phone: Blood monocytes/100 leukocyt eson 01-26-2022 Monocytes/100 WBC (Bld) 6.3 % 0-10 [facility] Work Phone: Blood platelet mean volumeon 01-26-2022 Platelet mean volume (Bld) [Entitic vol] 9.1 fL 6.2-12.0 [facility] Work Phone: [phone] Determination of erythrocyte mean corpuscular volume (MCV)on 01-26-2022 MCV (RBC) [Entitic vol] 87.9 fL 81-99 [facility] Work Phone: [phone] Hematocrit Auto (Bld) [Volum e fraction]on 01-26-2022 Hematocrit (Bld) [Volume fraction] 39.2 % 37-47 [facility] Work Phone: [phone] Laboratory - Chemistry and C hemistry - challengeon 01-26-2022 ALP [Catalytic activity/Vol] 52 U/L 45-117 [facility] Work Phone: [phone] ALT [Catalytic activity/Vol] 22 U/L 13-56 [facility] Work Phone: [phone] CO2 [Moles/Vol] 26.0 mmol/L 21.0-32.0 [facility] Work Phone: [phone] Globulin (S) [Mass/Vol] 3.5 g/dL 2.2-4.2 [facility] Work Phone: [phone] Urea nitrogen/Creatinine [Mass ratio] 14.4 mg/mg 10-20 [facility] Work Phone: [phone] Laboratory - Hematology and Cell countson 01-26-2022 Erythrocyte distribution width (RBC) [Entitic vol] 38.9 fL 35.1-43.9 [facility] Work Phone: [phone] Erythrocyte distribution width (RBC) [Ratio] 12.1 % 11.6-14.6 [facility] Work Phone: [phone] Immature granulocytes/100 WBC (Bld) 0.200 % 0.0-0.9 [facility] Work Phone: [phone] Comment on above: IG% - Immature Granu locytes (promyelocytes, myelocytes and metamyelocytes) > 1% indicates that a LEFT SHIFT is Present. MCH (RBC) [Entitic mass] 30.0 pg 27.0-32.0 [facility] Work Phone: Nucleated RBC/100 WBC (Bld) [Ratio] 0 % 0-5 [facility] Work Phone: MCHC Auto (RBC) [Mass/Vol]on 01-26-2022 MCHC (RBC) [Mass/Vol] 34.2 g/dL 32-36 [facility] Work Phone: No Panel Informationon 01-26 Estimated GFR (MDRD) Amer 147 mL/min >60 [facility] Work Phone: Comment on above: GFR Calc Estimated GFR (MDRD) Non-Af Amer 121 mL/min >60 [facility] Work Phone: Comment on above: Non- GFR Calc Thyroid Stimulating Hormone (TSH) 1.45 uIU/mL 0.358-3.74 [facility] Work Phone: Platelets bldon 01-26-2022 Platelets (Bld) [#/Vol] 368 10*3/uL 150-450 [facility] Work Phone: [phone] Serum or plasma albumin quintin urement (mass/volume)on 01-26-2022 Albumin [Mass/Vol] 4.0 g/dL 3.2-5.0 [facility] Work Phone: Serum or plasma albumin/glob ulin mass ratioon 01-26-2022 Albumin/Globulin [Mass ratio] 1.1 {ratio} 0.9-2.4 [facility] Work Phone: [phone] Serum or plasma calcium quintin urement (mass/volume)on 01-26-2022 Calcium [Mass/Vol] 8.5 mg/dL 8.5-10.1 [facility] Work Phone: [phone] Serum or plasma cholesterol in HDL measurement (mass/volume)on 01-26-2022 Cholesterol in HDL [Mass/Vol] 53 mg/dL >40 [facility] Work Phone: Comment on above: The drugs N-Acetylcy steine and Metamizole may falsely depress this assay. Reference Range HDL <40 mg/dL Low HDL Cholesterol HDL >or= 60 mg/dL High HDL Cholesterol Serum or plasma cholesterol in VLDL measurement (mass/volume)on 01-26-2022 Cholesterol in VLDL [Mass/Vol] 12 mg/dL 5-40 [facility] Work Phone: Serum or plasma creatinine m easurement (mass/volume)on 01-26-2022 Creatinine [Mass/Vol] 0.62 mg/dL 0.55-1.02 [facility] Work Phone: Comment on above: The validity of the calculated GFR & GFRAA in patients over 70 years has not been determined. Clinical correlation is essential. Serum or plasma low density lipoprotein (LDL) cholesterol measurement (mass/volume)on 01-26-2022 Cholesterol in LDL [Mass/Vol] 87 mg/dL 0-130 [facility] Work Phone: Serum or plasma urea nitroge n measurement (mass/volume)on 01-26-2022 Urea nitrogen [Mass/Vol] 9 mg/dL 7-18 [facility] Work Phone: Thin prep Papanicolaou smear with manual screeningon 01-26-2022 Thin prep Papanicolaou smear with manual screening 11 U/L 15-37 [facility] Work Phone: Thin prep Papanicolaou smear with manual screening 6 5-15 [facility] Work Phone: Whole blood hemoglobin A1c/t otal hemoglobin ratio (mass fraction)on 01-26-2022 HbA1c (Bld) [Mass fraction] 4.9 % 3.8-5.6 [facility] Work Phone: Comment on above: Normal [...] Impression: 1. No acute fracture or dislocation. Hourly Sign Language Interpreter: GENEVA Transcribe Date/Time: Mar 30 2020 11:35A Dictated by : MARIA ELENA JIMENEZ MD This examination was interpreted and the report reviewed and electronically signed by: MARIA ELENA JIMENEZ MD on Mar 30 2020 11:36AM EST DIVISION OF RADIOLOGY Provider, [facility] [place] - 03/30/2020 * * *Final Report* * [...] Impression: 1. No acute fracture or dislocation. Hourly Sign Language Interpreter: GENEVA Transcribe Date/Time: Mar 30 2020 11:35A Dictated by : MARIA ELENA JIMENEZ MD This examination was interpreted and the report reviewed and electronically signed by: MARIA ELENA JIMENEZ MD on Mar 30 2020 11:36AM EST [facility] Radiology Study observation (narrative) [facility] XR Wrist - right PA and Late ral and ObliqueOrdered By: [facility] Provider on 03-30-2020 [facility] POC Urinalysis Dipstick,Auto UCon 06-23-2017 Clarity, UA Cloudy Abnormal Clear [facility] Work Phone: Interpretation and review of laboratory results Abnormal Invalid Interpretation Code [facility] Work Phone: POC Color, Urine [place] Abnormal Yellow, Lig ht Yellow, Dark Yellow [facility] Work Phone: Urine, bilirubin presence Negative Invali d Interpretation Code Negative [facility] Work Phone: Urine, glucose presence 100 Abnormal Norm al, Negative mg/dL [facility] Work Phone: Urine, hemoglobin presence Large Abnormal Negative [facility] Work Phone: Urine, ketones presence Negative Invalid Interpretation Code Negative mg/dL [facility] Phone: Urine, leukocyte esterase presence Large Abnormal Negative [facility] Phone: Urine, nitrite presence Positive Abnormal Negative [facility] Work Phone: Urine, pH 5.5 [pH] Invalid Interpretation Code 5.0 - 7.0 [facility] Phone: Urine, protein presence 100 Abnormal Nega tive mg/dL [facility] Work Phone: Urine, specific gravity 1.005 1 Invalid Interpretation Code 1.005 - 1.025 [facility] Phone: Urine, urobilinogen 1.0 mg/dL Invalid Interpretation Code <2.0, 0.2, Normal, Negative, 1.0, 2.0, <1.0 [facility] Phone: POC Urinalysis Dipstick,Auto UCon 05-04-2017 Bilirubin Ql (U) Small Abnormal Negative [facility] Work Phone: Clarity, UA Clear Invalid Interpretation Code Clear [facility] Phone: Interpretation and review of laboratory results Abnormal Invalid Interpretation Code [facility] Phone: POC Color, Urine Red Abnormal Yellow, Lig ht Yellow, Dark Yellow [facility] Phone: Urine, glucose presence 100 Abnormal Norm al, Negative mg/dL [facility] Phone: Urine, hemoglobin presence Large Abnormal Negative [facility] Phone: Urine, ketones presence Trace Abnormal Nega tive mg/dL [facility] Phone: Urine, leukocyte esterase presence Large Abnormal Negative [facility] Phone: Urine, nitrite presence Positive Abnormal Negative [facility] Work Phone: Urine, pH 7.0 [pH] Invalid Interpretation Code 5.0 - 7.0 [facility] Phone: Urine, protein presence 100 Abnormal Nega tive mg/dL [facility] Phone: Urine, specific gravity 1.020 1 Invalid Interpretation Code 1.005 - 1.025 [facility] [place] [facility] Phone: Urine, urobilinogen 2.0 mg/dL Invalid Interpretation Code <2.0, 0.2, Normal, Negative, 1.0, 2.0, <1.0 [facility] [place] [facility] Phone: Vital Signs Date Time Vital Sign Value Performing Clinician Faci lity 12-20-2024 09:23-0400 Body height 175.[address] Bailey Lang DO Work Phone: [facility] 12-20-2024 09:23-0400 Body mass index (BMI) [Ratio] 25.8 kg/m2 Dr. Bailey Lang DO Work Phone: [facility] 12-20-2024 09:23-0400 Body weight 79.[address] Bailey Lang DO Work Phone: [facility] 12-05-2024 09:30-0400 Body temperature 97.2 [degF] Dr. Bailey Lang DO Work Phone: [facility] 12-05-2024 09:30-0400 Diastolic blood pressure 61 mm[Hg] Dr. Bailey Lang DO Work Phone: [facility] 12-05-2024 09:30-0400 Heart rate 95 /min Dr. Bailey Lang DO Work Phone: [facility] 12-05-2024 09:30-0400 Respiratory rate 14 /min Dr. Bailey Lang DO Work Phone: [facility] 12-05-2024 09:30-0400 SaO2% (BldA) [Mass fraction] 94 % Dr. Bailey Lang DO Work Phone: [facility] 12-05-2024 09:30-0400 Systolic blood pressure 98 mm[Hg] Dr. Bailey Lang DO Work Phone: [facility] 12-05-2024 06:19-0400 Body height 175.[address] Bailey Lang DO Work Phone: [facility] 12-05-2024 06:19-0400 Body mass index (BMI) [Ratio] 26 kg/m2 Dr. Bailey Lang DO Work Phone: [facility] 12-05-2024 06:19-0400 Body weight [address] Bailey Lang DO Work Phone: [facility] 11-14-2024 09:05-0400 Body height 175.[address] Bailey Lang DO Work Phone: [facility] 11-14-2024 09:04-0400 Body mass index (BMI) [Ratio] 26.1 kg/m2 Dr. Bailey Lang DO Work Phone: [facility] 11-14-2024 09:04-0400 Body weight 80.[address] Bailey Lang DO Work Phone: [facility] 11-14-2024 09:04-0400 Diastolic blood pressure 77 mm[Hg] Dr. Bailey Lang DO Work Phone: [facility] 11-14-2024 09:04-0400 Systolic blood pressure 123 mm[Hg] Dr. Bailey Lang DO Work Phone: [facility] 09-06-2024 08:52-0400 Body height 175.[address] Bailey Lang DO Work Phone: [facility] 09-06-2024 08:52-0400 Body mass index (BMI) [Ratio] 26.9 kg/m2 Dr. Bailey Lang DO Work Phone: [facility] 09-06-2024 08:52-0400 Body weight 82.[address] Bailey Lang DO Work Phone: [facility] 09-17-2023 09:47-0400 Body temperature 97.5 [degF] No Primary Care Physician [facility] 09-17-2023 09:47-0400 Diastolic blood pressure 72 mm[Hg] No Primary Care Physician [facility] 09-17-2023 09:47-0400 Heart rate 99 /min No Primary Care Physician [facility] 09-17-2023 09:47-0400 Respiratory rate 14 /min No Primary Care Physician [facility] 09-17-2023 09:47-0400 SaO2% (BldA) [Mass fraction] 96 % No Primary Care Physician [facility] 09-17-2023 09:47-0400 Systolic blood pressure 116 mm[Hg] No Primary Care Physician [facility] 09-16-2023 01:38-0400 Body height 175.26 cm No Primary Care Physician [facility] 09-16-2023 01:38-0400 Body mass index (BMI) [Ratio] 30.5 kg/m2 No Primary Care Physician [facility] 09-16-2023 01:38-0400 Body weight 93.89 kg No Primary Care Physician [facility] 09-15-2023 09:32-0400 Body mass index (BMI) [Ratio] 31.5 kg/m2 No Primary Care Physician [facility] 09-15-2023 09:32-0400 Body weight 96.78 kg No Primary Care Physician [facility] 09-15-2023 09:32-0400 Diastolic blood pressure 67 mm[Hg] No Primary Care Physician [facility] 09-15-2023 09:32-0400 Systolic blood pressure 125 mm[Hg] No Primary Care Physician [facility] 09-08-2023 09:44-0400 Body height 175.26 cm No Primary Care Physician [facility] 09-08-2023 09:44-0400 Body mass index (BMI) [Ratio] 31.3 kg/m2 No Primary Care Physician [facility] 09-08-2023 09:44-0400 Body weight 96.27 kg No Primary Care Physician [facility] 09-08-2023 09:44-0400 Diastolic blood pressure 72 mm[Hg] No Primary Care Physician [facility] 09-08-2023 09:44-0400 Systolic blood pressure 123 mm[Hg] No Primary Care Physician [facility] 09-02-2023 08:55-0400 Body mass index (BMI) [Ratio] 31.1 kg/m2 No Primary Care Physician [facility] 09-02-2023 08:55-0400 Body weight 95.7 kg No Primary Care Physician [facility] 09-02-2023 08:55-0400 Diastolic blood pressure 72 mm[Hg] No Primary Care Physician [facility] 09-02-2023 08:55-0400 Systolic blood pressure 113 mm[Hg] No Primary Care Physician [facility] 08-19-2023 08:59-0500 Body mass index (BMI) [Ratio] 30.2 kg/m2 No Primary Care Physician [facility] 08-19-2023 08:59-0500 Body weight 92.64 kg No Primary Care Physician [facility] 08-19-2023 08:59-0500 Diastolic blood pressure 78 mm[Hg] No Primary Care Physician [facility] 08-19-2023 08:59-0500 Systolic blood pressure 122 mm[Hg] No Primary Care Physician [facility] 08-05-2023 09:41-0500 Body mass index (BMI) [Ratio] 30.2 kg/m2 No Primary Care Physician [facility] 08-05-2023 09:41-0500 Body weight 92.7 kg No Primary Care Physician [facility] 08-05-2023 09:41-0500 Diastolic blood pressure 67 mm[Hg] No Primary Care Physician [facility] 08-05-2023 09:41-0500 Systolic blood pressure 113 mm[Hg] No Primary Care Physician [facility] 07-20-2023 09:29-0500 Body mass index (BMI) [Ratio] 29.9 kg/m2 No Primary Care Physician [facility] 07-20-2023 09:29-0500 Body weight 92.13 kg No Primary Care Physician [facility] 07-20-2023 09:29-0500 Diastolic blood pressure 71 mm[Hg] No Primary Care Physician [facility] 07-20-2023 09:29-0500 Systolic blood pressure 104 mm[Hg] No Primary Care Physician [facility] 07-05-2023 09:08-0500 Body height 175.26 cm No Primary Care Physician [facility] 07-05-2023 09:08-0500 Body mass index (BMI) [Ratio] 29.5 kg/m2 No Primary Care Physician [facility] 07-05-2023 09:08-0500 Body weight 90.49 kg No Primary Care Physician [facility] 07-05-2023 09:08-0500 Diastolic blood pressure 68 mm[Hg] No Primary Care Physician [facility] 07-05-2023 09:08-0500 Systolic blood pressure 114 mm[Hg] No Primary Care Physician [facility] 06-06-2023 10:54-0500 Body mass index (BMI) [Ratio] 28.3 kg/m2 No Primary Care Physician [facility] 06-06-2023 10:54-0500 Body weight 87.08 kg No Primary Care Physician [facility] 06-06-2023 10:54-0500 Diastolic blood pressure 70 mm[Hg] No Primary Care Physician [facility] 06-06-2023 10:54-0500 Systolic blood pressure 111 mm[Hg] No Primary Care Physician [facility] 05-10-2023 13:20-0500 Body height 175.26 cm No Primary Care Physician [facility] 05-10-2023 13:20-0500 Body mass index (BMI) [Ratio] 27.6 kg/m2 No Primary Care Physician [facility] 05-10-2023 13:20-0500 Body weight 84.93 kg No Primary Care Physician [facility] 05-10-2023 13:20-0500 Diastolic blood pressure 71 mm[Hg] No Primary Care Physician [facility] 05-10-2023 13:20-0500 Systolic blood pressure 110 mm[Hg] No Primary Care Physician [facility] 04-13-2023 09:04-0400 Body mass index (BMI) [Ratio] 26.1 kg/m2 No Primary Care Physician [facility] 04-13-2023 09:04-0400 Body weight 80.28 kg No Primary Care Physician [facility] 04-13-2023 09:04-0400 Diastolic blood pressure 68 mm[Hg] No Primary Care Physician [facility] 04-13-2023 09:04-0400 Systolic blood pressure 103 mm[Hg] No Primary Care Physician [facility] 03-16-2023 09:02-0400 Body mass index (BMI) [Ratio] 24.5 kg/m2 No Primary Care Physician [facility] 03-16-2023 09:02-0400 Body weight 75.52 kg No Primary Care Physician [facility] 03-16-2023 09:02-0400 Diastolic blood pressure 66 mm[Hg] No Primary Care Physician [facility] 03-16-2023 09:02-0400 Systolic blood pressure 112 mm[Hg] No Primary Care Physician [facility] 03-14-2023 08:59-0400 Body mass index (BMI) [Ratio] 24.5 kg/m2 No Primary Care Physician [facility] 03-14-2023 08:59-0400 Body temperature 98.4 [degF] No Primary Care Physician [facility] 03-14-2023 08:59-0400 Body weight 75.35 kg No Primary Care Physician [facility] 03-14-2023 08:59-0400 Diastolic blood pressure 70 mm[Hg] No Primary Care Physician [facility] 03-14-2023 08:59-0400 Heart rate 98 /min No Primary Care Physician [facility] 03-14-2023 08:59-0400 Respiratory rate 16 /min No Primary Care Physician [facility] 03-14-2023 08:59-0400 SaO2% (BldA) [Mass fraction] 98 % No Primary Care Physician [facility] 03-14-2023 08:59-0400 Systolic blood pressure 108 mm[Hg] No Primary Care Physician [facility] 02-14-2023 13:43-0400 Body height 175.26 cm DO Cheryl Thomas Work Phone: [facility] 02-14-2023 13:41-0400 Body mass index (BMI) [Ratio] 24.7 kg/m2 DO Cheryl Thomas Work Phone: [facility] 02-14-2023 13:41-0400 Body weight 75.97 kg DO Cheryl Thomas Work Phone: [facility] 02-14-2023 13:41-0400 Diastolic blood pressure 59 mm[Hg] DO Cheryl Thomas Work Phone: [facility] 02-14-2023 13:41-0400 Systolic blood pressure 99 mm[Hg] DO Cheryl Martha Work Phone: [facility] 01-26-2023 21:51-0400 Body height 175.26 cm DO Cheryl Martha Work Phone: [facility] 01-26-2023 21:51-0400 Body mass index (BMI) [Ratio] 54.8 kg/m2 DO Cheryl Martha Work Phone: [facility] 01-26-2023 21:51-0400 Body temperature 97.9 [degF] DO Cheryl Martha Work Phone: [facility] 01-26-2023 21:51-0400 Body weight 168.6 kg DO Cheryl Martha Work Phone: [facility] 01-26-2023 21:51-0400 Diastolic blood pressure 75 mm[Hg] DO Cheryl Martha Work Phone: [facility] 01-26-2023 21:51-0400 Heart rate 95 /min DO Cheryl Martha Work Phone: [facility] 01-26-2023 21:51-0400 Respiratory rate 18 /min DO Cheryl Martha Work Phone: [facility] 01-26-2023 21:51-0400 SaO2% (BldA) [Mass fraction] 100 % DO Cheryl Martha Work Phone: [facility] 01-26-2023 21:51-0400 Systolic blood pressure 124 mm[Hg] DO Cheryl Martha Work Phone: [facility] 11-20-2022 08:54-0400 Body temperature 98.4 [degF] DO Cheryl Martha Work Phone: [facility] 11-20-2022 08:54-0400 Diastolic blood pressure 54 mm[Hg] DO Cheryl Martha Work Phone: [facility] 11-20-2022 08:54-0400 Heart rate 85 /min DO Cheryl Thomas Work Phone: [facility] 11-20-2022 08:54-0400 Respiratory rate 14 /min DO Cheryl Thomas Work Phone: [facility] 11-20-2022 08:54-0400 SaO2% (BldA) [Mass fraction] 99 % DO Cherylmadina Martinser Work Phone: [facility] 11-20-2022 08:54-0400 Systolic blood pressure 100 mm[Hg] DO Cheryl Thomas Work Phone: [facility] 02-26-2022 11:08-0400 Body height 175.[address] Jose Antonio Flower Work Phone: [facility] Work Phone: 02-26-2022 11:07-0400 Body mass index (BMI) [Ratio] 24.6 kg/m2 Dr. Jose Antonio Flower Work Phone: [facility] Work Phone: 02-26-2022 11:07-0400 Body weight 75.[address] Jose Antonio Flower Work Phone: [facility] Work Phone: 02-26-2022 11:07-0400 Diastolic blood pressure 84 mm[Hg] Dr. Jose Antonio Flower Work Phone: [facility] Work Phone: 02-26-2022 11:07-0400 Systolic blood pressure 126 mm[Hg] Dr. Jose Antonio Flower Work Phone: [facility] Work Phone: 06-23-2017 20:20-0500 BMI (Body Mass Index) 25.11 kg/m2 [facility] Work Phone: 06-23-2017 20:20-0500 Body Temperature 98.49 [degF] [facility]: 06-23-2017 20:20-0500 BP Diastolic 76 mm[Hg] [facility] Work Phone: 06-23-2017 20:20-0500 BP Systolic 119 mm[Hg] [facility] Work Phone: 06-23-2017 20:20-0500 Pulse (Heart Rate) 88 /min [facility] Work Phone: 06-23-2017 20:20-0500 Pulse Oximetry 95 % [facility] Work Phone: 06-23-2017 20:20-0500 Respiratory Rate 14 /min Racquel [facility] Work Phone: 06-23-2017 20:20-0500 Weight 79.38 kg Racquel Tovar [facility] Work Phone: 05-04-2017 10:41-0500 BMI (Body Mass Index) 25.68 kg/m2 Vinita Sch[facility] Work Phone: 05-04-2017 10:41-0500 Body Temperature 97.81 [degF] [facility] Work Phone: 05-04-2017 10:41-0500 BP Diastolic 83 mm[Hg] [facility]inita Sch[facility] Work Phone: 05-04-2017 10:41-0500 BP Systolic 114 mm[Hg] [facility] Sch[facility] Work Phone: 05-04-2017 10:41-0500 Height 177.8 cm Vinita Schmitt [facility] Work Phone: 05-04-2017 10:41-0500 Pulse (Heart Rate) 71 /min Vinita Schmitt [facility] Work Phone: 05-04-2017 10:41-0500 Pulse Oximetry 96 % Vinita Schmitt [facility] Work Phone: 05-04-2017 10:41-0500 Respiratory Rate 16 /min iVnita Schmitt [facility] Work Phone: 05-04-2017 10:41-0500 Weight 81.19 kg Vinita Schmitt [facility] Work Phone: 04-17-2017 20:04-0400 BMI (Body Mass Index) 24.39 kg/m2 Kristen [facility] Work Phone: 04-17-2017 20:04-0400 Body Temperature 98.6 [degF] Kristen Bat[facility] Work Phone: 04-17-2017 20:04-0400 BP Diastolic 80 mm[Hg] Kristen [facility] Work Phone: 04-17-2017 20:04-0400 BP Systolic 130 mm[Hg] Kristen Bat[facility] Work Phone: 04-17-2017 20:04-0400 Height 177.8 cm Kristen Bat[facility] Work Phone: 04-17-2017 20:04-0400 Pulse (Heart Rate) 86 /min Kristen Bat[facility] Work Phone: 04-17-2017 20:04-0400 Pulse Oximetry 100 % Kristen Batres [facility] Work Phone: 04-17-2017 20:04-0400 Respiratory Rate 16 /min Kristen [facility] Work Phone: 04-17-2017 20:04-0400 Weight 77.11 kg Kristen Batres [facility] Work Phone: Encounters Encounter Date Encounter Type Care Provider Facility Start: 04-11-2025 End: 04-11-2025 ambulatory No Primary Care Physician Facility:[facility] Start: 12-20-2024 End: 12-20-[address] Velasquez Galvin MD -[facility] Work Phone: Start: 12-20-2024 End: 12-20-[address] Bailey Lang DO Work Phone: -[facility] Start: 12-18-2024 Encounter for other preprocedural examination Velasquez Galvin [facility] Start: 12-07-2024 End: 12-07-[address] Velasquez Galvin MD -[facility] Work Phone: Start: 12-07-2024 End: 12-07-[address] Bailey Lang DO Work Phone: [facility] Work Phone: Start: 12-05-2024 Non-patient / Non-visit Dr. Velasquez ott MD -[facility] Start: 12-05-2024 End: 12-05-2024 Admission to same day surgery center Dr. Velasquez Galvin [facility] Start: 12-05-2024 End: 12-05-[address] Bailey Lang DO Work Phone: [facility] Work Phone: Start: 12-01-2024 Registered Referred Stephanie khalil Work Phone: Start: 12-01-2024 ambulatory No Primary Car e Physician Facility:[facility] Start: 11-14-2024 End: 11-14-2024 Patient encounter procedure Kailey SEGOVIA -[facility] Work Phone: Start: 11-14-2024 End: 11-14-2024 Patient encounter status Kailey SEGOVIA [facility] Start: 11-14-2024 End: 11-14-[address] Bailey Lang DO Work Phone: [facility] Work Phone: Start: 10-01-2024 End: 10-01-2024 ambulatory No Primary Care Physician Facility:[facility] Start: 10-01-2024 End: 10-01-[address] Velasquez Galvin MD -[facility] Work Phone: Start: 09-26-2024 End: 09-26-[address] Bailey Lang DO Work Phone: [facility] Work Phone: Start: 09-26-2024 End: 09-26-[address] Velasquez Galvin MD -[facility] Work Phone: Start: 09-25-2024 End: 09-26-[address] Bailey Lang DO Work Phone: [facility] Work Phone: Start: 09-25-2024 End: 09-25-2024 Patient encounter procedure Indira James CNM -Laboratory Work Phone: Start: 09-25-2024 End: 09-25-2024 ambulatory Indira James Facility:[facility] Start: 09-21-2024 End: 09-21-[address] Bailey Lang DO Work Phone: [facility] Work Phone: Start: 09-21-2024 End: 09-21-2024 Patient encounter procedure Indira James CNM -Laboratory Work Phone: Start: 09-21-2024 End: 09-21-2024 ambulatory Indira James Facility:[facility] Start: 09-06-2024 End: 09-06-[address] Velasquez Galvin MD -[facility] Work Phone: Start: 09-06-2024 End: 09-06-2024 ambulatory Velasquez Galvin Facility:[facility] Start: 08-30-2024 End: 08-30-2024 ambulatory JOSE ANTONIO FLOWER Facility:[facility] Start: 05-08-2024 ambulatory Bailey Ochoa ility:[facility] Start: 05-05-2024 End: 05-05-2024 ambulatory Jennifer Gonzalez NP Facility:[facility] Start: 04-26-2024 End: 04-26-2024 ambulatory Arabella Chau Facility:[facility] Start: 01-21-[address] Trey Lang DO Work Phone: [facility] Start: 09-17-2023 Non-patient / Non-visit No Amaris campos [facility] Physician [facility] Start: 09-16-2023 Non-patient / Non-visit No Amaris campos [facility] Physician [facility] Start: 09-16-2023 End: 09-17-2023 Evaluation and management of inpatient No Primary Care Physician [facility] Work Phone: Start: 09-15-2023 End: 09-15-2023 Patient encounter procedure No Primary Care Physician [facility] Work Phone: Start: 09-08-2023 End: 09-08-2023 Patient encounter procedure No Primary Care Physician [facility] Work Phone: Start: 09-02-2023 End: 09-02-2023 ambulatory No Primary Care Physician [facility] Work Phone: Start: 09-02-2023 End: 09-02-2023 Patient encounter procedure No Primary Care Physician [facility] Work Phone: Start: 08-19-2023 End: 08-19-2023 Patient encounter procedure No Primary Care Physician [facility] Work Phone: Start: 08-05-2023 End: 08-05-2023 Patient encounter procedure No Primary Care Physician [facility] Work Phone: Start: 07-20-2023 End: 07-20-2023 Patient encounter procedure No Primary Care Physician [facility] Work Phone: Start: 07-05-2023 End: 07-05-2023 Patient encounter procedure No Primary Care Physician [facility] Work Phone: Start: 07-02-2023 End: 07-02-2023 ambulatory No Primary Care Physician [facility] Work Phone: Start: 07-02-2023 End: 07-02-2023 Patient encounter procedure No Primary Care Physician [facility]-Laboratory Work Phone: Start: 06-06-2023 End: 06-06-2023 Patient encounter procedure No Primary Care Physician [facility] Work Phone: Start: 05-10-2023 End: 05-10-2023 Patient encounter procedure No Primary Care Physician [facility] Work Phone: Start: 05-04-2023 End: 05-04-2023 ambulatory No Primary Care Physician [facility] Work Phone: Start: 05-04-2023 End: 05-04-2023 Patient encounter procedure No Primary Care Physician [facility] Work Phone: Start: 04-13-2023 End: 04-13-2023 Patient encounter procedure No Primary Care Physician [facility] Work Phone: Start: 03-16-2023 End: 03-16-2023 Patient encounter procedure No Primary Care Physician [facility] Work Phone: Start: 03-14-2023 End: 03-14-2023 Patient encounter procedure No Primary Care Physician [facility] Work Phone: Start: 02-14-2023 End: 02-14-2023 ambulatory DO Cheryl Thomas Work Phone: [facility] Work Phone: Start: 02-14-2023 End: 02-14-2023 Patient encounter procedure DO Cheryl Thomas Work Phone: [facility]-Laboratory, Specimen Work Phone: Start: 02-14-2023 End: 02-14-2023 Patient encounter procedure DO Cheryl Thomas Work Phone: [facility] Work Phone: Start: 01-26-2023 End: 01-26-2023 Emergency department patient visit DO Cheryl Thomas Work Phone: [facility]-Emergency Department Work Phone: Start: 12-18-2022 End: 12-18-2022 ambulatory DO Cheryl Thomas Work Phone: [facility] Work Phone: Start: 12-18-2022 End: 12-18-2022 Patient encounter procedure DO Cheryl Thomas Work Phone: [facility]-Laboratory, [facility] Work Phone: Start: 12-16-2022 End: 12-16-2022 ambulatory DO Cheryl Thomas Work Phone: [facility] Work Phone: Start: 12-16-2022 End: 12-16-2022 Patient encounter procedure DO Cheyrl Thomas Work Phone: [facility]-Radiology, [facility] Work Phone: Start: 12-14-2022 End: 12-14-2022 Patient encounter procedure DO Cheryl Thomas Work Phone: [facility] Start: 12-10-2022 End: 12-10-2022 ambulatory DO Cheryl Thomas Work Phone: [facility] Work Phone: Start: 12-10-2022 End: 12-10-2022 Patient encounter procedure DO Cheryl Tohmas Work Phone: [facility]-Laboratory Start: 11-20-2022 End: 11-20-2022 Patient encounter procedure DO Cheryl Thomas Work Phone: [facility] Start: 02-26-2022 End: 02-26-[address] Jose Antonio Flower Work Phone: [facility] Work Phone: Start: 02-26-2022 End: 02-26-[address] Jose Antonio Flower Work Phone: [facility] Start: 02-18-2022 End: 02-18-[address] Jose Antonio Flower Work Phone: [facility] Work Phone: Start: 02-18-2022 End: 02-18-[address] Jose Antonio Flower Work Phone: [facility] Start: 02-12-2022 End: 02-12-[address] Jose Antonio Flower Work Phone: [facility] Work Phone: Start: 02-12-2022 End: 02-12-[address] Jose Antonio Flower Work Phone: [facility] Start: 01-26-2022 End: 01-26-[address] Jose Antonio Flower Work Phone: [facility] Start: 12-17-2021 End: 12-17-[address] [facility] Start: 09-02-2021 End: 09-02-[address] Jose Antonio Flower Work Phone: [facility] Start: 03-30-2020 End: 03-30-2020 Subsequent hospital visit by physician [facility] Work Phone: Radiology Comment on above: Right wrist pain [M2 5.531] Start: 10-07-2017 End: 10-07-2017 [facility] Start: 08-11-2017 End: 08-11-2017 [facility] Start: 06-23-2017 End: 06-23-2017 Ambulatory [facility] Start: 06-23-2017 Office/outpatient vi sit, est, level 3 Racquel Tovar Work Phone: [facility] Start: 06-10-2017 End: 06-10-2017 [facility] Start: 05-11-2017 End: 05-15-2017 [facility] Start: 05-04-2017 End: 05-04-2017 Ambulatory [facility] Start: 05-04-2017 Office outpatient vi sit 25 minutes Vinita Schmitt Work Phone: [facility] Start: 04-17-2017 End: 04-18-2017 Emergency department patient visit [facility] Start: 04-17-2017 End: 04-17-2017 Emergency department patient visit Kristen Batres Work Phone: [facility] Start: 12-15-2016 End: 12-15-2016 Ambulatory [facility] Procedures Date Procedure Procedure Detail Performing Clinician Start: 12-05-[address] Bailey Lang DO Work Phone: Start: 09-26-2024 MRI of joint of lowe r extremity Dr. Bailey Lang DO Work Phone: Start: 09-06-2024 X-ray of knee, four or more views Dr. Bailey Lang DO Work Phone: Start: 09-02-2023 Group B Streptococcu s Culture No Primary Care Physician Start: 05-04-2023 Ultrasonography in f irst trimester No Primary Care Physician Start: 02-14-2023 Urine culture DO Adenike Thmoas Work Phone: Start: 12-16-2022 X-ray of unilateral ribs, two views without x-ray of chest DO Cheryl Thomas Work Phone: Start: 02-18-[address] Jose Antonio Flower Work Phone: Start: 02-12-2022 US scan of thyroid Dr. Jose Antonio Flower Work Phone: Start: 03-30-2020 Radex wrist complete minimum 3 views Maria Esther Alberto [employer] Work Phone: Plan of Treatment Date Care Activity Detail Author Start: 03-27-2028 Urine microalbumin profile DTaP,Tdap,Td Vaccine (2 - Td or Tdap) [facility] Start: 12-07-2024 Patient referral [facility] Work Phone: Start: 12-05-2024 Anes open/surg arthroscopic proc knee joint nos ANESTH KNEE JOINT SURGERY [facility] Start: 12-05-2024 Arthrs knee debridement/shaving artclr crtlg KNEE ARTHROSCOPY/SURGERY [facility] Start: 12-05-2024 Patient discharge [facility] Start: 12-05-2024 Application of ice collar, cap or bag [facility] Start: 12-05-2024 Assessment of risk of venous thromboembolism [facility] Start: 12-05-2024 Catheterization of vein [facility] Start: 12-05-2024 Continuous positive airway pressure ventilation treatment [facility] Start: 12-05-2024 Elevation of affected extremity [facility] Start: 12-05-2024 Following clinical pathway protocol [facility] Start: 12-05-2024 Incentive spirometry [facility] Start: 12-05-2024 Introduction of urinary catheter [facility] Start: 12-05-2024 Provision of activity privileges [facility] Start: 12-05-2024 Vital signs measurements [facility] Start: 12-05-2024 End: 12-05-2024 [facility] Start: 02-19-2024 Covid-19 Vaccine () Covid-19 Vaccine () [facility] Start: 02-19-2024 Influenza vaccination Influenza Vaccine (#1) [facility] Start: 09-17-2023 Patient discharge [facility] Start: 09-17-2023 Documentation procedure [facility] Start: 09-17-2023 [facility] Start: 09-16-2023 Admission procedure [facility] Start: 09-16-2023 Administration of medication [facility] Start: 09-16-2023 Application of ice collar, cap or bag [facility] Start: 09-16-2023 Catheterization of vein [facility] Start: 09-16-2023 Introduction of urinary catheter [facility] Start: 09-16-2023 Measuring intake [facility] output [facility] Start: 09-16-2023 Notification of physician [facility] Start: 09-16-2023 Procedure discontinued [facility] Start: 09-16-2023 Provision of activity privileges [facility] Start: 09-16-2023 Vital signs measurements [facility] Start: 09-16-2023 End: 09-16-2023 [facility] Start: 09-16-2023 Documentation procedure [facility] Start: 09-16-2023 Consultation [facility] Start: 02-14-2023 Liquid based cervical cytology screening [facility] Start: 03-14-2021 Screening for malignant neoplasm of cervix Cervical Cancer Screening [facility] Start: 02-18-2017 Influenza vaccination SEQUENTIAL INFLUENZA VACCINE (#1) [facility] Work Phone: Start: 2013 Hepatitis B Vaccine (1 of 3 - 19+ 3-dose series) Hepatitis B Vaccine (1 of 3 - 19+ 3-dose series) [facility] Start: 2012 Anxiety Screening Anxiety Screening [facility] Start: 2012 Depression Screening Depression Screening [facility] Start: 2012 HIV screening HIV Screening [facility] Start: 08-18-2009 HPV Vaccine (2 - 2-dose series) HPV Vaccine (2 - 2-dose series) [facility] Start: 2005 Vaccination for human papillomavirus HPV VACCINES (1 of 3 - Female 3 Dose Series) [employer] [facility] Work Phone: Start: 1994 Screening for malignant neoplasm of cervix PAP SMEAR [facility] Work Phone: Start: 1994 Tetanus vaccination TETANUS EVERY 10 YR [facility] Work Phone: Androstenedione [Mas s/volume] in Serum or Plasma [facility] Bacteria aerobode culture Urine Aerobic Culture Routine Acute cystitis with hematuria Ordered: 06/23/2017 [facility] Work Phone: End: 05-05-2018 Bacteria aerobode culture Urine Aerobic Culture Routine Acute cystitis with hematuria 1 Occurrences starting 05/04/2017 until 05/05/2018 [facility] Work Phone: CBC W Auto Different ial panel - Blood [facility] Dehydroepiandrostero ne sulfate (DHEA-S) [Mass/volume] in Serum or Plasma [facility] Hepatitis B surface antigen measurement [facility] Hepatitis C antibody measurement [facility] HIV 1+2 Ab+HIV1 p24 Ag [Presence] in Serum or Plasma by Immunoassay [facility] MR Lower Extremity Joint [facility] Patient Education [facility] Work Phone: Patient referral [facility] Work Phone: Rubella IgG measurement [facility] Testosterone Free [M ass/volume] in Serum or Plasma [facility] Testosterone measurement [facility] Treponema sp Ab [Pre sence] in Serum [facility] Urine test [facility] Immunizations Immunization Date Immunization Notes Care Provider Jj johnson 10-02-2024 Hepatitis B vaccine (recombinant), CpG adjuvanted Dr. Bailey Lang DO Work Phone: [facility] 04-26-2024 influenza, seasonal, injectable, preservative free Dr. Bailey Lang DO Work Phone: [facility] 07-05-2023 tetanus toxoid, reduced diphtheria toxoid, and acellular pertussis vaccine, adsorbed No Primary Care Physician [facility] 05-10-2023 influenza, injectabl e, quadrivalent, preservative free No Primary Care Physician [facility] 11-16-2022 influenza, injectabl e, quadrivalent, preservative free No Primary Care Physician [facility] 05-05-2022 influenza, seasonal, injectable DO Cheryl Thomas Work Phone: [facility] 05-06-2021 influenza, injectabl e, quadrivalent, preservative free No Primary Care Physician [facility] 05-06-2021 influenza, seasonal, injectable Dr. Jose Antonio Flower Work Phone: [facility] 04-16-2021 Covid (Pfizer) Dr. Bailey Lang DO Work Phone: [facility] 03-26-2021 Covid (Pfizer) Dr. Bailey Lang DO Work Phone: [facility] 03-20-2021 Covid (Pfizer) Dr. Bailey Lang DO Work Phone: [facility] 01-05-2021 measles, mumps and rubella virus vaccine Dr. Jose Antonio Flower Work Phone: [facility] 10-16-2020 tetanus toxoid, reduced diphtheria toxoid, and acellular pertussis vaccine, adsorbed Dr. Jose Antonio Flower Work Phone: [facility] 10-16-2020 diphtheria, tetanus toxoids and acellular pertussis vaccine, unspecified formulation Dr. Jose Antonoi Flower Work Phone: [facility] Work Phone: 06-20-2020 tetanus toxoid, reduced diphtheria toxoid, and acellular pertussis vaccine, adsorbed Dr. Bailey Lang DO Work Phone: [facility] 05-12-2020 influenza, injectabl e, quadrivalent, preservative free No Primary Care Physician [facility] 05-12-2020 influenza, seasonal, injectable Dr. Jose Antonio Flower Work Phone: [facility] 04-23-2019 influenza, injectabl e, quadrivalent, preservative free No Primary Care Physician [facility] 04-23-2019 influenza, seasonal, injectable Dr. Jose Antonio Flower Work Phone: [facility] 03-27-2018 tetanus toxoid, reduced diphtheria toxoid, and acellular pertussis vaccine, adsorbed Dr. Jose Antonio Flower Work Phone: [facility] 03-22-2018 influenza, injectabl e, quadrivalent, preservative free No Primary Care Physician [facility] 03-22-2018 influenza, seasonal, injectable Dr. Jose Antonio Flower Work Phone: [facility] 03-22-2018 influenza, seasonal, injectable, preservative free [facility] [place] Work Phone: [facility] 03-22-2018 influenza virus vaccine, unspecified formulation [facility] [place] Work Phone: [facility] Payers Date Payer Category Payer Self-pay [id number] 2023 Unknown [id number] 2019 Unknown [id number] 2016 Unknown [id number] 2.16. [id number] 1994 Unknown [id number] 2.16.8 [id number] 1994 Unknown [id number] 2.16.8 [id number] 1994 Unknown [id number] 2.16.8 [id number] Unknown [id number] Unknown [id number] Unknown [id number] 2.16.8 [id number] Unknown [id number] 2.16.8 [id number] Unknown [id number] 2.16.8 [id number] Unknown [id number] 2.16.8 40.1.261413.3.579.2.462 Unknown [id number] 2.16.8 40.1.770321.3.579.2.462 Unknown [id number] 2.16.8 40.1.818415.3.579.2.462 Unknown [id number] 2.16.8 40.1.250126.3.579.2.462 Unknown [id number] 2.16.8 40.1.554699.3.579.2.462 Unknown [id number] 2.16.8 40.1.967414.3.579.2.462 Unknown [id number] 2.16.8 40.1.357209.3.579.2.462 Unknown [id number] 2.16.8 40.1.062355.3.579.2.462 Unknown [id number] 2.16.8 40.1.730780.3.579.2.462 Unknown [id number] 2.16.8 40.1.409577.3.579.2.462 Unknown [id number] 2.16.8 40.1.958488.3.579.2.462 Unknown [id number] 2.16.8 40.1.558770.3.579.2.462 Unknown [id number] 2.16.8 40.1.147704.3.579.2.462 Unknown [id number] 2.16.8 [id number] Social History Date Type Detail Facility Start: 06-23-2017 End: 11-26-2024 Tobacco smoking status [facility] Never smoker [facility] Work Phone: Start: 1994 Sex Assigned At Not on file O [facility] Work Phone: Start: 09-02-2021 End: 09-16-2023 Tobacco smoking status NHIS Unknown if ever smoked [facility] Start: 1995 Sex Assigned At Female [facility] Start: 05-15-2014 Tobacco use and exposure Smoke less tobacco non-user [facility] Start: 03-29-2020 Alcoholic beverage intake Current non-drinker of alcohol (finding) [facility] Start: 12-22-2019 End: 12-25-2019 History of Social function [facility] Start: 12-22-2019 End: 12-25-2019 Social connection and isolation panel [facility] Frequency of Communication with Friends and Family Not on file [facility] Do you belong to any clubs or organizations such as zoroastrianism groups, unions, fraternal or athletic groups, or school groups? No [facility] How often to you hav e a drink containing alcohol? 2-3 time sa week [facility] Do you feel stress - tense, restless, nervous, or anxious, or unable to sleep at night because your mind is troubled all the time - these days [OSQ] Rather much [facility] (I/We) worried virgilio er (my/our) food would run out before (I/we) got money to buy more. Never true [facility] Start: 07-26-2019 Education 17 [facility] Start: 02-29-2020 End: 03-30-2020 Exposure to SARS-CoV-2 (event) Not sure [facility] Start: 09-25-2024 End: 10-02-2024 Sex Female (finding) [facility] NEGATED: Highlighted row Not [facility] Goals Date Patient Goal Desired Activity /State Mental Status Date Assessment Result Facility 12-05-2024 Cognitive function Voice/Name [facility] Work Phone: 12-05-2024 Cognitive function Patient Meenu britton Person;Place;Time [facility] Work Phone: Clinical Notes 03-30-2020 to 12-20-2024 Note Date & Type Note Facility 12-20-2024 Progress note [facility] 12-20-2024 Progress note Note Date/Time December 20, 2024 9:32am [facility] [address] [place] [address] OFFICE VISIT Date of Service: 12/20/24 MR#: [id number] Acct: [id number] Name: YAKOV FIORE Rep #: [id number] : 1995 Provider: Dr. Robert Galvin MD Age/Sex: 29/F Location: [facility].SAMY Status: Signed Intake Vital Signs 11/14/24 09:05 12/05/24 06:19 12/20/24 09:23 Height 5 ft 9 in 5 ft 9 in 5 ft 9 in Weight: 175 lb BMI 25.8 Intake Visit Reasons: RIGHT KNEE Chief Complaint: 2 week post op Accompanied by: Daughter Is patient in pain?: No Allergies codeine Adverse Reaction (Verified 12/20/24 09:25) Nausea/Vom/Diarrhea Medications 3 ?Medication ?Instructions ?Recorded ?Confirmed ?Type PNV#14-iron fum-FA#1-cne-ohxxgztr 1 cap PO DAILY pregn krish 01/26/23 12/20/24 History 27 mg iron-1 mg-300 mg-50 mg capsule magnesium 250 mg tablet 250 mg PO DAILY 11/26/2409/11 History acetaminophen 325 mg tablet 325 mg PO ONCE PRN 5 12/20/24 History (Tylenol) Have you fallen in the past year?: No PFSH Medical History Synovial plica of right knee Wears glasses Depression Non-smoker Loose body of right knee Right knee pain Vaginal delivery Vaginal delivery hemorrhage History of tetanus, diphtheria, and acellular pertussis booster vaccination (Tdap) Psoriasis Chronic back pain Bruises easily Diarrhea Bilateral headaches Environmental allergies Surgical History History of lump of right breast History of cosmetic plastic surgery Family History Grandmother Uterine cancer Mother Breast cancer Other CVA (cerebral vascular accident) Cancer Heart disease Hypertension Myocardial infarction Thyroid disorder Social History adopted: No household members: spouse housing: house number of children: 2 current occupational status: employed 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 Velasquez Galvin MD 12/20/24 4251. Part of today?s visit was documented by [ ], acting as scribe. YAKOV FIORE is a 29 year old F here today for 2 weeks FU R knee arthroscopy, removal loose body, debridement plica. Doing well very rare pain in the knee the swelling is coming down the bruising is getting better. Ortho Exam General General: Yes no acute distress Neurologic: Yes alert and Yes oriented x3 Psychologic: Yes reasonable and appropriate Right Knee Skin/Wound: Yes CDI, Yes healed, No erythema, Yes ecchymosis (slight) and No swelling Knee ROM: Yes ROM-Flexion 0-140 KNEE: NVI, normal gait no crutches no swelling full range of motion Coding Level of Care Code Global Post Op Diagnoses Synovial plica of right knee M67.51 Loose body of right knee M23.41 Assessment and Plan Assessment and Plan (1) Synovial plica of right knee: Status: Acute Plan: YAKOV FIORE is a 29 year old F here today for 2 weeks FU R knee arthroscopy, removal loose body, debridement plica. Patient doing well had somemild bruising and pain due to the plica debridement. The patient is doing very well for being in 2 weeks postoperatively walking without ambulatory aids with good swelling no pain or problems therefore we will follow-up as needed. (2) Loose body of right knee: Status: Acute Plan Details Goals & Barriers: Goals Decrease pain Improve ROM Decrease spasm Barriers Carrying young child Clinical Quality Measures Falls Risk Screening/Assistive Devices Have you fallen in the past year?: No 12/20/24 0933 <Electronically signed by Velasquez turner MD> Date _ [facility] Signature: Date (if applicable) CC: ~ [facility] Work Phone: 1(585) 876-793006-18-2025 Discharge summary Author Velasquez Galvin [facility] Note Date/Time December 05, 2024 8:14 am [facility] Medical Records Department [address] [place] [address] Instructions for Home/Discharge Instructions 12/05/2412 MR#: [id number] Acct: [id number] Name: YAKOV FIORE Rep #:[id number] : 1995 29 From: Velasquez Galvin MD PCP: Care Physician,No Primary Status :REG [facility] Discharge Instructions Diet Discharge Diet: No restrictions Activity Discharge Activity: Return to Normal Activity Weight Bearing Status: Weight bearing as tolerated Lifting Restrictions: crutches as needed, ROM as tolerated. Keep extremity elevated above heart level: Operative Extremity Dressing / Incision Call your doctor if your incision/area has: Continuous Slow Oozing, Sudden Increased Bleeding, Increased Pain/ Swelling, Increased Redness, Foul Smelling Discharge and Swelling at the incision site Call your doctor if you observe: Fever of 101 or Higher, Coldness, Increased Pain and Numbness or Tingling Change Dressing in: 1 day Cleanse incision/area with: Do not get Incision Wet Follow Up Care Please Follow Up With: Velasquez Galvin MD When: 2 days or within 2 weeks, per your preference Test Results: Test results from this visit will be discussed in further detail at your follow- up appointment, if applicable. Discharge Plan Admission Attending Provider: Velasquez Galvin Primary Care Provider: Care Physician,No Primary Consulting Providers: Jass Jenkins Instructions Patient Instructions: After Knee Arthroscopy Print Language: Chadian Discharge Orders/Prescriptions Prescriptions: New oxycodone-acetaminophen [Percocet] 5-325 mg tablet 1 tab PO Q8H MDD 6 PRN (Reason: pain) 2 Days Qty: 10 0RF No Action PNV #14-iron-FA#1-oam-hargvwvi 27 mg iron-1 mg -300 mg-50 mg capsule 1 cap PO DAILY magnesium 250 mg tablet 250 mg PO DAILY Other Ambulatory Orders: ,Urine (Routine) Timeframe: 20241031 Facility: [facility] - Location: Laboratory Ordered By: Dr. Jass Jenkins Referrals / Follow Up: Care Physician,No Primary [Primary Care Provider] - Disposition Disposition (needs filled in before D/C Order can be placed): Home, Self Care 12/05/24813<Electronically signed by Velasquez Galvin MD>Velasquez Galvin MD CC: Dr. Jass Jenkins MD; No Primary Care Physician ~ Signed [facility] Work Phone: [phone]) 979-596106-18-2025 Consult note [facility] Medical Records Department [address] [place] [address] Anesthesia Postop Eval I 12/05/24929 MR#: [id number] Acct: [id number] Name: YAKOV FIORE Rep #:[id number] : 1995 29 From: Jorge PRESTON PCP: Care Physician,No Primary Status :REG SDC Y Race: C Location: [place] [address] Anesthesia: Postop Eval I Current Vital Signs Temperature: 97.2 F Pulse Rate: 95 Blood Pressure: 98/61 Respiratory Rate: 14 Pulse Ox: 94 Assessment Airway patent: Yes Spontaneous unlabored respirations: Yes nausea: No Vomiting: No Anesthesia Complication: No Fluid Hydration Crystalloid volume administer (ml): 700 Total IV fluid infused: 700 Progress Note Anesthesia document: Postop Eval 1 completed: Yes 12/05/24929 [facility]> Date _ Jorge Chaney [facility] Cosigner Signature: Date CC: ~ Signed [facility]06-18-2025 Consult note Author Jass Jenkins [facility] Note Date/Time December 05, 2024 7:05 am [facility] Medical Records Department [address] [place] [address] Pre-Anesthesia Evaluation 12/05/24 0652 MR#: [id number] Acct: [id number] Name: YAKOV FIORE Rep #:[id number] : 1995 29 From: Jass Jenkins MD PCP: Care Physician,No Primary Status :REG SDC Y Race: C Location: [place] [address] ASA Classification* ASA Classification ASA Classification: 2 Assessment & Plan Anesthesia* Anesthesia Assessment Anesthesia Assessment: Discussed sedation and/or anesthesia options, risks, benefits, and alternatives with patient/parents/legal guardian/POA. Questions invited. The patient/parents/legal guardian/POA seems to understand and agrees to proceedwith anesthesia plan. Reviewed the physical assessment, medical history, allergy history and patient home medications list prior to surgery/procedure/anesthetic and documented any changes. Performed airway and anesthesia risk assessments. Anesthesia Type Anesthesia Type: General History Source History Obtained from:: Patient and Chart Anesthesia Focused Assessment* Temperature: 97.1 F Pulse Rate: 82 Blood Pressure: 96/61 Respiratory Rate: 16 Pulse Ox: 100 Oxygen Delivery Method: Room Air Airway Assessment Mouth opens: >3 cm Mallampati Score: I Teeth Condition: Intact Neck Range of motion (ROM): Full ROM Labs Anesthesia Preop lab: CBC WBC 5.3 K/mm3 (4.4-11.0) 02/18/24 08:02/18/24 RBC 4.58 M/mm3 (4.2-5.4) 02/18/24 08:02/18/24 Hgb 13.0 g/dL (12.0-15.0) 02/18/24 08:02/18/24 Hct 39.6 % (37-47) 02/18/24 08:02/18/24 Plt Count 353 K/mm3 (150-450) 02/18/24 08:29 02/18/24 CHEMISTRY Potassium 4.1 mmol/L (3.5-5.1) 02/18/24 08:29 02/18/24 Sodium 138 mmol/L (136-145) 02/18/24 08:29 02/18/24 BUN 16 mg/dL (7-18) 02/18/24 08:29 02/18/24 Creatinine 0.64 mg/dL (0.55-1.02) 02/18/24 08:29 02/18/24 Glucose 97 mg/dL (74-106) 02/18/24 08:29 02/18/24 TSH 0.83 uIU/mL (0.358-3.74) 12/18/22 10:49 COAG Urine Test Negative Negative 12/05/24 06:05 12/05/24 [facility] Clinic Negative 04/13/19 09:28 04/13/19 Pre-Assessment Diagnosis/Proposed Procedure Planned Operative Procedure(s): Right knee Arthroscopy, removal loose body, debridement Anesthesia History 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 When Was Last Pacemaker Check QUESTION #4 FULL TEXT: You/Your Family Experience fever (hyperthermia) with Anesthesia Last Oral Intake Last Oral intake: Last Oral Intake NPO since 19:00 12/05/24 06:19 Meds taken in AM with sips of No 12/05/24 06:19 water? 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 die designer: PONV - tool and die designer Female Yes 11/26/24 10:01 HX of Motion Sickness Yes 11/26/24 10:01 HX of N/V After Surgery Yes 11/26/24 10:01 Non-Smoker Yes 11/26/24 10:01 Duration of Surgery greater Yes 11/26/24 10:01 than 60 minutes Number of Risk Factors 5 11/26/24 10:01 PONV Score Severe Risk 11/26/24 10:01 Height & Weight Height & Weight: Anesthesia: Height & Weight Height 5 ft 9 in 12/05/24 06:19 Weight: 80 kg 12/05/24 06:19 Body Mass Index (BMI) 26.0 12/05/24 06:19 Respiratory Assessment Respiratory Assessment - tool and die designer: Respiratory Tract Infection Hx - tool and die designer Hx Respiratory Tract Infection No 11/26/24 10:01 STOP Sleep Apnea STOP Sleep Apnea - tool and die designer: STOP Sleep Apnea - tool and die designer Hx Hypertension No 11/26/24 10:01 Hx Sleep Apnea No 11/26/24 10:01 CPAP BIPAP Do you snore loudly (louder No 11/26/24 10:01 than talking or can be heard Do you often feel tired/ No 11/26/24 10:01 fatigued/ sleepy during daytime? Has anyone observed you stop No 11/26/24 10:01 breathing during sleep? STOP Results Negative 11/26/24 10:01 QUESTION #5 FULL TEXT : Do you snore loudly (louder than talking or can be heard through closed doors)? 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 Specify any problems Hx of Preganancy in last 3 No 11/26/24 10:01 Months Nurse Filling Out Transfusion CPOWERS2 11/26/24 10:01 & Questions: Date: 11/26/24 11/26/24 10:01 Time: 10:01 11/26/24 10:01 Patient unable to answer at this time (ie. 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 Hx Now No 11/26/24 10:01 Gestational Age (in weeks): EDC: Hx Hx Para Hx Section SAB No 11/26/24 10:01 Active Medications Active Medications: Current Medications Generic Name Dose Route Start Last Admin Trade Name Bri PRN Reason Stop Dose Admin Cefazolin Sodium 2 gm/ Sodium 110 mls @ 150 mls/hr 12/05/24 07:30 Chloride IV 12/05/24 08:13 INTRAOP ONE Lactated Ringer's 1,000 mls @ 15 mls/hr 12/05/24 06:15 12/05/24 06:36 IV 15 mls/hr .Q48H ZELDA Administration PFSH Medical History Wears glasses Depression Non-smoker Loose body of right knee Right knee pain Vaginal delivery Vaginal delivery hemorrhage History of tetanus, diphtheria, and acellular pertussis booster vaccination (Tdap) Psoriasis Chronic back pain Bruises easily Diarrhea Bilateral headaches Environmental allergies Home Medications ?Medication ?Instructions ?Recorded ?Last Taken ?Type PNV#14-iron fum-FA#9-vnc-llpbirds 1 cap PO DAILY pregn krish 01/26/23 Unknown History 27 mg iron-1 mg-300 mg-50 mg capsule magnesium 250 mg tablet 250 mg PO DAILY 11/26/24 Unk nown History Allergy/AdvReac Type Severity Reaction Status Date / Time codeine AdvReac Nausea/Vom/ Verified 11/26/24 10:00 Diarrhea Family History Grandmother Uterine cancer Mother Breast cancer Other CVA (cerebral vascular accident) Cancer Heart disease Hypertension Myocardial infarction Thyroid disorder Surgical History History of lump of right breast History of cosmetic plastic surgery Social History adopted: No household members: spouse housing: house number of children: 2 current occupational status: employed 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 12/05/24 0705 <Electronically signed by Jass cintron MD> Date _ Jass Jenkins MD Cosigner Signature: Date CC: ~ Signed [facility] Work Phone: 1(769) 555-827506-18-2025 History and physical note Author Velasquez Galvin [facility] Note Date/Time December 05, 2024 6:45 am [facility] Medical Records Department [address] [facility] [address] [place] [address] History & Physical Exam 12/05/24 0644 MR#: [id number] Acct: [id number] Name: YAKOV FIORE Rep #:[id number] : 1995 29 From: Velasquez Galvin MD PCP: Care Physician,No Primary Status :[facility] Location: [place] [address] HPI - General HPI Narrative YAKOV FIORE, is a 29 F who presents for right knee arthroscopy, loose body removal and debridement. No change to H and P. Right knee marked. RAB, post op instructions, and narcotic counselling done. OK to proceed. No further questionsor concerns. MR#: [id number] Acct: [id number] Name: YAKOV FIORE Rep #: [id number] : 1995 Provider: Dr. Velasquez Galvin MD Age/Sex: 29/F Location: [facility].SAM[facility] Status: Signed Intake Vital Signs 09/07/2507:52 Height 5 ft 9 in Intake Visit Reasons: RIGHT KNEE Chief Complaint: MRI review Accompanied by: Self Is patient in pain?: No Allergies codeine Adverse Reaction (Verified 10/01/24 09:13) Nausea/Vom/Diarrhea Medications ?Medication ?Instructions ?Recorded ?Confirmed ?Type PNV#14-iron fum-FA#3-ayj-frmvqhrv 1 cap PO DAILY 01/26/23 History 27 mg iron-1 mg-300 mg-50 mg capsule magnesium oxide 500 mg capsule 500 mg PO DAILY 10/25/23 10/01/24 Histor y omega-3 fatty acids 1,000 mg 1,000 mg PO DAILY 10/25/23 10/01/24 Hist ory capsule cholecalciferol (vitamin D3) 25 25 mcg PO QDAY 09/06/24 10/01/24 History mcg (1,000 unit) capsule ferrous gluconate 240 mg (27 mg 240 mg PO QDAY 09/06/24 10/01/24 History iron) tablet (Ferate) [facility] Medical History Loose body of right knee [...] current occupational status: employed 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 Part of today?s visit was documented by [ ], acting as scribe. YAKOV FIORE is a 29 year old F here today for follow-up right knee MRI. Supplemental Info [facility] Imaging Services [address] [place], [place] [id number] Lower Ext Joint Only (Routine) MR#: [id number] Acct: [id number] Name: YAKOV FIORE Rep #: [id number] : 1995 F 29 From: Austin Campos DO PCP: Care Physician,No Primary Status: REG CLI Study: Lower Ext Joint Only (Routine) Date of Exam: 09/26/24 Exam# [id number] Ordering Dr: Velasquez Galvin MD EXAM: Noncontrast [...] of the coronal T2 fat saturated sequence. Qzjq-fa-ommjlhlv articular cartilage thinning/irregularity involving the patellar apex and lateral patellar [...] articular surface. Tissues in the popliteal fossa. Ijnq-oa-rqufjbwu edema of the soft tissues in the popliteal fossa. MRI/Lower Ext Joint Only (Routine) IMPRESSION: No acute bony abnormality or internal ligamentous derangement of the right knee. No sizable joint effusion or evidence of discrete meniscal tear. Please see di scussion above. There is a thin curvilinear area of fluid signal in the popliteal fossa, with adjacent soft tissue edema, which may represent a recently collapsed popliteal cyst. 14 mm lateral patellar subluxation. There is tgzd-cf-nokyshnc articular cartilage thinning of the lateral patellar facet and patellar apex. There is an ovoid 19 mm possible loose body near the anterolateral margin of the lateral femoral condyle. Please see reference images provided above. The patellar retinacula are intact. No evidence of transient patellar dislocation. Reading Location: [facility] I independently reviewed the imaging. Concur with radiologist report. Coding Level of Care Code Off vis,est,level 3 Diagnoses Loose body of right knee M23.41 Right knee pain M25.561 Assessment and Plan Assessment and Plan (1) Loose body of right knee: Status: Acute Plan: 29-year-old female with right knee pain mechanical symptoms and a loose body. Options here would be continued nonoperative management although I would suggestsurgery for removal as loose body can cause mechanical symptoms irritation pain and damage to the cartilage inside the knee. Surgery be in the form of right knee arthroscopy, loose body removal and debridement. 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 Pros and cons risks and benefits were discussed with the patient including but not limited to infection, pain, stiffness, bleeding, damage to surrounding structures, neurovascular injury, recurrence or retear, failure or wear of hardware or fixation, instability, fracture, deep vein thrombosis and pulmonary embolism, anesthetic risks, , patient dissatisfaction, need for further surgery and other risks. Patient understood and wished to proceed with surgery,and signed the informed consent documentation. (2) Right knee pain: Status: Acute Plan Details Goals & Barriers: Goals Decrease pain Improve ROM Decrease spasm Barriers Carrying young child Ortho Exam General General: Yes no acute distress Neurologic: Yes alert and Yes oriented x3 Psychologic: Yes reasonable and appropriate [facility] Medical History Wears glasses Depression Non-smoker Loose body of right knee Right knee pain Vaginal delivery Vaginal delivery hemorrhage History of tetanus, diphtheria, and acellular pertussis booster vaccination (Tdap) Psoriasis Chronic back pain Bruises easily Diarrhea Bilateral headaches Environmental allergies Home Medications ?Medication ?Instructions ?Recorded ?Last Taken ?Type PNV#14-iron fum-FA#3-mjh-ofipoheq 1 cap PO DAILY pregn krish 01/26/23 Unknown History 27 mg iron-1 mg-300 mg-50 mg capsule magnesium 250 mg tablet 250 mg PO DAILY 11/26/24 Unk nown History Allergy/AdvReac Type Severity Reaction Status Date / Time codeine AdvReac Nausea/Vom/ Verified 11/26/24 10:00 Diarrhea Family History (Updated 11/14/24 @ 09:11 by LUCA Jack) Grandmother Uterine cancer Mother Breast cancer Other CVA (cerebral vascular accident) Cancer Heart disease Hypertension Myocardial infarction Thyroid disorder Surgical History History of lump of right breast History of cosmetic plastic surgery Social History adopted: No household members: spouse housing: house number of children: 2 current occupational status: employed 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: Never smoker second hand exposure: No alcohol intake: current alcohol intake frequency: holidays/special occasions only details: not while substance use type: does not use what type of physical activity do you participate in: yoga and aerobics frequency: 5-6 times per week seatbelt use: always do you feel safe at home: Yes additional social history: - Chris Vital Signs Vital Signs Vital Signs: 12/05/24 06:19 Temperature 97.1 F L Temperature Source Temporal Pulse Rate 82 Respiratory Rate 16 Blood Pressure 96/61 Blood Pressure Mean 72 Blood Pressure Source Monitor Blood Pressure Position Semi-Fowlers Blood Pressure Location Left Arm Pulse Ox 100 Weight Weight: 176 lb 5.917 oz Body Mass Index (BMI) 26.0 Results Lab / Micro Data Labs: Laboratory Results - last 24 hr 12/05/24 06:05: Urine Test Negative 12/05/24 0645 <Electronically signed by Velasquez Galvin MD> Cosigner Signature (if applicable): CC: Dr. Velasquez Galvin MD; No Primary Care Physician~ Signed [facility] Work Phone: [phone] Discharge summary [facility] Medical Records Department [address] [place] [address] Instructions for Home/Discharge Instructions 12/05/2412 MR#: [id number] Acct: [id number] Name: YAKOV FIORE Rep #:[id number] : 1995 29 From: Velasquez Galvin MD PCP: Care Physician,No Primary Status :[facility] Discharge Instructions Diet Discharge Diet: No restrictions Activity Discharge Activity: Return to Normal Activity Weight Bearing Status: Weight bearing as tolerated Lifting Restrictions: crutches as needed, ROM as tolerated. Keep extremity elevated above heart level: Operative Extremity Dressing / Incision Call your doctor if your incision/area has: Continuous Slow Oozing, Sudden Increased Bleeding, Increased Pain/ Swelling, Increased Redness, Foul Smelling Discharge and Swelling at the incision site Call your doctor if you observe: Fever of 101 or Higher, Coldness, Increased Pain and Numbness or Tingling Change Dressing in: 1 day Cleanse incision/area with: Do not get Incision Wet Follow Up Care Please Follow Up With: Velasquez Galvin MD When: 2 days or within 2 weeks, per your preference Test Results: Test results from this visit will be discussed in further detail at your follow- up appointment, if applicable. Discharge Plan Admission Attending Provider: Velasquez Galvin Primary Care Provider: Iglesia Physician,Meg Primary Consulting Providers: Jass Jenkins Instructions Patient Instructions: After Knee Arthroscopy Print Language: Chadian Discharge Orders/Prescriptions Prescriptions: New oxycodone-acetaminophen [Percocet] 5-325 mg tablet 1 tab PO Q8H MDD 6 PRN (Reason: pain) 2 Days Qty: 10 0RF No Action PNV #14-iron-FA#2-ozw-irksdydp 27 mg iron-1 mg -300 mg-50 mg capsule 1 cap PO DAILY magnesium 250 mg tablet 250 mg PO DAILY Other Ambulatory Orders: ,Urine (Routine) Timeframe: [id number] Facility: [facility] - Location: Laboratory Ordered By: Dr. Jass Jenkins Referrals / Follow Up: Care Physician,No Primary [Primary Care Provider] - Disposition Disposition (needs filled in before D/C Order can be placed): Home, Self Care 12/05/24 0814Velasquez Galvin MD CC: Dr. Jass Jenkins MD; No Primary Care Physician ~ Signed [facility]06-18-2025 Procedure note [facility] Medical Records Department [address] [place] [address] Operative Report 12/05/24 0805 MR#: [id number] Acct: [id number] Name: YAKOV FIORE Rep #:[id number] : 1995 29 From: Velasquez Galvin MD PCP: Care Physician,No Primary Status :[facility] Location: [place] [address] Problems Associated Problem List Diagnoses (1) Loose body of right knee: (2) Right knee pain: Procedures Musculoskeletal 20xxx-29xxx: Other Procedure See Report Operative Report (Standard) Operative Information Date of Procedure: 12/05/24 Pre-Operative Diagnosis: R knee loose body, plica Post-Operative Diagnosis: same Surgery/Procedure Performed: R knee arthroscopy, removal loose body, debridementplica data acquisition technician: Yes Research Associate Quality Control Qc: lindsay Tasks completed by anesthesiology physician assistant: Retracting Additional case management assistant?: No Type of Anesthesia: General and Local RN Documented Start/Stop Times: Operation Date: 12/05/24 07:30 Case Time Into Pre-Op 12/05/24 06:02 Out of Pre-Op 12/05/24 07:23 Anesthesia Start 12/05/24 07:26 Into Room 12/05/24 07:26 Procedure Start 12/05/24 07:49 Procedure End 12/05/24 08:04 Procedure Start Time: 07:49 Procedure Stop Time: 08:04 Select all DRAINS/GRAFTS/IMPLANTS that apply: None Estimated Blood Loss: 10 Specimen collected: No Description of surgery: Patient brought to the operating room theater. Placed supine on the table. General anesthesia induced. All bony prominences padded. CD on the nonoperative leg. Tourniquet applied to the right thigh appropriately padded. Stress positioner to the patient's right leg. Lower extremity prepped and draped in the usual sterile fashion with chlorhexidine-based prep solution allowing over 3 minutes dryingtime prior to draping. Preoperative timeout performed to confirm the site patient and the surgery. 2 g IV Ancef administered prior to the start of the case. Began by elevating the limb inflated the tourniquet to 250 mmHg. Use standard anterolateral and anteromedial arthroscopy portals. Did a full diagnostic arthroscopy. The loose body was identified and removed. This was a small bony fragmented piece of cartilage about 1cm large. I removed that to the a nteromedial portal. There is a medial plica and some scar tissue there that I gently debrided down to smooth contours. I remove the ligamentum mucosum debrided that. I identified the ACL and PCL probed those those appear normal. Cartilage on the undersurface of the patella was slightly fibrillated and a small area about 1 cm in the central aspect I gently debrided to smooth margins Cartilage in the trochlea appeared normal. There is a presumed donor site from the medial aspect of the femoral trochlea, small 5mm, with stable margins, did agentle debridement there as well. I then entered the medial and lateral compartments did a gentle debriding of theprepatellar fat padfor visualization. Cartilage on the medial and lateral sides were normal although there was 1 smallarea of grade 2 fissuring of the cartilage on the lateral tibial plateau, stable, left alone. Meniscus was normal on both sides stable to probing. Arthroscopy pictures taken on to the system and saved throughout the case. Case terminated tourniquet let down hemostasis achieved. The portals closed with 3-0 Monocryl sutures 10 cc of quarter percent bupivacaine instilled in and around the portal sites. Skin cleaned with wet and dry dressing followed application of Steri-Strips Adaptic 4 x 4 gauze ABDdressing loosely wrapped Laura bandage. Patient woken up from the general anesthetic transferred off the operating tabletaken to postanesthetic care unit in stable condition. All sponge needle instrument counts were correct no complications Plan for the patient weightbearing and range of motion as tolerated rest ice andelevate and discharged home according to day surgery criteria follow-up in 2 days. CPT 04999, 68768 Surgical Findings: as above Complications Complications: No Admit VTE Documentation VTE Present on Admission: No VTE Mechan Device Prophylaxis: SCD's VTE Pharm Prophylaxis ordered?: No Reason prophylaxis not ordered: Treatment Not Indicated 12/05/24 0811 Cosigner Signature (if applicable): CC: Dr. Jass Jenkins MD; Dr. Velasquez Galvin MD; No Primary Care Physician~ Signed [facility]06-18-2025 Consult note [facility] Medical Records Department [address] [place] [address] Pre-Anesthesia Evaluation 12/05/24 0652 MR#: [id number] Acct: [id number] Name: YAKOV FIORE Rep #:[id number] : 1995 29 From: Jass Jenkins MD PCP: Care Physician,No Primary Status :REG [facility] Y Race: C Location: [place] [address] ASA Classification* ASA Classification ASA Classification: 2 Assessment & Plan Anesthesia* Anesthesia Assessment Anesthesia Assessment: Discussed sedation and/or anesthesia options, risks, benefits, and alternatives with patient/parents/legal guardian/POA. Questions invited. The patient/parents/legal guardian/POA seems to understand and agrees to proceedwith anesthesia plan. Reviewed the physical assessment, medical history, allergy history and patient home medications list prior to surgery/procedure/anesthetic and documented any changes. Performed airway and anesthesia risk assessments. Anesthesia Type Anesthesia Type: General History Source History Obtained from:: Patient and Chart Anesthesia Focused Assessment* Temperature: 97.1 F Pulse Rate: 82 Blood Pressure: 96/61 Respiratory Rate: 16 Pulse Ox: 100 Oxygen Delivery Method: Room Air Airway Assessment Mouth opens: >3 cm Mallampati Score: I Teeth Condition: Intact Neck Range of motion (ROM): Full ROM Labs Anesthesia Preop lab: CBC WBC 5.3 K/mm3 (4.4-11.0) 02/18/24 08:02/18/24 RBC 4.58 M/mm3 (4.2-5.4) 02/18/24 08:02/18/24 Hgb 13.0 g/dL (12.0-15.0) 02/18/24 08:02/18/24 Hct 39.6 % (37-47) 02/18/24 08:02/18/24 Plt Count 353 K/mm3 (150-450) 02/18/24 08:29 02/18/24 CHEMISTRY Potassium 4.1 mmol/L (3.5-5.1) 02/18/24 08:29 02/18/24 Sodium 138 mmol/L (136-145) 02/18/24 08:29 02/18/24 BUN 16 mg/dL (7-18) 02/18/24 08:29 02/18/24 Creatinine 0.64 mg/dL (0.55-1.02) 02/18/24 08:29 02/18/24 Glucose 97 mg/dL (74-106) 02/18/24 08:29 02/18/24 TSH 0.83 uIU/mL (0.358-3.74) 12/18/22 10:49 COAG Urine Test Negative Negative 12/05/24 06:05 12/05/24 Tst Clinic Negative 04/13/19 09:28 04/13/19 Pre-Assessment Diagnosis/Proposed Procedure Planned Operative Procedure(s): Right knee Arthroscopy, removal loose body, debridement Anesthesia History 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 When Was Last Pacemaker Check QUESTION #4 FULL TEXT: You/Your Family Experience fever (hyperthermia) with Anesthesia Last Oral Intake Last Oral intake: Last Oral Intake NPO since 19:00 12/05/24 06:19 Meds taken in AM with sips of No 12/05/24 06:19 water? 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 die designer: PONV - tool and die designer Female Yes 11/26/24 10:01 HX of Motion Sickness Yes 11/26/24 10:01 HX of N/V After Surgery Yes 11/26/24 10:01 Non-Smoker Yes 11/26/24 10:01 Duration of Surgery greater Yes 11/26/24 10:01 than 60 minutes Number of Risk Factors 5 11/26/24 10:01 PONV Score Severe Risk 11/26/24 10:01 Height & Weight Height & Weight: Anesthesia: Height & Weight Height 5 ft 9 in 12/05/24 06:19 Weight: 80 kg 12/05/24 06:19 Body Mass Index (BMI) 26.0 12/05/24 06:19 Respiratory Assessment Respiratory Assessment - tool and die designer: Respiratory Tract Infection Hx - tool and die designer Hx Respiratory Tract Infection No 11/26/24 10:01 STOP Sleep Apnea STOP Sleep Apnea - tool and die designer: STOP Sleep Apnea - tool and die designer Hx Hypertension No 11/26/24 10:01 Hx Sleep Apnea No 11/26/24 10:01 CPAP BIPAP Do you snore loudly (louder No 11/26/24 10:01 than talking or can be heard Do you often feel tired/ No 11/26/24 10:01 fatigued/ sleepy during daytime? Has anyone observed you stop No 11/26/24 10:01 breathing during sleep? STOP Results Negative 11/26/24 10:01 QUESTION #5 FULL TEXT : Do you snore loudly (louder than talking or can be heard through closeddoors)? 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 Specify any problems Hx of Preganancy in last 3 No 11/26/24 10:01 Months Nurse Filling Out Transfusion [email or web address] 11/26/24 10:01 & Questions: Date: 11/26/24 11/26/24 10:01 Time: 10:01 11/26/24 10:01 Patient unable to answer at this time (ie. 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 Hx Now No 11/26/24 10:01 Gestational Age (in weeks): EDC: Hx Hx Para Hx Section SAB No 11/26/24 10:01 Active Medications Active Medications: Current Medications Generic Name Dose Route Start Last Admin Trade Name Bri PRN Reason Stop Dose Admin Cefazolin Sodium 2 gm/ Sodium 110 mls @ 150 mls/hr 12/05/24 07:30 Chloride IV 12/05/24 08:13 INTRAOP ONE Lactated Ringer's 1,000 mls @ 15 mls/hr 12/05/24 06:15 12/05/24 06:36 IV 15 mls/hr .Q48H ZELDA Administration PFS Medical History Wears glasses Depression Non-smoker Loose body of right knee Right knee pain Vaginal delivery Vaginal delivery hemorrhage History of tetanus, diphtheria, and acellular pertussis booster vaccination (Tdap) Psoriasis Chronic back pain Bruises easily Diarrhea Bilateral headaches Environmental allergies Home Medications ?Medication ?Instructions ?Recorded ?Last Taken ?Type PNV#14-iron fum-FA#5-ejq-gycpixub 1 cap PO DAILY pregn krish 01/26/23 Unknown History 27 mg iron-1 mg-300 mg-50 mg capsule magnesium 250 mg tablet 250 mg PO DAILY 11/26/24 Unk nown History Allergy/AdvReac Type Severity Reaction Status Date / Time codeine AdvReac Nausea/Vom/ Verified 11/26/24 10:00 Diarrhea Family History Grandmother Uterine cancer Mother Breast cancer Other CVA (cerebral vascular accident) Cancer Heart disease Hypertension Myocardial infarction Thyroid disorder Surgical History History of lump of right breast History of cosmetic plastic surgery Social History adopted: No household members: spouse housing: house number of children: 2 current occupational status: employed 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 12/05/24 0705 saida NINA> Date _ Jass Jenkins MD Cosigner Signature: Date CC: ~ Signed [facility]06-18-2025 History and physical note [facility] Medical Records Department [address] [place] [address] History & Physical Exam 12/05/24 0644 MR#: [id number] Acct: [id number] Name: YAKOV FIORE Rep #:[id number] : 1995 29 From: Velasquez Galvin MD PCP: Care Physician,No Primary Status :[facility] Location: [place] [address] HPI - General HPI Narrative YAKOV FIORE, is a 29 F who presents for right knee arthroscopy, loose body removal and debridement. No change to H and P. Right knee marked. RAB, post op instructions, and narcotic counselling done. OK to proceed. No further questionsor concerns. MR#: [id number] Acct: [id number] Name: YAKOV FIORE Rep #: [id number] : 1995 Provider: Dr. Velasquez Galvin MD Age/Sex: 29/F Location: [facility].SAMY Status: Signed Intake Vital Signs 09/07/2507:52 Height 5 ft 9 in Intake Visit Reasons: RIGHT KNEE Chief Complaint: MRI review Accompanied by: Self Is patient in pain?: No Allergies codeine Adverse Reaction (Verified 10/01/24 09:13) Nausea/Vom/Diarrhea Medications ?Medication ?Instructions ?Recorded ?Confirmed ?Type PNV#14-iron fum-FA#4-ogr-oewcqdbx 1 cap PO DAILY 01/26/23 History 27 mg iron-1 mg-300 mg-50 mg capsule magnesium oxide 500 mg capsule 500 mg PO DAILY 10/25/23 10/01/24 Histor y omega-3 fatty acids 1,000 mg 1,000 mg PO DAILY 10/25/23 10/01/24 Hist ory capsule cholecalciferol (vitamin D3) 25 25 mcg PO QDAY 09/06/24 10/01/24 History mcg (1,000 unit) capsule ferrous gluconate 240 mg (27 mg 240 mg PO QDAY 09/06/24 10/01/24 History iron) tablet (Ferate) [facility] Medical History Loose body of right knee [...] current occupational status: employed 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 Marlyn MD 10/01/24 0804. Part of today?s visit was documented by [ ], acting as scribe. YAKOV FIORE is a 29 year old F here today for follow-up right knee MRI. Supplemental Info [facility] Imaging Services [address] [place], [place] [id number] Lower Ext Joint Only (Routine) MR#: [id number] Acct: [id number] Name: YAKOV FIORE Rep #: [id number] : 1995 F 29 From: Austin Campos DO PCP: Care Physician,No Primary Status: REG CLI Study: Lower Ext Joint Only (Routine) Date of Exam: 09/26/24 Exam# [id number] Ordering Dr: Velasquez Galvin MD EXAM: Noncontrast [...] of the coronal T2 fat saturated sequence. Cztu-ih-crgrsxxm articular cartilage thinning/irregularity involving the patellar apex and lateral patellar [...] articular surface. Tissues in the popliteal fossa. Woks-it-tccweajo edema of the soft tissues in the popliteal fossa. MRI/Lower Ext Joint Only (Routine) IMPRESSION: No acute bony abnormality or internal ligamentous derangement of the right knee. No sizable joint effusion or evidence of discrete meniscal tear. Please see di scussion above. There is a thin curvilinear area of fluid signal in the popliteal fossa, with adjacent soft tissue edema, which may represent a recently collapsed popliteal cyst. 14 mm lateral patellar subluxation. There is fnqm-cy-axdwnktp articular cartilage thinning of the lateral patellar facet and patellar apex. There is an ovoid 19 mm possible loose body near the anterolateral margin of the lateral femoral condyle. Please see reference images provided above. The patellar retinacula are intact. No evidence of transient patellar dislocation. [facility] independently reviewed the imaging. Concur with radiologist report. Coding Level of Care Code Off vis,est,level 3 Diagnoses Loose body of right knee M23.41 Right knee pain M25.561 Assessment and Plan Assessment and Plan (1) Loose body of right knee: Status: Acute Plan: 29-year-old female with right knee pain mechanical symptoms and a loose body. Options here would be continued nonoperative management although I would suggestsurgery for removalas loose body can cause mechanical symptoms irritation pain and damage to the cartilage inside the knee. Surgery be in the form of right knee arthroscopy, loose body removal and debridement. 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 Pros and cons risks and benefits were discussed with the patient including but not limited to infection, pain, stiffness, bleeding, damage to surrounding structures, neurovascular injury, recurrence or retear, failure or wear of hardware or fixation, instability, fracture, deepvein thrombosis and pulmonary embolism, anesthetic risks, , patient dissatisfaction, need for further surgery and other risks. Patient understood and wished to proceed with surgery,and signed the informed consent documentation. (2) Right knee pain: Status: Acute Plan Details Goals & Barriers: Goals Decrease pain Improve ROM Decrease spasm Barriers Carrying young child Ortho Exam General General: Yes no acute distress Neurologic: Yes alert and Yes oriented x3 Psychologic: Yes reasonable and appropriate [facility] Medical History Wears glasses Depression Non-smoker Loose body of right knee Right knee pain Vaginal delivery Vaginal delivery hemorrhage History of tetanus, diphtheria, and acellular pertussis booster vaccination (Tdap) Psoriasis Chronic back pain Bruises easily Diarrhea Bilateral headaches Environmental allergies Home Medications ?Medication ?Instructions ?Recorded ?Last Taken ?Type PNV#14-iron fum-FA#7-ygt-khfgxhxr 1 cap PO DAILY pregn krish 01/26/23 Unknown History 27 mg iron-1 mg-300 mg-50 mg capsule magnesium 250 mg tablet 250 mg PO DAILY 11/26/24 Unk nown History Allergy/AdvReac Type Severity Reaction Status Date / Time codeine AdvReac Nausea/Vom/ Verified 11/26/24 10:00 Diarrhea Family History (Updated 11/14/24 @ 09:11 by LUCA Jack) Grandmother Uterine cancer Mother Breast cancer Other CVA (cerebral vascular accident) Cancer Heart disease Hypertension Myocardial infarction Thyroid disorder Surgical History History of lump of right breast History of cosmetic plastic surgery Social History adopted: No household members: spouse housing: house number of children: 2 current occupational status: employed 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: Never smoker second hand exposure: No alcohol intake: current alcohol intake frequency: holidays/special occasions only details: not while substance use type: does not use what type of physical activity do you participate in: yoga and aerobics frequency: 5-6 times per week seatbelt use: always do you feel safe at home: Yes additional social history: - Chris Vital Signs Vital Signs Vital Signs: 12/05/24 06:19 Temperature 97.1 F L Temperature Source Temporal Pulse Rate 82 Respiratory Rate 16 Blood Pressure 96/61 Blood Pressure Mean 72 Blood Pressure Source Monitor Blood Pressure Position Semi-Fowlers Blood Pressure Location Left Arm Pulse Ox 100 Weight Weight: 176 lb 5.917 oz Body Mass Index (BMI) 26.0 Results Lab / Micro Data Labs: Laboratory Results - last 24 hr 12/05/24 06:05: Urine Test Negative 12/05/24 0645 Cosigner Signature (if applicable): CC: Dr. Velasquez Galvin MD; No Primary Care Physician~ Signed [facility]06-18-2025 [facility] Medical Records Department [address] [place] [address] History Physical Exam 12/05/24 0644 MR#: [id number] Acct: [id number] Name: YAKOV FIORE Rep #: [id number] : 1995 29 From: Velasquez Galvin MD PCP: Care Physician,No Primary Status:[facility] Location: [place] [address] HPI - General HPI Narrative YAKOV FIORE, is a 29 F who presents for right knee arthroscopy, loose body removal and debridement. No change to H and P. Right knee marked. RAB, post op instructions, and narcotic counselling done. OK to proceed. No further questions or concerns. MR#: [id number] Acct: [id number] Name: YAKOV FIORE Rep #: [id number] : 1995 Provider: Dr. Velasquez Galvin MD Age/Sex: 29/F Location: [facility].SAMY Status: Signed Intake Vital Signs 09/07/2507:52 Height 5 ft 9 in Intake Visit Reasons: RIGHT KNEE Chief Complaint: MRI review Accompanied by: Self Is patient in pain?: No Allergies codeine Adverse Reaction (Verified 10/01/24 09:13) Nausea/Vom/Diarrhea Medications ???Medication ???Instructions ???Recorded ???Confirmed ???Type PNV#14-iron fum-FA#6-lkd-rxhqbgzf 1 cap PO DAILY 01/26/23 10/01/24 History 27 mg iron-1 mg-300 mg-50 mg capsule magnesium oxide 500 mg capsule 500 mg PO DAILY 10/25/23 10/01/24 History omega-3 fatty acids 1,000 mg 1,000 mg PO DAILY 10/25/23 10/01/24 History capsule cholecalciferol (vitamin D3) 25 25 mcg PO QDAY 09/06/24 10/01/24 History mcg (1,000 unit) capsule ferrous gluconate 240 mg (27 mg 240 mg PO QDAY 09/06/24 10/01/24 History iron) tablet (Ferate) PFSH Medical History Loose body of right knee [...] current occupational status: employed 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 Velasquez Galvin MD 10/01/24 0804. Part of today???s visit was documented by [ ], acting as scribe. YAKOV FIORE is a 29 year old F here today for follow-up right knee MRI. Supplemental Info [facility] Imaging Services [address] [place], [place] [address] Lower Ext Joint Only (Routine) MR#: [id number] Acct: [id number] Name: YAKOV FIORE Rep #: [id number] : 1995 F 29 From: Austin Campos DO PCP: Care Physician,No Primary Status: REG CLI Study: Lower Ext Joint Only (Routine) Date of Exam: 09/26/24 Exam# [id number] Ordering Dr: Velasquez Galvin MD EXAM: Noncontrast [...] may represent a collapsed popliteal cyst. The poplite (more content not included)...[facility]03-20-2025 Evaluation note* Diagnosis Onset Date Resolution Status Admit Date Right knee pain acute August 8:48am [facility] Work Phone: 1(674) 258-921303-20-2025 Evaluation note* Diagnosis Onset Date Resolution Status Admit Date Right knee pain acute August 8:48am Loose body of right knee acute October 01, 2024 9:09am Right knee pain acute September 9:09am [facility] Work Phone: 1(678) 571-524603-20-2025 Evaluation note* Diagnosis Onset Date Resolution Status Admit Date Right knee pain acute August 8:48am Loose body of right knee acute October 01, 2024 9:09am Right knee pain acute September 9:09am Encounter for routine gynecological examination noneactive November 142024 8:57am [facility] Work Phone: [phone]) 505-8226628844-33-8967 Evaluation note* Diagnosis Onset Date Resolution Status Admit Date Right knee pain acute August 8:48am Loose body of right knee acute October 01, 2024 9:09am Right knee pain acute September 9:09am Encounter for routine gynecological examination noneactive November 142024 8:57am Loose body of right knee acute December 05, 2024 5:55am Right knee pain acute November 5:55am [facility] Work Phone: 1(226) 482-540803-20-2025 Evaluation note* Diagnosis Onset Date Resolution Status Admit Date Right knee pain acute August 8:48am Loose body of right knee acute October 01, 2024 9:09am Right knee pain acute September 9:09am Encounter for routine gynecological examination noneactive November 142024 8:57am Loose body of right knee acute December 05, 2024 5:55am Right knee pain acute November 5:55am Loose body of right knee acute December 07, 2024 9:08am Right knee pain acute November 9:08am Synovial plica of right knee acute December 07, 2024 9:08am [employer] [employer] Work Phone: 1([phone]) 461-474703-20-2025 Evaluation note* Diagnosis Onset Date Resolution Status Admit Date Right knee pain acute August 8:48am Loose body of right knee acute October 01, 2024 9:09am Right knee pain acute September 9:09am Encounter for routine gynecological examination noneactive November 142024 8:57am Loose body of right knee acute December 05, 2024 5:55am Right knee pain acute November 5:55am Loose body of right knee acute December 07, 2024 9:08am Right knee pain acute November 9:08am Synovial plica of right knee acute December 07, 2024 9:08am Loose body of right knee acute December 20, 2024 9:22am Synovial plica of right knee acute December 20, 2024 9:22am [employer] Work Phone: 1(221) 211-599803-30-2024 Progress note Author Arabella Chau [facility] September 17, 2023 9:54am Note Date/Time September 17, 2023 9:5 4am [facility] Medical Records Department [address] [place] [address] Progress Note - OBGYN 09/17/23 0954 MR#: [id number] Acct: [id number] Name: YAKOV FIORE Rep #:[id number] : 1995 28 From: Arabella corona MD PCP: Care Physician,No Primary Status :ADM IN Location: QP441-5 Subjective Subjective Patient doing well without complaints. [...] Cosigner Signature (if applicable): CC: ~ Signed [facility] Work Phone: 1(276) 486-520803-29-2024 Procedure [facility] 09-16-2023 Discharge summary Author Arabella Chau [facility] September 16, 2023 5:14am Note Date/Time September 16, 2023 5:1 4am [facility] Medical Records Department [address] [place] [address] Instructions for Home/Discharge Instructions 09/16/23 0512 MR#: [id number] Acct: [id number] Name: YAKOV FIORE Rep #:[id number] : 1995 28 From: Arabella corona MD PCP: Iglesia Physician,No Primary Status :ADM IN Discharge Instructions [...] Up With: Arabella Chau MD When: Call [phone] to make an appointment with your doctor in 6 weeks. If you had elevated blood pressure or 4th degree laceration, you will need to be seen in 2 weeks. Test Results: Test results from this visit will be discussed in further detail at your follow- up appointment, if applicable. Discharge Plan Admission Admit Date/Time: 09/16/23 01:58 Attending Provider: Arabella Chau Primary Care Provider: Care Physician,No Primary Discharge Orders/Prescriptions Prescriptions: No Action PNV #14-iron-FA#5-pcf-oidjlpzb 27 mg iron-1 mg -300 mg-50 mg capsule 1 cap PO DAILY Referrals / Follow Up: Care Physician,No Primary [Primary Care Provider] - Disposition Disposition (needs filled in before D/C Order can be placed): Home, Self Care 09/16/23 0514<Electronically signed by Arabella Chau MD>Arabella Chau MD CC: No Primary Care Physician ~ Signed [facility] Work Phone: 1([phone]) 383-961403-29-2024 History and physical note Author Arabella Chau [facility] September 16, 2023 5:11am Note Date/Time September 16, 2023 5:1 1am [facility] Medical Records Department [address] [place] [address] H&P Exam - MAINTENANCE MANAGER 09/16/23 0506 MR#: [id number] Acct: [id number] Name: YAKOV FIORE Rep #:[id number] : 1995 28 From: Arabella corona MD PCP: Iglesia Physician,No Primary Status :ADM IN Location: QK493-1 HPI - General General Date of Admission: 09/16/23 HPI Narrative YAKOV FIORE, is a 28 F who presents IAL regular ctx 4-5 cm made change and delivered wtihin 3 hours. Maternal Data Information ARAVIND Calculator Estimated Delivery Date Method Current WG Current Estimate 09/21/23 LMP (Certain) [address] [facility] Medical History (Updated 09/16/23 @ 05:[address] 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 G ood FM. Tdap, larc. 07/20/23 -?-?-?-?-?-?-?-?-?-?-?-?- 31w 0d [...] of other normal , third trimester COMMENT: [id number] ARAVIND 4/3/24 girl PC: Eric, Spouse, Chris (4) : [...] any complications: none I have reviewed the [facility] and made any clinically relevant updates. 09/16/23 0511 <Electronically signed by Arabella Chau MD> Cosigner Signature (if applicable): CC: Dr. Arabella Chau MD; No Primary Care Physician~ Signed [facility] Work Phone: 1(930) 156-234908-28-2023 NotePap Smear Specimen AdequacyAugust 2022 4:19pmComment.Satisfactory for evaluation. Endocervical and/or squamous metaplasticcells (endocervical component)are present.[facility] A#[id number] Methodist HospitalComment on above:Satisfactory for evaluation. Endocervical and/or squamous metaplasticcells (endocervical component)are present.02-14-2023 NotePap Smear Specimen AdequacyAugust 2022 3:19pmComment.Satisfactory for evaluation. Endocervical and/or squamous metaplasticcells (endocervical component)are present.[facility] INTER[facility]ED A#[id number] Methodist HospitalComment on above:Satisfactory for evaluation. Endocervical and/or squamous metaplasticcells (endocervical component)are present.01-26-2023 Discharge summary Author Navarro Garcia [facility] January 26, 2023 11:06pm Note Date/Time January 26, 2023 11: 06pm [facility] Medical Records Department [address] [place] [address] Emergency Department Summary 01/26/23 MR#: [id number] Acct: [id number] Name: YAKOV FIORE Rep #:[id number] : 1995 27 From: Navarro Garcia MD [...] Prior similar symptoms: No Recent Illness/Hospitalization: No PFSH PFSH Medical History Bilateral headaches Bruises easily Chronic back pain Diarrhea Environmental allergies History of tetanus, diphtheria, and acellular pertussis booster vaccination (Tdap) hemorrhage Psoriasis Vaginal delivery Home Medications PNV#14-iron fum-FA#3-zku-qcirvycf 27 mg iron-1 mg-300 mg-50 mg capsule [...] current occupational status: employed 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 She has an MAINTENANCE MANAGER appointment in the next several weeks. History & Record Review Discussion w/independent historian: Patient and Family Discharge Plan Triage Chief Complaint: Back ED Provider: Navarro Garcia Dx/Rx/DC Orders Clinical Impression: First trimester , Acute lumbar myofascial strain Instructions: ED Back Sprain/Strain Prescriptions: No Action PNV #14-iron-FA#7-ijm-ybhcxcyt 27 mg iron-1 mg -300 mg-50 mg capsule 1 cap PO DAILY Primary Care Provider: Care Physician,No Primary Referrals: Arabella Chau MD [Med Staff - Active Staff] - Keep Zelda appointment Care Physician,No Primary [Primary Care Provider] [...] problems, contact your Primary Care Provider. Call [facility] ([phone]) or report to the closest Emergency Room. Call 911 if necessary. 01/26/23 2306 <Electronically signed by Navarro Garcia MD> Cosigner Signature (if applicable): CC: No Primary Care Physician ~ Signed [facility] Work Phone: 1(387) 734-228305-01-2023 Hospital Discharge instructions Additional Instructions Hot shower, [...] would hold off on those at this time.[facility] Work Phone: 1([phone]) 871-132510-11-2020 History of Present illness Narrative* Ronnell Jordan [...] 30, 2020 10:58 AM [facility] Author Jorge Chaney [facility] Note Date/Time December 05, 2024 9:55 am [facility] Medical Records Department [address] [place] [address] Anesthesia Postop Eval I 12/05/24929 MR#: [id number] Acct: [id number] Name: YAKOV FIORE Rep #:[id number] : 1995 29 From: Jorge PRESTON PCP: Care Physician,No Primary Status :REG SDC Y Race: C Location: [place] [address] Anesthesia: Postop Eval I Current Vital Signs Temperature: 97.2 F Pulse Rate: 95 Blood Pressure: 98/61 Respiratory Rate: 14 Pulse Ox: 94 Assessment Airway patent: Yes Spontaneous unlabored respirations: Yes nausea: No Vomiting: No Anesthesia Complication: No Fluid Hydration Crystalloid volume administer (ml): 700 Total IV fluid infused: 700 Progress Note Anesthesia document: Postop Eval 1 completed: Yes 12/05/24929 <Electronically signed by Jorge Chaney CRNA> Date _ Jorge Chaney CRNA Cosigner Signature: Date CC: ~ Signed [facility] Work Phone: Evaluation note* Diagnosis Onset Date Resolution Status Segmental and somatic dysfunction of cervical region resolved Segmental and somatic dysfunction of lumbar region resolved Segmental and somatic dysfunction of thoracic region resolved [facility] Work Phone: Evaluation note* Diagnosis Onset Date Resolution Status Segmental and somatic dysfunction of cervical region resolved Segmental and somatic dysfunction of lumbar region resolved Segmental and somatic dysfunction of thoracic region resolved Anxiety acute Encounter for routine gynecological examination noneactive [facility] Work Phone: Evaluation note* Diagnosis Onset Date Resolution Status Allergic rhinitis acute Segmental and somatic dysfunction of cervical region acute Segmental and somatic dysfunction of lumbar region acute Segmental and somatic dysfunction of thoracic region acute [facility] Work Phone: Evaluation note* Diagnosis Onset Date Resolution Status Allergic rhinitis resolved Segmental and somatic dysfunction of cervical region resolved Segmental and somatic dysfunction of lumbar region resolved Segmental and somatic dysfunction of thoracic region resolved Nausea and vomiting during acute acute Supervision of normal acute [facility] Work Phone: evaluation note* Diagnosis Onset [...] normal acute URI (upper respiratory infection) acute [facility] Work Phone: evaluation note* Diagnosis Onset [...] currently acute acute Supervision of normal acute [facility] Work Phone: Evaluation note* Diagnosis Onset Date Resolution Status Anxiety [...] currently acute acute Supervision of normal acute [facility] Work Phone: Evaluation note* Diagnosis Onset Date Resolution Status Anxiety [...] thoracic region resolved Supervision of normal resolved [facility] Work Phone: Evaluation note* Diagnosis Right wrist pain Pain in joint, forearm [facility]* PT Referral Location: None Selected [facility] Work Phone: Reason for referral (narrative)No reason for referral information availableWWayne Hospital Work Phone: Instructions * Patient Instructions - Racquel Tovar PA-C - 06/23/2017 8:29 PM EST Take [...] Log into your personal health record on https://[employer] and enter K848 in the Education box to learn more about Urinary Tract Infection in Women: Care Instructions. Current as of: May 17, 2016 Content Version: 11.2 2402-2072 [employer]. Care instructions adapted under license by your healthcare professional. If you have questions about a medical condition or this instruction, always ask your healthcare professional. [employer] disclaims any warranty or liability for your [...] Log into your personal health record on https://[employer] and enter K848 in the Education box to learn more about Urinary Tract Infection in Women: Care Instructions. Current as of: May 17, 2016 Content Version: 11.2 8534-9024 [employer]. Care instructions adapted under license by your healthcare professional. If you have questions about a medical condition or this instruction, always ask your healthcare professional. [employer] disclaims any warranty or liability for your [...] Log into your personal health record on https://[employer] and enter C142 in the Education box to learn more about Exposure to Blood and Body Fluids: Care Instructions. Current as of: November 14, 2015 Content Version: 11.2 7053-1887 [employer]. Care instructions adapted under license by your healthcare professional. If you have questions about a medical condition or this instruction, always ask your healthcare professional. [employer] disclaims any warranty or liability for your [...] No January 04, 2021 2:05pm Power of Life Claims Examiner No January 04 2:05pm Advance Directive Response Recorded Date/ Time Living Will No January 26, 2023 9:58pm Power of Life Claims Examiner No January 26 9:58pm Advance Directive Response Recorded Date/ Time Living Will No January 26, 2023 8:58pm Power of Life Claims Examiner No January 26 8:58pm Advance Directive Response Recorded Date/ Time Living Will No September 16, 2023 2:04am Power of Life Claims Examiner No September 15 2:04am Advance Directive Response Recorded Date/ Time Do you have a Healthcare Power of Life Claims Examiner? 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) November 14, 2024 8:57a m Reason for Visit Admit Date Right knee pain September 06, 2024 8:4 8am Loose body of right knee October 01 9:09am Right knee pain October 01, 2024 9:0 9am Encounter for routine gynecological exam ination November 14, 2024 8:57am Chief Complaint Admit Date RIGHT KNEE September 06, 2024 8:4 8am Room 1 September 06, 2024 8:5 7am EORDERS September 21, 2024 4:19 pm INT LAB ORDER September 25, 2024 10:0 5am R/O LOOSE BODY, RT KNEE PAIN September 26, 2024 3:41pm RIGHT KNEE October 01, 2024 9:0 9am 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) November 14, 2024 8:57a m EMPLOYEE LABS December 01, 2024 9:30 am Right knee Arthroscopy, removal loose altagracia dy, debrid December 05, 2024 5:55am Right knee Arthroscopy, removal loose altagracia dy, debrid December 05, 2024 6:44am Reason for Visit Admit Date Right knee pain September 06, 2024 8:4 8am Loose body of right knee October 01 9:09am Right knee pain October 01, 2024 9:0 9am Encounter for routine gynecological exam ination November 14, 2024 8:57am Loose body of right knee December 05, 2024 5:55am Right knee pain December 05, 2024 5:55 am Chief Complaint Admit Date RIGHT KNEE September 06, 2024 8:4 8am Room 1 September 06, 2024 8:5 7am EORDERS September 21, 2024 4:19 pm INT LAB ORDER September 25, 2024 10:0 5am R/O LOOSE BODY, RT KNEE PAIN September 26, 2024 3:41pm RIGHT KNEE October 01, 2024 9:0 9am 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) May 28th, 2025 8:57a m EMPLOYEE LABS December 01, 2024 9:30 am Right knee Arthroscopy, removal loose altagracia dy, debrid December 05, 2024 5:55am Right knee Arthroscopy, removal loose altagracia dy, debrid December 05, 2024 6:44am RIGHT KNEE December 07, 2024 9:08 am Reason for Visit Admit Date Right knee pain September 06, 2024 8:4 8am Loose body of right knee October 01 9:09am Right knee pain October 01, 2024 9:0 9am Encounter for routine gynecological exam ination November 14, 2024 8:57am Loose body of right knee December 05, 2024 5:55am Right knee pain December 05, 2024 5:55 am Loose body of right knee December 07, 2024 9:08am Right knee pain December 07, 2024 9:08 am Synovial plica of right knee December 07, 2024 9:08am Chief Complaint Admit Date RIGHT KNEE September 06, 2024 8:4 8am Room 1 September 06, 2024 8:5 7am EORDERS September 21, 2024 4:19 pm INT LAB ORDER September 25, 2024 10:0 5am R/O LOOSE BODY, RT KNEE PAIN September 26, 2024 3:41pm RIGHT KNEE October 01, 2024 9:0 9am 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) November 14, 2024 8:57a m EMPLOYEE LABS December 01, 2024 9:30 am Right knee Arthroscopy, removal loose altagracia dy, debrid December 05, 2024 5:55am Right knee Arthroscopy, removal loose altagracia dy, debrid December 05, 2024 6:44am RIGHT KNEE December 07, 2024 9:08 am RIGHT KNEE December 20, 2024 9:22a m Reason for Visit Admit Date Right knee pain September 06, 2024 8:4 8am Loose body of right knee October 01 9:09am Right knee pain October 01, 2024 9:0 9am Encounter for routine gynecological exam ination November 14, 2024 8:57am Loose body of right knee December 05, 2024 5:55am Right knee pain December 05, 2024 5:55 am Loose body of right knee December 07, 2024 9:08am Right knee pain December 07, 2024 9:08 am Synovial plica of right knee December 07, 2024 9:08am Loose body of right knee December 20, 2024 9:22am Synovial plica of right knee December 20 9:22am Additional Source Comments ED Provider Notes - Ken Willard Citlali, DO - 04/17/2017 8:39 PM EDTED Attestation Note - Kristen Batres, DO - 04/17/2017 8:26 PM EDT Miscellaneous Notes (unrecog nized section and content) Formatting of this note may be different from the original. [facility] ED Resident Note: NAME: Yakov Villarreal 22 y.o. CSN: [id number] PCP: Gordy Cotto MD History: Chief Complaint: Body Fluid Exposure HPI: The history was obtained from the patient. Yakov is a 22 y.o. female who presents with a chief complaint of Body Fluid Exposure. 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 This evening patient went into her [...] Resp SpO2 Height Weight 04/17/172003 130/80 98.6 F (37 C ) Oral 86 16 100 % 5' 10 [...] Lab work will be drawn evaluated by [facility]. The risks of hepatitis C transmission [...] file Willard Rogers DO ED Resident Physician [facility] Emergency Department (Please note that portions of this note have been completed with a voice recognition software. Efforts were made to correct any errors, but occasionally words are mis-transcribed.) Willard Rogers, Resident 04/17/172145 ED Attestation: I have discussed [...] discussed. Kristen Batres DO FACEP Attending Physician [facility] Emergency Department (Please note that portions [...] section and content) DATE CREATED AUTHOR 12/08/2017 [facility] DATE CREATED AUTHOR AUTHOR'S ORGANIZ ATION 12/13/2017 [facility] DATE CREATED AUTHOR AUTHOR'S ORGANIZ ATION 12/13/2017 [facility] DATE CREATED AUTHOR AUTHOR'S ORGANIZ ATION 04/12/2019 [facility] DATE CREATED AUTHOR AUTHOR'S ORGANIZ ATION 04/12/2019 [facility] DATE CREATED AUTHOR AUTHOR'S ORGANIZ ATION 04/12/2019 [facility] DATE CREATED AUTHOR AUTHOR'S ORGANIZ ATION 09/01/2024 [facility] DATE CREATED AUTHOR AUTHOR'S ORGANIZ ATION 04/12/2025 [facility] Care Teams (unrecognized sec tion and content) Team Status: Active Member Role Status Dates Dr. Jose Antonio Flower MD Family Provider Active BAILEY JUNG Primary Care Provider Active Team Status: Inactive Member Role Status Cheryl Thomas , DO Primary Care Provider, Referring Provider Active Rona De Jesus DELICATESSEN STORE MANAGER, DELICATESSEN STORE MANAGER-C Attending Provider Active Team Status: Inactive Member Role Status Cheryl Thomas , DO Referring Provider Active Dr. Rosy Wang DC Attending Provider Active BAILEYJUNG Primary Care Provider Active Team Status: Inactive Member Role Status BAILEY, JUNG Primary Care Provide r, Attending Provider, Referring Provider Active Team Status: Active Member Role Status Dr. Jose Antonio Flower MD Family Provider Active BAILEY ERNESTINE Primary Care Provider Active Team Status: Active Member Role Status BAILEY, JUNG Primary Care Provider, Attending Provider Active BAILEY ERNESTINE Active Team Status: Inactive Member Role Status Dr. Rosy Wang DC Attending Provider Active BAILEY ERNESTINE Primary Care Provider Active Team Status: Inactive Member Role Status BAILEYJUNG Primary Care Provider, Attending Provider Active BAILEY ERNESTINE Active Team Status: Active Member Role Status Dr. Jose Antonio Flower MD Family Provider Active No Primary Care [...] Status No Primary Care Physician Primary Care Provider, Refer ring Provider Active Indira James CNM Attending Provider Active Team Status: Inactive Member Role Status No Primary Care Physician Primary Care Provider, Refer ring Provider Active Sae SIERRA, PA Attending Provider Active Team Status: Inactive Member Role Status No Primary Care Physician Referring Provider Active Dr. Josselyn Bianchi DO Attending Provider Activ e BAILEYJUNG WHITE Primary Care Provider Active Team Status: Inactive [...] Provider, Refer ring Provider Active Jennifer Gonzalez DELICATESSEN STORE MANAGER, DELICATESSEN STORE MANAGER-C Attending Provider Active Team Status: Inactive Member [...] Chau MD Admit Provider, Attending Provider Active Social Insurance Adviser Relationship Specialty Start Date End Date Jose Antonio Flower MD [address] [place] [address] PCP - General Family Medicine 04/11/18 Team [...] Inactive Member Role Status Dates Dr. Bailey M Jung-White , DO Primary Care Provider Act yuliana Start: [...] Team Status: Inactive Member Role Status Dates Velasquez Galvin MD [...] November 14, 2024 End: November 14, 2024 Team Status: Active Member Role Status Dates No Primary Care Physician Primary Care Provider Active Start: December 01, 2024 Stephanie Villar Attending Provider Active Start: 2024 Stephanie Villar Referring Provider Active Start: 2024 Team Status: Inactive Member Role Status Dates No Primary Care Physician Primary Care Provider Active Start: December 05, 2024 End: December 05, 2024 Velasquez Galvin MD Attending Provider Active St art: December 05, 2024 End: December 05, 2024 Velasquez Galvin MD Referring Provider Active St art: December 05, 2024 End: December 05, 2024 Dr. Jass Jenkins MD Other Provider Active S tart: December 05, 2024 End: December 05, 2024 Team Status: Active Member Role Status Dates No Primary Care Physician Primary Care Provider Active Start: December 05, 2024 Velasquez Galvin MD Attending Provider Active St art: December 05, 2024 Velasquez Galvin MD Referring Provider Active St art: December 05, 2024 Velasquez Galvin MD Other Provider Active Start: December 05, 2024 Dr. Jass Jenkins MD Other Provider Active S tart: December 05, 2024 Team Status: Inactive Member Role Status Dates No Primary Care Physician Primary Care Provider Active Start: December 07, 2024 End: December 07, 2024 No Primary Care Physician Referring Provider Active Start: December 07, 2024 End: December 07, 2024 Velasquez Galvin MD Attending Provider Active St art: December 07, 2024 End: December 07, 2024 Team Status: Active Member Role/Relationship Status Dates No Primary Care Physician Primary Care Provider Active Team Status: Inactive Member Role/Relationship Status Dates Dr. Bailey aLng DO Primary Care Provider Act y[place]iana Start: September 06, 2024 End: September 06, 2024 Dr. Bailey Lang , Referring Provider Active Start: September 06, 2024 End: September 06, 2024 Velasquez Galvin MD Attending Provider Active St art: September 06, 2024 End: September 06, 2024 Team Status: Inactive Member Role/Relationship Status Dates Dr. Bailey Lang , Primary Care Provider Act y[place] Start: September 06, 2024 End: September 06, 2024 Dr. Duke Velazquez MD Attending Provider Active S tart: September 06, 2024 End: September 06, 2024 Team Status: Inactive Member Role/Relationship Status Dates No Primary Care Physician Primary Care Provider Active Start: September 21, 2024 End: September 21, 2024 Indira James CNM Attending Provider Active Start: September 21, 2024 End: September 21, 2024 Indira James CNM Referring Provider Active Start: September 21, 2024 End: September 21, 2024 Team Status: Inactive Member Role/Relationship Status Dates No Primary Care Physician Primary Care Provider Active Start: September 25, 2024 End: September 25, 2024 Indira James CNM Attending Provider Active Start: September 25, 2024 End: September 25, 2024 Indira James CNM Referring Provider Active Start: September 25, 2024 End: September 25, 2024 Team Status: Inactive Member Role/Relationship Status Dates Velasquez Galvin MD Attending Provider Active St art: September 26, 2024 End: September 26, 2024 Velasquez Galvin MD Referring Provider Active St art: September 26, 2024 End: September 26, 2024 No Primary Care Physician Primary Care Provider Active Start: September 26, 2024 End: September 26, 2024 Team Status: Inactive Member Role/Relationship Status Dates No Primary Care Physician Primary Care Provider Active Start: October 01, 2024 End: October 01, 2024 No Primary Care Physician Referring Provider Active Start: October 01, 2024 End: October 01, 2024 Velasquez Galvin MD Attending Provider Active St art: October 01, 2024 End: October 01, 2024 Team Status: Inactive Member Role/Relationship Status Dates No Primary Care Physician Primary Care Provider Active Start: November 14, 2024 End: November 14, 2024 No Primary Care Physician Referring Provider Active Start: November 14, 2024 End: November 14, 2024 LUCA Jack Attending Provider Active Start: November 14, 2024 End: November 14, 2024 Team Status: Active Member Role/Relationship Status Dates No Primary Care Physician Primary Care Provider Active Start: December 01, 2024 Stephanie Aurea Attending Provider Active Start: 2024 Stephanie Aurea Referring Provider Active Start: 2024 Team Status: Inactive Member Role/Relationship Status Dates No Primary Care Physician Primary Care Provider Active Start: December 05, 2024 End: December 05, 2024 Velasquez Galvin MD Attending Provider Active St art: December 05, 2024 End: December 05, 2024 Velasquez Galvin MD Referring Provider Active St art: December 05, 2024 End: December 05, 2024 Dr. Jass Jenkins MD Other Provider Active S tart: December 05, 2024 End: December 05, 2024 Team Status: Active Member Role/Relationship Status Dates No Primary Care Physician Primary Care Provider Active Start: December 05, 2024 Velasquez Galvin MD Attending Provider Active St art: December 05, 2024 Velasquez Galvin MD Referring Provider Active St art: December 05, 2024 Velasquez Galvin MD Other Provider Active Start: December 05, 2024 Dr. Jass Jenkins MD Other Provider Active S tart: December 05, 2024 Team Status: Inactive Member Role/Relationship Status Dates No Primary Care Physician Primary Care Provider Active Start: December 07, 2024 End: December 07, 2024 No Primary Care Physician Referring Provider Active Start: December 07, 2024 End: December 07, 2024 Velasquez Galvin MD Attending Provider Active St art: December 07, 2024 End: December 07, 2024 Team Status: Inactive Member Role/Relationship Status Dates No Primary Care Physician Primary Care Provider Active Start: December 20, 2024 End: December 20, 2024 No Primary Care Physician Referring Provider Active Start: December 20, 2024 End: December 20, 2024 Velasquez Galvin MD Attending Provider Active St art: December 20, 2024 End: December 20, 2024 Source Comments (unrecognize d section and content) In the event this informatio n is protected by the Federal Confidentiality of Alcohol and Drug Abuse Patient Records regulations: The Federal rules restrict any use of the information to criminally investigate or prosecute any alcohol or drug abuse patient.[facility] Reason for Visit (unrecogniz ed section and content) Specialty Diagnoses / Procedures Referred By Gunnar smith Referred To Contact Radiology / [facility] Diagnoses Pain in right wrist Right wrist pain [M25.531] Procedures X-RAY WRIST COMPLET MIN 3 VIEWS XR GENERAL 7 Maria Esther Alberto, [employer] [address] [place] [address] Radio General [facility] [address] [place] [address] Referral ID Status Reason Start Date Expiration Date Visits Re quested Visits Authorized [id number] Closed 03/30/2020 06/28/2020 1 1 FOR RECORDS [...] BE BASED ON THE PRIMARY CLINICAL RECORDS. [facility] [employer] [facility]. provides no warranty or guarantee of the accuracy or completeness of information in this document.
[2025-04-13 09:29] LABS: hCG Titer Quant., Serum 206 mIU/mL (<9 non-preg)
== END | disposition home or self-care (01) ==
LOC: LAB 08:33
PROVIDERS: Referring Provider Obstetrics & Gynecology; Visit Provider Obstetrics & Gynecology
DX: O20.0 Threatened abortion (principal); Z3A.00 Weeks of gestation of pregnancy not specified
CPT/HCPCS: 36415; 84702

== ENCOUNTER → 2025-04-19 | Outpatient (CLI) | payer SELFPAY ==
[2025-04-19 10:59] LABS: hCG Titer Quant., Serum 24 mIU/mL (<9 non-preg)
== END | disposition home or self-care (01) ==
LOC: LAB 08:57
PROVIDERS: Referring Provider Obstetrics & Gynecology; Visit Provider Obstetrics & Gynecology
DX: O03.9 Complete or unspecified spontaneous abortion without complication (principal)
CPT/HCPCS: 36415; 84702